=== PATIENT | female | born 1970 | race Two or more races ===

== ENCOUNTER 2017-09-11 10:27 | Inpatient (IN) | payer MEDICAID ==
[~2017-09-11] VITALS: Ht 175.3 cm; Wt 106.4 kg
[2017-09-11 11:46] LABS: Basophils # (auto) 0.1 uL; Basophils % (auto) 0.8 % (0.0-2.0); Eosinophils # (auto) 0.1 uL; Eosinophils % (auto) 1.7 % (0.0-7.0); Hematocrit 38.1 % (36.0-46.0); Hemoglobin 12.4 g/dL (12.2-16.2); Lymphocytes # (auto) 1.1 uL; Lymphocytes % (auto) 14.8 % (10.0-50.0); Mean Corpuscular Hgb Conc. 32.5 g/dL (32.0-36.0); Mean Corpuscular Volume 92.3 fL (80.0-100.0); Monocytes # (auto) 0.5 uL; Monocytes % (auto) 7.6 % (0.0-12.0); Neutrophils # (auto) 5.4 uL; Neutrophils % (auto) 75.1 % (37.0-80.0); Platelet Count (auto) 291 10^3/uL (140-450); Red Blood Cells 4.13 10^6/uL (4.0-5.20); Red Cell Distribution Width 14.3 % (11.8-14.3); White Blood Cell 7.2 10^3/uL (4.4-10.8)
[2017-09-11 11:49] LABS: Albumin 3.8 g/dL (3.4-5.0); BUN/Creatinine Ratio 13.9; Bilirubin, Total 0.2 mg/dL (0.2-1.0); Calcium 8.4 mg/dL (8.5-10.1); Potassium 3.9 mmol/L (3.5-5.1); Total Protein 7.5 g/dL (6.4-8.2)
[2017-09-11] MEDS ORDERED: SODIUM CHLORIDE 0.9% 1,000 ML IVB ONE (12:39)
[2017-09-11 14:00] LABS: Magnesium 2.5 mg/dL (1.6-2.6)
[2017-09-11 14:43] LABS: INR 0.95 (0.9-1.15); Partial Thromboplastin Time 21.7 sec (22.64-33.71); Prothrombin Time 10.4 sec (9.37-12.3)
[2017-09-11 15:49] LABS: Urine Bacteria MANY /hpf (None Seen); Urine Blood Negative /uL (Negative); Urine Mucus FEW (None Seen); Urine Specific Gravity 1.019 (1.001-1.035); Urine WBC 21 /hpf (0 - 5); Urine WBC Clumps PRESENT /hpf (None Seen)
[2017-09-11] MEDS ORDERED: LACTULOSE 20Gm/30ML SOLN PO PRN (17:15)
[2017-09-11] MEDS ORDERED: LORazepam 0.5 MG TAB PO PRN (17:15)
[2017-09-11] MEDS ORDERED: NITROGLYCERIN 0.4 MG SL TAB SL PRN (17:15)
[2017-09-11] MEDS ORDERED: DEXTROSE (50%) 50ML SYRG IV PRN (17:15)
[2017-09-11] MEDS ORDERED: PROMETHAZINE HCL 25 MG/ML 1ML IV PRN (17:15)
[2017-09-11] MEDS ORDERED: TEMAZEPAM 15 MG CAP PO PRN (17:15)
[2017-09-11] MEDS ORDERED: cefTRIAXone 1GM/10ml IVPUSH 10 ML IV ONE (17:15)
[2017-09-11] MEDS ORDERED: ACETAMINOPHEN 500 MG TAB PO PRN (17:15)
[2017-09-11] MEDS ORDERED: MORPHINE SULFATE 4 MG/ML SYR/VIAL IV PRN (17:15)
[2017-09-11] MEDS ORDERED: HYDROcodone-ACET 5/325MG TAB PO PRN (17:15)
[2017-09-11 17:40] LABS: Folate (Folic Acid) > 24.00 ng/mL (5.38-24)
[2017-09-11] MEDS: SODIUM CHLORIDE 0.9% 1,000 ML IV SCH ×2 (18:26→21:41)
[2017-09-11] MEDS: ACCU-CHEK COMFORT CURVE STRIP VI SCH (18:54)
[2017-09-11 18:56] LABS: Albumin 3.7 g/dL (3.4-5.0); BUN/Creatinine Ratio 16.4; Bilirubin, Total 0.3 mg/dL (0.2-1.0); Calcium 8.1 mg/dL (8.5-10.1); Potassium 3.9 mmol/L (3.5-5.1); Total Protein 7.4 g/dL (6.4-8.2)
[2017-09-11 19:00] LABS: Alcohol, Urine < 3.0 mg/dL (0-5); Amphetamine Screen, Urine NEGATIVE (NEGATIVE); Barbiturate Scree,Urine NEGATIVE (NEGATIVE); Benzodiazephine Screen, Urine POSITIVE (NEGATIVE); Cannabinoid Screen, Urine NEGATIVE (NEGATIVE); Cocaine Screen, Urine NEGATIVE (NEGATIVE); Opiate Scree,Urine NEGATIVE (NEGATIVE); Phencyclidine Screen, Urine NEGATIVE (NEGATIVE)
[2017-09-11] MEDS: MORPHINE SULFATE 4 MG/ML SYR/VIAL IV PRN (21:40)
[2017-09-11 23:00] VITALS: BP 144/73
[2017-09-12] MEDS: ACCU-CHEK COMFORT CURVE STRIP VI SCH ×3 (00:19→11:43)
[2017-09-12] MEDS ORDERED: TRAZ-181 PO (00:48)
[2017-09-12] MEDS ORDERED: ZOLP10TA PO (00:48)
[2017-09-12] MEDS ORDERED: ALPR1TAB2 PO (00:48)
[2017-09-12] MEDS ORDERED: SERT-135 PO ×2 (00:48→09:14)
[2017-09-12 01:19] VITALS: BP 144/73
[2017-09-12] MEDS: MORPHINE SULFATE 4 MG/ML SYR/VIAL IV PRN ×2 (03:35→08:24)
[2017-09-12 05:12] VITALS: BP 116/67
[2017-09-12 06:25] LABS: Albumin 3.6 g/dL (3.4-5.0); Calcium 8.7 mg/dL (8.5-10.1)
[2017-09-12 06:28] LABS: Bilirubin, Total 0.2 mg/dL (0.2-1.0)
[2017-09-12 09:00] VITALS: BP 143/81
[2017-09-12] MEDS ORDERED: cefTRIAXone 1GM/10ml IVPUSH 10 ML IV SCH (09:00)
[2017-09-12] MEDS ORDERED: ATOR20TA PO (09:14)
[2017-09-12] MEDS: SODIUM CHLORIDE 0.9% 1,000 ML IV SCH (09:25)
[2017-09-12] MEDS ORDERED: ENOXAPARIN SOD 40 MG/0.4 ML SYRINGE SC SCH (10:00)
[2017-09-12] MEDS ORDERED: ASPirin 81 mg TAB PO SCH (10:00)
[2017-09-12] MEDS ORDERED: PANTOPRAZOLE 40 MG TAB PO SCH (10:00)
[2017-09-12] MEDS ORDERED: SERTRALINE HCL 50 MG TAB PO SCH (11:00)
[2017-09-12] MEDS ORDERED: ALPRAZolam 0.5 MG TAB PO PRN (11:00)
[2017-09-12 13:00] VITALS: BP 140/87
[2017-09-12 17:00] VITALS: BP 114/48
[2017-09-12] MEDS ORDERED: AMOXICILLIN/CLAVUL 875 MG TAB PO SCH (22:00)
== END 2017-09-12 17:10 | disposition left against medical advice (07) | DRG 463 ==
LOC: EDBD 10:27 → EDUNIT# 10:27 → ER 10:27 → TELE 10:28 → TELE-WESTW 20:39
PROVIDERS: ADMIT Internal Medicine; ATTEND Internal Medicine
DX: N39.0 Urinary tract infection, site not specified (principal); N17.0 Acute kidney failure with tubular necrosis; I95.1 Orthostatic hypotension; E86.0 Dehydration; E66.3 Overweight; E78.5 Hyperlipidemia, unspecified; F32.9 Major depressive disorder, single episode, unspecified; G47.00 Insomnia, unspecified; G89.29 Other chronic pain; R29.6 Repeated falls; M54.9 Dorsalgia, unspecified; D32.0 Benign neoplasm of cerebral meninges; S09.8XXA Other specified injuries of head, initial encounter; K59.00 Constipation, unspecified; F41.9 Anxiety disorder, unspecified; W18.39XA Other fall on same level, initial encounter; R73.9 Hyperglycemia, unspecified; B95.2 Enterococcus as the cause of diseases classified elsewhere; Z53.21 Procedure and treatment not carried out due to patient leaving prior to being seen by health care provider; Z90.49 Acquired absence of other specified parts of digestive tract; Z82.49 Family history of ischemic heart disease and other diseases of the circulatory system; Z68.34 Body mass index [BMI] 34.0-34.9, adult; Y93.89 Activity, other specified; Y92.89 Other specified places as the place of occurrence of the external cause; Y99.8 Other external cause status
CPT/HCPCS: 36415; 70450; 70551; 71045; 76775; 80053; 80307; 81001; 82550; 82607; 82746; 82962; 83036; 83735; 84443; 84484; 85025; 85610; 85652; 85730; 87086; 87088; 87186; 93005; 93306; 93886; 94761; 96361; 96374

== ENCOUNTER 2017-10-15 12:08 | Emergency (ER) | payer MEDICAID ==
[~2017-10-15] VITALS: Ht 177.8 cm; Wt 104.3 kg
[~2017-10-15 12:08] MED LIST: ALPR1TAB2 PO; ATOR20TA PO; SERT-135 PO; TRAZ-181 PO; ZOLP10TA PO
[2017-10-15 14:53] LABS: Urine Bacteria NONE SEEN /hpf (None Seen); Urine Blood Negative /uL (Negative); Urine Specific Gravity 1.014 (1.001-1.035); Urine WBC 1 /hpf (0 - 5)
[2017-10-15 15:59] VITALS: BP 145/80
== END 2017-10-15 15:53 | disposition home or self-care (01) ==
LOC: EDBD 12:08 → ER 12:08
DX: R10.30 Lower abdominal pain, unspecified (principal); Z46.82 Encounter for fitting and adjustment of non-vascular catheter; Z90.49 Acquired absence of other specified parts of digestive tract
CPT/HCPCS: 51702; 81001

== ENCOUNTER 2020-10-21 13:10 | Inpatient (IN) | payer MEDICAID ==
[~2020-10-21] VITALS: Ht 172.7 cm; Wt 99.8 kg
[~2020-10-21 13:10] MED LIST changes: -SERT-135 PO; +SERT100T PO
[2020-10-21] MEDS ORDERED: SODIUM CHLORIDE 0.9% 1,000 ML IV ONE (13:30)
[2020-10-21 14:32] LABS: Basophils # (auto) 0 10 ^3/uL (0-0.2); Basophils % (auto) 0.7 % (0.0-2.0); Eosinophils # (auto) 0.2 10 ^3/uL (0-0.8); Eosinophils % (auto) 3.4 % (0.0-7.0); Hemoglobin 11.7 g/dL (12.2-16.2); Lymphocytes # (auto) 1.5 10 ^3/uL (0.4-5.4); Lymphocytes % (auto) 28.2 % (10.0-50.0); Mean Corpuscular Hemoglobin 30.4 pg (28.0-32.0); Mean Corpuscular Hgb Conc. 33.6 g/dL (32.0-36.0); Mean Corpuscular Volume 90.6 fL (80.0-100.0); Monocytes # (auto) 0.5 10 ^3/uL (0-1.3); Monocytes % (auto) 9.4 % (0.0-12.0); Neutrophils # (auto) 3.1 10 ^3/uL (1.6-8.6); Neutrophils % (auto) 58.3 % (37.0-80.0); Platelet Count (auto) 235 10^3/uL (140-450); Red Blood Cells 3.86 10^6/uL (4.0-5.20); Red Cell Distribution Width 14.4 % (11.8-14.3); White Blood Cell 5.3 10^3/uL (4.4-10.8)
[2020-10-21 14:37] LABS: Albumin 3.3 g/dL (3.4-5.0); Anion Gap 4 (5-15); Blood Urea Nitrogen 30 mg/dL (7-18); Calcium 7.9 mg/dL (8.5-10.1); Carbon Dioxide 24 mmol/L (21-32); Chloride 112 mmol/L (98-107); Glucose 95 mg/dL (74-106); Magnesium 2.6 mg/dL (1.6-2.6); Potassium 4.5 mmol/L (3.5-5.1); Sodium 140 mmol/L (136-145)
[2020-10-21 14:43] LABS: Alanine Aminotransferase 26 U/L (13-56); Alkaline Phosphatase 82 U/L (45-117); Aspartate Aminotransferase 11 U/L (15-37); BUN/Creatinine Ratio 16.3; Bilirubin, Total 0.3 mg/dL (0.2-1.0); GFR African American 37 mL/min; GFR Non-African American 31 mL/min; Total Protein 6.5 g/dL (6.4-8.2)
[2020-10-21] MEDS ORDERED: cefTRIAXone 1GM/50ML D5W 50 ML IV ONE (16:45)
[2020-10-21 17:27] LABS: Urine Bacteria NONE SEEN /hpf (None Seen); Urine Blood Negative /uL (Negative); Urine Hyaline Cast FEW /lpf (0 - 2); Urine Mucus FEW (None Seen); Urine Specific Gravity 1.007 (1.001-1.035); Urine WBC 3 /hpf (0 - 5)
[2020-10-21] MEDS ORDERED: ACETAMINOPHEN 650 mg PER 20.3 mL UD PO PRN (19:15)
[2020-10-21] MEDS: SODIUM CHLORIDE 0.9% 1,000 ML IV SCH (19:15)
[2020-10-21] MEDS ORDERED: ONDANSETRON HCL 4 MG/2 ML VIAL IV PRN (19:15)
[2020-10-21] MEDS ORDERED: LORazepam 2MG/ML-1ML VIAL IV PRN (21:30)
[2020-10-22] MEDS: SODIUM CHLORIDE 0.9% 1,000 ML IV SCH ×3 (02:00→16:42)
[2020-10-22 06:26] LABS: Basophils # (auto) 0 10 ^3/uL (0-0.2); Basophils % (auto) 0.7 % (0.0-2.0); Eosinophils # (auto) 0.3 10 ^3/uL (0-0.8); Eosinophils % (auto) 4.2 % (0.0-7.0); Hematocrit 36.9 % (36.0-46.0); Hemoglobin 12.3 g/dL (12.2-16.2); Lymphocytes # (auto) 1.9 10 ^3/uL (0.4-5.4); Lymphocytes % (auto) 31.7 % (10.0-50.0); Mean Corpuscular Hemoglobin 30.2 pg (28.0-32.0); Mean Corpuscular Hgb Conc. 33.4 g/dL (32.0-36.0); Mean Corpuscular Volume 90.3 fL (80.0-100.0); Monocytes # (auto) 0.5 10 ^3/uL (0-1.3); Monocytes % (auto) 7.9 % (0.0-12.0); Neutrophils # (auto) 3.3 10 ^3/uL (1.6-8.6); Neutrophils % (auto) 55.5 % (37.0-80.0); Nucleated Red Blood Cells % 0.2 %; Platelet Count (auto) 234 10^3/uL (140-450); Red Blood Cells 4.08 10^6/uL (4.0-5.20); Red Cell Distribution Width 14.2 % (11.8-14.3)
[2020-10-22 06:42] LABS: Albumin 3.3 g/dL (3.4-5.0); Calcium 7.9 mg/dL (8.5-10.1); Potassium 3.7 mmol/L (3.5-5.1)
[2020-10-22 06:45] LABS: BUN/Creatinine Ratio 19.8; Bilirubin, Total 0.3 mg/dL (0.2-1.0); Total Protein 6.9 g/dL (6.4-8.2)
[2020-10-22] MEDS ORDERED: traMADol HCL 50 MG TAB PO ONE (09:30)
[2020-10-22] MEDS ORDERED: levoFLOXacin 500MG 100 ML IV SCH (10:00)
[2020-10-22] MEDS ORDERED: PREG300C12 PO (10:16)
[2020-10-22] MEDS ORDERED: FENO145T27 PO (10:16)
[2020-10-22] MEDS ORDERED: PERCOT (10:17)
[2020-10-22] MEDS ORDERED: CYCL-611 PO (10:17)
[2020-10-22] MEDS ORDERED: FUR20T PO (10:17)
[2020-10-22 16:28] VITALS: BP 138/64
== END 2020-10-22 18:05 | disposition home health service (06) | DRG 207 ==
LOC: ER 13:10 → EDBD 13:10 → TELE 19:05
PROVIDERS: ADMIT Internal Medicine; ATTEND Internal Medicine
DX: I95.2 Hypotension due to drugs (principal); E11.22 Type 2 diabetes mellitus with diabetic chronic kidney disease; N17.9 Acute kidney failure, unspecified; I13.0 Hypertensive heart and chronic kidney disease with heart failure and stage 1 through stage 4 chronic kidney disease, or unspecified chronic kidney disease; I50.9 Heart failure, unspecified; E66.01 Morbid (severe) obesity due to excess calories; N18.30 Chronic kidney disease, stage 3 unspecified; R55 Syncope and collapse; E03.9 Hypothyroidism, unspecified; F41.9 Anxiety disorder, unspecified; Z20.822 Contact with and (suspected) exposure to COVID-19; E78.5 Hyperlipidemia, unspecified; F17.210 Nicotine dependence, cigarettes, uncomplicated; F32.9 Major depressive disorder, single episode, unspecified; Z68.33 Body mass index [BMI] 33.0-33.9, adult; Z90.49 Acquired absence of other specified parts of digestive tract; Z90.710 Acquired absence of both cervix and uterus; Z82.49 Family history of ischemic heart disease and other diseases of the circulatory system; T46.5X5A Adverse effect of other antihypertensive drugs, initial encounter; N28.1 Cyst of kidney, acquired
CPT/HCPCS: 36415; 70450; 70551; 71045; 74176; 80053; 81001; 83735; 84443; 84484; 85025; 87040; 87086; 87426; 96361; 96365; 99291; G0378; J0696; J1956

== ENCOUNTER 2021-02-28 00:59 | Emergency (ER) | payer MEDICAID ==
[~2021-02-28] VITALS: Ht 177.8 cm; Wt 81.6 kg
[~2021-02-28 00:59] MED LIST changes: +CYCL-611 PO; +FENO145T27 PO; +PERCOT; +PREG300C12 PO; -TRAZ-181 PO; -ZOLP10TA PO
[2021-02-28 02:23] LABS: Basophils # (auto) 0.1 10 ^3/uL (0-0.2); Basophils % (auto) 0.7 % (0.0-2.0); Eosinophils # (auto) 0.4 10 ^3/uL (0-0.8); Eosinophils % (auto) 4.8 % (0.0-7.0); Hematocrit 36.4 % (36.0-46.0); Hemoglobin 12.4 g/dL (12.2-16.2); Lymphocytes # (auto) 2.1 10 ^3/uL (0.4-5.4); Lymphocytes % (auto) 28.9 % (10.0-50.0); Mean Corpuscular Hemoglobin 30.5 pg (28.0-32.0); Mean Corpuscular Hgb Conc. 33.9 g/dL (32.0-36.0); Mean Corpuscular Volume 89.8 fL (80.0-100.0); Monocytes # (auto) 0.7 10 ^3/uL (0-1.3); Monocytes % (auto) 9.6 % (0.0-12.0); Neutrophils # (auto) 4.1 10 ^3/uL (1.6-8.6); Red Blood Cells 4.05 10^6/uL (4.0-5.20); White Blood Cell 7.3 10^3/uL (4.4-10.8)
[2021-02-28 02:41] LABS: Albumin 3.3 g/dL (3.4-5.0); Anion Gap 4 (5-15); Blood Urea Nitrogen 25 mg/dL (7-18); Calcium 8.4 mg/dL (8.5-10.1); Carbon Dioxide 27 mmol/L (21-32); Chloride 110 mmol/L (98-107); Glucose 144 mg/dL (74-106); Sodium 141 mmol/L (136-145)
[2021-02-28 02:43] LABS: Alanine Aminotransferase 32 U/L (13-56); Aspartate Aminotransferase 20 U/L (15-37); BUN/Creatinine Ratio 24.3; GFR African American 72 mL/min; GFR Non-African American 60 mL/min
[2021-02-28 02:47] LABS: Alkaline Phosphatase 122 U/L (45-117); Bilirubin, Total 0.2 mg/dL (0.2-1.0); Total Protein 7.4 g/dL (6.4-8.2)
[2021-02-28 04:11] LABS: Urine Bacteria NONE SEEN /hpf (None Seen); Urine Blood Negative /uL (Negative); Urine Specific Gravity 1.037 (1.001-1.035); Urine WBC 1 /hpf (0 - 5)
[2021-02-28] MEDS ORDERED: diazePAM 2 MG TAB PO ONE (04:45)
[2021-02-28] MEDS ORDERED: diazePAM 2 MG TAB ONE (05:11)
[2021-02-28] MEDS ORDERED: OXYCODONE W/ ACETAMINOPHEN 5/325MG TABLET PO STA (05:13)
[2021-02-28] MEDS ORDERED: diazePAM 2 MG TAB PO STA (05:13)
[2021-02-28 09:15] VITALS: BP 114/68
== END 2021-02-28 09:22 | disposition home or self-care (01) ==
LOC: ER 00:59 → EDBD 00:59 → ER 09:22
DX: R60.0 Localized edema (principal); E88.09 Other disorders of plasma-protein metabolism, not elsewhere classified; I11.0 Hypertensive heart disease with heart failure; I50.9 Heart failure, unspecified; F17.210 Nicotine dependence, cigarettes, uncomplicated; Z90.49 Acquired absence of other specified parts of digestive tract; Z90.710 Acquired absence of both cervix and uterus; Z79.899 Other long term (current) drug therapy; Z20.822 Contact with and (suspected) exposure to COVID-19
CPT/HCPCS: 36415; 71045; 74177; 80053; 81001; 83605; 83880; 84484; 85025; 85379; 87040; 87426; 93005

== ENCOUNTER 2021-12-29 21:16 | Emergency (ER) | payer MEDICAID ==
[~2021-12-29 21:16] MED LIST changes: +ASPI-318 PO; +ATOR20TA50 PO; +BENA5TAB9 PO; +FUR20T PO; +PRAZ2CAP2 PO; +SERT-160 PO; +TIOT1AER INH
[2021-12-29 22:37] VITALS: BP 150/84
== END 2021-12-30 23:45 | disposition left against medical advice (07) ==
LOC: ER 21:16 → EDBD 21:16 → ER 12-30 23:45
DX: M79.669 Pain in unspecified lower leg (principal); Z53.21 Procedure and treatment not carried out due to patient leaving prior to being seen by health care provider

== ENCOUNTER 2022-11-03 16:07 | Inpatient (IN) | payer MEDICAID ==
[~2022-11-03] VITALS: Ht 165.1 cm; Wt 135.0 kg
[2022-11-03 16:59] LABS: Basophils # (auto) 0.1 10 ^3/uL (0-0.2); Basophils % (auto) 0.7 % (0.0-2.0); Eosinophils # (auto) 0.3 10 ^3/uL (0-0.8); Eosinophils % (auto) 2.6 % (0.0-7.0); Hematocrit 35.4 % (36.0-46.0); Lymphocytes # (auto) 2.7 10 ^3/uL (0.4-5.4); Lymphocytes % (auto) 28.2 % (10.0-50.0); Mean Corpuscular Hemoglobin 30.5 pg (28.0-32.0); Mean Corpuscular Hgb Conc. 33.9 g/dL (32.0-36.0); Monocytes % (auto) 10.4 % (0.0-12.0); Neutrophils # (auto) 5.6 10 ^3/uL (1.6-8.6); Neutrophils % (auto) 58.1 % (37.0-80.0); Nucleated Red Blood Cells % 0.1 %; Red Blood Cells 3.93 10^6/uL (4.0-5.20); Red Cell Distribution Width 15.8 % (11.8-14.3); White Blood Cell 9.7 10^3/uL (4.4-10.8)
[2022-11-03] MEDS ORDERED: SODIUM CHLORIDE 0.9% 2,000 ML IV ONE (17:00)
[2022-11-03] MEDS ORDERED: NALOXONE HCL 1MG/ML 2ML SYRINGE IV ONE (17:00)
[2022-11-03] MEDS ORDERED: HYDROCORTISONE SOD SUCC 100 MG/2ML INJ VIAL IV ONE (17:00)
[2022-11-03] MEDS ORDERED: NOREPINEPHRINE 8 MG/250ML KIT 250 ML IV SCH ×2 (17:00)
[2022-11-03] MEDS ORDERED: NOREPINEPHRINE 8 MG/250ML KIT 250 ML IV ONE (17:03)
[2022-11-03 17:15] LABS: INR 1.03 (0.9-1.15); Partial Thromboplastin Time 26.5 sec (24.6-33.4)
[2022-11-03 17:16] LABS: Albumin 3.5 g/dL (3.4-5.0); Magnesium 2.6 mg/dL (1.6-2.6); Potassium 5.1 mmol/L (3.5-5.1)
[2022-11-03 17:21] LABS: BUN/Creatinine Ratio 12.9 (10.0-20.0); Bilirubin, Total 0.6 mg/dL (0.2-1.0); Total Protein 6.3 g/dL (6.4-8.2)
[2022-11-03] MEDS ORDERED: ALBUTEROL SULF 2.5 MG/0.5ML(0.5%) NEB SOLN NEB ONE (18:00)
[2022-11-03] MEDS ORDERED: IPRATROPIUM BROM 0.5 MG/2.5ML INH SOL NEB ONE (18:00)
[2022-11-03] MEDS ORDERED: KETAMINE 50mg/ML 10ml Vial (500mg/10ml) IV ONE ×3 (20:30→22:00)
[2022-11-03] MEDS ORDERED: DOCUSATE SOD 100 MG CAP PO PRN (23:15)
[2022-11-03] MEDS ORDERED: IBUPROFEN 600 MG TAB PO PRN (23:15)
[2022-11-03] MEDS ORDERED: ONDANSETRON HCL 4 MG/2 ML VIAL IV PRN (23:15)
[2022-11-03] MEDS ORDERED: NITROGLYCERIN 0.4 MG SL TAB SL PRN (23:45)
[2022-11-03] MEDS ORDERED: MORPHINE SULFATE INJ 2 MG/ml SYRG IV PRN (23:45)
[2022-11-04] VITALS (24 sets, daily range): BP systolic 73–141; BP diastolic 38–124
[2022-11-04 00:42] LABS: Urine Bacteria FEW /hpf (None Seen); Urine Blood Negative /uL (Negative); Urine Hyaline Cast FEW /lpf (0 - 2); Urine Specific Gravity 1.009 (1.001-1.035); Urine WBC <1 /hpf (0 - 5)
[2022-11-04 01:01] LABS: Alcohol, Urine < 3.0 mg/dL (0-10); Barbiturate Scree,Urine POSITIVE (NEGATIVE); Cannabinoid Screen, Urine NEGATIVE (NEGATIVE)
[2022-11-04 01:12] LABS: Amphetamine Screen, Urine NEGATIVE (NEGATIVE); Benzodiazephine Screen, Urine POSITIVE (NEGATIVE); Cocaine Screen, Urine NEGATIVE (NEGATIVE); Opiate Scree,Urine POSITIVE (NEGATIVE); Phencyclidine Screen, Urine NEGATIVE (NEGATIVE)
[2022-11-04] MEDS: SODIUM CHLOR 0.9% PF (SALINE LOCK) 10ML VIAL/SYR IV SCH ×2 (05:30→14:03)
[2022-11-04 06:22] LABS: Basophils # (auto) 0.1 10 ^3/uL (0-0.2); Basophils % (auto) 0.6 % (0.0-2.0); Eosinophils # (auto) 0.3 10 ^3/uL (0-0.8); Eosinophils % (auto) 2.3 % (0.0-7.0); Hematocrit 37.4 % (36.0-46.0); Hemoglobin 12.6 g/dL (12.2-16.2); Lymphocytes # (auto) 2.7 10 ^3/uL (0.4-5.4); Lymphocytes % (auto) 21.5 % (10.0-50.0); Mean Corpuscular Hemoglobin 30.7 pg (28.0-32.0); Mean Corpuscular Hgb Conc. 33.7 g/dL (32.0-36.0); Monocytes # (auto) 1.2 10 ^3/uL (0-1.3); Monocytes % (auto) 9.4 % (0.0-12.0); Neutrophils # (auto) 8.3 10 ^3/uL (1.6-8.6); Neutrophils % (auto) 66.2 % (37.0-80.0); Red Blood Cells 4.11 10^6/uL (4.0-5.20); Red Cell Distribution Width 15.4 % (11.8-14.3); White Blood Cell 12.6 10^3/uL (4.4-10.8)
[2022-11-04] MEDS: ALBUTEROL SULF 2.5 MG/0.5ML(0.5%) NEB SOLN NEB PRN ×3 (06:34→15:03)
[2022-11-04] MEDS: IPRATROPIUM BROM 0.5 MG/2.5ML INH SOL NEB PRN ×3 (06:34→15:03)
[2022-11-04 06:43] LABS: Potassium 4.6 mmol/L (3.5-5.1)
[2022-11-04 06:48] LABS: Albumin 3.5 g/dL (3.4-5.0); BUN/Creatinine Ratio 13.4 (10.0-20.0); Calcium 8.3 mg/dL (8.5-10.1)
[2022-11-04 06:54] LABS: Bilirubin, Total 0.5 mg/dL (0.2-1.0); Total Protein 7.5 g/dL (6.4-8.2)
[2022-11-04] MEDS ORDERED: FUROSEMIDE 20 MG/2 ML VIAL IV ONE (07:00)
[2022-11-04] MEDS ORDERED: FAMOTIDINE (10MG/ML) 2ML VL IV SCH (10:00)
[2022-11-04] MEDS ORDERED: ASPirin 81 mg TAB PO SCH (10:00)
[2022-11-04] MEDS ORDERED: SODIUM CHLORIDE 0.9% 1,000 ML IV SCH (15:15)
[2022-11-04] MEDS ORDERED: ATORVASTATIN 20 MG TAB PO SCH (22:00)
== END 2022-11-04 16:05 | disposition left against medical advice (07) | DRG 812 ==
LOC: EDBD 16:07 → ER 16:07 → TELE 23:33
PROVIDERS: ADMIT Nurse Practitioner Family; ATTEND Nurse Practitioner Family
PROC: 06HM33Z Insertion of Infusion Device into Right Femoral Vein, Percutaneous Approach (ICD-10-PCS; principal; 2022-11-03)
PROC: B54BZZA Ultrasonography of Right Lower Extremity Veins, Guidance (ICD-10-PCS; 2022-11-03)
DX: T42.4X1A Poisoning by benzodiazepines, accidental (unintentional), initial encounter (principal); N17.0 Acute kidney failure with tubular necrosis; G92.8 Other toxic encephalopathy; I95.89 Other hypotension; D63.8 Anemia in other chronic diseases classified elsewhere; E83.51 Hypocalcemia; D63.1 Anemia in chronic kidney disease; E87.1 Hypo-osmolality and hyponatremia; E86.0 Dehydration; E78.00 Pure hypercholesterolemia, unspecified; F17.210 Nicotine dependence, cigarettes, uncomplicated; I12.9 Hypertensive chronic kidney disease with stage 1 through stage 4 chronic kidney disease, or unspecified chronic kidney disease; N18.32 Chronic kidney disease, stage 3b; F32.A Depression, unspecified; H53.8 Other visual disturbances; T40.601A Poisoning by unspecified narcotics, accidental (unintentional), initial encounter; T42.3X1A Poisoning by barbiturates, accidental (unintentional), initial encounter; Z53.29 Procedure and treatment not carried out because of patient's decision for other reasons; Z90.710 Acquired absence of both cervix and uterus; Z82.49 Family history of ischemic heart disease and other diseases of the circulatory system; Z90.49 Acquired absence of other specified parts of digestive tract; Y92.89 Other specified places as the place of occurrence of the external cause
CPT/HCPCS: 36415; 36556; 70450; 71045; 71250; 72125; 74176; 80053; 80307; 81001; 82962; 83605; 83735; 83880; 84484; 85025; 85379; 85610; 85730; 87040; 93005; 94640; 96374; G0378; J3490

== ENCOUNTER 2023-01-18 19:19 | Inpatient (IN) | payer MEDICAID ==
[~2023-01-18] VITALS: Ht 170.2 cm; Wt 112.0 kg
[~2023-01-18 19:19] MED LIST changes: -ASPI-318 PO; +ASPI-764 PO
[2023-01-18 19:25] VITALS: PULSE 69; RESP 25; O2SAT 98
[2023-01-18 19:42] LABS: Base Excess -11.4 mmol/L (-2.0-2.0)
[2023-01-18] MEDS ORDERED: NALOXONE HCL 0.4 MG/ML VIAL IV ONE (19:45)
[2023-01-18] MEDS ORDERED: ONDANSETRON HCL 4 MG/2 ML VIAL IV ONE (19:45)
[2023-01-18] MEDS ORDERED: SODIUM CHLORIDE 0.9% 1,000 ML IV ONE (19:45)
[2023-01-18 20:14] LABS: Urine Bacteria FEW /hpf (None Seen); Urine Blood 2+ /uL (Negative); Urine Clarity HAZY (Clear); Urine Color Brown (Yellow); Urine Hyaline Cast MOD /lpf (0 - 2); Urine Mucus FEW (None Seen); Urine Protein, UAD 1+ (Negative); Urine Specific Gravity 1.018 (1.001-1.035); Urine WBC 12 /hpf (0 - 5)
[2023-01-18 20:17] LABS: Alcohol, Urine < 3.0 mg/dL (0-10); Amphetamine Screen, Urine NEGATIVE (NEGATIVE); Barbiturate Scree,Urine POSITIVE (NEGATIVE); Benzodiazephine Screen, Urine NEGATIVE (NEGATIVE); Cannabinoid Screen, Urine NEGATIVE (NEGATIVE); Cocaine Screen, Urine NEGATIVE (NEGATIVE)
[2023-01-18 20:25] LABS: Opiate Scree,Urine POSITIVE (NEGATIVE); Phencyclidine Screen, Urine NEGATIVE (NEGATIVE)
[2023-01-18 20:26] LABS: Basophils # (auto) 0 10 ^3/uL (0-0.2); Basophils % (auto) 0.2 % (0.0-2.0); Eosinophils # (auto) 0 10 ^3/uL (0-0.8); Eosinophils % (auto) 0.3 % (0.0-7.0); Hematocrit 35.4 % (36.0-46.0); Hemoglobin 11.1 g/dL (12.2-16.2); Lymphocytes # (auto) 0.7 10 ^3/uL (0.4-5.4); Lymphocytes % (auto) 7.6 % (10.0-50.0); Mean Corpuscular Hgb Conc. 31.5 g/dL (32.0-36.0); Mean Corpuscular Volume 85.8 fL (80.0-100.0); Monocytes # (auto) 0.6 10 ^3/uL (0-1.3); Neutrophils % (auto) 85.9 % (37.0-80.0); Nucleated Red Blood Cells % 0.5 %; Red Blood Cells 4.13 10^6/uL (4.0-5.20); Red Cell Distribution Width 18.3 % (11.8-14.3); White Blood Cell 9.4 10^3/uL (4.4-10.8)
[2023-01-18 20:48] LABS: Salicylate 5.4 mg/dL (2.8-20.0)
[2023-01-18 20:53] LABS: INR 1.97 (0.9-1.15); Partial Thromboplastin Time 30.1 SEC (24.5-34.5); Prothrombin Time 19.8 sec (9.3-11.8)
[2023-01-18 21:00] LABS: Acetaminophen < 2.0 ug/mL (10-30)
[2023-01-18 21:37] LABS: Albumin 3.5 g/dL (3.4-5.0); Anion Gap 21 (5-15); Blood Alcohol < 3.0 mg/dL (<10); Carbon Dioxide 16 mmol/L (21-32); Chloride 100 mmol/L (98-107); Glucose 120 mg/dL (74-106); Sodium 137 mmol/L (136-145)
[2023-01-18] MEDS ORDERED: NITROGLYCERIN 0.4 MG SL TAB SL ONE (21:45)
[2023-01-18] MEDS ORDERED: ASPirin-EC 81 mg tab PO ONE (21:45)
[2023-01-18] MEDS ORDERED: FUROSEMIDE 40 MG/4 ML VIAL IV ONE (21:45)
[2023-01-18 21:54] LABS: Alanine Aminotransferase 7123 U/L (13-56); Alkaline Phosphatase 275 U/L (45-117); Aspartate Aminotransferase 5180 U/L (15-37); BUN/Creatinine Ratio 14.3 (10.0-20.0); Bilirubin, Total 1.8 mg/dL (0.2-1.0); GFR African American 6 mL/min; GFR Non-African American 5 mL/min; Total Protein 7.8 g/dL (6.4-8.2)
[2023-01-18 22:07] LABS: Blood Urea Nitrogen 124 mg/dL (7-18); Calcium 5.4 mg/dL (8.5-10.1); Potassium 6.1 mmol/L (3.5-5.1)
[2023-01-18] MEDS ORDERED: ASPirin 300 MG RECTAL SUPP PR ONE (22:15)
[2023-01-18] MEDS ORDERED: ALBUTEROL SULF 2.5 MG/0.5ML(0.5%) NEB SOLN NEB ONE (22:30)
[2023-01-18] MEDS ORDERED: InsuLIN REG 1unit/0.01ml Soln (100units/ml) IV ONE (22:30)
[2023-01-18] MEDS ORDERED: SODIUM BICARBONATE 8.4% INJ 50ML SYRINGE IV ONE (22:30)
[2023-01-18] MEDS ORDERED: CALCIUM CHL 100MG/ML 1,000 MG in D5W 5% 100 ML IV ONE (22:30)
[2023-01-18] MEDS ORDERED: DEXTROSE (50%) 50ML SYRG IV ONE (22:30)
[2023-01-18] MEDS ORDERED: SODIUM ZIRCONIUM CYCL 10 GM PAK PO ONE (22:30)
[2023-01-18] MEDS ORDERED: PIPERACILLIN-TAZOB 3.375GM 100 ML IV ONE (22:30)
[2023-01-18] MEDS ORDERED: FUROSEMIDE 20 MG/2 ML VIAL IV ONE (22:30)
[2023-01-18] MEDS ORDERED: VANCOMYCIN PER PHARMACY 0 MG IV SCH (22:30)
[2023-01-18 22:32] LABS: Lactic Acid w/Reflex 2.1 mmol/L (0.4-2.0)
[2023-01-18] MEDS ORDERED: CALCIUM GLUC 1,000mg/50ml-NS 50 ML IV ONE ×2 (23:00)
[2023-01-18] MEDS ORDERED: VANCOMYCIN 1GM/250ML 250 ML IV ONE (23:00)
[2023-01-19] VITALS (76 sets, daily range): BP systolic 77–183; BP diastolic 37–68; PULSE 71–87; RESP 8–29; TEMP 93.9–100.8; O2SAT 91–100
[2023-01-19] MEDS ORDERED: ETOMIDATE (2MG/ML) 20ML VIAL IV ONE (02:15)
[2023-01-19] MEDS ORDERED: PROPOFOL 100 ML IV SCH (02:15)
[2023-01-19] MEDS ORDERED: ROCURONIUM 10MG/ML 10ML VIAL IV ONE (02:15)
[2023-01-19] MEDS ORDERED: MIDAZOLAM DRIP 50 mg/50mL 50 ML IV ONE (02:16)
[2023-01-19] MEDS: MIDAZOLAM DRIP 50 mg/50mL 50 ML IV SCH ×3 (02:24→17:22)
[2023-01-19] MEDS ORDERED: NITROGLYCERIN 0.4 MG SL TAB SL PRN (02:45)
[2023-01-19] MEDS ORDERED: MORPHINE SULFATE INJ 2 MG/ml SYRG IV PRN (02:45)
[2023-01-19] MEDS ORDERED: ONDANSETRON HCL 4 MG/2 ML VIAL IV PRN (02:45)
[2023-01-19] MEDS ORDERED: SODIUM BICARBONATE 8.4 % INJ 50ML VIAL IV ONE (04:30)
[2023-01-19 04:33] LABS: Base Excess -3.8 mmol/L (-2.0-2.0)
[2023-01-19] MEDS: NOREPINEPHRINE 8 MG/250ML KIT 250 ML IV SCH (05:27)
[2023-01-19] MEDS ORDERED: NOREPINEPHRINE 8 MG/250ML KIT 250 ML IV ONE (05:28)
[2023-01-19] MEDS ORDERED: metroNIDAZOLE 500MG/100ML 100 ML IV SCH (06:00)
[2023-01-19] MEDS ORDERED: LACTULOSE 10g/15ml SOLN 473ML PR SCH (06:00)
[2023-01-19] MEDS: SODIUM CHLOR 0.9% PF (SALINE LOCK) 10ML VIAL/SYR IV SCH ×3 (06:13→23:01)
[2023-01-19] MEDS ORDERED: LACTULOSE 20Gm/30ML SOLN NG ONE (06:45)
[2023-01-19] MEDS ORDERED: FUROSEMIDE 40 MG/4 ML VIAL IV SCH (10:00)
[2023-01-19] MEDS ORDERED: FAMOTIDINE (10MG/ML) 2ML VL IV SCH (10:00)
[2023-01-19] MEDS ORDERED: OPTISON 3ml Vial for INJ IV ONE (10:11)
[2023-01-19] MEDS: HEPARIN SODIUM (PORCINE) 5000 UNITS/ML 1ML VIAL SC SCH ×2 (11:06→23:11)
[2023-01-19] MEDS ORDERED: SODIUM CHLORIDE 0.9% 1,000 ML IV ONE (11:45)
[2023-01-19 12:29] LABS: Albumin 2.8 g/dL (3.4-5.0); Potassium 4.4 mmol/L (3.5-5.1)
[2023-01-19 12:31] LABS: Base Excess -7.5 mmol/L (-2.0-2.0)
[2023-01-19 12:45] LABS: Bilirubin, Total 1.5 mg/dL (0.2-1.0); Total Protein 6.4 g/dL (6.4-8.2)
[2023-01-19 12:49] LABS: Calcium 5.7 mg/dL (8.5-10.1)
[2023-01-19] MEDS: SODIUM BICARBONATE 50ML VIAL 50 ML in SOD CHL 0.45% 1,000 ML IV SCH ×3 (13:12→23:52)
[2023-01-19] MEDS ORDERED: CALCIUM GLUC 1,000mg/50ml-NS 50 ML IV ONE (13:15)
[2023-01-19] MEDS: CEFEPIME 1GM/ 50ML 50 ML IV SCH (13:30)
[2023-01-19] MEDS: LACTULOSE 20Gm/30ML SOLN PO SCH ×2 (13:34→23:10)
[2023-01-19 15:18] LABS: Albumin 2.7 g/dL (3.4-5.0); Potassium 3.8 mmol/L (3.5-5.1)
[2023-01-19 15:20] LABS: Total Protein 6.1 g/dL (6.4-8.2)
[2023-01-19] MEDS ORDERED: DEXTROSE (50%) 50ML SYRG IV PRN (15:45)
[2023-01-19] MEDS: fentaNYL Drip 2500mCg/250mlNS 250 ML IV SCH (15:56)
[2023-01-19 15:57] LABS: BUN/Creatinine Ratio 20.3 (10.0-20.0)
[2023-01-19 15:58] LABS: Bilirubin, Total 1.6 mg/dL (0.2-1.0)
[2023-01-19] MEDS: ACCU-CHEK COMFORT CURVE STRIP VI SCH ×2 (17:56→23:59)
[2023-01-19] MEDS: InsuLIN REG 1unit/0.01ml Soln (100units/ml) SC SCH ×2 (17:56→23:59)
[2023-01-19] MEDS: PROPOFOL 100 ML IV SCH ×2 (18:15→23:02)
[2023-01-20] VITALS (112 sets, daily range): BP systolic 63–184; BP diastolic 34–75; PULSE 52–146; RESP 18–24; TEMP 97.7–100.2; O2SAT 95–100
[2023-01-20] MEDS: MIDAZOLAM DRIP 50 mg/50mL 50 ML IV SCH ×4 (01:00→20:25)
[2023-01-20 03:55] LABS: Basophils # (auto) 0 10 ^3/uL (0-0.2); Basophils % (auto) 0.4 % (0.0-2.0); Eosinophils # (auto) 0.2 10 ^3/uL (0-0.8); Eosinophils % (auto) 3.5 % (0.0-7.0); Hematocrit 29.5 % (36.0-46.0); Hemoglobin 9.5 g/dL (12.2-16.2); Lymphocytes # (auto) 0.9 10 ^3/uL (0.4-5.4); Lymphocytes % (auto) 18.1 % (10.0-50.0); Mean Corpuscular Hemoglobin 27.1 pg (28.0-32.0); Mean Corpuscular Volume 84.6 fL (80.0-100.0); Monocytes # (auto) 0.4 10 ^3/uL (0-1.3); Monocytes % (auto) 8.3 % (0.0-12.0); Neutrophils # (auto) 3.6 10 ^3/uL (1.6-8.6); Neutrophils % (auto) 69.7 % (37.0-80.0); Nucleated Red Blood Cells % 0.3 %; Red Blood Cells 3.49 10^6/uL (4.0-5.20); Red Cell Distribution Width 18.2 % (11.8-14.3); White Blood Cell 5.2 10^3/uL (4.4-10.8)
[2023-01-20 03:58] LABS: Albumin 2.4 g/dL (3.4-5.0); Calcium 6.6 mg/dL (8.5-10.1); Potassium 3.8 mmol/L (3.5-5.1)
[2023-01-20 03:59] LABS: INR 1.63 (0.9-1.15); Partial Thromboplastin Time 29.1 SEC (24.5-34.5); Prothrombin Time 16.6 sec (9.3-11.8)
[2023-01-20 04:10] LABS: BUN/Creatinine Ratio 23.7 (10.0-20.0); Bilirubin, Total 1.4 mg/dL (0.2-1.0)
[2023-01-20] MEDS: NOREPINEPHRINE 8 MG/250ML KIT 250 ML IV SCH (05:45)
[2023-01-20] MEDS: ACCU-CHEK COMFORT CURVE STRIP VI SCH ×3 (05:58→18:00)
[2023-01-20] MEDS: InsuLIN REG 1unit/0.01ml Soln (100units/ml) SC SCH ×3 (05:58→18:00)
[2023-01-20] MEDS: SODIUM CHLOR 0.9% PF (SALINE LOCK) 10ML VIAL/SYR IV SCH ×3 (05:58→21:51)
[2023-01-20] MEDS: IPRATROPIUM BROM 0.5 MG/2.5ML INH SOL NEB SCH ×3 (07:45→18:00)
[2023-01-20] MEDS: ALBUTEROL SULF 2.5 MG/0.5ML(0.5%) NEB SOLN NEB SCH ×3 (07:45→18:00)
[2023-01-20] MEDS: DOXYCYCLINE 100MG/250ML 250 ML IV SCH ×2 (08:27→19:15)
[2023-01-20] MEDS: PROPOFOL 100 ML IV SCH ×2 (10:03→19:27)
[2023-01-20] MEDS: LACTULOSE 20Gm/30ML SOLN PO SCH ×2 (10:04→21:46)
[2023-01-20] MEDS: CEFEPIME 1GM/ 50ML 50 ML IV SCH (10:04)
[2023-01-20] MEDS: PANTOPRAZOLE 40 MG/10 ML VIAL INJ IV SCH (10:04)
[2023-01-20] MEDS: HEPARIN SODIUM (PORCINE) 5000 UNITS/ML 1ML VIAL SC SCH ×2 (10:06→21:47)
[2023-01-20] MEDS: SODIUM BICARBONATE 50ML VIAL 50 ML in SOD CHL 0.45% 1,000 ML IV SCH (10:20)
[2023-01-20 11:00] LABS: Base Excess -4.8 mmol/L (-2.0-2.0)
[2023-01-20] MEDS: ACETYLCYSTEINE 20%(200MG/ML) SOL 4ML NEB SCH ×2 (12:00→18:01)
[2023-01-20] MEDS ORDERED: AMIODARONE HCL (50 MG/ ML) 3 ML VIAL IV ONE (12:26)
[2023-01-20] MEDS ORDERED: AMIODARONE 450mg/250ml AE 250 ML IV ONE (12:27)
[2023-01-20] MEDS ORDERED: AMIODARONE BOLUS KIT 100 ML IV ONE (12:30)
[2023-01-20] MEDS ORDERED: AMIODARONE 450mg/250ml AE 250 ML IV SCH (12:45)
[2023-01-20] MEDS ORDERED: PHENYLEPHRINE IV 250 ML IV SCH (13:00)
[2023-01-20] MEDS ORDERED: PHENYLEPHRINE IV 250 ML IV ONE (13:02)
[2023-01-20] MEDS ORDERED: ADENOSINE 6 MG/2 ML INJ IV ONE (13:10)
[2023-01-20 13:12] LABS: BUN/Creatinine Ratio 28.3 (10.0-20.0); Magnesium 2.3 mg/dL (1.6-2.6); Potassium 3.5 mmol/L (3.5-5.1)
[2023-01-20] MEDS ORDERED: POTASSIUM CHL 20MEQ/100ML 100 ML IV ONE (14:15)
[2023-01-20] MEDS: fentaNYL Drip 2500mCg/250mlNS 250 ML IV SCH ×2 (14:15→23:13)
[2023-01-20] MEDS: BUMETANIDE INJECTION 12.5 MG in GIVE UN-DILUTED 0 ML IV SCH (17:02)
[2023-01-20] MEDS: PHENYLEPHRINE IV 250 ML IV SCH (18:15)
[2023-01-20] MEDS: AMIODARONE 450mg/250ml AE 250 ML IV SCH (18:31)
[2023-01-21] VITALS (105 sets, daily range): BP systolic 80–223; BP diastolic 32–95; PULSE 47–87; RESP 11–27; TEMP 97.3–100.4; O2SAT 92–100
[2023-01-21] MEDS: ACETYLCYSTEINE 20%(200MG/ML) SOL 4ML NEB SCH ×4 (00:02→18:03)
[2023-01-21] MEDS: IPRATROPIUM BROM 0.5 MG/2.5ML INH SOL NEB SCH ×4 (00:02→18:03)
[2023-01-21] MEDS: ALBUTEROL SULF 2.5 MG/0.5ML(0.5%) NEB SOLN NEB SCH ×4 (00:02→18:03)
[2023-01-21] MEDS: ACCU-CHEK COMFORT CURVE STRIP VI SCH ×4 (00:31→18:12)
[2023-01-21] MEDS: PROPOFOL 100 ML IV SCH ×3 (00:36→17:26)
[2023-01-21] MEDS ORDERED: DOPamine 1600MCG/ML D5W 250 ML IV SCH (02:15)
[2023-01-21] MEDS: PHENYLEPHRINE IV 250 ML IV SCH ×3 (02:35→19:15)
[2023-01-21 04:23] LABS: Basophils # (auto) 0 10 ^3/uL (0-0.2); Basophils % (auto) 0.6 % (0.0-2.0); Eosinophils # (auto) 0.6 10 ^3/uL (0-0.8); Eosinophils % (auto) 9.1 % (0.0-7.0); Hemoglobin 10.2 g/dL (12.2-16.2); Lymphocytes # (auto) 1.2 10 ^3/uL (0.4-5.4); Lymphocytes % (auto) 19.1 % (10.0-50.0); Mean Corpuscular Hemoglobin 27.7 pg (28.0-32.0); Mean Corpuscular Hgb Conc. 30.1 g/dL (32.0-36.0); Mean Corpuscular Volume 91.9 fL (80.0-100.0); Monocytes # (auto) 0.5 10 ^3/uL (0-1.3); Monocytes % (auto) 7.5 % (0.0-12.0); Neutrophils % (auto) 63.7 % (37.0-80.0); Nucleated Red Blood Cells % 0.4 %; Red Cell Distribution Width 19.2 % (11.8-14.3); White Blood Cell 6.3 10^3/uL (4.4-10.8)
[2023-01-21 04:29] LABS: Potassium 3.6 mmol/L (3.5-5.1)
[2023-01-21 04:41] LABS: Albumin 2.4 g/dL (3.4-5.0); BUN/Creatinine Ratio 33.3 (10.0-20.0); Bilirubin, Total 1.7 mg/dL (0.2-1.0); Calcium 7.9 mg/dL (8.5-10.1); Total Protein 6.2 g/dL (6.4-8.2)
[2023-01-21] MEDS: InsuLIN REG 1unit/0.01ml Soln (100units/ml) SC SCH ×4 (05:45→18:00)
[2023-01-21] MEDS: SODIUM CHLOR 0.9% PF (SALINE LOCK) 10ML VIAL/SYR IV SCH ×3 (05:45→22:18)
[2023-01-21] MEDS: MIDAZOLAM DRIP 50 mg/50mL 50 ML IV SCH (06:10)
[2023-01-21] MEDS: DOXYCYCLINE 100MG/250ML 250 ML IV SCH ×2 (08:01→19:30)
[2023-01-21] MEDS: AMIODARONE 450mg/250ml AE 250 ML IV SCH (08:03)
[2023-01-21] MEDS ORDERED: EPINEPHrine HCL 1 MG/1 ML AMP ONE (08:10)
[2023-01-21] MEDS ORDERED: LIDOCAINE 2%HCL (LOCAL ANESTH.) INJ 20ML MDV ONE (08:10)
[2023-01-21] MEDS ORDERED: GLYCOPYRROLATE 0.2 MG/ML 1ML VIAL ONE (08:10)
[2023-01-21] MEDS ORDERED: LIDOCAINE 2% JELLY 11ml (GLYDO) ONE (08:10)
[2023-01-21] MEDS ORDERED: fentaNYL CITRATE 100 MCG/2 ML VL ONE (08:11)
[2023-01-21] MEDS ORDERED: MIDAZOLAM HCL 2MG/2ML 2ml VIAL (1mg/ml) ONE (08:11)
[2023-01-21] MEDS: BUMETANIDE INJECTION 12.5 MG in GIVE UN-DILUTED 0 ML IV SCH (08:34)
[2023-01-21 09:19] LABS: Base Excess 1.2 mmol/L (-2.0-2.0)
[2023-01-21] MEDS ORDERED: Nepro With Carb Steady 1 Liter Bottle GT SCH (09:45)
[2023-01-21] MEDS: CEFEPIME 1GM/ 50ML 50 ML IV SCH (09:49)
[2023-01-21] MEDS: PANTOPRAZOLE 40 MG/10 ML VIAL INJ IV SCH (09:53)
[2023-01-21] MEDS: LACTULOSE 20Gm/30ML SOLN PO SCH ×2 (09:53→22:18)
[2023-01-21] MEDS: HEPARIN SODIUM (PORCINE) 5000 UNITS/ML 1ML VIAL SC SCH ×2 (09:54→22:18)
[2023-01-21] MEDS ORDERED: BUMETANIDE INJECTION 12.5 MG in GIVE UN-DILUTED 0 ML IV SCH (16:00)
[2023-01-21] MEDS ORDERED: ACETAMINOPHEN 650 mg PER 20.3 mL UD NG PRN (17:15)
[2023-01-22] VITALS (107 sets, daily range): BP systolic 71–150; BP diastolic 20–81; PULSE 69–92; RESP 9–28; TEMP 91.9–100.8; O2SAT 92–100
[2023-01-22] MEDS: ALBUTEROL SULF 2.5 MG/0.5ML(0.5%) NEB SOLN NEB SCH ×4 (00:18→18:44)
[2023-01-22] MEDS: IPRATROPIUM BROM 0.5 MG/2.5ML INH SOL NEB SCH ×4 (00:18→18:45)
[2023-01-22] MEDS: ACETYLCYSTEINE 20%(200MG/ML) SOL 4ML NEB SCH ×4 (00:20→18:44)
[2023-01-22] MEDS: PHENYLEPHRINE IV 250 ML IV SCH ×3 (03:25→17:22)
[2023-01-22 05:03] LABS: Basophils # (auto) 0 10 ^3/uL (0-0.2); Basophils % (auto) 0.5 % (0.0-2.0); Eosinophils # (auto) 0.2 10 ^3/uL (0-0.8); Eosinophils % (auto) 3.4 % (0.0-7.0); Hematocrit 33.4 % (36.0-46.0); Hemoglobin 10.8 g/dL (12.2-16.2); Lymphocytes # (auto) 0.9 10 ^3/uL (0.4-5.4); Lymphocytes % (auto) 14.7 % (10.0-50.0); Mean Corpuscular Hemoglobin 27.2 pg (28.0-32.0); Mean Corpuscular Hgb Conc. 32.4 g/dL (32.0-36.0); Monocytes # (auto) 0.5 10 ^3/uL (0-1.3); Monocytes % (auto) 8.1 % (0.0-12.0); Neutrophils # (auto) 4.7 10 ^3/uL (1.6-8.6); Neutrophils % (auto) 73.3 % (37.0-80.0); Nucleated Red Blood Cells % 0.1 %; Red Blood Cells 3.97 10^6/uL (4.0-5.20); White Blood Cell 6.4 10^3/uL (4.4-10.8)
[2023-01-22 05:15] LABS: INR 1.19 (0.9-1.15); Partial Thromboplastin Time 30.5 SEC (24.5-34.5); Prothrombin Time 12.4 sec (9.3-11.8)
[2023-01-22 05:22] LABS: Potassium 3.2 mmol/L (3.5-5.1)
[2023-01-22 05:29] LABS: Albumin 2.7 g/dL (3.4-5.0); BUN/Creatinine Ratio 47.1 (10.0-20.0); Bilirubin, Total 1.3 mg/dL (0.2-1.0); Calcium 8.6 mg/dL (8.5-10.1); Total Protein 7.1 g/dL (6.4-8.2)
[2023-01-22] MEDS: InsuLIN REG 1unit/0.01ml Soln (100units/ml) SC SCH ×4 (06:00→18:00)
[2023-01-22] MEDS: ACCU-CHEK COMFORT CURVE STRIP VI SCH ×4 (06:03→18:31)
[2023-01-22] MEDS: SODIUM CHLOR 0.9% PF (SALINE LOCK) 10ML VIAL/SYR IV SCH ×3 (06:03→21:42)
[2023-01-22 06:57] LABS: Base Excess 1.6 mmol/L (-2.0-2.0)
[2023-01-22] MEDS: DOXYCYCLINE 100MG/250ML 250 ML IV SCH ×2 (07:00→19:34)
[2023-01-22] MEDS: PROPOFOL 100 ML IV SCH ×3 (08:09→21:54)
[2023-01-22] MEDS ORDERED: SODIUM CHLORIDE 0.9% 1,000 ML IV ONE (09:30)
[2023-01-22] MEDS: POTASSIUM CHL 20MEQ/100ML 100 ML IV SCH ×4 (09:30→17:21)
[2023-01-22] MEDS ORDERED: SODIUM CHLORIDE 0.9% 750 ML IV ONE (09:30)
[2023-01-22] MEDS: CEFEPIME 1GM/ 50ML 50 ML IV SCH ×2 (09:51→21:42)
[2023-01-22] MEDS: LACTULOSE 20Gm/30ML SOLN PO SCH (09:51)
[2023-01-22] MEDS: HEPARIN SODIUM (PORCINE) 5000 UNITS/ML 1ML VIAL SC SCH ×2 (09:52→21:42)
[2023-01-22] MEDS: PANTOPRAZOLE 40 MG/10 ML VIAL INJ IV SCH (09:53)
[2023-01-22] MEDS: fentaNYL Drip 2500mCg/250mlNS 250 ML IV SCH (10:03)
[2023-01-22] MEDS ORDERED: Nepro With Carb Steady 1 Liter Bottle GT SCH (10:30)
[2023-01-22] MEDS: FREE WATER GT SCH ×2 (12:42→18:32)
[2023-01-22] MEDS: METOCLOPRAMIDE HCL 5MG/ml INJ 2ml VIAL IV SCH ×2 (13:58→21:41)
[2023-01-22 16:27] LABS: Base Excess 5.1 mmol/L (-2.0-2.0)
[2023-01-22] MEDS: LACTULOSE 20Gm/30ML SOLN GT SCH (21:41)
[2023-01-23] VITALS (96 sets, daily range): BP systolic 92–166; BP diastolic 33–139; PULSE 7–102; RESP 9–25; TEMP 98.1–100.6; O2SAT 91–100
[2023-01-23] MEDS: FREE WATER GT SCH ×3 (00:11→12:00)
[2023-01-23] MEDS: ACCU-CHEK COMFORT CURVE STRIP VI SCH ×3 (00:11→12:30)
[2023-01-23] MEDS: ACETYLCYSTEINE 20%(200MG/ML) SOL 4ML NEB SCH ×2 (00:13→06:32)
[2023-01-23] MEDS: ALBUTEROL SULF 2.5 MG/0.5ML(0.5%) NEB SOLN NEB SCH ×4 (00:13→18:47)
[2023-01-23] MEDS: IPRATROPIUM BROM 0.5 MG/2.5ML INH SOL NEB SCH ×4 (00:13→18:47)
[2023-01-23] MEDS: MIDAZOLAM DRIP 50 mg/50mL 50 ML IV SCH (02:15)
[2023-01-23 03:47] LABS: Basophils # (auto) 0 10 ^3/uL (0-0.2); Basophils % (auto) 0.6 % (0.0-2.0); Eosinophils # (auto) 0.4 10 ^3/uL (0-0.8); Hemoglobin 10.3 g/dL (12.2-16.2); Monocytes # (auto) 0.7 10 ^3/uL (0-1.3); Neutrophils # (auto) 3.5 10 ^3/uL (1.6-8.6); White Blood Cell 5.7 10^3/uL (4.4-10.8)
[2023-01-23 03:49] LABS: Eosinophils % (auto) 7.1 % (0.0-7.0); Hematocrit 32.5 % (36.0-46.0); Lymphocytes # (auto) 1.2 10 ^3/uL (0.4-5.4); Lymphocytes % (auto) 20.1 % (10.0-50.0); Mean Corpuscular Hemoglobin 26.8 pg (28.0-32.0); Mean Corpuscular Hgb Conc. 31.7 g/dL (32.0-36.0); Mean Corpuscular Volume 84.5 fL (80.0-100.0); Monocytes % (auto) 11.5 % (0.0-12.0); Neutrophils % (auto) 60.7 % (37.0-80.0); Red Blood Cells 3.84 10^6/uL (4.0-5.20)
[2023-01-23 04:03] LABS: Calcium 8.8 mg/dL (8.5-10.1); Potassium 3.5 mmol/L (3.5-5.1)
[2023-01-23] MEDS: PHENYLEPHRINE IV 250 ML IV SCH ×2 (04:35→12:31)
[2023-01-23] MEDS: METOCLOPRAMIDE HCL 5MG/ml INJ 2ml VIAL IV SCH ×2 (05:36→14:44)
[2023-01-23] MEDS: SODIUM CHLOR 0.9% PF (SALINE LOCK) 10ML VIAL/SYR IV SCH ×3 (05:36→21:48)
[2023-01-23] MEDS: InsuLIN REG 1unit/0.01ml Soln (100units/ml) SC SCH ×3 (05:37→12:00)
[2023-01-23] MEDS: DOXYCYCLINE 100MG/250ML 250 ML IV SCH ×2 (07:45→20:10)
[2023-01-23] MEDS: PANTOPRAZOLE 40 MG/10 ML VIAL INJ IV SCH (10:05)
[2023-01-23] MEDS: CEFEPIME 1GM/ 50ML 50 ML IV SCH (10:06)
[2023-01-23] MEDS: LACTULOSE 20Gm/30ML SOLN GT SCH (10:07)
[2023-01-23] MEDS: HEPARIN SODIUM (PORCINE) 5000 UNITS/ML 1ML VIAL SC SCH ×2 (10:07→21:49)
[2023-01-23 10:23] LABS: Base Excess 6.2 mmol/L (-2.0-2.0)
[2023-01-23] MEDS: fentaNYL Drip 2500mCg/250mlNS 250 ML IV SCH (14:15)
[2023-01-23] MEDS ORDERED: NIFEdipine ER 30 MG TAB PO ONE (15:30)
[2023-01-23] MEDS: hydrALAZINE HCL 20 MG/ML VL IV PRN (18:38)
[2023-01-24] VITALS (98 sets, daily range): BP systolic 123–166; BP diastolic 37–120; PULSE 72–85; RESP 9–26; TEMP 97.9–98.5; O2SAT 92–100
[2023-01-24] MEDS: ALBUTEROL SULF 2.5 MG/0.5ML(0.5%) NEB SOLN NEB SCH ×4 (00:27→18:12)
[2023-01-24] MEDS: IPRATROPIUM BROM 0.5 MG/2.5ML INH SOL NEB SCH ×4 (00:27→18:12)
[2023-01-24 03:50] LABS: Basophils # (auto) 0 10 ^3/uL (0-0.2); Eosinophils # (auto) 0.1 10 ^3/uL (0-0.8); Lymphocytes # (auto) 1.1 10 ^3/uL (0.4-5.4); Mean Corpuscular Volume 84.5 fL (80.0-100.0); Monocytes # (auto) 0.6 10 ^3/uL (0-1.3); Neutrophils # (auto) 3.5 10 ^3/uL (1.6-8.6); White Blood Cell 5.3 10^3/uL (4.4-10.8)
[2023-01-24 03:52] LABS: Basophils % (auto) 0.4 % (0.0-2.0); Eosinophils % (auto) 1.1 % (0.0-7.0); Hematocrit 31.6 % (36.0-46.0); Hemoglobin 9.9 g/dL (12.2-16.2); Lymphocytes % (auto) 21.3 % (10.0-50.0); Mean Corpuscular Hemoglobin 26.6 pg (28.0-32.0); Mean Corpuscular Hgb Conc. 31.5 g/dL (32.0-36.0); Monocytes % (auto) 10.9 % (0.0-12.0); Neutrophils % (auto) 66.3 % (37.0-80.0); Nucleated Red Blood Cells % 0.1 %; Red Blood Cells 3.74 10^6/uL (4.0-5.20); Red Cell Distribution Width 18.2 % (11.8-14.3)
[2023-01-24 04:07] LABS: BUN/Creatinine Ratio 62.8 (10.0-20.0); Calcium 8.8 mg/dL (8.5-10.1)
[2023-01-24] MEDS: SODIUM CHLOR 0.9% PF (SALINE LOCK) 10ML VIAL/SYR IV SCH ×3 (06:02→21:47)
[2023-01-24] MEDS: DOXYCYCLINE 100MG/250ML 250 ML IV SCH ×2 (07:50→20:19)
[2023-01-24] MEDS ORDERED: POTASSIUM CHL 20MEQ/100ML 100 ML IV ONE (08:15)
[2023-01-24] MEDS ORDERED: POTASSIUM EFFERVESENT TAB 25 MEQ PO ONE (08:15)
[2023-01-24] MEDS: PANTOPRAZOLE 40 MG/10 ML VIAL INJ IV SCH (09:26)
[2023-01-24] MEDS: HEPARIN SODIUM (PORCINE) 5000 UNITS/ML 1ML VIAL SC SCH ×2 (09:28→21:48)
[2023-01-24 09:36] LABS: Hepatitis A Total Antibody Positive (Negative)
[2023-01-24] MEDS ORDERED: NIFEdipine ER 30 MG TAB PO SCH ×2 (10:00)
[2023-01-24 11:28] LABS: Hepatitis B Surface Antibody Negative (Negative)
[2023-01-24 12:39] LABS: Hepatitis B Surface Antigen Negative (Negative)
[2023-01-24 12:40] LABS: Hepatitis A Ab IgM Negative; Hepatitis B Core Total AB Negative (Negative)
[2023-01-24 12:41] LABS: Hepatitis C Antibody Negative (Negative)
[2023-01-24 12:42] LABS: Hepatitis B Core IgM Negative
[2023-01-25] VITALS (17 sets, daily range): BP systolic 130–162; BP diastolic 67–73; PULSE 72–81; RESP 16–21; TEMP 97.9–98.6; O2SAT 93–99
[2023-01-25] MEDS: ALBUTEROL SULF 2.5 MG/0.5ML(0.5%) NEB SOLN NEB SCH ×4 (00:10→19:23)
[2023-01-25] MEDS: IPRATROPIUM BROM 0.5 MG/2.5ML INH SOL NEB SCH ×4 (00:10→19:23)
[2023-01-25 05:35] LABS: Albumin 2.8 g/dL (3.4-5.0); BUN/Creatinine Ratio 46.5 (10.0-20.0); Calcium 8.7 mg/dL (8.5-10.1); Magnesium 1.7 mg/dL (1.6-2.6); Potassium 3.4 mmol/L (3.5-5.1)
[2023-01-25 05:38] LABS: Bilirubin, Total 0.7 mg/dL (0.2-1.0)
[2023-01-25] MEDS: SODIUM CHLOR 0.9% PF (SALINE LOCK) 10ML VIAL/SYR IV SCH ×3 (06:00→21:54)
[2023-01-25] MEDS: hydrALAZINE HCL 20 MG/ML VL IV PRN (07:14)
[2023-01-25] MEDS: DOXYCYCLINE 100MG/250ML 250 ML IV SCH ×2 (07:14→20:12)
[2023-01-25] MEDS: PANTOPRAZOLE 40 MG/10 ML VIAL INJ IV SCH (10:23)
[2023-01-25] MEDS: NIFEdipine ER 30 MG TAB PO SCH (10:23)
[2023-01-25] MEDS: HEPARIN SODIUM (PORCINE) 5000 UNITS/ML 1ML VIAL SC SCH ×2 (10:29→21:59)
[2023-01-25] MEDS ORDERED: POTASSIUM CHL 20 Meq TABLET PO ONE (13:45)
[2023-01-25] MEDS: LABETALOL HCL 200 MG TAB PO SCH (21:56)
[2023-01-26] VITALS (15 sets, daily range): BP systolic 141–168; BP diastolic 61–74; PULSE 69–77; RESP 16–18; TEMP 97.4–98.3; O2SAT 94–99
[2023-01-26] MEDS: ALBUTEROL SULF 2.5 MG/0.5ML(0.5%) NEB SOLN NEB SCH ×4 (00:04→19:09)
[2023-01-26] MEDS: IPRATROPIUM BROM 0.5 MG/2.5ML INH SOL NEB SCH ×4 (00:04→19:09)
[2023-01-26] MEDS: ACETAMINOPHEN 325 MG TAB PO PRN (00:08)
[2023-01-26] MEDS: SODIUM CHLOR 0.9% PF (SALINE LOCK) 10ML VIAL/SYR IV SCH ×3 (05:44→22:03)
[2023-01-26 07:14] LABS: Calcium 8.7 mg/dL (8.5-10.1); Potassium 3.6 mmol/L (3.5-5.1)
[2023-01-26 07:17] LABS: BUN/Creatinine Ratio 33.8 (10.0-20.0)
[2023-01-26] MEDS: DOXYCYCLINE 100MG/250ML 250 ML IV SCH ×2 (08:35→19:40)
[2023-01-26] MEDS: NIFEdipine ER 30 MG TAB PO SCH (09:33)
[2023-01-26] MEDS: PANTOPRAZOLE 40 MG/10 ML VIAL INJ IV SCH (09:34)
[2023-01-26] MEDS: LABETALOL HCL 200 MG TAB PO SCH ×2 (09:34→22:04)
[2023-01-26] MEDS: HEPARIN SODIUM (PORCINE) 5000 UNITS/ML 1ML VIAL SC SCH ×2 (09:36→22:09)
[2023-01-27] VITALS (15 sets, daily range): BP systolic 125–152; BP diastolic 59–89; PULSE 71–86; RESP 16–20; TEMP 97.1–98.4; O2SAT 94–99
[2023-01-27] MEDS: ALBUTEROL SULF 2.5 MG/0.5ML(0.5%) NEB SOLN NEB SCH ×4 (00:06→23:03)
[2023-01-27] MEDS: IPRATROPIUM BROM 0.5 MG/2.5ML INH SOL NEB SCH ×4 (00:06→23:03)
[2023-01-27] MEDS: SODIUM CHLOR 0.9% PF (SALINE LOCK) 10ML VIAL/SYR IV SCH ×3 (05:15→21:42)
[2023-01-27 08:31] LABS: Potassium 3.9 mmol/L (3.5-5.1)
[2023-01-27 08:42] LABS: BUN/Creatinine Ratio 31.5 (10.0-20.0); Bilirubin, Total 0.7 mg/dL (0.2-1.0); Calcium 8.7 mg/dL (8.5-10.1); Total Protein 6.5 g/dL (6.4-8.2)
[2023-01-27] MEDS: DOXYCYCLINE 100MG/250ML 250 ML IV SCH ×2 (08:54→19:20)
[2023-01-27] MEDS: LABETALOL HCL 200 MG TAB PO SCH ×2 (09:47→21:42)
[2023-01-27] MEDS: PANTOPRAZOLE 40 MG/10 ML VIAL INJ IV SCH (09:47)
[2023-01-27] MEDS: NIFEdipine ER 30 MG TAB PO SCH (09:48)
[2023-01-27] MEDS: HEPARIN SODIUM (PORCINE) 5000 UNITS/ML 1ML VIAL SC SCH ×2 (09:49→21:44)
[2023-01-28] VITALS (16 sets, daily range): BP systolic 93–155; BP diastolic 46–64; PULSE 56–82; RESP 17–20; TEMP 97.6–98.2; O2SAT 93–99
[2023-01-28] MEDS: ALBUTEROL SULF 2.5 MG/0.5ML(0.5%) NEB SOLN NEB SCH ×4 (00:07→18:46)
[2023-01-28] MEDS: IPRATROPIUM BROM 0.5 MG/2.5ML INH SOL NEB SCH ×4 (00:07→18:46)
[2023-01-28] MEDS: ACETAMINOPHEN 325 MG TAB PO PRN (04:41)
[2023-01-28] MEDS: hydrALAZINE HCL 20 MG/ML VL IV PRN (04:42)
[2023-01-28] MEDS: SODIUM CHLOR 0.9% PF (SALINE LOCK) 10ML VIAL/SYR IV SCH ×3 (04:48→22:04)
[2023-01-28] MEDS: PANTOPRAZOLE 40 MG/10 ML VIAL INJ IV SCH (08:51)
[2023-01-28] MEDS: NIFEdipine ER 30 MG TAB PO SCH (08:52)
[2023-01-28] MEDS: LABETALOL HCL 200 MG TAB PO SCH ×2 (08:53→22:01)
[2023-01-28] MEDS: HEPARIN SODIUM (PORCINE) 5000 UNITS/ML 1ML VIAL SC SCH ×2 (09:05→22:04)
[2023-01-28] MEDS: DOXYCYCLINE 100MG/250ML 250 ML IV SCH ×2 (09:25→19:41)
[2023-01-29] VITALS (10 sets, daily range): BP systolic 117–163; BP diastolic 56–71; PULSE 64–79; RESP 16–20; TEMP 98–98.3; O2SAT 94–99
[2023-01-29] MEDS: ALBUTEROL SULF 2.5 MG/0.5ML(0.5%) NEB SOLN NEB SCH ×3 (00:11→12:50)
[2023-01-29] MEDS: IPRATROPIUM BROM 0.5 MG/2.5ML INH SOL NEB SCH ×3 (00:11→12:49)
[2023-01-29] MEDS: ACETAMINOPHEN 325 MG TAB PO PRN (03:48)
[2023-01-29] MEDS: SODIUM CHLOR 0.9% PF (SALINE LOCK) 10ML VIAL/SYR IV SCH ×2 (05:34→14:07)
[2023-01-29 06:55] LABS: Basophils # (auto) 0.1 10 ^3/uL (0-0.2); Eosinophils # (auto) 0.1 10 ^3/uL (0-0.8); Hemoglobin 10.6 g/dL (12.2-16.2); Lymphocytes # (auto) 1.5 10 ^3/uL (0.4-5.4); Monocytes # (auto) 0.6 10 ^3/uL (0-1.3); Neutrophils # (auto) 5.5 10 ^3/uL (1.6-8.6); Nucleated Red Blood Cells % 0.1 %
[2023-01-29 06:57] LABS: Basophils % (auto) 0.8 % (0.0-2.0); Eosinophils % (auto) 1.4 % (0.0-7.0); Hematocrit 33.2 % (36.0-46.0); Lymphocytes % (auto) 19.8 % (10.0-50.0); Mean Corpuscular Hemoglobin 26.5 pg (28.0-32.0); Mean Corpuscular Hgb Conc. 31.9 g/dL (32.0-36.0); Mean Corpuscular Volume 83.1 fL (80.0-100.0); Monocytes % (auto) 8.2 % (0.0-12.0); Neutrophils % (auto) 69.8 % (37.0-80.0); Red Cell Distribution Width 17.9 % (11.8-14.3); White Blood Cell 7.8 10^3/uL (4.4-10.8)
[2023-01-29 07:00] LABS: Potassium 3.4 mmol/L (3.5-5.1)
[2023-01-29 07:07] LABS: BUN/Creatinine Ratio 27.3 (10.0-20.0); Calcium 8.8 mg/dL (8.5-10.1)
[2023-01-29] MEDS: DOXYCYCLINE 100MG/250ML 250 ML IV SCH (07:31)
[2023-01-29] MEDS: NIFEdipine ER 30 MG TAB PO SCH (08:51)
[2023-01-29] MEDS: LABETALOL HCL 200 MG TAB PO SCH (08:52)
[2023-01-29] MEDS: PANTOPRAZOLE 40 MG/10 ML VIAL INJ IV SCH (08:52)
[2023-01-29] MEDS: HEPARIN SODIUM (PORCINE) 5000 UNITS/ML 1ML VIAL SC SCH (08:58)
[2023-01-29] MEDS ORDERED: POTASSIUM CHL 20 Meq TABLET PO ONE (09:15)
== END 2023-01-29 17:59 | DRG 720 ==
LOC: ER 19:19 → EDUNIT# 19:19 → EDBD 19:19 → TELE 01-19 03:07 → ICU WEST 01-19 07:22 → TELE-WESTW 01-24 23:49
PROVIDERS: ADMIT Internal Medicine; ATTEND Internal Medicine Geriatric Medicine
PROC: 5A1955Z Respiratory Ventilation, Greater than 96 Consecutive Hours (ICD-10-PCS; principal; 2023-01-19)
PROC: 0BH17EZ Insertion of Endotracheal Airway into Trachea, Via Natural or Artificial Opening (ICD-10-PCS; 2023-01-19)
PROC: 02H633Z Insertion of Infusion Device into Right Atrium, Percutaneous Approach (ICD-10-PCS; 2023-01-19)
PROC: 0B9D8ZZ Drainage of Right Middle Lung Lobe, Via Natural or Artificial Opening Endoscopic (ICD-10-PCS; 2023-01-21)
PROC: 0BC78ZZ Extirpation of Matter from Left Main Bronchus, Via Natural or Artificial Opening Endoscopic (ICD-10-PCS; 2023-01-21)
PROC: 0BC38ZZ Extirpation of Matter from Right Main Bronchus, Via Natural or Artificial Opening Endoscopic (ICD-10-PCS; 2023-01-21)
DX: A41.9 Sepsis, unspecified organism (principal); J96.01 Acute respiratory failure with hypoxia; K72.00 Acute and subacute hepatic failure without coma; N17.0 Acute kidney failure with tubular necrosis; J69.0 Pneumonitis due to inhalation of food and vomit; R65.21 Severe sepsis with septic shock; G92.8 Other toxic encephalopathy; J15.211 Pneumonia due to Methicillin susceptible Staphylococcus aureus; E87.20 Acidosis, unspecified; I13.2 Hypertensive heart and chronic kidney disease with heart failure and with stage 5 chronic kidney disease, or end stage renal disease; I50.9 Heart failure, unspecified; I21.A1 Myocardial infarction type 2; E66.01 Morbid (severe) obesity due to excess calories; E86.0 Dehydration; E86.1 Hypovolemia; M62.82 Rhabdomyolysis; N18.5 Chronic kidney disease, stage 5; E87.5 Hyperkalemia; G89.29 Other chronic pain; D64.9 Anemia, unspecified; I25.10 Atherosclerotic heart disease of native coronary artery without angina pectoris; E78.00 Pure hypercholesterolemia, unspecified; I48.20 Chronic atrial fibrillation, unspecified; Z99.11 Dependence on respirator [ventilator] status; Z90.710 Acquired absence of both cervix and uterus; Z88.5 Allergy status to narcotic agent; Z82.49 Family history of ischemic heart disease and other diseases of the circulatory system; Z90.49 Acquired absence of other specified parts of digestive tract; Z68.38 Body mass index [BMI] 38.0-38.9, adult
CPT/HCPCS: 31500; 36415; 36600; 70450; 71045; 80048; 80053; 80074; 80202; 80307; 80320; 80329; 81001; 82140; 82550; 82565; 82805; 82962; 83605; 83735; 83880; 84132; 84443; 84484; 85025; 85379; 85610; 85730; 86038; 86704; 86706; 86708; 86803; 87040; 87070; 87077; 87081; 87086; 87186; 87205; 87340; 93306; 93970; 94002; 94003; 94640; 94644; 96365; 96375; 97110; 97116; 97163; 97530; 99291; C9113; G0378; J0153; J0171; J1815; J2250; J2405; J2543; J2704; J3480; J3490; J7060; Q9956

== ENCOUNTER 2023-09-01 17:04 | Inpatient (IN) | payer MEDICAID ==
[~2023-09-01] VITALS: Ht 180.3 cm; Wt 110.0 kg
[2023-09-01 18:45] LABS: Basophils # (auto) 0 10 ^3/uL (0-0.2); Basophils % (auto) 0.4 % (0.0-2.0); Eosinophils # (auto) 0.2 10 ^3/uL (0-0.8); Eosinophils % (auto) 3.1 % (0.0-7.0); Hematocrit 40.8 % (36.0-46.0); Hemoglobin 12.8 g/dL (12.2-16.2); Lymphocytes # (auto) 1.8 10 ^3/uL (0.4-5.4); Lymphocytes % (auto) 24.5 % (10.0-50.0); Mean Corpuscular Hemoglobin 27.8 pg (28.0-32.0); Mean Corpuscular Hgb Conc. 31.4 g/dL (32.0-36.0); Mean Corpuscular Volume 88.7 fL (80.0-100.0); Monocytes # (auto) 0.8 10 ^3/uL (0-1.3); Monocytes % (auto) 10.7 % (0.0-12.0); Neutrophils # (auto) 4.4 10 ^3/uL (1.6-8.6); Neutrophils % (auto) 61.3 % (37.0-80.0); Red Cell Distribution Width 16.3 % (11.8-14.3); White Blood Cell 7.2 10^3/uL (4.4-10.8)
[2023-09-01 18:47] VITALS: PULSE 68; RESP 14; O2SAT 100
[2023-09-01 19:04] LABS: Alanine Aminotransferase 31 U/L (7-40); Albumin 4.4 g/dL (3.2-4.8); Alkaline Phosphatase 98 U/L (46-116); Anion Gap 5 (5-15); Aspartate Aminotransferase 44 U/L (13-40); BUN/Creatinine Ratio 18.5 (10.0-20.0); Bilirubin, Total 0.4 mg/dL (0.2-1.0); Blood Urea Nitrogen 15 mg/dL (9-23); Calcium 9.5 mg/dL (8.5-10.1); Carbon Dioxide 30 mmol/L (20-30); Chloride 110 mmol/L (98-107); Glucose 90 mg/dL (74-106); Potassium 3.6 mmol/L (3.5-5.1); Sodium 145 mmol/L (136-145); Total Protein 7.1 g/dL (5.7-8.2)
[2023-09-01 20:25] LABS: Urine Bacteria NONE SEEN /hpf (None Seen); Urine Blood Negative /uL (Negative); Urine Clarity Clear (Clear); Urine Color Yellow (Yellow); Urine Protein, UAD Negative (Negative); Urine Specific Gravity 1.023 (1.001-1.035); Urine Urobilinogen Normal (Negative); Urine WBC 1 /hpf (0 - 5); Urine pH 5.5 (5.0-8.0)
[2023-09-01 20:47] LABS: Amphetamine Screen, Urine Neg (NEGATIVE); Barbiturate Scree,Urine Pos (NEGATIVE); Benzodiazephine Screen, Urine Pos (NEGATIVE); Cannabinoid Screen, Urine Neg (NEGATIVE); Cocaine Screen, Urine Neg (NEGATIVE); Opiate Scree,Urine Neg (NEGATIVE); Phencyclidine Screen, Urine Neg (NEGATIVE)
[2023-09-01] MEDS ORDERED: hydrALAZINE HCL 20 MG/ML VL IV PRN (21:30)
[2023-09-01] MEDS ORDERED: DOCUSATE SOD 100 MG CAP PO PRN (21:30)
[2023-09-01] MEDS ORDERED: ACETAMINOPHEN 325 MG TAB PO PRN (21:30)
[2023-09-01] MEDS ORDERED: ONDANSETRON HCL 4 MG/2 ML VIAL IV PRN (21:30)
[2023-09-01] MEDS: SODIUM CHLOR 0.9% PF (SALINE LOCK) 10ML VIAL/SYR IV SCH (22:10)
[2023-09-01] MEDS: ATORVASTATIN 20 MG TAB PO SCH (22:13)
[2023-09-01] MEDS ORDERED: MORPHINE SULFATE INJ 2 MG/ml SYRG IV PRN (23:00)
[2023-09-01] MEDS ORDERED: NITROGLYCERIN 0.4 MG SL TAB SL PRN (23:00)
[2023-09-02] MEDS ORDERED: TEMAZEPAM 15 MG CAP PO ONE
[2023-09-02] MEDS: TEMAZEPAM 15 MG CAP PO PRN (00:55)
[2023-09-02 07:37] VITALS: RESP 16
[2023-09-02] MEDS: ASPirin 81 mg TAB PO SCH (09:23)
[2023-09-02] MEDS: FAMOTIDINE (10MG/ML) 2ML VL IV SCH (09:23)
[2023-09-02 14:19] LABS: Alanine Aminotransferase 26 U/L (7-40); Alkaline Phosphatase 85 U/L (46-116); Anion Gap 5 (5-15); Aspartate Aminotransferase 34 U/L (13-40); BUN/Creatinine Ratio 19.5 (10.0-20.0); Bilirubin, Total 0.6 mg/dL (0.2-1.0); Blood Urea Nitrogen 15 mg/dL (9-23); Calcium 9.6 mg/dL (8.5-10.1); Carbon Dioxide 30 mmol/L (20-30); Chloride 105 mmol/L (98-107); Glucose 128 mg/dL (74-106); Potassium 3.9 mmol/L (3.5-5.1); Sodium 140 mmol/L (136-145); Total Protein 6.4 g/dL (5.7-8.2)
[2023-09-02 16:34] VITALS: BP 171/62; PULSE 73; RESP 12; TEMP 98; O2SAT 97
[2023-09-02] MEDS ORDERED: PREG-109 PO (17:04)
[2023-09-02] MEDS ORDERED: OXYC325T14 PO (17:04)
[2023-09-02] MEDS ORDERED: ATO40T PO (17:04)
[2023-09-02] MEDS ORDERED: ZOLP10TA6 PO (17:09)
[2023-09-02] MEDS ORDERED: AMLO1TAB22 PO (17:09)
[2023-09-02] MEDS ORDERED: TRAZ-228 PO (17:09)
[2023-09-02] MEDS ORDERED: CHOL20007 PO (17:09)
[2023-09-02] MEDS ORDERED: LEVO50TA7 PO (17:09)
[2023-09-02] MEDS ORDERED: BACL10TA PO (17:09)
== END 2023-09-02 20:16 | disposition home or self-care (01) | DRG 812 ==
LOC: EDBD 17:04 → ER 17:04 → TELE 22:59
PROVIDERS: ADMIT Nurse Practitioner Family; ATTEND Nurse Practitioner Acute Care
DX: T42.4X1A Poisoning by benzodiazepines, accidental (unintentional), initial encounter (principal); G92.8 Other toxic encephalopathy; R62.7 Adult failure to thrive; I16.0 Hypertensive urgency; Z96.643 Presence of artificial hip joint, bilateral; R26.81 Unsteadiness on feet; G89.4 Chronic pain syndrome; F41.9 Anxiety disorder, unspecified; E66.9 Obesity, unspecified; F17.210 Nicotine dependence, cigarettes, uncomplicated; K76.9 Liver disease, unspecified; I12.9 Hypertensive chronic kidney disease with stage 1 through stage 4 chronic kidney disease, or unspecified chronic kidney disease; N18.31 Chronic kidney disease, stage 3a; R29.6 Repeated falls; Z90.710 Acquired absence of both cervix and uterus; Z88.5 Allergy status to narcotic agent; Z79.899 Other long term (current) drug therapy; Y92.89 Other specified places as the place of occurrence of the external cause; Z90.49 Acquired absence of other specified parts of digestive tract; Z68.33 Body mass index [BMI] 33.0-33.9, adult; E87.8 Other disorders of electrolyte and fluid balance, not elsewhere classified
CPT/HCPCS: 36415; 70450; 71045; 72125; 72170; 80053; 80307; 80320; 81001; 82140; 83605; 83880; 84484; 85025; 87040; G0378

== ENCOUNTER 2023-10-02 09:34 | Inpatient (IN) | payer MEDICAID ==
[2023-10-02] VITALS (10 sets, daily range): BP systolic 81–150; BP diastolic 32–64; PULSE 58–65; RESP 16–22; TEMP 96.5; O2SAT 93–100
[~2023-10-02] VITALS: Ht 167.6 cm; Wt 93.2 kg
[~2023-10-02 09:34] MED LIST changes: +AMLO1TAB22 PO; -ASPI-764 PO; +ATOR-507 PO; -ATOR20TA PO; -ATOR20TA50 PO; +BACL10TA PO; -BENA5TAB9 PO; +CHOL20007 PO; -CYCL-611 PO; -FUR20T PO; +LEVO50TA7 PO; +OXYC325T14 PO; -PERCOT; -PRAZ2CAP2 PO; -PREG300C12 PO; +PREG75CA90 PO; -SERT-160 PO; -TIOT1AER INH; +TRAZ-228 PO; +ZOLP10TA6 PO
[2023-10-02] MEDS: ETOMIDATE (2MG/ML) 20ML VIAL IV ONE ×2 (09:43→10:05)
[2023-10-02] MEDS: SUCCINYLCHOLINE CHLORIDE 20 MG/ML 10ML VIAL IV ONE ×2 (09:44→10:05)
[2023-10-02] MEDS: MIDAZOLAM DRIP 50 mg/50mL 50 ML IV SCH (10:15)
[2023-10-02] MEDS: SODIUM CHLORIDE 0.9% 500 ML IVB ONE (10:32)
[2023-10-02 10:40] LABS: Basophils # (auto) 0 10 ^3/uL (0-0.2); Basophils % (auto) 0.5 % (0.0-2.0); Eosinophils # (auto) 0.2 10 ^3/uL (0-0.8); Hematocrit 36.1 % (36.0-46.0); Hemoglobin 11.9 g/dL (12.2-16.2); Lymphocytes # (auto) 1.7 10 ^3/uL (0.4-5.4); Mean Corpuscular Hemoglobin 29.3 pg (28.0-32.0); Mean Corpuscular Hgb Conc. 32.9 g/dL (32.0-36.0); Mean Corpuscular Volume 89.1 fL (80.0-100.0); Monocytes # (auto) 0.7 10 ^3/uL (0-1.3); Monocytes % (auto) 9.8 % (0.0-12.0); Neutrophils # (auto) 4.5 10 ^3/uL (1.6-8.6); Neutrophils % (auto) 62.7 % (37.0-80.0); Red Blood Cells 4.05 10^6/uL (4.0-5.20); Red Cell Distribution Width 17.1 % (11.8-14.3); White Blood Cell 7.2 10^3/uL (4.4-10.8)
[2023-10-02 11:05] LABS: Alanine Aminotransferase 18 U/L (7-40); Albumin 4.1 g/dL (3.2-4.8); Alkaline Phosphatase 115 U/L (46-116); Anion Gap 4 (5-15); Aspartate Aminotransferase 16 U/L (13-40); BUN/Creatinine Ratio 16.1 (10.0-20.0); Blood Alcohol < 3.0 mg/dL (<10); Blood Urea Nitrogen 24 mg/dL (9-23); Calcium 9.1 mg/dL (8.5-10.1); Carbon Dioxide 28 mmol/L (20-30); Chloride 110 mmol/L (98-107); Glucose 98 mg/dL (74-106); INR 1.04 (0.9-1.15); Partial Thromboplastin Time 23.4 SEC (24.5-34.5); Potassium 5.3 mmol/L (3.5-5.1); Prothrombin Time 10.9 sec (9.3-11.8); Sodium 142 mmol/L (136-145)
[2023-10-02 11:06] LABS: Bilirubin, Total 0.3 mg/dL (0.2-1.0); Total Protein 6.7 g/dL (5.7-8.2)
[2023-10-02 11:07] LABS: Base Excess 0.4 mmol/L (-2.0-2.0)
[2023-10-02 11:12] LABS: Urine Bacteria None Seen /hpf (None Seen)
[2023-10-02 11:48] LABS: Amphetamine Screen, Urine Neg (NEGATIVE)
[2023-10-02 11:50] LABS: Barbiturate Scree,Urine Pos (NEGATIVE); Benzodiazephine Screen, Urine Pos (NEGATIVE); Cannabinoid Screen, Urine Neg (NEGATIVE); Cocaine Screen, Urine Neg (NEGATIVE); Opiate Scree,Urine Neg (NEGATIVE); Phencyclidine Screen, Urine Neg (NEGATIVE); Urine Blood Negative /uL (Negative); Urine Clarity Turbid (Clear); Urine Color Yellow (Yellow); Urine Hyaline Cast MOD /lpf (0 - 2); Urine Mucus FEW (None Seen); Urine Protein, UAD TRACE (Negative); Urine Urobilinogen Normal (Negative); Urine WBC 6 /hpf (0 - 5)
[2023-10-02 12:35] LABS: Magnesium 2.3 mg/dL (1.6-2.6)
[2023-10-02] MEDS ORDERED: ONDANSETRON HCL 4 MG/2 ML VIAL IV PRN (15:15)
[2023-10-02] MEDS: SODIUM CHLORIDE 0.9% 1,000 ML IV SCH (16:14)
[2023-10-02 17:08] LABS: Lactic Acid w/Reflex 2.2 mmol/L (0.4-2.0)
[2023-10-02] MEDS: fentaNYL Drip 2500mCg/250mlNS 250 ML IV SCH (18:02)
[2023-10-02] MEDS: fentaNYL Drip 2500mCg/250mlNS 250 ML IV ONE (18:02)
[2023-10-02] MEDS: LORazepam 2MG/ML-1ML VIAL IV ONE (20:16)
[2023-10-02] MEDS: SODIUM CHLORIDE 0.9% 500 ML IV ONE (21:39)
[2023-10-03] VITALS (14 sets, daily range): BP systolic 77–171; BP diastolic 33–71; PULSE 51–63; RESP 16–20; O2SAT 93–100
[2023-10-03] MEDS: ACETAMINOPHEN 650 mg PER 20.3 mL UD GT ONE (00:53)
[2023-10-03 04:44] LABS: Basophils # (auto) 0 10 ^3/uL (0-0.2); Basophils % (auto) 0.2 % (0.0-2.0); Eosinophils # (auto) 0.1 10 ^3/uL (0-0.8); Eosinophils % (auto) 1.1 % (0.0-7.0); Hematocrit 35.4 % (36.0-46.0); Hemoglobin 11.6 g/dL (12.2-16.2); Lymphocytes # (auto) 1.9 10 ^3/uL (0.4-5.4); Lymphocytes % (auto) 19.8 % (10.0-50.0); Mean Corpuscular Hgb Conc. 32.8 g/dL (32.0-36.0); Mean Corpuscular Volume 88.3 fL (80.0-100.0); Monocytes # (auto) 0.6 10 ^3/uL (0-1.3); Monocytes % (auto) 5.8 % (0.0-12.0); Neutrophils % (auto) 73.1 % (37.0-80.0); Red Blood Cells 4.02 10^6/uL (4.0-5.20); Red Cell Distribution Width 17.3 % (11.8-14.3); White Blood Cell 9.6 10^3/uL (4.4-10.8)
[2023-10-03] MEDS: PROPOFOL 100 ML IV SCH (04:51)
[2023-10-03 04:59] LABS: Alanine Aminotransferase 16 U/L (7-40); Albumin 3.3 g/dL (3.2-4.8); Alkaline Phosphatase 94 U/L (46-116); Anion Gap 5 (5-15); Aspartate Aminotransferase 15 U/L (13-40); BUN/Creatinine Ratio 18.4 (10.0-20.0); Blood Urea Nitrogen 18 mg/dL (9-23); Calcium 8.7 mg/dL (8.7-10.4); Carbon Dioxide 23 mmol/L (20-30); Chloride 113 mmol/L (98-107); Glucose 97 mg/dL (74-106); Potassium 3.8 mmol/L (3.5-5.1); Sodium 141 mmol/L (136-145)
[2023-10-03 05:00] LABS: Bilirubin, Total 0.7 mg/dL (0.2-1.0); Total Protein 5.7 g/dL (5.7-8.2)
[2023-10-03] MEDS: MIDAZOLAM DRIP 50 mg/50mL 50 ML IV ONE (07:30)
[2023-10-03 07:54] LABS: Base Excess -1.9 mmol/L (-2.0-2.0)
[2023-10-03] MEDS: levoFLOXacin 500MG 100 ML IV SCH (10:30)
[2023-10-03] MEDS: ENOXAPARIN SOD 40 MG/0.4 ML SYRINGE SC SCH (10:31)
[2023-10-03] MEDS: SODIUM CHLORIDE 0.9% 1,000 ML IV SCH (12:30)
[2023-10-03] MEDS: IPRATROPIUM BROM 0.5 MG/2.5ML INH SOL NEB SCH (15:22)
[2023-10-03] MEDS: ACETAMINOPHEN 650 mg PER 20.3 mL UD GT PRN (17:44)
[2023-10-03] MEDS: ACETYLCYSTEINE 10 %(100MG/ML) SOL 4ML NEB SCH (18:30)
[2023-10-03] MEDS: ALBUTEROL SULF 2.5 MG/0.5ML(0.5%) NEB SOLN NEB SCH (18:30)
[2023-10-03] MEDS: PHENYLEPHRINE IV 250 ML IV ONE (20:57)
[2023-10-03] MEDS: PHENYLEPHRINE IV 250 ML IV SCH (21:00)
[2023-10-04] VITALS (47 sets, daily range): BP systolic 82–166; BP diastolic 29–68; PULSE 57–67; RESP 14–16; TEMP 98.1–99.5; O2SAT 91–99
[2023-10-04 06:05] LABS: Basophils # (auto) 0 10 ^3/uL (0-0.2); Basophils % (auto) 0.2 % (0.0-2.0); Eosinophils # (auto) 0.1 10 ^3/uL (0-0.8); Eosinophils % (auto) 1.6 % (0.0-7.0); Hematocrit 35.8 % (36.0-46.0); Hemoglobin 11.8 g/dL (12.2-16.2); Lymphocytes # (auto) 1.1 10 ^3/uL (0.4-5.4); Lymphocytes % (auto) 13.3 % (10.0-50.0); Mean Corpuscular Hemoglobin 29.2 pg (28.0-32.0); Mean Corpuscular Hgb Conc. 32.9 g/dL (32.0-36.0); Mean Corpuscular Volume 88.6 fL (80.0-100.0); Monocytes # (auto) 0.7 10 ^3/uL (0-1.3); Monocytes % (auto) 8.6 % (0.0-12.0); Neutrophils # (auto) 6.4 10 ^3/uL (1.6-8.6); Neutrophils % (auto) 76.3 % (37.0-80.0); Red Blood Cells 4.04 10^6/uL (4.0-5.20); White Blood Cell 8.4 10^3/uL (4.4-10.8)
[2023-10-04 06:18] LABS: Anion Gap 11 (5-15); Carbon Dioxide 22 mmol/L (20-30); Chloride 107 mmol/L (98-107); Potassium 3.8 mmol/L (3.5-5.1); Sodium 140 mmol/L (136-145)
[2023-10-04 06:19] LABS: Calcium 8.3 mg/dL (8.5-10.1)
[2023-10-04 06:23] LABS: Glucose 94 mg/dL (74-106)
[2023-10-04 06:24] LABS: BUN/Creatinine Ratio 14.3 (10.0-20.0); Blood Urea Nitrogen 14 mg/dL (9-23)
[2023-10-04 06:35] LABS: Base Excess -3.2 mmol/L (-2.0-2.0)
[2023-10-04] MEDS: PANTOPRAZOLE 40 MG/10 ML VIAL INJ IV SCH (10:06)
[2023-10-04] MEDS: FUROSEMIDE 40 MG/4 ML VIAL IV SCH (10:19)
[2023-10-05] VITALS (109 sets, daily range): BP systolic 78–183; BP diastolic 26–78; PULSE 55–83; RESP 12–22; TEMP 94.6–100.4; O2SAT 88–98
[2023-10-05 04:11] LABS: Anion Gap 5 (5-15); Carbon Dioxide 26 mmol/L (20-30); Chloride 107 mmol/L (98-107); Potassium 3.7 mmol/L (3.5-5.1); Sodium 138 mmol/L (136-145)
[2023-10-05 04:17] LABS: BUN/Creatinine Ratio 9.5 (10.0-20.0); Blood Urea Nitrogen 9 mg/dL (9-23); Glucose 95 mg/dL (74-106)
[2023-10-05 08:21] LABS: Base Excess -1.2 mmol/L (-2.0-2.0)
[2023-10-05 11:46] LABS: Base Excess 0.8 mmol/L (-2.0-2.0)
[2023-10-05] MEDS: methylPREDNISolone SOD SUCC 40 MG/ML VL IV ONE (16:55)
[2023-10-05] MEDS: ACETYLCYSTEINE 10 %(100MG/ML) SOL 4ML NEB SCH (18:46)
[2023-10-06] VITALS (104 sets, daily range): BP systolic 101–160; BP diastolic 37–74; PULSE 56–75; RESP 13–20; TEMP 97.3–99; O2SAT 89–99
[2023-10-06 03:48] LABS: Chloride 104 mmol/L (98-107); Potassium 3.5 mmol/L (3.5-5.1); Sodium 138 mmol/L (136-145)
[2023-10-06 03:49] LABS: Anion Gap 8 (5-15); Carbon Dioxide 26 mmol/L (20-30)
[2023-10-06 03:50] LABS: Calcium 9.4 mg/dL (8.7-10.4)
[2023-10-06 03:54] LABS: BUN/Creatinine Ratio 14.6 (10.0-20.0); Blood Urea Nitrogen 13 mg/dL (9-23); Glucose 157 mg/dL (74-106)
[2023-10-06 07:24] LABS: Base Excess 2.1 mmol/L (-2.0-2.0)
[2023-10-06] MEDS: methylPREDNISolone SOD SUCC 40 MG/ML VL IV ONE (11:17)
[2023-10-06] MEDS: Vital High Protein 1liter Bottle GT SCH (14:10)
[2023-10-07] VITALS (86 sets, daily range): BP systolic 94–188; BP diastolic 32–80; PULSE 58–84; RESP 12–22; TEMP 98–99.3; O2SAT 90–100
[2023-10-07 04:04] LABS: Basophils # (auto) 0 10 ^3/uL (0-0.2); Basophils % (auto) 0.2 % (0.0-2.0); Eosinophils # (auto) 0 10 ^3/uL (0-0.8); Eosinophils % (auto) 0.1 % (0.0-7.0); Hematocrit 32.6 % (36.0-46.0); Lymphocytes # (auto) 1.3 10 ^3/uL (0.4-5.4); Mean Corpuscular Hemoglobin 28.8 pg (28.0-32.0); Mean Corpuscular Hgb Conc. 33.8 g/dL (32.0-36.0); Mean Corpuscular Volume 85.2 fL (80.0-100.0); Monocytes # (auto) 0.5 10 ^3/uL (0-1.3); Monocytes % (auto) 7.5 % (0.0-12.0); Neutrophils # (auto) 4.5 10 ^3/uL (1.6-8.6); Neutrophils % (auto) 72.2 % (37.0-80.0); Nucleated Red Blood Cells % 0.1 %; Red Blood Cells 3.82 10^6/uL (4.0-5.20); Red Cell Distribution Width 16.1 % (11.8-14.3); White Blood Cell 6.3 10^3/uL (4.4-10.8)
[2023-10-07] MEDS: hydrALAZINE HCL 20 MG/ML VL IV PRN (10:18)
[2023-10-08] VITALS (18 sets, daily range): BP systolic 130–166; BP diastolic 57–87; PULSE 41–86; RESP 16–20; TEMP 97.5–98.9; O2SAT 91–98
[2023-10-08] MEDS: ACETAMINOPHEN 325 MG TAB PO PRN (01:08)
[2023-10-08 06:01] LABS: Basophils # (auto) 0 10 ^3/uL (0-0.2); Basophils % (auto) 0.4 % (0.0-2.0); Eosinophils # (auto) 0.1 10 ^3/uL (0-0.8); Hematocrit 39.9 % (36.0-46.0); Hemoglobin 13.3 g/dL (12.2-16.2); Lymphocytes # (auto) 1.2 10 ^3/uL (0.4-5.4); Lymphocytes % (auto) 19.5 % (10.0-50.0); Mean Corpuscular Hemoglobin 28.4 pg (28.0-32.0); Mean Corpuscular Hgb Conc. 33.3 g/dL (32.0-36.0); Mean Corpuscular Volume 85.4 fL (80.0-100.0); Monocytes # (auto) 0.6 10 ^3/uL (0-1.3); Monocytes % (auto) 8.9 % (0.0-12.0); Neutrophils # (auto) 4.4 10 ^3/uL (1.6-8.6); Neutrophils % (auto) 70.2 % (37.0-80.0); Nucleated Red Blood Cells % 0.1 %; Red Blood Cells 4.67 10^6/uL (4.0-5.20); Red Cell Distribution Width 16.1 % (11.8-14.3); White Blood Cell 6.3 10^3/uL (4.4-10.8)
[2023-10-08 06:15] LABS: Anion Gap 11 (5-15); Carbon Dioxide 25 mmol/L (20-30); Chloride 104 mmol/L (98-107); Potassium 2.8 mmol/L (3.5-5.1); Sodium 140 mmol/L (136-145)
[2023-10-08 06:17] LABS: Calcium 9.9 mg/dL (8.7-10.4)
[2023-10-08 06:21] LABS: Blood Urea Nitrogen 21 mg/dL (9-23); Glucose 89 mg/dL (74-106)
[2023-10-08] MEDS ORDERED: PATIENTS OWN MEDICATION (Trazodone Hcl 1 TAB) PO SCH (10:00)
[2023-10-08] MEDS: FUROSEMIDE 20 MG TAB PO SCH (10:00)
[2023-10-08] MEDS: levoFLOXacin 500 MG TAB PO SCH (10:00)
[2023-10-08] MEDS: POTASSIUM EFFERVESENT TAB 25 MEQ PO ONE (13:01)
[2023-10-08] MEDS: PREGABALIN CAPSULE 75 MG CAP PO SCH (13:01)
[2023-10-08] MEDS: traZODone HCL 50 MG TAB PO SCH (20:23)
[2023-10-09] VITALS (15 sets, daily range): BP systolic 105–132; BP diastolic 48–61; PULSE 52–81; RESP 16–20; TEMP 97.9–98.5; O2SAT 89–99
[2023-10-09 09:49] LABS: Chloride 100 mmol/L (98-107); Potassium 3.3 mmol/L (3.5-5.1); Sodium 138 mmol/L (136-145)
[2023-10-09 09:50] LABS: Anion Gap 10 (5-15); Carbon Dioxide 28 mmol/L (20-30)
[2023-10-09 09:51] LABS: Calcium 9.4 mg/dL (8.5-10.1)
[2023-10-09 09:55] LABS: BUN/Creatinine Ratio 18.4 (10.0-20.0); Glucose 103 mg/dL (74-106)
[2023-10-09 10:09] LABS: Blood Urea Nitrogen 33 mg/dL (9-23)
[2023-10-09] MEDS: SODIUM CHLORIDE 0.9% 1,000 ML IV SCH (15:07)
[2023-10-09] MEDS: POTASSIUM EFFERVESENT TAB 25 MEQ PO ONE (15:07)
[2023-10-09] MEDS: AMITRIPTYLINE HCL 25 MG TAB PO SCH (20:39)
[2023-10-10] VITALS (10 sets, daily range): BP systolic 97–143; BP diastolic 52–85; PULSE 62–79; RESP 18–20; TEMP 36.6; O2SAT 93–99
[2023-10-10 09:16] LABS: Chloride 105 mmol/L (98-107); Potassium 3.3 mmol/L (3.5-5.1); Sodium 140 mmol/L (136-145)
[2023-10-10 09:17] LABS: Anion Gap 8 (5-15); Calcium 8.9 mg/dL (8.5-10.1); Carbon Dioxide 27 mmol/L (20-30)
[2023-10-10 09:22] LABS: BUN/Creatinine Ratio 29.8 (10.0-20.0); Blood Urea Nitrogen 37 mg/dL (9-23); Glucose 126 mg/dL (74-106)
[2023-10-10] MEDS: POTASSIUM EFFERVESENT TAB 25 MEQ PO ONE (18:18)
== END 2023-10-10 19:45 | disposition home health service (06) | DRG 130 ==
LOC: EDBD 09:34 → ER 09:34 → TELE 15:06 → ICU WEST 10-04 15:20 → TELE-CENTR 10-07 23:27
PROVIDERS: ADMIT Nurse Practitioner Family; ATTEND Nurse Practitioner Acute Care
PROC: 5A1955Z Respiratory Ventilation, Greater than 96 Consecutive Hours (ICD-10-PCS; principal; 2023-10-02)
PROC: 02HV33Z Insertion of Infusion Device into Superior Vena Cava, Percutaneous Approach (ICD-10-PCS; 2023-10-02)
PROC: 0BH17EZ Insertion of Endotracheal Airway into Trachea, Via Natural or Artificial Opening (ICD-10-PCS; 2023-10-02)
DX: J96.01 Acute respiratory failure with hypoxia (principal); N17.0 Acute kidney failure with tubular necrosis; G92.8 Other toxic encephalopathy; J15.211 Pneumonia due to Methicillin susceptible Staphylococcus aureus; E87.5 Hyperkalemia; E66.01 Morbid (severe) obesity due to excess calories; N39.0 Urinary tract infection, site not specified; I12.9 Hypertensive chronic kidney disease with stage 1 through stage 4 chronic kidney disease, or unspecified chronic kidney disease; F41.9 Anxiety disorder, unspecified; G89.4 Chronic pain syndrome; N18.2 Chronic kidney disease, stage 2 (mild); F17.210 Nicotine dependence, cigarettes, uncomplicated; G47.00 Insomnia, unspecified; M43.17 Spondylolisthesis, lumbosacral region; M51.26 Other intervertebral disc displacement, lumbar region; Z68.33 Body mass index [BMI] 33.0-33.9, adult; Z79.899 Other long term (current) drug therapy; Z90.710 Acquired absence of both cervix and uterus; Z90.49 Acquired absence of other specified parts of digestive tract; W18.39XA Other fall on same level, initial encounter; Y93.89 Activity, other specified; Y99.8 Other external cause status; Y92.008 Other place in unspecified non-institutional (private) residence as the place of occurrence of the external cause
CPT/HCPCS: 31500; 36415; 36600; 70450; 71045; 72125; 72131; 72148; 72192; 80048; 80053; 80307; 80320; 81001; 82805; 82962; 83605; 83735; 83880; 84132; 84484; 85025; 85610; 85730; 87040; 87070; 87077; 87081; 87186; 87205; 92610; 93005; 93306; 94002; 94003; 94640; 96360; 97110; 97116; 97163; 97530; 99291; C9113; G0378; J0330; J1956; J2250; J2704; J7060

== ENCOUNTER 2024-01-26 09:26 | Inpatient (IN) | payer MEDICAID ==
[~2024-01-26] VITALS: Ht 170.2 cm; Wt 110.7 kg
[2024-01-26 09:35] VITALS: PULSE 89; RESP 15; O2SAT 98
[2024-01-26 10:04] LABS: Base Excess -5.8 mmol/L (-2.0-2.0)
[2024-01-26 10:37] LABS: Basophils # (auto) 0 10 ^3/uL (0-0.2); Basophils % (auto) 0.2 % (0.0-2.0); Eosinophils # (auto) 0 10 ^3/uL (0-0.8); Hematocrit 48.1 % (36.0-46.0); Hemoglobin 16.1 g/dL (12.2-16.2); Lymphocytes # (auto) 1.2 10 ^3/uL (0.4-5.4); Lymphocytes % (auto) 9.1 % (10.0-50.0); Mean Corpuscular Hemoglobin 29.8 pg (28.0-32.0); Mean Corpuscular Hgb Conc. 33.4 g/dL (32.0-36.0); Mean Corpuscular Volume 89.1 fL (80.0-100.0); Monocytes # (auto) 1.9 10 ^3/uL (0-1.3); Monocytes % (auto) 14.5 % (0.0-12.0); Neutrophils % (auto) 76.2 % (37.0-80.0); Nucleated Red Blood Cells % 0.1 %; Platelet Count (auto) 342 10^3/uL (140-450); Red Cell Distribution Width 16.5 % (11.8-14.3); White Blood Cell 13.1 10^3/uL (4.4-10.8)
[2024-01-26] MEDS: SODIUM CHLORIDE 0.9% 1,000 ML IVB ONE (10:46)
[2024-01-26] MEDS: cefTRIAXone 1GM/50ML D5W 50 ML IV ONE (10:47)
[2024-01-26 10:54] LABS: Anion Gap 14 (5-15); Carbon Dioxide 23 mmol/L (20-30); Chloride 106 mmol/L (98-107); Lactic Acid w/Reflex 2.7 mmol/L (0.4-2.0); Potassium 4.5 mmol/L (3.5-5.1); Sodium 143 mmol/L (136-145)
[2024-01-26 10:55] LABS: Calcium 9.4 mg/dL (8.7-10.4)
[2024-01-26 11:00] LABS: Blood Alcohol < 3.0 mg/dL (<10); Glucose 133 mg/dL (74-106)
[2024-01-26 11:03] LABS: Blood Urea Nitrogen 91 mg/dL (9-23)
[2024-01-26] MEDS: AZITHROMYCIN 500MG/ 250ML 250 ML IV ONE (11:16)
[2024-01-26] MEDS: SODIUM CHLORIDE 0.9% 1,000 ML IV ONE ×5 (11:30→17:13)
[2024-01-26 13:57] LABS: Urine Bacteria FEW /hpf (None Seen); Urine Blood 3+ /uL (Negative); Urine Clarity Clear (Clear); Urine Color Yellow (Yellow); Urine Hyaline Cast FEW /lpf (0 - 2); Urine Protein, UAD 1+ (Negative); Urine Specific Gravity 1.018 (1.001-1.035); Urine Urobilinogen Normal (Negative); Urine WBC 6 /hpf (0 - 5)
[2024-01-26] MEDS ORDERED: ONDANSETRON HCL 4 MG/2 ML VIAL IV PRN (16:15)
[2024-01-26] MEDS ORDERED: HYDROcodone-ACET 5/325MG TAB PO PRN (16:15)
[2024-01-26] MEDS ORDERED: ACETAMINOPHEN 325 MG TAB PO PRN (16:15)
[2024-01-26] MEDS ORDERED: AMPICILLIN & SULBACTAM SODIUM 3 GM in SODIUM CHL 0.9% 100 ML IV SCH (16:15)
[2024-01-26 16:28] LABS: Amphetamine Screen, Urine Neg (NEGATIVE); Barbiturate Scree,Urine Neg (NEGATIVE); Benzodiazephine Screen, Urine Pos (NEGATIVE); Cannabinoid Screen, Urine Neg (NEGATIVE); Cocaine Screen, Urine Neg (NEGATIVE); Opiate Scree,Urine Neg (NEGATIVE); Phencyclidine Screen, Urine Neg (NEGATIVE)
[2024-01-26] MEDS: AMPICILLIN & SULBACTAM SODIUM 3 GM in SODIUM CHL 0.9% 100 ML IV SCH (17:25)
[2024-01-26] MEDS: HALOPERIDOL LACTATE 5 MG/ML INJ VIAL IM PRN (20:05)
[2024-01-26 20:25] VITALS: O2SAT 98
[2024-01-26] MEDS: SERTRALINE HCL 50 MG TAB PO SCH (21:57)
[2024-01-26] MEDS: ATORVASTATIN 20 MG TAB PO SCH (21:58)
[2024-01-26] MEDS: PREGABALIN CAPSULE 75 MG CAP PO SCH (22:00)
[2024-01-26] MEDS ORDERED: PATIENTS OWN MEDICATION (Sertraline Hcl (Zoloft) 1 TAB) PO SCH (22:00)
[2024-01-26 22:36] LABS: Creatinine, Urine 164.27 mg/dL (30.0-125.0)
[2024-01-26] MEDS: SODIUM CHLOR 0.9% PF (SALINE LOCK) 10ML VIAL/SYR IV SCH (22:36)
[2024-01-26 22:50] VITALS: BP 143/54; PULSE 90; RESP 17; TEMP 98.1; O2SAT 94
[2024-01-26 23:44] VITALS: RESP 20; O2SAT 94
[2024-01-26 23:50] VITALS: BP 143/54; PULSE 90; RESP 17; TEMP 98.1; O2SAT 94
[2024-01-27] VITALS (9 sets, daily range): BP systolic 132–174; BP diastolic 54–67; PULSE 71–90; RESP 17–20; TEMP 97.9–99.5; O2SAT 94–100
[2024-01-27] MEDS: LEVOTHYROXINE SODIUM 50 MCG TAB PO SCH (06:25)
[2024-01-27 06:39] LABS: Basophils # (auto) 0 10 ^3/uL (0-0.2); Basophils % (auto) 0.3 % (0.0-2.0); Eosinophils # (auto) 0 10 ^3/uL (0-0.8); Eosinophils % (auto) 0.1 % (0.0-7.0); Hematocrit 38.7 % (36.0-46.0); Hemoglobin 12.9 g/dL (12.2-16.2); Lymphocytes # (auto) 1.5 10 ^3/uL (0.4-5.4); Lymphocytes % (auto) 18.4 % (10.0-50.0); Mean Corpuscular Hemoglobin 29.6 pg (28.0-32.0); Mean Corpuscular Hgb Conc. 33.4 g/dL (32.0-36.0); Mean Corpuscular Volume 88.6 fL (80.0-100.0); Monocytes # (auto) 1.1 10 ^3/uL (0-1.3); Monocytes % (auto) 13.4 % (0.0-12.0); Neutrophils # (auto) 5.4 10 ^3/uL (1.6-8.6); Neutrophils % (auto) 67.8 % (37.0-80.0); Nucleated Red Blood Cells % 0.2 %; Platelet Count (auto) 237 10^3/uL (140-450); Red Blood Cells 4.37 10^6/uL (4.0-5.20)
[2024-01-27 06:40] LABS: Alanine Aminotransferase 52 U/L (7-40); Alkaline Phosphatase 112 U/L (46-116); BUN/Creatinine Ratio 38.1 (10.0-20.0); Chloride 115 mmol/L (98-107); Potassium 3.4 mmol/L (3.5-5.1); Sodium 146 mmol/L (136-145)
[2024-01-27 06:41] LABS: Albumin 3.3 g/dL (3.2-4.8); Aspartate Aminotransferase 252 U/L (13-40); Bilirubin, Total 0.6 mg/dL (0.2-1.0); Total Protein 5.9 g/dL (5.7-8.2)
[2024-01-27 06:43] LABS: Blood Urea Nitrogen 37 mg/dL (9-23)
[2024-01-27 06:59] LABS: Glucose 97 mg/dL (74-106)
[2024-01-27 07:35] LABS: Anion Gap 11 (5-15); Carbon Dioxide 20 mmol/L (20-30)
[2024-01-27] MEDS: PANTOPRAZOLE 40 MG/10 ML VIAL INJ IV SCH (09:09)
[2024-01-27] MEDS: CHOLECALCIFEROL (VITD3) 1,000UNIT=25mCg TAB PO SCH (09:13)
[2024-01-27] MEDS: amLODIPine BESYLATE 5 MG TAB PO SCH (09:14)
[2024-01-27] MEDS ORDERED: amLODIPine BESYLATE 5 MG TAB PO SCH (10:00)
[2024-01-27] MEDS ORDERED: PATIENTS OWN MEDICATION (Cholecalciferol (Vitamin D3) 1 TAB) PO SCH (10:00)
[2024-01-27] MEDS ORDERED: PANTOPRAZOLE 40 MG/10 ML VIAL INJ IV SCH (10:00)
[2024-01-27] MEDS ORDERED: PATIENTS OWN MEDICATION (Fenofibrate 1 TAB) PO SCH (10:00)
[2024-01-27] MEDS ORDERED: PATIENTS OWN MEDICATION (Atorvastatin Calcium (Lipitor) 1 TAB) PO SCH (10:00)
[2024-01-27] MEDS: Fenofibrate 145MG PO SCH (10:00)
[2024-01-27] MEDS ORDERED: LEVOTHYROXINE SODIUM 50 MCG TAB PO SCH (10:00)
[2024-01-27] MEDS: POTASSIUM EFFERVESENT TAB 25 MEQ PO ONE (12:23)
[2024-01-27 12:25] LABS: Magnesium 1.9 mg/dL (1.6-2.6)
[2024-01-27 12:26] LABS: Phosphorus 2.4 mg/dL (2.4-5.1)
[2024-01-27] MEDS: SOD CHL 0.45% 1,000 ML IV SCH (12:45)
[2024-01-27] MEDS ORDERED: SODIUM CHLORIDE 0.9% 1,000 ML IV SCH (13:00)
[2024-01-27 16:51] LABS: Folate (Folic Acid) 7.65 ng/mL (>5.38)
[2024-01-28 05:00] VITALS: BP 134/73; PULSE 83; RESP 17; TEMP 98.3; O2SAT 99
[2024-01-28 08:00] VITALS: PULSE 82; PULSE 83; RESP 18; O2SAT 94
[2024-01-28 09:00] VITALS: BP 172/56; PULSE 82; RESP 18; TEMP 97.9; O2SAT 94
[2024-01-28 13:00] VITALS: BP 161/67; PULSE 82; RESP 18; TEMP 98.7; O2SAT 96
[2024-01-28 13:10] LABS: Basophils # (auto) 0 10 ^3/uL (0-0.2); Basophils % (auto) 0.3 % (0.0-2.0); Eosinophils # (auto) 0 10 ^3/uL (0-0.8); Eosinophils % (auto) 0.1 % (0.0-7.0); Hematocrit 40.2 % (36.0-46.0); Hemoglobin 13.7 g/dL (12.2-16.2); Lymphocytes # (auto) 1.6 10 ^3/uL (0.4-5.4); Lymphocytes % (auto) 17.2 % (10.0-50.0); Mean Corpuscular Volume 88.2 fL (80.0-100.0); Monocytes % (auto) 10.6 % (0.0-12.0); Neutrophils # (auto) 6.8 10 ^3/uL (1.6-8.6); Neutrophils % (auto) 71.8 % (37.0-80.0); Nucleated Red Blood Cells % 0.1 %; Platelet Count (auto) 263 10^3/uL (140-450); Red Blood Cells 4.56 10^6/uL (4.0-5.20); Red Cell Distribution Width 16.2 % (11.8-14.3); White Blood Cell 9.5 10^3/uL (4.4-10.8)
[2024-01-28 13:32] LABS: Alanine Aminotransferase 52 U/L (7-40); Albumin 3.6 g/dL (3.2-4.8); Alkaline Phosphatase 128 U/L (46-116); Anion Gap 4 (5-15); Aspartate Aminotransferase 146 U/L (13-40); BUN/Creatinine Ratio 31.3 (10.0-20.0); Bilirubin, Total 0.4 mg/dL (0.2-1.0); Blood Urea Nitrogen 21 mg/dL (9-23); Calcium 8.7 mg/dL (8.7-10.4); Carbon Dioxide 26 mmol/L (20-30); Chloride 113 mmol/L (98-107); Glucose 104 mg/dL (74-106); Sodium 143 mmol/L (136-145); Total Protein 6.2 g/dL (5.7-8.2)
[2024-01-28 13:43] LABS: Creatine Kinase IFCC 4216 U/L (34-145)
[2024-01-28] MEDS: hydrALAZINE HCL 20 MG/ML VL IV ONE (17:12)
[2024-01-28] MEDS: MAGNESIUM SULFATE 1GM/100ML 100 ML IV ONE (17:12)
[2024-01-28] MEDS: ENOXAPARIN SOD 40 MG/0.4 ML SYRINGE SC ONE (17:12)
[2024-01-28 20:00] VITALS: PULSE 86; RESP 18
[2024-01-29] MEDS: amLODIPine BESYLATE 5 MG TAB PO SCH (06:30)
[2024-01-29 08:00] VITALS: PULSE 80; PULSE 81; RESP 18
[2024-01-29] MEDS: ENOXAPARIN SOD 40 MG/0.4 ML SYRINGE SC SCH (10:00)
[2024-01-29] MEDS ORDERED: LISINOPRIL 5 MG TAB PO SCH (10:00)
[2024-01-29 17:17] VITALS: BP 180/80; PULSE 83; RESP 16; TEMP 98.7; O2SAT 97
[2024-01-29] MEDS: LISINOPRIL 5 MG TAB PO ONE (17:30)
[2024-01-29 20:00] VITALS: PULSE 84; RESP 18
[2024-01-29 22:00] VITALS: BP 149/67; PULSE 80; RESP 16; TEMP 98.7; O2SAT 98
[2024-01-30] VITALS (7 sets, daily range): BP systolic 137–169; BP diastolic 60–74; PULSE 58–78; RESP 16–18; TEMP 98.3–98.7; O2SAT 95–97
[2024-01-30] MEDS: hydrALAZINE HCL 20 MG/ML VL IV PRN (02:22)
[2024-01-30 06:57] LABS: Alanine Aminotransferase 45 U/L (7-40); Albumin 3.5 g/dL (3.2-4.8); Alkaline Phosphatase 115 U/L (46-116); Anion Gap 6 (5-15); Aspartate Aminotransferase 81 U/L (13-40); Bilirubin, Total 0.4 mg/dL (0.2-1.0); Blood Urea Nitrogen 25 mg/dL (9-23); Calcium 8.7 mg/dL (8.7-10.4); Carbon Dioxide 25 mmol/L (20-30); Chloride 113 mmol/L (98-107); Glucose 103 mg/dL (74-106); Potassium 3.4 mmol/L (3.5-5.1); Sodium 144 mmol/L (136-145); Total Protein 5.9 g/dL (5.7-8.2)
[2024-01-30 07:02] LABS: Basophils # (auto) 0 10 ^3/uL (0-0.2); Basophils % (auto) 0.2 % (0.0-2.0); Eosinophils # (auto) 0 10 ^3/uL (0-0.8); Eosinophils % (auto) 0.3 % (0.0-7.0); Hematocrit 40.4 % (36.0-46.0); Hemoglobin 13.7 g/dL (12.2-16.2); Lymphocytes # (auto) 2.2 10 ^3/uL (0.4-5.4); Lymphocytes % (auto) 17.2 % (10.0-50.0); Mean Corpuscular Hemoglobin 29.6 pg (28.0-32.0); Mean Corpuscular Hgb Conc. 33.8 g/dL (32.0-36.0); Mean Corpuscular Volume 87.6 fL (80.0-100.0); Monocytes # (auto) 0.9 10 ^3/uL (0-1.3); Monocytes % (auto) 6.9 % (0.0-12.0); Neutrophils # (auto) 9.8 10 ^3/uL (1.6-8.6); Neutrophils % (auto) 75.4 % (37.0-80.0); Platelet Count (auto) 302 10^3/uL (140-450); Red Blood Cells 4.61 10^6/uL (4.0-5.20); Red Cell Distribution Width 16.3 % (11.8-14.3)
[2024-01-30 08:49] LABS: Hepatitis B Surface Antigen Negative (Negative)
[2024-01-30 09:10] LABS: Hepatitis A Ab IgM Negative
[2024-01-30 09:11] LABS: Hepatitis B Core IgM Negative; Hepatitis C Antibody Negative (Negative)
[2024-01-30] MEDS: LISINOPRIL 5 MG TAB PO SCH (10:17)
[2024-01-30] MEDS: POTASSIUM CHL 20MEQ/100ML 100 ML IV ONE (12:15)
[2024-01-30] MEDS: CYANOCOBALAMIN (B-12) 1000 MCG/1 ML VIAL IM ONE (12:15)
[2024-01-30] MEDS: MAGNESIUM SULFATE 1GM/100ML 100 ML IV SCH (19:00)
[2024-01-31] VITALS (8 sets, daily range): BP systolic 135–158; BP diastolic 62–72; PULSE 62–71; RESP 17–20; TEMP 98.2–98.9; O2SAT 96–100
[2024-01-31 07:13] LABS: Basophils # (auto) 0.1 10 ^3/uL (0-0.2); Basophils % (auto) 0.8 % (0.0-2.0); Eosinophils # (auto) 0.1 10 ^3/uL (0-0.8); Eosinophils % (auto) 0.4 % (0.0-7.0); Hematocrit 39.7 % (36.0-46.0); Lymphocytes # (auto) 2.5 10 ^3/uL (0.4-5.4); Lymphocytes % (auto) 18.1 % (10.0-50.0); Mean Corpuscular Hemoglobin 28.8 pg (28.0-32.0); Mean Corpuscular Hgb Conc. 32.8 g/dL (32.0-36.0); Mean Corpuscular Volume 87.8 fL (80.0-100.0); Monocytes # (auto) 0.8 10 ^3/uL (0-1.3); Monocytes % (auto) 5.9 % (0.0-12.0); Neutrophils # (auto) 10.1 10 ^3/uL (1.6-8.6); Neutrophils % (auto) 74.8 % (37.0-80.0); Platelet Count (auto) 245 10^3/uL (140-450); Red Blood Cells 4.52 10^6/uL (4.0-5.20); Red Cell Distribution Width 15.8 % (11.8-14.3); White Blood Cell 13.6 10^3/uL (4.4-10.8)
[2024-01-31 07:30] LABS: Alanine Aminotransferase 45 U/L (7-40); Albumin 3.4 g/dL (3.2-4.8); Alkaline Phosphatase 94 U/L (46-116); Anion Gap 9 (5-15); Aspartate Aminotransferase 81 U/L (13-40); BUN/Creatinine Ratio 34.4 (10.0-20.0); Blood Urea Nitrogen 21 mg/dL (9-23); Calcium 8.3 mg/dL (8.7-10.4); Carbon Dioxide 24 mmol/L (20-30); Chloride 111 mmol/L (98-107); Glucose 97 mg/dL (74-106); Magnesium 1.6 mg/dL (1.6-2.6); Potassium 3.4 mmol/L (3.5-5.1); Sodium 144 mmol/L (136-145)
[2024-01-31 07:31] LABS: Total Protein 5.6 g/dL (5.7-8.2)
[2024-01-31 07:55] LABS: Bilirubin, Total 0.4 mg/dL (0.2-1.0)
[2024-01-31] MEDS: CYANOCOBALAMIN 500 MCG TAB PO SCH (10:51)
[2024-01-31] MEDS: MAGNESIUM SULFATE 1GM/100ML 100 ML IV SCH (12:52)
[2024-01-31] MEDS: POTASSIUM CHL 20 Meq TABLET PO ONE (12:52)
[2024-02-01] VITALS (8 sets, daily range): BP systolic 123–152; BP diastolic 60–75; PULSE 62–79; RESP 16–20; TEMP 97.6–99.1; O2SAT 94–99
[2024-02-01 07:36] LABS: Basophils # (auto) 0.1 10 ^3/uL (0-0.2); Basophils % (auto) 0.8 % (0.0-2.0); Eosinophils # (auto) 0.1 10 ^3/uL (0-0.8); Hematocrit 37.6 % (36.0-46.0); Hemoglobin 12.3 g/dL (12.2-16.2); Lymphocytes # (auto) 1.9 10 ^3/uL (0.4-5.4); Mean Corpuscular Hemoglobin 29.3 pg (28.0-32.0); Mean Corpuscular Hgb Conc. 32.6 g/dL (32.0-36.0); Monocytes # (auto) 0.7 10 ^3/uL (0-1.3); Monocytes % (auto) 6.2 % (0.0-12.0); Neutrophils # (auto) 8.3 10 ^3/uL (1.6-8.6); Nucleated Red Blood Cells % 0.1 %; Platelet Count (auto) 243 10^3/uL (140-450); Red Blood Cells 4.18 10^6/uL (4.0-5.20); Red Cell Distribution Width 16.1 % (11.8-14.3); White Blood Cell 11.1 10^3/uL (4.4-10.8)
[2024-02-01] MEDS: LOPERAMIDE HCL 2 MG CAP/TAB PO ONE (07:59)
[2024-02-01] MEDS: MAGNESIUM SULFATE 1GM/100ML 100 ML IV ONE (08:00)
[2024-02-01 08:06] LABS: Alanine Aminotransferase 43 U/L (7-40); Albumin 3.2 g/dL (3.2-4.8); Alkaline Phosphatase 98 U/L (46-116); Anion Gap 4 (5-15); Aspartate Aminotransferase 75 U/L (13-40); BUN/Creatinine Ratio 23.7 (10.0-20.0); Blood Urea Nitrogen 14 mg/dL (9-23); Calcium 8.4 mg/dL (8.7-10.4); Carbon Dioxide 25 mmol/L (20-30); Chloride 113 mmol/L (98-107); Glucose 91 mg/dL (74-106); Potassium 3.6 mmol/L (3.5-5.1); Sodium 142 mmol/L (136-145)
[2024-02-01 08:07] LABS: Bilirubin, Total 0.5 mg/dL (0.2-1.0); Total Protein 5.6 g/dL (5.7-8.2)
[2024-02-01] MEDS: POTASSIUM CHLORIDE 20 MEQ, LIDOCAINE 1% (LOCAL ANESTH.) 2 ML in SODIUM CHL 0.9% 100 ML IV ONE (09:43)
[2024-02-02] VITALS (7 sets, daily range): BP systolic 112–149; BP diastolic 57–71; PULSE 60–71; RESP 16–20; TEMP 97.9–99.4; O2SAT 95–97
[2024-02-02 06:22] LABS: Basophils # (auto) 0 10 ^3/uL (0-0.2); Basophils % (auto) 0.1 % (0.0-2.0); Eosinophils # (auto) 0.2 10 ^3/uL (0-0.8); Eosinophils % (auto) 1.4 % (0.0-7.0); Hematocrit 36.9 % (36.0-46.0); Hemoglobin 12.3 g/dL (12.2-16.2); Lymphocytes # (auto) 1.7 10 ^3/uL (0.4-5.4); Lymphocytes % (auto) 14.1 % (10.0-50.0); Mean Corpuscular Hemoglobin 29.6 pg (28.0-32.0); Mean Corpuscular Hgb Conc. 33.4 g/dL (32.0-36.0); Mean Corpuscular Volume 88.8 fL (80.0-100.0); Monocytes # (auto) 0.7 10 ^3/uL (0-1.3); Neutrophils # (auto) 9.2 10 ^3/uL (1.6-8.6); Neutrophils % (auto) 78.4 % (37.0-80.0); Platelet Count (auto) 239 10^3/uL (140-450); Red Blood Cells 4.16 10^6/uL (4.0-5.20); Red Cell Distribution Width 15.9 % (11.8-14.3); White Blood Cell 11.7 10^3/uL (4.4-10.8)
[2024-02-02 06:24] LABS: Alanine Aminotransferase 40 U/L (7-40); Albumin 3.4 g/dL (3.2-4.8); Alkaline Phosphatase 95 U/L (46-116); Anion Gap 5 (5-15); Aspartate Aminotransferase 44 U/L (13-40); BUN/Creatinine Ratio 27.1 (10.0-20.0); Blood Urea Nitrogen 16 mg/dL (9-23); Calcium 8.2 mg/dL (8.7-10.4); Carbon Dioxide 27 mmol/L (20-30); Chloride 112 mmol/L (98-107); Glucose 97 mg/dL (74-106); Magnesium 1.8 mg/dL (1.6-2.6); Potassium 3.5 mmol/L (3.5-5.1); Sodium 144 mmol/L (136-145)
[2024-02-02 06:25] LABS: Bilirubin, Total 0.5 mg/dL (0.2-1.0); Total Protein 5.7 g/dL (5.7-8.2)
[2024-02-03] VITALS (8 sets, daily range): BP systolic 96–141; BP diastolic 44–90; PULSE 62–80; RESP 14–18; TEMP 97.8–98.7; O2SAT 93–98
[2024-02-03 06:00] LABS: Basophils # (auto) 0.1 10 ^3/uL (0-0.2); Basophils % (auto) 0.5 % (0.0-2.0); Eosinophils # (auto) 0 10 ^3/uL (0-0.8); Eosinophils % (auto) 0.3 % (0.0-7.0); Hemoglobin 12.4 g/dL (12.2-16.2); Lymphocytes # (auto) 1.4 10 ^3/uL (0.4-5.4); Lymphocytes % (auto) 11.1 % (10.0-50.0); Mean Corpuscular Hemoglobin 29.6 pg (28.0-32.0); Mean Corpuscular Hgb Conc. 33.5 g/dL (32.0-36.0); Mean Corpuscular Volume 88.5 fL (80.0-100.0); Monocytes # (auto) 0.7 10 ^3/uL (0-1.3); Monocytes % (auto) 5.5 % (0.0-12.0); Neutrophils # (auto) 10.2 10 ^3/uL (1.6-8.6); Neutrophils % (auto) 82.6 % (37.0-80.0); Platelet Count (auto) 241 10^3/uL (140-450); Red Blood Cells 4.18 10^6/uL (4.0-5.20); Red Cell Distribution Width 15.7 % (11.8-14.3); White Blood Cell 12.3 10^3/uL (4.4-10.8)
[2024-02-03 06:26] LABS: Alanine Aminotransferase 34 U/L (7-40); Albumin 3.4 g/dL (3.2-4.8); Alkaline Phosphatase 101 U/L (46-116); Anion Gap 3 (5-15); Aspartate Aminotransferase 33 U/L (13-40); Bilirubin, Total 0.6 mg/dL (0.2-1.0); Blood Urea Nitrogen 14 mg/dL (9-23); Calcium 8.6 mg/dL (8.7-10.4); Carbon Dioxide 29 mmol/L (20-30); Chloride 110 mmol/L (98-107); Glucose 105 mg/dL (74-106); Potassium 3.4 mmol/L (3.5-5.1); Sodium 142 mmol/L (136-145); Total Protein 5.6 g/dL (5.7-8.2)
[2024-02-03] MEDS ORDERED: LISI2.5T47 PO (10:30)
[2024-02-03] MEDS: HYDROcodone-ACET 5/325MG TAB PO PRN (15:53)
[2024-02-04] VITALS (7 sets, daily range): BP systolic 111–138; BP diastolic 42–56; PULSE 59–75; RESP 14–19; TEMP 97.3–99.2; O2SAT 93–96
[2024-02-04 06:44] LABS: Basophils # (auto) 0 10 ^3/uL (0-0.2); Basophils % (auto) 0.3 % (0.0-2.0); Eosinophils # (auto) 0 10 ^3/uL (0-0.8); Eosinophils % (auto) 0.2 % (0.0-7.0); Hematocrit 36.4 % (36.0-46.0); Hemoglobin 11.9 g/dL (12.2-16.2); Lymphocytes # (auto) 1.5 10 ^3/uL (0.4-5.4); Lymphocytes % (auto) 10.2 % (10.0-50.0); Mean Corpuscular Hemoglobin 29.2 pg (28.0-32.0); Mean Corpuscular Hgb Conc. 32.7 g/dL (32.0-36.0); Mean Corpuscular Volume 89.3 fL (80.0-100.0); Monocytes # (auto) 0.7 10 ^3/uL (0-1.3); Neutrophils # (auto) 12.5 10 ^3/uL (1.6-8.6); Neutrophils % (auto) 84.3 % (37.0-80.0); Platelet Count (auto) 251 10^3/uL (140-450); Red Blood Cells 4.08 10^6/uL (4.0-5.20); White Blood Cell 14.8 10^3/uL (4.4-10.8)
[2024-02-04 06:56] LABS: Alanine Aminotransferase 28 U/L (7-40); Albumin 3.4 g/dL (3.2-4.8); Alkaline Phosphatase 101 U/L (46-116); Anion Gap 6 (5-15); Aspartate Aminotransferase 24 U/L (13-40); BUN/Creatinine Ratio 20.7 (10.0-20.0); Blood Urea Nitrogen 12 mg/dL (9-23); Calcium 8.5 mg/dL (8.7-10.4); Carbon Dioxide 24 mmol/L (20-30); Chloride 109 mmol/L (98-107); Glucose 106 mg/dL (74-106); Potassium 3.3 mmol/L (3.5-5.1); Sodium 139 mmol/L (136-145)
[2024-02-04 06:57] LABS: Bilirubin, Total 0.6 mg/dL (0.2-1.0); Total Protein 5.9 g/dL (5.7-8.2)
[2024-02-04 15:25] LABS: Potassium 3.5 mmol/L (3.5-5.1)
[2024-02-04 15:32] LABS: Magnesium 1.7 mg/dL (1.6-2.6)
[2024-02-04] MEDS: MAGNESIUM SULFATE 1GM/100ML 100 ML IV ONE (19:57)
[2024-02-05] VITALS (7 sets, daily range): BP systolic 95–133; BP diastolic 39–68; PULSE 60–68; RESP 14–17; TEMP 97.8–99.2; O2SAT 95–98
[2024-02-05 08:05] LABS: Basophils # (auto) 0 10 ^3/uL (0-0.2); Basophils % (auto) 0.2 % (0.0-2.0); Eosinophils # (auto) 0 10 ^3/uL (0-0.8); Hematocrit 35.1 % (36.0-46.0); Hemoglobin 11.6 g/dL (12.2-16.2); Lymphocytes % (auto) 9.1 % (10.0-50.0); Mean Corpuscular Hemoglobin 29.3 pg (28.0-32.0); Mean Corpuscular Hgb Conc. 33.2 g/dL (32.0-36.0); Mean Corpuscular Volume 88.3 fL (80.0-100.0); Monocytes # (auto) 0.6 10 ^3/uL (0-1.3); Monocytes % (auto) 5.9 % (0.0-12.0); Neutrophils # (auto) 9.4 10 ^3/uL (1.6-8.6); Neutrophils % (auto) 84.8 % (37.0-80.0); Platelet Count (auto) 241 10^3/uL (140-450); Red Blood Cells 3.97 10^6/uL (4.0-5.20); Red Cell Distribution Width 15.6 % (11.8-14.3); White Blood Cell 11.1 10^3/uL (4.4-10.8)
[2024-02-05 08:25] LABS: Alanine Aminotransferase 35 U/L (7-40); Albumin 3.3 g/dL (3.2-4.8); Alkaline Phosphatase 152 U/L (46-116); Anion Gap 7 (5-15); Aspartate Aminotransferase 34 U/L (13-40); BUN/Creatinine Ratio 23.4 (10.0-20.0); Blood Urea Nitrogen 18 mg/dL (9-23); Calcium 8.3 mg/dL (8.7-10.4); Carbon Dioxide 24 mmol/L (20-30); Chloride 106 mmol/L (98-107); Glucose 113 mg/dL (74-106); Potassium 3.2 mmol/L (3.5-5.1); Sodium 137 mmol/L (136-145)
[2024-02-05 08:26] LABS: Bilirubin, Total 0.7 mg/dL (0.2-1.0)
[2024-02-05] MEDS: MAGNESIUM SULFATE 1GM/100ML 100 ML IV SCH (14:17)
[2024-02-05] MEDS: POTASSIUM CHLORIDE 40 MEQ, LIDOCAINE 1% (LOCAL ANESTH.) 4 ML in SODIUM CHL 0.9% 250 ML IV ONE (18:05)
[2024-02-06 01:00] VITALS: BP 107/74; PULSE 64; RESP 18; TEMP 98.5; O2SAT 95
[2024-02-06 05:00] VITALS: BP 109/40; PULSE 64; RESP 19; TEMP 98.6; O2SAT 95
[2024-02-06 09:01] VITALS: BP 114/54; PULSE 61; RESP 17; TEMP 98.2; O2SAT 94
[2024-02-06] MEDS: amLODIPine BESYLATE 5 MG TAB PO SCH (11:15)
[2024-02-06 13:00] VITALS: BP 115/54; PULSE 67; RESP 18; TEMP 98.3; O2SAT 94
[2024-02-06] MEDS: MORPHINE SULFATE INJ 2 MG/ml SYRG IM ONE (13:00)
[2024-02-06 15:20] LABS: Basophils # (auto) 0 10 ^3/uL (0-0.2); Basophils % (auto) 0.5 % (0.0-2.0); Eosinophils # (auto) 0 10 ^3/uL (0-0.8); Eosinophils % (auto) 0.4 % (0.0-7.0); Hematocrit 35.4 % (36.0-46.0); Hemoglobin 11.6 g/dL (12.2-16.2); Lymphocytes % (auto) 10.7 % (10.0-50.0); Mean Corpuscular Hgb Conc. 32.7 g/dL (32.0-36.0); Mean Corpuscular Volume 88.8 fL (80.0-100.0); Monocytes # (auto) 0.5 10 ^3/uL (0-1.3); Monocytes % (auto) 5.3 % (0.0-12.0); Neutrophils # (auto) 7.8 10 ^3/uL (1.6-8.6); Neutrophils % (auto) 83.1 % (37.0-80.0); Nucleated Red Blood Cells % 0.2 %; Platelet Count (auto) 245 10^3/uL (140-450); Red Blood Cells 3.98 10^6/uL (4.0-5.20); Red Cell Distribution Width 16.1 % (11.8-14.3); White Blood Cell 9.3 10^3/uL (4.4-10.8)
[2024-02-06 15:47] LABS: Alanine Aminotransferase 55 U/L (7-40); Alkaline Phosphatase 168 U/L (46-116); Calcium 8.7 mg/dL (8.7-10.4); Carbon Dioxide 27 mmol/L (20-30); Chloride 107 mmol/L (98-107)
[2024-02-06 15:48] LABS: Albumin 3.5 g/dL (3.2-4.8); Anion Gap 5 (5-15); Aspartate Aminotransferase 49 U/L (13-40); BUN/Creatinine Ratio 28.4 (10.0-20.0); Bilirubin, Total 0.4 mg/dL (0.2-1.0); Blood Urea Nitrogen 19 mg/dL (9-23); Glucose 124 mg/dL (74-106); Sodium 139 mmol/L (136-145); Total Protein 6.3 g/dL (5.7-8.2)
[2024-02-06 17:13] VITALS: BP 105/38; PULSE 67; RESP 17; TEMP 98.3; O2SAT 98
[2024-02-06 21:00] VITALS: BP 108/72; PULSE 69; RESP 19; TEMP 98.5; O2SAT 97
[2024-02-06] MEDS: CEPHALEXIN 250 MG CAP PO SCH (21:56)
[2024-02-06] MEDS: MORPHINE SULFATE INJ 2 MG/ml SYRG IV PRN (22:01)
[2024-02-07] VITALS (7 sets, daily range): BP systolic 101–129; BP diastolic 44–56; PULSE 58–68; RESP 16–22; TEMP 98–99.3; O2SAT 94–98
[2024-02-07 07:49] LABS: Basophils # (auto) 0 10 ^3/uL (0-0.2); Basophils % (auto) 0.3 % (0.0-2.0); Eosinophils # (auto) 0 10 ^3/uL (0-0.8); Eosinophils % (auto) 0.2 % (0.0-7.0); Hematocrit 33.8 % (36.0-46.0); Hemoglobin 11.5 g/dL (12.2-16.2); Lymphocytes # (auto) 1.1 10 ^3/uL (0.4-5.4); Lymphocytes % (auto) 11.2 % (10.0-50.0); Mean Corpuscular Hemoglobin 30.2 pg (28.0-32.0); Mean Corpuscular Hgb Conc. 34.1 g/dL (32.0-36.0); Mean Corpuscular Volume 88.7 fL (80.0-100.0); Monocytes # (auto) 0.7 10 ^3/uL (0-1.3); Monocytes % (auto) 6.8 % (0.0-12.0); Neutrophils # (auto) 8.3 10 ^3/uL (1.6-8.6); Neutrophils % (auto) 81.5 % (37.0-80.0); Nucleated Red Blood Cells % 0.1 %; Platelet Count (auto) 230 10^3/uL (140-450); Red Blood Cells 3.81 10^6/uL (4.0-5.20); Red Cell Distribution Width 15.5 % (11.8-14.3); White Blood Cell 10.1 10^3/uL (4.4-10.8)
[2024-02-07 08:05] LABS: Alanine Aminotransferase 59 U/L (7-40); Alkaline Phosphatase 175 U/L (46-116); Anion Gap 6 (5-15); Blood Urea Nitrogen 13 mg/dL (9-23); Calcium 8.7 mg/dL (8.7-10.4); Carbon Dioxide 25 mmol/L (20-30); Chloride 107 mmol/L (98-107); Glucose 100 mg/dL (74-106); Potassium 3.4 mmol/L (3.5-5.1); Sodium 138 mmol/L (136-145)
[2024-02-07 08:06] LABS: Magnesium 1.9 mg/dL (1.6-2.6)
[2024-02-07 08:07] LABS: Albumin 3.3 g/dL (3.2-4.8); Aspartate Aminotransferase 45 U/L (13-40); Bilirubin, Total 0.5 mg/dL (0.2-1.0); Total Protein 6.1 g/dL (5.7-8.2)
[2024-02-07] MEDS: POTASSIUM CHL 20 Meq TABLET PO ONE (10:33)
[2024-02-07] MEDS: MAGNESIUM SULFATE 1GM/100ML 100 ML IV ONE (10:34)
[2024-02-07 12:23] LABS: Potassium 3.7 mmol/L (3.5-5.1)
[2024-02-07 12:30] LABS: Magnesium 2.1 mg/dL (1.6-2.6)
[2024-02-07] MEDS: ERTAPENEM SOD INJ 1 GM in SODIUM CHL 0.9% 50 ML IV ONE (17:16)
[2024-02-08] VITALS (7 sets, daily range): BP systolic 109–129; BP diastolic 45–74; PULSE 61–74; RESP 18–21; TEMP 97.9–98.5; O2SAT 92–96
[2024-02-08] MEDS: AMPICILLIN INJ 1 GM in SODIUM CHL 0.9% 100 ML IV SCH (00:22)
[2024-02-08 06:21] LABS: Basophils # (auto) 0 10 ^3/uL (0-0.2); Basophils % (auto) 0.3 % (0.0-2.0); Eosinophils # (auto) 0 10 ^3/uL (0-0.8); Eosinophils % (auto) 0.2 % (0.0-7.0); Hematocrit 32.6 % (36.0-46.0); Lymphocytes # (auto) 1.2 10 ^3/uL (0.4-5.4); Lymphocytes % (auto) 11.3 % (10.0-50.0); Mean Corpuscular Hemoglobin 29.7 pg (28.0-32.0); Mean Corpuscular Hgb Conc. 33.6 g/dL (32.0-36.0); Mean Corpuscular Volume 88.3 fL (80.0-100.0); Monocytes # (auto) 0.8 10 ^3/uL (0-1.3); Monocytes % (auto) 7.4 % (0.0-12.0); Neutrophils # (auto) 8.3 10 ^3/uL (1.6-8.6); Neutrophils % (auto) 80.8 % (37.0-80.0); Platelet Count (auto) 240 10^3/uL (140-450); Red Blood Cells 3.69 10^6/uL (4.0-5.20); Red Cell Distribution Width 15.8 % (11.8-14.3); White Blood Cell 10.3 10^3/uL (4.4-10.8)
[2024-02-08 06:43] LABS: Alanine Aminotransferase 71 U/L (7-40); Albumin 3.3 g/dL (3.2-4.8); Alkaline Phosphatase 206 U/L (46-116); Anion Gap 5 (5-15); Aspartate Aminotransferase 52 U/L (13-40); BUN/Creatinine Ratio 27.8 (10.0-20.0); Blood Urea Nitrogen 15 mg/dL (9-23); Calcium 8.2 mg/dL (8.7-10.4); Carbon Dioxide 26 mmol/L (20-30); Chloride 107 mmol/L (98-107); Glucose 101 mg/dL (74-106); Potassium 3.9 mmol/L (3.5-5.1); Sodium 138 mmol/L (136-145)
[2024-02-08 06:44] LABS: Bilirubin, Total 0.6 mg/dL (0.2-1.0)
[2024-02-08] MEDS: ERTAPENEM SOD INJ 1 GM in SODIUM CHL 0.9% 50 ML IV SCH (12:20)
[2024-02-08] MEDS: MELATONIN 5 MG TAB PO SCH (21:30)
[2024-02-09] VITALS (7 sets, daily range): BP systolic 111–147; BP diastolic 47–62; PULSE 60–72; RESP 15–22; TEMP 97.8–98.8; O2SAT 92–97
[2024-02-09 07:50] LABS: Basophils # (auto) 0 10 ^3/uL (0-0.2); Basophils % (auto) 0.3 % (0.0-2.0); Eosinophils # (auto) 0 10 ^3/uL (0-0.8); Eosinophils % (auto) 0.4 % (0.0-7.0); Hematocrit 32.9 % (36.0-46.0); Hemoglobin 11.4 g/dL (12.2-16.2); Lymphocytes % (auto) 10.5 % (10.0-50.0); Mean Corpuscular Hemoglobin 30.7 pg (28.0-32.0); Mean Corpuscular Hgb Conc. 34.7 g/dL (32.0-36.0); Mean Corpuscular Volume 88.5 fL (80.0-100.0); Monocytes # (auto) 0.6 10 ^3/uL (0-1.3); Monocytes % (auto) 6.4 % (0.0-12.0); Neutrophils # (auto) 7.7 10 ^3/uL (1.6-8.6); Neutrophils % (auto) 82.4 % (37.0-80.0); Platelet Count (auto) 294 10^3/uL (140-450); Red Blood Cells 3.71 10^6/uL (4.0-5.20); Red Cell Distribution Width 15.4 % (11.8-14.3); White Blood Cell 9.4 10^3/uL (4.4-10.8)
[2024-02-09 08:01] LABS: Alanine Aminotransferase 86 U/L (7-40); Albumin 3.4 g/dL (3.2-4.8); Alkaline Phosphatase 308 U/L (46-116); Anion Gap 6 (5-15); Aspartate Aminotransferase 56 U/L (13-40); BUN/Creatinine Ratio 22.2 (10.0-20.0); Bilirubin, Total 0.6 mg/dL (0.2-1.0); Blood Urea Nitrogen 12 mg/dL (9-23); Calcium 8.8 mg/dL (8.7-10.4); Carbon Dioxide 26 mmol/L (20-30); Chloride 105 mmol/L (98-107); Glucose 98 mg/dL (74-106); Magnesium 1.9 mg/dL (1.6-2.6); Potassium 3.7 mmol/L (3.5-5.1); Sodium 137 mmol/L (136-145)
[2024-02-09 08:02] LABS: Total Protein 6.3 g/dL (5.7-8.2)
[2024-02-10 01:00] VITALS: BP 107/55; PULSE 71; RESP 20; TEMP 99.7; O2SAT 92
[2024-02-10 05:00] VITALS: BP 124/49; PULSE 68; RESP 20; TEMP 98; O2SAT 93
[2024-02-10 08:00] VITALS: PULSE 68; RESP 17
[2024-02-10 08:52] LABS: Hepatitis B Surface Antigen Negative (Negative)
[2024-02-10 09:00] VITALS: BP 122/53; PULSE 66; RESP 16; TEMP 97.8; O2SAT 93
[2024-02-10 09:12] LABS: Hepatitis A Ab IgM Negative
[2024-02-10 09:14] LABS: Hepatitis B Core IgM Negative; Hepatitis C Antibody Negative (Negative)
== END 2024-02-10 12:00 | DRG 133 ==
LOC: EDBD 09:26 → ER 09:26 → TELE 16:06 → TELE-CENTR 22:47 → CENTRAL 02-04 23:00
PROVIDERS: ADMIT Internal Medicine Pulmonary Disease; ATTEND Internal Medicine Pulmonary Disease
PROC: 05H933Z Insertion of Infusion Device into Right Brachial Vein, Percutaneous Approach (ICD-10-PCS; principal; 2024-02-09)
PROC: B54MZZA Ultrasonography of Right Upper Extremity Veins, Guidance (ICD-10-PCS; 2024-02-09)
DX: J96.01 Acute respiratory failure with hypoxia (principal); N17.0 Acute kidney failure with tubular necrosis; J69.0 Pneumonitis due to inhalation of food and vomit; G92.8 Other toxic encephalopathy; L89.152 Pressure ulcer of sacral region, stage 2; T42.4X1A Poisoning by benzodiazepines, accidental (unintentional), initial encounter; E87.0 Hyperosmolality and hypernatremia; M62.82 Rhabdomyolysis; E86.0 Dehydration; J44.0 Chronic obstructive pulmonary disease with (acute) lower respiratory infection; K76.0 Fatty (change of) liver, not elsewhere classified; N39.0 Urinary tract infection, site not specified; E87.6 Hypokalemia; E83.42 Hypomagnesemia; I12.9 Hypertensive chronic kidney disease with stage 1 through stage 4 chronic kidney disease, or unspecified chronic kidney disease; N18.9 Chronic kidney disease, unspecified; F17.210 Nicotine dependence, cigarettes, uncomplicated; F41.9 Anxiety disorder, unspecified; F32.9 Major depressive disorder, single episode, unspecified; E03.9 Hypothyroidism, unspecified; N28.1 Cyst of kidney, acquired; G89.29 Other chronic pain; Z88.5 Allergy status to narcotic agent; Z90.710 Acquired absence of both cervix and uterus; Z90.49 Acquired absence of other specified parts of digestive tract; Z82.49 Family history of ischemic heart disease and other diseases of the circulatory system; Z56.0 Unemployment, unspecified; Y92.003 Bedroom of unspecified non-institutional (private) residence as the place of occurrence of the external cause
CPT/HCPCS: 31720; 36415; 36600; 70450; 71045; 76705; 76775; 80048; 80053; 80074; 80307; 80320; 81001; 82550; 82570; 82607; 82746; 82805; 83605; 83735; 84100; 84132; 84295; 84300; 84443; 84484; 85025; 86703; 86803; 87040; 87077; 87086; 87186; 87205; 93005; 93306; 93886; 93970; 97110; 97116; 97163; 97530; 99291; G0378; J1335; J2001; J2470

== ENCOUNTER 2024-07-01 21:31 | Inpatient (IN) | payer MEDICAID ==
[~2024-07-01] VITALS: Ht 170.2 cm; Wt 97.5 kg
[~2024-07-01 21:31] MED LIST changes: +LISI2.5T47 PO
[2024-07-01 23:03] LABS: Alanine Aminotransferase 21 U/L (7-40); Albumin 4.4 g/dL (3.2-4.8); Anion Gap 11 (5-15); Aspartate Aminotransferase 19 U/L (13-40); BUN/Creatinine Ratio 17.9 (10.0-20.0); Bilirubin, Total 0.5 mg/dL (0.2-1.0); Blood Urea Nitrogen 17 mg/dL (9-23); Calcium 9.7 mg/dL (8.7-10.4); Carbon Dioxide 22 mmol/L (20-31); Glucose 101 mg/dL (74-106); Lipase 31 U/L (12-53); Potassium 4.2 mmol/L (3.5-5.1); Sodium 141 mmol/L (136-145); Total Protein 7.6 g/dL (5.7-8.2)
[2024-07-01 23:05] LABS: Alkaline Phosphatase 147 U/L (46-116); Chloride 108 mmol/L (98-107)
--- NOTE | 2024-07-01 23:14 | DVH ---
EXAM: CT HEAD WITHOUT CONTRAST INDICATION: aloc TECHNIQUE: CT of the head without intravenous contrast. Radiation Dose : 1. Head: CT Dose: CTDI volume is 66.19 mGy. Dose-length product is 1193.2 mGy*cm The dose indicators for CT are the volume Computed Tomography (CT) Dose Index (CTDIvol) and the Dose Length Product (DLP), and are measured in units of mGy and mGy-cm, respectively. These indicators are not patient dose, but values generated from the CT scanner acquisition factors. The report includes radiation exposure data for exposures received during this examination. COMPARISON: CT HEAD WITHOUT CONTRAST on DOS: 01/26/24, CT HEAD WITHOUT CONTRAST on DOS: 10/02/23, CT CE RVICAL WITHOUT CONTRAST on DOS: 10/02/23, CT CERVICAL WITHOUT CONTRAST on DOS: 09/01/23, CT HEAD WITHOU T CONTRAST on DOS: 09/01/23 FINDINGS: There is no evidence of acute intracranial hemorrhage, extra-axial collection, mass effect, midline s hift, herniation or hydrocephalus. The ventricles, sulci and cisterns are age appropriate. The babin-white differentiation is intact. Patchy periventricular and subcortical white matter hypoattenuation is nonspecific but may be related to small vessel ischemic disease. The visualized paranasal sinuses and mastoid air cells are clear. The surrounding soft tissues and osseous structures are unremarkable. IMPRESSION: 1. No acute intracranial abnormality. Radiation optimization: All CT scans at this facility use at least one of these dose optimization dandre hniques: automated exposure control mA and/or kV adjustment per patient size (includes targeted exam s where dose is matched to clinical indication) or iterative reconstruction.
--- NOTE | 2024-07-01 23:30 | DVH ---
CLINICAL HISTORY: abd pain TECHNIQUE: CT of the abdomen and pelvis was performed without intravenous contrast. This exam was per formed according to our departmental dose optimization program. Up-to-date CT equipment and radiation dose reduction techniques are utilized as appropriate. CTDI: [CTDIvol] DLP: 1235.11 WID: COMPARISON: None FINDINGS: Lower Thorax: Normal-sized heart. Linear bibasilar scarring or atelectasis at least mild coronary art grey calcifications partially imaged. Small hiatal hernia Liver and Biliary system: Mildly enlarged liver measuring 18 cm in length No discrete hepatic lesion. Dilated common bile duct measuring 2.2 cm. There is intrahepatic bile duct dilatation. Prior cholecy stectomy Spleen: Mild splenomegaly. Adrenal Glands and Kidneys: Normal adrenal glands. There are bilateral renal hypodensities which are not optimally evaluated without contrast though may reflect cysts. There is a small intermediate den sity which is exophytic off the anterior right lower pole on series 2, image 55 which is not optimall y evaluated without contrast. There is no hydronephrosis Pancreas and Retroperitoneum: Grossly normal pancreas. There is no retroperitoneal lymphadenopathy. Aorta and Major Vessels: Aortoiliac vessels are normal caliber containing [id number] calcified plaque. Bowel, Mesentery and Peritoneal space: Normal caliber small and large bowel. Mild colonic diverticul osis. Normal appendix. Mild wall thickening of segments of the large bowel. There is no free air or f luid collection. Pelvis: There is limited evaluation of the pelvis due to streak artifact from bilateral hip arthropla sty. No definite pelvic lymphadenopathy prior hysterectomy. Urinary bladder is mildly distended. Abdominal wall and Osseous Structures: Bilateral hip arthroplasties in place. Multilevel lower thorac ic and lumbar spondylosis. Grade 1 retrolisthesis at L5-S1 chondrocalcinosis of the pubic symphysis. Mild left convexity scoliosis of the lumbar spine. There appears to be a defect or possible ulcer in the posterior abdominal wall overlying the lower sacrum measuring 3.2 cm transverse on series 2, laureen ge 84 IMPRESSION: 1. Mild wall thickening of segments of the large bowel which could be due to infectious or inflammato ry colitis, incomplete distention, or scarring. 2. Dilated common bile duct and intrahepatic bile ducts which could be choledocho ectasia status post cholecystectomy however correlate with liver enzymes. If there is clinical concern for biliary obst ruction, MRCP could be pursued for further evaluation. 3. Possible defect or ulceration versus skin fold in the posterior abdominal wall overlying the lower sacrum measuring 3.2 cm transverse. Correlate with clinical exam. 4. Bilateral low-density renal lesions and right lower pole intermediate density lesion suboptimally evaluated without contrast though likely cysts. 5. Mild colonic diverticulosis. 6. Small hiatal hernia. 7. At least mild calcified coronary artery disease
[2024-07-02 01:27] LABS: Basophils # (auto) 0 10 ^3/uL (0-0.2); Basophils % (auto) 0.2 % (0.0-2.0); Eosinophils # (auto) 0.1 10 ^3/uL (0-0.8); Eosinophils % (auto) 1.3 % (0.0-7.0); Hematocrit 41.2 % (36.0-46.0); Lymphocytes # (auto) 1.4 10 ^3/uL (0.4-5.4); Lymphocytes % (auto) 12.9 % (10.0-50.0); Mean Corpuscular Hemoglobin 27.8 pg (28.0-32.0); Mean Corpuscular Hgb Conc. 31.6 g/dL (32.0-36.0); Mean Corpuscular Volume 87.9 fL (80.0-100.0); Monocytes # (auto) 0.7 10 ^3/uL (0-1.3); Monocytes % (auto) 6.5 % (0.0-12.0); Neutrophils # (auto) 8.3 10 ^3/uL (1.6-8.6); Neutrophils % (auto) 79.1 % (37.0-80.0); Nucleated Red Blood Cells % 0.1 %; Platelet Count (auto) 218 10^3/uL (140-450); Red Blood Cells 4.69 10^6/uL (4.0-5.20); Red Cell Distribution Width 17.1 % (11.8-14.3); White Blood Cell 10.5 10^3/uL (4.4-10.8)
--- NOTE | 2024-07-02 02:00 | ED.PDOC ---
History of Present Illness HPI Comments 54-YEAR-OLD FEMALE BROUGHT IN BY EMS. FAMILY HAD CONCERNED BECAUSE THEY HAD NOT HEARD FROM THE PATIENT IN THREE DAYS SO THEY CALLED [facility] DEPARTMENT TO DO A WELFARE CHECK. WHEN [facility] ARRIVED THEY FOUND A PERSON IN THE LIVING ROOM AND THE PATIENT ON THE FLOOR IN HER BEDROOM. PER EMS SHE WAS PICKED UP AT HER HOUSE AFTER SUSTAINING A FALL. PATIENT STATES SHE FELL OUT OF HER BED THREE DAYS AGO. SHE WAS IN THE BEEN ABLE TO GET TO HER BED. PATIENT STATES HE WAS WITH CHRONIC PAIN IN HIS LOWER EXTREMITIES AND BACK. TAKING PERCOCET DAILY. PATIENT COMPLAINING OF LOWER BACK PAIN AND LEG PAIN. Chief Complaint: Fall Injury Time Seen by MD: 21:48 Primary Care Provider: MARCELO Reviewed Notes: Nurses Notes Allergies: Coded Allergies: Acetaminophen (Verified Allergy, Severe, 02/04/24) Propoxyphene (Verified Allergy, Severe, 02/04/24) Codeine (Verified Allergy, Mild, ITCHING AND HIVES, 12/14/21) Home Meds Active Scripts Lisinopril (Lisinopril) 2.5 Mg Tab, 2 TAB PO DAILY, #180 TAB 3 Refills Prov:LUIS SAGASTUME MD 02/03/24 Reported Medications Cholecalciferol (VITAMIN D3) 2,000 Unit Tab, 1 TAB PO DAILY 09/02/23 Amlodipine Besylate (Amlodipine Besylate) 5 Mg Tab, 1 TAB PO DAILY 09/02/23 Baclofen (Baclofen) 10 Mg Tab, 20 MG PO TID 09/02/23 Levothyroxine Sodium (Levothyroxine Sodium) 50 Mcg Tab, 1 TAB PO DAILY 09/02/23 Zolpidem Tartrate (Zolpidem Tartrate) 10 Mg Tab, 1 TAB PO QPM 09/02/23 Trazodone Hcl (Trazodone Hcl) 100 Mg Tab, 1 TAB PO DAILY 09/02/23 Oxycodone W/ Acetaminophen (Apap/Oxycodone) 1 Tab Tab, 1 TAB PO TID Oxycodone/Acetaminophen 10/325 mg 09/02/23 Pregabalin (Pregabalin) 75 Mg Cap, 1 CAP PO BID 09/02/23 Atorvastatin Calcium (Lipitor) 40 Mg Tab, 1 TAB PO DAILY 09/02/23 Fenofibrate (FENOFIBRATE) 145 Mg Tab, 1 TAB PO DAILYPRN 4/17/21 Sertraline Hcl (Zoloft) 100 Mg Tab, 1 TAB PO BID, #30 TAB 5 Refills 09/12/17 Alprazolam (Xanax) 1 Mg Tab, 1 TAB PO BID for ANXIETY 09/12/17 Information Source: Patient Mode of Arrival: EMS Past Medical History PAST MEDICAL HISTORY: Anemia, CKF, HTN Surgical History: Cholecystectomy, Hysterectomy [employer] History: No Pertinent [employer] History Family History Family History: Reviewed,noncontributory to illness Social History Smoker: Cigarettes Alcohol: Denies ETOH Use Drugs: Denies Drug Use Lives In: Home Constitutional: denies: chills, diaphoresis, fatigue, fever, malaise, sweats, weakness, others EENTM: denies: blurred vision, double vision, ear bleeding, ear discharge, ear drainage, ear pain, ear ringing, eye pain, eye redness, hearing loss, mouth pain, mouth swelling, nasal discharge, nose bleeding, nose congestion, nose pain, photophobia, tearing, throat pain, throat swelling, voice changes, others Respiratory: denies: cough, hemoptysis, orthopnea, SOB at rest, shortness of breath, SOB with excertion, stridor, wheezing, others Cardiovascular: denies: chest pain, dizzy spells, diaphoresis, Dyspnea on exertion, edema, irregular heart beat, left arm pain, lightheadedness, palpitations, PND, syncope, others Gastrointestinal: denies: abdomen distended, abdominal pain, blood streaked bowels, constipated, diarrhea, dysphagia, difficulty swallowing, hematemesis, melena, nausea, poor appetite, poor fluid intake, rectal bleeding, rectal pain, vomiting, others Genitourinary: denies: abnormal vagina bleeding, burning, dyspareunia, dysuria, flank pain, frequency, hematuria, incontinence, pain, , vagina discharge, urgency, others Neurological: denies: dizziness, fainting, headache, left sided numbness, left sided weakness, numbness, paresthesia, pre-existing deficit, right sided numbnes s, right sided weakness, seizure, speech problems, tingling, tremors, weakness, others Musculoskeletal: reports: joint pain, joint swelling, muscle pain; denies: back pain, gout, muscle stiffness, neck pain, others Integumetry: denies: bruises, change in color, change in hair/nails, dryness, laceration, lesions, lumps, rash, wounds, others Allergic/Immunocompromised: denies: Difficulty Healing, Frequent Infections, Hives, Itching, others Hematologic/Lymphatic: denies: anemia, blood clots, easy bleeding, easy bruising, swollen glands, others Endocrine: denies: excessive hunger, excessive sweating, excessive thirst, excessive urination, flushing, intolerance to cold, intolerance to heat, unexplained weight gain, unexplained weight loss, others Psychiatric: denies: anxiety, bipolar disorder, depression, hopeless, panic d isorder, schizophrenia, sleepless, suicidal, others Physical Exam General Appearance: No Apparent Distress, Normal HEENT: Normal ENT Inspection, Pharynx Normal, TMs Normal Neck: Full Range of Motion, Non-Tender, Normal, Normal Inspection Respiratory: Chest Non-Tender, Lungs Clear, No Accessory Muscle Use, No Respiratory Distress, Normal Breath Sounds Cardiovascular: No Edema, No JVD, No Murmur, No Gallop, Normal Peripheral Pulses, Regular Rate/Rhythm Breast Exam: Deferred Gastrointestinal: No Organomegaly, Non Tender, No Pulsatile Mass, Normal Bowel Sounds, Soft Genitalia: Deferred Pelvic: Deferred Rectal: Deferred Extremities: No calf tenderness, Normal capillary refill, Normal inspection, Normal range of motion, Non-tender, No pedal edema Musculoskeletal : Location: Bilateral Extremity Location: Leg Apperance: Normal Neurologic: Alert, log cut off sawyer II-XII nml as Tested, No Motor Deficits, Normal Affect, Normal Mood, No Sensory Deficits Cerebellar Function: Normal Reflexes: Normal Skin: Dry, Normal Color, Warm Lymphatic: No Adenopathy Was a procedure done? Was a procedure done?: No Differential Dx Considerations may include: LOC, URINARY TRACT INFECTION, PELVIC FRACTURE, X-Ray, Labs, Meds, VS Vital Signs Date Time Temp Pulse Resp B/P (MAP) Pulse Ox O2 Delivery O2 Flow Rate FiO2 07/01/24 21:43 83 07/01/24 21:39 99.1 84 16 147/74 (98) 94 Lab Test 07/01/24 22:30 Range/Units White Blood Count 10.5 4.4-10.8 10^3/uL Red Blood Count 4.69 4.0-5.20 10^6/uL Hemoglobin 13.0 12.2-16.2 g/dL Hematocrit 41.2 36.0-46.0 % Mean Corpuscular Volume 87.9 80.0-100.0 fL Mean Corpuscular Hemoglobin 27.8 L 28.0-32.0 pg Mean Corpuscular Hemoglobin Concent 31.6 L 32.0-36.0 g/dL Red Cell Distribution Width 17.1 H 11.8-14.3 % Platelet Count 218 140-450 10^3/uL Mean Platelet Volume 8.2 6.9-10.8 fL Neutrophils (%) (Auto) 79.1 37.0-80.0 % Lymphocytes (%) (Auto) 12.9 10.0-50.0 % Monocytes (%) (Auto) 6.5 0.0-12.0 % Eosinophils (%) (Auto) 1.3 0.0-7.0 % Basophils (%) (Auto) 0.2 0.0-2.0 % Neutrophils # (Auto) 8.3 1.6-8.6 10 ^3/uL Lymphocytes # (Auto) 1.4 0.4-5.4 10 ^3/uL Monocytes # (Auto) 0.7 0-1.3 10 ^3/uL Eosinophils # (Auto) 0.1 0-0.8 10 ^3/uL Basophils # (Auto) 0 0-0.2 10 ^3/uL Nucleated Red Blood Cells 0.1 % Sodium Level 141 136-145 mmol/L Potassium Level 4.2 3.5-5.1 mmol/L Chloride Level 108 H 98-107 mmol/L Carbon Dioxide Level 22 20-31 mmol/L Anion Gap 11 5-15 Blood Urea Nitrogen 17 9-23 mg/dL Creatinine 0.95 0.550-1.02 mg/dL Glomerular Filtration Rate Calc 70 >90 mL/min BUN/Creatinine Ratio 17.9 10.0-20.0 Serum Glucose 101 74-106 mg/dL Calcium Level 9.7 8.7-10.4 mg/dL Total Bilirubin 0.5 0.2-1.0 mg/dL Aspartate Amino Transferase (AST) 19 13-40 U/L Alanine Aminotransferase (ALT) 21 7-40 U/L Alkaline Phosphatase 147 H 46-116 U/L Total Protein 7.6 5.7-8.2 g/dL Albumin 4.4 3.2-4.8 g/dL Lipase 31 12-53 U/L X-Ray, Labs, Meds, VS Comment IMAGING: X-RAYS AND CT SCANS WERE REVIEWED AND INTERPRETED BY THIS PROVIDER, IMAGING SHOWS NO FRACTURES AND NO PATHOLOGICAL DISEASE. PENDING RADIOLOGY REVIEW. LABORATORY: LABS REVIEWED AND INTERPRETED BY THIS PROVIDER. NO SIGNIFICANT ABNORMALITIES NOTED. PATIENT HAS PRIOR MEDICAL VISITS REVIEWED. MED RECONCILIATION PERFORMED VITAL SIGNS REVIEWED RECOMMEND SOCIAL SERVICE CONSULT IN THE MORNING Time of 1ST Reevaluation: 01:59 Reevaluation 1ST: Improved Patient Education/Counseling: Diagnosis, Treatment, Need For Follow Up Family Education/Counseling: Diagnosis Departure 1 Departure Time of Disposition: 01:57 Impression: Primary Impression: Lumbar stenosis with neurogenic claudication Additional Impression: Generalized weakness Disposition: 30 STILL A PATIENT Condition: Critical Discharged With: Self Critical Care Note Critical Care Time?: No Stability Stability form required: No Heart Score Heart Score: Heart Score Response (Comments) Value History N/A 0 EKG N/A 0 Age N/A 0 Risk Factors N/A 0 Troponin N/A 0 Total 0 WALLACE KANGP Jul 02, 2024 02:00
[2024-07-02 06:09] VITALS: RESP 18; O2SAT 96
--- NOTE | 2024-07-02 06:42 | ECG ---
[facility] Test Date: 2024-07-01 Test Time: 21:43:00 Pat Name: DEBBI MONZON Department: ER Room: 0233 Gender: F Check Cashier: ERIN : [id number] Requested By: WALLACE KANG Order Number: [id number] Reading MD: Wilbert Sapp Measurements Intervals Taylor Rate: 83 P: 0 IL: 50 QRS: 45 QRSD: 90 T: 223 QT: 448 QTc: 527 Interpretive Statements Sinus rhythm Short IL interval Repol abnrm suggests ischemia, anterolateral Prolonged QT interval Electronically Signed On 07-05-2024 15:46:02 PST by Wilbert Sapp Please click the below link to view image of tracing.
[2024-07-02 08:00] VITALS: PULSE 86; RESP 14; O2SAT 97
[2024-07-02 12:12] LABS: Urine Bacteria MANY /hpf (None Seen); Urine Blood Negative /uL (Negative); Urine Clarity Turbid (Clear); Urine Color Yellow (Yellow); Urine Mucus FEW (None Seen); Urine Protein, UAD 1+ (Negative); Urine Squamous Epithelial Cell FEW /hpf (<5); Urine Urobilinogen 4 mg/dL (Negative); Urine WBC 5 /hpf (0 - 5); Urine pH 5.5 (5.0-9.0)
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
[2024-07-02] MEDS ORDERED: NITROGLYCERIN 0.4 MG SL TAB SL PRN (13:00)
[2024-07-02] MEDS ORDERED: VANCOMYCIN PER PHARMACY 0 MG IV SCH (13:00)
[2024-07-02] MEDS: SODIUM CHLORIDE 0.9% 1,000 ML IV SCH (13:16)
[2024-07-02] MEDS: PIPERACILLIN-TAZOB 3.375GM 100 ML IV ONE (13:16)
--- NOTE | 2024-07-02 13:46 | DVH ---
INDICATION: eval for cbd duct dilation TECHNIQUE: Multiple real-time sonographic images were obtained of the right upper quadrant and left kidney. COMPARISON: US ABDOMEN LIMITED on DOS: 01/27/24 FINDINGS: The liver demonstrates increased echotexture without focal mass lesions. The liver measures 19 cm. There is no intrahepatic or extrahepatic ductal dilatation. The common duct measures 19 mm . Gallbladder is surgically absent. The right kidney measures 10 cm. The right kidney is normal in contour, size, and shape. The echog enicity is normal. There is no hydronephrosis. 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 The left kidney measures 13 cm. There are multiple bilateral renal cysts with the largest measuring 3.5 cm in the right kidney and 5.1 cm in the left ki dney. The pancreas is not well visualized due to overlying bowel gas. IMPRESSION: Extrahepatic biliary ductal dilatation measuring 19 mm which may be related to post reservoir effect given post cholecystectomy state. Correlate with bilirubin. Hepatic steatosis and hepatomegaly.
[2024-07-02] MEDS: PREGABALIN CAPSULE 75 MG CAP PO ONE (13:54)
[2024-07-02] MEDS: SERTRALINE HCL 50 MG TAB PO ONE (13:54)
[2024-07-02] MEDS ORDERED: PIPERACILLIN-TAZOB 3.375GM 100 ML IV SCH (14:00)
[2024-07-02] MEDS: VANCOMYCIN 1GM/250ML KIT 250 ML IV SCH (14:11)
[2024-07-02 15:02] LABS: Barbiturate Scree,Urine Neg (NEGATIVE); Benzodiazephine Screen, Urine Neg (NEGATIVE); Opiate Scree,Urine Neg (NEGATIVE)
[2024-07-02 15:14] LABS: Amphetamine Screen, Urine Neg (NEGATIVE); Cannabinoid Screen, Urine Neg (NEGATIVE); Cocaine Screen, Urine Neg (NEGATIVE); Phencyclidine Screen, Urine Neg (NEGATIVE)
[2024-07-02 19:30] VITALS: O2SAT 98
[2024-07-02] MEDS: IBUPROFEN 600 MG TAB PO ONE (20:15)
[2024-07-02] MEDS: PIPERACILLIN-TAZOB 3.375GM 100 ML IV SCH (21:00)
[2024-07-02 21:32] LABS: INR 1.07 (0.9-1.15); Partial Thromboplastin Time 30.6 SEC (24.5-34.5); Prothrombin Time 11.3 sec (9.3-11.8)
[2024-07-02] MEDS: ATORVASTATIN 20 MG TAB PO SCH (22:00)
[2024-07-02] MEDS ORDERED: PATIENTS OWN MEDICATION (Sertraline Hcl (Zoloft) 1 TAB) PO SCH (22:00)
[2024-07-02] MEDS: PREGABALIN CAPSULE 75 MG CAP PO SCH (22:00)
[2024-07-02] MEDS: SERTRALINE HCL 50 MG TAB PO SCH (22:00)
[2024-07-03] MEDS: VANCOMYCIN 750MG KIT 100 ML IV SCH (03:00)
[2024-07-03] MEDS: LEVOTHYROXINE SODIUM 50 MCG TAB PO SCH (07:00)
[2024-07-03 07:45] VITALS: PULSE 58; RESP 15; O2SAT 96
[2024-07-03 08:04] LABS: Basophils # (auto) 0 10 ^3/uL (0-0.2); Basophils % (auto) 0.4 % (0.0-2.0); Eosinophils # (auto) 0.2 10 ^3/uL (0-0.8); Eosinophils % (auto) 3.9 % (0.0-7.0); Hematocrit 33.6 % (36.0-46.0); Hemoglobin 11.2 g/dL (12.2-16.2); Lymphocytes % (auto) 19.1 % (10.0-50.0); Mean Corpuscular Hemoglobin 27.8 pg (28.0-32.0); Mean Corpuscular Hgb Conc. 33.4 g/dL (32.0-36.0); Mean Corpuscular Volume 83.5 fL (80.0-100.0); Monocytes # (auto) 0.5 10 ^3/uL (0-1.3); Monocytes % (auto) 8.6 % (0.0-12.0); Neutrophils # (auto) 3.7 10 ^3/uL (1.6-8.6); Platelet Count (auto) 178 10^3/uL (140-450); Red Blood Cells 4.03 10^6/uL (4.0-5.20); Red Cell Distribution Width 16.5 % (11.8-14.3); White Blood Cell 5.5 10^3/uL (4.4-10.8)
[2024-07-03 08:21] LABS: Alanine Aminotransferase 13 U/L (7-40); Albumin 3.9 g/dL (3.2-4.8); Anion Gap 7 (5-15); BUN/Creatinine Ratio 17.2 (10.0-20.0); Bilirubin, Total 0.5 mg/dL (0.2-1.0); Blood Urea Nitrogen 15 mg/dL (9-23); Calcium 9.1 mg/dL (8.7-10.4); Carbon Dioxide 26 mmol/L (20-31); Chloride 106 mmol/L (98-107); Glucose 100 mg/dL (74-106); Sodium 139 mmol/L (136-145); Total Protein 6.5 g/dL (5.7-8.2)
[2024-07-03 08:28] LABS: Alkaline Phosphatase 124 U/L (46-116); Aspartate Aminotransferase 10 U/L (13-40); Potassium 3.2 mmol/L (3.5-5.1)
[2024-07-03] MEDS: traZODone HCL 50 MG TAB PO SCH ×2 (09:07→22:00)
[2024-07-03] MEDS ORDERED: PATIENTS OWN MEDICATION (Trazodone Hcl 1 TAB) PO SCH (10:00)
[2024-07-03] MEDS ORDERED: PATIENTS OWN MEDICATION (Cholecalciferol (Vitamin D3) 1 TAB) PO SCH (10:00)
[2024-07-03] MEDS ORDERED: LISINOPRIL PO SCH (10:00)
[2024-07-03] MEDS ORDERED: PATIENTS OWN MEDICATION (Atorvastatin Calcium (Lipitor) 1 TAB) PO SCH (10:00)
[2024-07-03] MEDS ORDERED: Fenofibrate 145 MG PO PRN (10:00)
[2024-07-03] MEDS: CHOLECALCIFEROL (VITD3) 1,000UNIT=25mCg TAB PO SCH (10:16)
[2024-07-03] MEDS: amLODIPine BESYLATE 5 MG TAB PO SCH (10:16)
[2024-07-03] MEDS: ENOXAPARIN SOD 40 MG/0.4 ML SYRINGE SC SCH (10:17)
[2024-07-03] MEDS: LISINOPRIL 5 MG TAB PO SCH (10:21)
[2024-07-03] MEDS: ONDANSETRON HCL 4 MG/2 ML VIAL IV PRN (13:28)
[2024-07-03] MEDS: MORPHINE SULFATE INJ 2 MG/ml SYRG IV PRN (13:29)
--- NOTE | 2024-07-03 16:46 | DVHPN2 ---
Reviewed: Care Plan, H&P, Labs, Medications, Previous Orders Changes from previous H/P or p: No Changes General: Per HPI Objective Vitals Vital Signs Date Time Temp Pulse Resp B/P (MAP) Pulse Ox O2 Delivery O2 Flow Rate FiO2 07/03/24 13:29 62 16 107/55 07/03/24 11:45 99 07/03/24 07:45 97.4 97.4 07/03/24 07:45 Nasal Cannula* 3 32 Intake/Output Intake and Output 07/03/24 07:00 Intake Total 1725 ml Balance 1725 ml Intake IV Total 1725 ml General Appearance: Alert, Oriented X3, Cooperative Cardiovascular: Regular rate, Normal S1, Normal S2 Abdomen: Normal bowel sounds, Soft Medications Current Medications Medications Dose Ordered Sig/Mindy Route Start Time Stop Time Status Last Admin Dose Admin Amlodipine Besylate 5 mg DAILY PO 07/03/24 10:00 07/03/24 10:16 5 MG Levothyroxine Sodium 50 mcg QAM PO 07/03/24 07:00 07/03/24 07:00 50 MCG Pregabalin 75 mg BID PO 07/02/24 22:00 07/03/24 10:17 75 MG Patient Own Medication 1 tab DAILY PO 07/03/24 10:00 Cancel Patient Own Medication 1 tab DAILY PO 07/03/24 10:00 UNV Patient Own Medication 1 tab DAILYPRN PRN PO 07/03/24 10:00 Patient Own Medication 2 tab DAILY PO 07/03/24 10:00 UNV Patient Own Medication 1 tab BID PO 07/02/24 22:00 UNV Patient Own Medication 1 tab DAILY PO 07/03/24 10:00 UNV Vancomycin HCl 0 ml @ 0 mls/hr UD IV 07/02/24 13:00 Sodium Chloride 1,000 ml @ 100 mls/hr Q10H IV 07/02/24 13:00 07/03/24 09:08 100 MLS/HR Ondansetron HCl 4 mg Q4HP PRN IV 07/02/24 13:00 07/03/24 13:28 4 MG Docusate Sodium 100 mg BIDPRN PRN PO 07/02/24 13:00 Enoxaparin Sodium 40 mg DAILY SC 07/03/24 10:00 07/03/24 10:17 40 MG Nitroglycerin 0.4 mg Q5MINP PRN SL 07/02/24 13:00 Atorvastatin Calcium 40 mg HS PO 07/02/24 22:00 Piperacillin Sod/ Tazobactam Sod 100 ml @ 25 mls/hr Q8H IV 07/02/24 21:00 07/03/24 13:09 25 MLS/HR Cholecalciferol 2,000 unit DAILY PO 07/03/24 10:00 07/03/24 10:16 2,000 UNIT Lisinopril 5 mg DAILY PO 07/03/24 10:00 07/03/24 10:21 5 MG Sertraline HCl 100 mg BID PO 07/02/24 22:00 07/03/24 10:17 100 MG Vancomycin HCl 100 ml @ 100 mls/hr Q12H IV 07/03/24 03:00 07/03/24 03:00 100 MLS/HR Morphine Sulfate 1 mg Q2HP PRN IV 07/03/24 12:45 07/03/24 13:29 1 MG Trazodone HCl 100 mg HS PO 07/03/24 22:00 Laboratory Results Laboratory Tests 07/03/24 07:30 Chemistry Test 07/03/24 07:30 Albumin 3.9 g/dL (3.2-4.8) Calcium Level 9.1 mg/dL (8.7-10.4) Total Protein 6.5 g/dL (5.7-8.2) Coagulation Test 07/02/24 20:48 Prothrombin Time 11.3 sec (9.3-11.8) Prothrombin Time INR 1.07 (0.9-1.15) Activated Partial Thromboplast Time 30.6 SEC (24.5-34.5) LFT Test 07/03/24 07:30 Alanine Aminotransferase (ALT) 13 U/L (7-40) Alkaline Phosphatase 124 U/L (46-116) H Aspartate Amino Transferase (AST) 10 U/L (13-40) L Total Bilirubin 0.5 mg/dL (0.2-1.0) Urinalysis Test 07/02/24 11:10 Urine Color Yellow (Yellow) Urine Clarity Turbid (Clear) H Urine pH 5.5 (5.0-9.0) Urine Specific [place] 1.030 (1.001-1.035) Urine Protein 1+ (Negative) H Urine Ketones 2+ (Negative) H Urine Blood Negative /uL (Negative) Urine Nitrite Negative (Negative) Urine Bilirubin 1+ (Negative) H Urine Urobilinogen 4 mg/dL (Negative) H Urine Leukocyte Esterase Negative /uL (Negative) Urine RBC 2 /hpf (0 - 4) Urine WBC 5 /hpf (0 - 5) Urine Squamous Epithelial Cells Few /hpf (<5) Urine Bacteria Many /hpf (None Seen) H Urine Mucus Few (None Seen) Urine Glucose Normal mg/dL (Normal) Microbiology Microbiology Date/Time Source Procedure Growth Status 07/02/24 14:25 Buttock Gram Stain - Final Resulted 07/02/24 14:25 Buttock Wound Culture - Preliminary Resulted 07/02/24 11:10 Urine - [place] Urine Culture - Preliminary Resulted Labs and/or images reviewed: Labs reviewed by me, Image(s) reviewed by me Assessment/Plan Assessment/Plan 54-year-old female past medical history anemia CK F hypertension gallbladder surgery hysterectomy depression hyperlipidemia hypothyroidism chief complaint had to really ED records this speak with the nurse but they stated that she was found down on the ground. Patient lives with a sister and family lost contact with them so since they were not able to get a contact with the sister they had sent the police department for a welfare check. According to the approximate timing patient was likely laying on the floor for three days and not able to get up. Patient was found in her bedroom but her sister was in liver him on the floor when officers arrived Patient also was found to have a stage III pressure ulcer. There was no drainage from the wound but there is some erythema. When evaluating patient's labs and imaging CBC was unremarkable CMP appears unremarkable CT scan of the brain unremarkable CT scan abdomen pelvis shows colitis diverticulosis dilated common bile duct might be related to her gallbladder surgery she also has a old scarring to her buttocks wound according to the CT scan no abscess noted. Small hiatal hernia. Patient appears not safe for discharge to go home. Patient currently delirious and not able to care for herself. We will likely need placement in his sister who is her caregiver had . acute metabolic encephalopathy (last time was from benzo toxicity) can be from sepsis from buttocks wound acute colitis acute elevated in cbd can be from gallstone removal acute stage 3 ulcer with erythema and drainage ct scan no nec fascitis or gas gangrene acute functional quadriplegia chronic problems 07/03/2024: continue with current care, pt complains of back pain and request specially Percocet 10mg, stating that she takes it 5 times a day at home and requested for Ambien 10mg (specific dose) for sleeping request PT/OT to evaluate pt started on diet and able to tolerate well. Plan discussed with: Patient My Orders Orders - MARQUISE SOTOMAYOR DO Procedure Category Date Status Time Morphine Sulfate PHA 07/03/24 In Process Injection 12:45 Date of Service: Jul 03, 2024 Billing Provider: MARQUISE SOTOMAYOR DO Common Visit Codes: [id number] INP/OBS CARE(HIGH) MARQUISE SOTOMAYOR DO Jul 03, 2024 16:46
[2024-07-03 19:30] VITALS: PULSE 62; RESP 15; O2SAT 97
[2024-07-03] MEDS ORDERED: KETOROLAC TROMETH 30 MG/ML 1ML VIAL IV ONE (23:45)
[2024-07-03] MEDS: MELATONIN 5 MG TAB PO ONE (23:54)
[2024-07-04] VITALS (9 sets, daily range): BP systolic 95–124; BP diastolic 37–58; PULSE 61–75; RESP 16–18; TEMP 97.4–99.6; O2SAT 91–97
[2024-07-04] MEDS: POTASSIUM CHL 20 Meq TABLET PO ONE (01:27)
--- NOTE | 2024-07-04 20:55 | DVHPN2 ---
Reviewed: Care Plan, H&P, Labs, Medications, Previous Orders Changes from previous H/P or p: No Changes General: Per HPI Objective Vitals Vital Signs Date Time Temp Pulse Resp B/P (MAP) Pulse Ox O2 Delivery O2 Flow Rate FiO2 07/04/24 20:16 86 18 124/68 07/04/24 16:26 98.2 91 98.2 07/04/24 08:00 Room Air* 0 21 Intake/Output Intake and Output 07/04/24 07:00 Intake Total 2200 ml Balance 2200 ml Intake Oral 200 ml IV Total 2000 ml # Voids 1 Medications Current Medications Medications Dose Ordered Sig/Mindy Route Start Time Stop Time Status Last Admin Dose Admin Amlodipine Besylate 5 mg DAILY PO 07/03/24 10:00 07/03/24 10:16 5 MG Levothyroxine Sodium 50 mcg QAM PO 07/03/24 07:00 07/04/24 06:45 50 MCG Pregabalin 75 mg BID PO 07/02/24 22:00 07/04/24 20:12 75 MG Patient Own Medication 1 tab DAILY PO 07/03/24 10:00 Cancel Patient Own Medication 1 tab DAILY PO 07/03/24 10:00 UNV Patient Own Medication 1 tab DAILYPRN PRN PO 07/03/24 10:00 Patient Own Medication 2 tab DAILY PO 07/03/24 10:00 UNV Patient Own Medication 1 tab BID PO 07/02/24 22:00 UNV Patient Own Medication 1 tab DAILY PO 07/03/24 10:00 UNV Vancomycin HCl 0 ml @ 0 mls/hr UD IV 07/02/24 13:00 Sodium Chloride 1,000 ml @ 100 mls/hr Q10H IV 07/02/24 13:00 07/04/24 15:00 100 MLS/HR Ondansetron HCl 4 mg Q4HP PRN IV 07/02/24 13:00 07/03/24 13:28 4 MG Docusate Sodium 100 mg BIDPRN PRN PO 07/02/24 13:00 Enoxaparin Sodium 40 mg DAILY SC 07/03/24 10:00 07/04/24 10:05 40 MG Nitroglycerin 0.4 mg Q5MINP PRN SL 07/02/24 13:00 Atorvastatin Calcium 40 mg HS PO 07/02/24 22:00 07/04/24 20:11 40 MG Piperacillin Sod/ Tazobactam Sod 100 ml @ 25 mls/hr Q8H IV 07/02/24 21:00 07/04/24 20:10 25 MLS/HR Cholecalciferol 2,000 unit DAILY PO 07/03/24 10:00 07/04/24 10:05 2,000 UNIT Lisinopril 5 mg DAILY PO 07/03/24 10:00 07/03/24 10:21 5 MG Sertraline HCl 100 mg BID PO 07/02/24 22:00 07/04/24 20:12 100 MG Vancomycin HCl 100 ml @ 100 mls/hr Q12H IV 07/03/24 03:00 07/04/24 15:56 100 MLS/HR Morphine Sulfate 1 mg Q2HP PRN IV 07/03/24 12:45 07/04/24 20:16 1 MG Trazodone HCl 100 mg HS PO 07/03/24 22:00 07/04/24 20:11 100 MG Laboratory Results Laboratory Tests 07/03/24 07:30 07/03/24 23:51 07/04/24 02:00 Urinalysis Test 07/02/24 11:10 Urine Color Yellow (Yellow) Urine Clarity Turbid (Clear) H Urine pH 5.5 (5.0-9.0) Urine Specific [place] 1.030 (1.001-1.035) Urine Protein 1+ (Negative) H Urine Ketones 2+ (Negative) H Urine Blood Negative /uL (Negative) Urine Nitrite Negative (Negative) Urine Bilirubin 1+ (Negative) H Urine Urobilinogen 4 mg/dL (Negative) H Urine Leukocyte Esterase Negative /uL (Negative) Urine RBC 2 /hpf (0 - 4) Urine WBC 5 /hpf (0 - 5) Urine Squamous Epithelial Cells Few /hpf (<5) Urine Bacteria Many /hpf (None Seen) H Urine Mucus Few (None Seen) Urine Glucose Normal mg/dL (Normal) Microbiology Microbiology Date/Time Source Procedure Growth Status 07/02/24 14:25 Buttock Gram Stain - Final Resulted 07/02/24 14:25 Buttock Wound Culture - Preliminary Resulted 07/02/24 11:10 Urine - [place] Urine Culture - Preliminary Resulted Assessment/Plan Assessment/Plan 54-year-old female past medical history anemia CK F hypertension gallbladder surgery hysterectomy depression hyperlipidemia hypothyroidism chief complaint had to really ED records this speak with the nurse but they stated that she was found down on the ground. Patient lives with a sister and family lost contact with them so since they were not able to get a contact with the sister they had sent the police department for a welfare check. According to the approximate timing patient was likely laying on the floor for three days and not able to get up. Patient was found in her bedroom but her sister was in liver him on the floor when officers arrived Patient also was found to have a stage III pressure ulcer. There was no drainage from the wound but there is some erythema. When evaluating patient's labs and imaging CBC was unremarkable CMP appears unremarkable CT scan of the brain unremarkable CT scan abdomen pelvis shows colitis diverticulosis dilated common bile duct might be related to her gallbladder surgery she also has a old scarring to her buttocks wound according to the CT scan no abscess noted. Small hiatal hernia. Patient appears not safe for discharge to go home. Patient currently delirious and not able to care for herself. We will likely need placement in his sister who is her caregiver had . acute metabolic encephalopathy (last time was from benzo toxicity) can be from sepsis from buttocks wound acute colitis acute elevated in cbd can be from gallstone removal acute stage 3 ulcer with erythema and drainage ct scan no nec fascitis or gas gangrene acute functional quadriplegia chronic problems 07/03/2024: continue with current care, pt complains of back pain and request specially Percocet 10mg, stating that she takes it 5 times a day at home and requested for Ambien 10mg (specific dose) for sleeping request PT/OT to evaluate pt started on diet and able to tolerate well. Plan discussed with: Patient My Orders Orders - MARQUISE SOTOMAYOR DO Procedure Category Date Status Time Soft Diet DIET 07/04/24 Transmitted Lunch Oxycodone W/ Acet PHA 07/04/24 Verified 5/325mg Tab (Percocet 21:00 Zolpidem Tartrate PHA 07/04/24 Verified (Ambien) 21:00 Pt Request For Service PT 07/04/24 Verified 20:53 Date of Service: Jul 04, 2024 Billing Provider: MARQUISE SOTOMAYOR DO Common Visit Codes: [id number] INP/OBS CARE(HIGH) MARQUISE SOTOMAYOR DO Jul 04, 2024 20:54
[2024-07-05] VITALS (7 sets, daily range): BP systolic 106–132; BP diastolic 43–55; PULSE 56–67; RESP 16–18; TEMP 97.8–99.3; O2SAT 92–99
[2024-07-05 05:53] LABS: Basophils # (auto) 0.1 10 ^3/uL (0-0.2); Eosinophils # (auto) 0.2 10 ^3/uL (0-0.8); Eosinophils % (auto) 3.8 % (0.0-7.0); Hematocrit 34.9 % (36.0-46.0); Hemoglobin 11.5 g/dL (12.2-16.2); Lymphocytes # (auto) 1.5 10 ^3/uL (0.4-5.4); Lymphocytes % (auto) 28.3 % (10.0-50.0); Mean Corpuscular Hemoglobin 28.3 pg (28.0-32.0); Mean Corpuscular Volume 85.7 fL (80.0-100.0); Monocytes # (auto) 0.4 10 ^3/uL (0-1.3); Monocytes % (auto) 7.8 % (0.0-12.0); Neutrophils # (auto) 3.2 10 ^3/uL (1.6-8.6); Neutrophils % (auto) 59.1 % (37.0-80.0); Nucleated Red Blood Cells % 1.3 %; Platelet Count (auto) 146 10^3/uL (140-450); Red Blood Cells 4.08 10^6/uL (4.0-5.20); Red Cell Distribution Width 16.5 % (11.8-14.3); White Blood Cell 5.4 10^3/uL (4.4-10.8)
[2024-07-05] MEDS: DOCUSATE SOD 100 MG CAP PO PRN (10:16)
--- NOTE | 2024-07-05 17:16 | DVHPN2 ---
Reviewed: Care Plan, H&P, Labs, Medications, Previous Orders Changes from previous H/P or p: No Changes General: Per HPI Objective Vitals Vital Signs Date Time Temp Pulse Resp B/P (MAP) Pulse Ox O2 Delivery O2 Flow Rate FiO2 07/05/24 13:12 67 16 114/52 07/05/24 13:00 97.9 93 97.9 07/05/24 08:00 Room Air* 0 21 Intake/Output Intake and Output 07/05/24 07:00 Intake Total 2300 ml Output Total 2100 ml Balance 200 ml Intake Oral 1100 ml IV Total 1200 ml Output Urine Total 2100 ml General Appearance: Alert, Oriented X3, Cooperative HEENT: Atraumatic Cardiovascular: Regular rate, Normal S1, Normal S2 Abdomen: Normal bowel sounds, Soft Medications Current Medications Medications Dose Ordered Sig/Mindy Route Start Time Stop Time Status Last Admin Dose Admin Amlodipine Besylate 5 mg DAILY PO 07/03/24 10:00 07/03/24 10:16 5 MG Levothyroxine Sodium 50 mcg QAM PO 07/03/24 07:00 07/05/24 06:21 50 MCG Pregabalin 75 mg BID PO 07/02/24 22:00 07/05/24 10:08 75 MG Patient Own Medication 1 tab DAILY PO 07/03/24 10:00 Cancel Patient Own Medication 1 tab DAILY PO 07/03/24 10:00 UNV Patient Own Medication 1 tab DAILYPRN PRN PO 07/03/24 10:00 Patient Own Medication 2 tab DAILY PO 07/03/24 10:00 UNV Patient Own Medication 1 tab BID PO 07/02/24 22:00 UNV Patient Own Medication 1 tab DAILY PO 07/03/24 10:00 UNV Vancomycin HCl 0 ml @ 0 mls/hr UD IV 07/02/24 13:00 Sodium Chloride 1,000 ml @ 100 mls/hr Q10H IV 07/02/24 13:00 07/05/24 11:00 100 MLS/HR Ondansetron HCl 4 mg Q4HP PRN IV 07/02/24 13:00 07/03/24 13:28 4 MG Docusate Sodium 100 mg BIDPRN PRN PO 07/02/24 13:00 07/05/24 10:16 100 MG Enoxaparin Sodium 40 mg DAILY SC 07/03/24 10:00 07/05/24 10:07 40 MG Nitroglycerin 0.4 mg Q5MINP PRN SL 07/02/24 13:00 Atorvastatin Calcium 40 mg HS PO 07/02/24 22:00 07/04/24 20:11 40 MG Piperacillin Sod/ Tazobactam Sod 100 ml @ 25 mls/hr Q8H IV 07/02/24 21:00 07/05/24 13:05 25 MLS/HR Cholecalciferol 2,000 unit DAILY PO 07/03/24 10:00 07/05/24 10:08 2,000 UNIT Lisinopril 5 mg DAILY PO 07/03/24 10:00 07/03/24 10:21 5 MG Sertraline HCl 100 mg BID PO 07/02/24 22:00 07/05/24 10:08 100 MG Vancomycin HCl 100 ml @ 100 mls/hr Q12H IV 07/03/24 03:00 07/05/24 15:53 100 MLS/HR Morphine Sulfate 1 mg Q2HP PRN IV 07/03/24 12:45 07/05/24 13:12 1 MG Trazodone HCl 100 mg HS PO 07/03/24 22:00 07/04/24 20:11 100 MG Oxycodone/ Acetaminophen 2 tab Q6HP PRN PO 07/04/24 21:00 Zolpidem Tartrate 5 mg HSPRN PRN PO 07/04/24 21:00 Laboratory Results Laboratory Tests 07/03/24 07:30 07/03/24 23:51 07/05/24 05:23 Urinalysis Test 07/02/24 11:10 Urine Color Yellow (Yellow) Urine Clarity Turbid (Clear) H Urine pH 5.5 (5.0-9.0) Urine Specific [place] 1.030 (1.001-1.035) Urine Protein 1+ (Negative) H Urine Ketones 2+ (Negative) H Urine Blood Negative /uL (Negative) Urine Nitrite Negative (Negative) Urine Bilirubin 1+ (Negative) H Urine Urobilinogen 4 mg/dL (Negative) H Urine Leukocyte Esterase Negative /uL (Negative) Urine RBC 2 /hpf (0 - 4) Urine WBC 5 /hpf (0 - 5) Urine Squamous Epithelial Cells Few /hpf (<5) Urine Bacteria Many /hpf (None Seen) H Urine Mucus Few (None Seen) Urine Glucose Normal mg/dL (Normal) Microbiology Microbiology Date/Time Source Procedure Growth Status 07/02/24 14:25 Buttock Gram Stain - Final Complete 07/02/24 14:25 Wound Culture - Final Proteus mirabilis Methicillin Resistant S.aureus Complete 07/02/24 11:10 Urine - [place] Urine Culture - Final Enterococcus faecium VRE Complete Labs and/or images reviewed: Labs reviewed by me, Image(s) reviewed by me Assessment/Plan Assessment/Plan 54-year-old female past medical history anemia CK F hypertension gallbladder surgery hysterectomy depression hyperlipidemia hypothyroidism chief complaint had to really ED records this speak with the nurse but they stated that she was found down on the ground. Patient lives with a sister and family lost contact with them so since they were not able to get a contact with the sister they had sent the police department for a welfare check. According to the approximate timing patient was likely laying on the floor for three days and not able to get up. Patient was found in her bedroom but her sister was in liver him on the floor when officers arrived Patient also was found to have a stage III pressure ulcer. There was no drainage from the wound but there is some erythema. When evaluating patient's labs and imaging CBC was unremarkable CMP appears unremarkable CT scan of the brain unremarkable CT scan abdomen pelvis shows colitis diverticulosis dilated common bile duct might be related to her gallbladder surgery she also has a old scarring to her buttocks wound according to the CT scan no abscess noted. Small hiatal hernia. Patient appears not safe for discharge to go home. Patient currently delirious and not able to care for herself. We will likely need placement in his sister who is her caregiver had . acute metabolic encephalopathy (last time was from benzo toxicity) can be from sepsis from buttocks wound acute colitis acute elevated in cbd can be from gallstone removal acute stage 3 ulcer with erythema and drainage ct scan no nec fascitis or gas gangrene acute functional quadriplegia chronic problems 07/03/2024: continue with current care, pt complains of back pain and request specially Percocet 10mg, stating that she takes it 5 times a day at home and requested for Ambien 10mg (specific dose) for sleeping request PT/OT to evaluate pt started on diet and able to tolerate well. 07/04/2024: continue with current care. PT/OT to evaluate pt 07/05/2024: request case management to place pt at a SNF Plan discussed with: Patient My Orders Orders - MARQUISE SOTOMAYOR DO Procedure Category Date Status Time Oxycodone W/ Acet PHA 07/04/24 In Process 5/325mg Tab (Percocet 21:00 Zolpidem Tartrate PHA 07/04/24 In Process (Ambien) 21:00 Pt Request For Service PT 07/04/24 Logged 20:53 * Forensic Medical Examiner CONS 07/05/24 Transmitted Consult Refer To Snf TAINA 07/05/24 In Process 16:59 * Forensic Medical Examiner CONS 07/05/24 Transmitted Consult Snf Transfer DISCHARGE 07/05/24 Transmitted 16:59 Date of Service: Jul 05, 2024 Billing Provider: MARQUISE SOTOMAYOR DO Common Visit Codes: [id number] INP/OBS CARE(HIGH) MARQUISE SOTOMAYOR DO Jul 05, 2024 17:16
--- NOTE | 2024-07-05 18:24 | MEDREC ---
[facility] Intervention Section I [facility] Intervention: Review courses of therapy (PLEASE CONSIDER AN ID CONSULT TO REVIEW THE COURSE OF THERAPY ACCORDING TO THE CULTURE RESULTS ([facility] ORGANISMS) ) SACHA PACE PHARMACIST Jul 05, 2024 18:24
[2024-07-05] MEDS: ZOLPIDEM TARTRATE 5 MG TAB PO PRN (20:47)
[2024-07-05] MEDS: OXYCODONE W/ ACETAMINOPHEN 5/325MG TABLET PO PRN (20:47)
[2024-07-06] VITALS (7 sets, daily range): BP systolic 122–136; BP diastolic 56–64; PULSE 58–72; RESP 16–18; TEMP 97.6–98.7; O2SAT 95–97
[2024-07-06 05:44] LABS: Basophils # (auto) 0 10 ^3/uL (0-0.2); Basophils % (auto) 0.7 % (0.0-2.0); Eosinophils # (auto) 0.3 10 ^3/uL (0-0.8); Eosinophils % (auto) 4.2 % (0.0-7.0); Hematocrit 33.3 % (36.0-46.0); Hemoglobin 10.9 g/dL (12.2-16.2); Lymphocytes # (auto) 2.2 10 ^3/uL (0.4-5.4); Lymphocytes % (auto) 34.6 % (10.0-50.0); Mean Corpuscular Hemoglobin 27.6 pg (28.0-32.0); Mean Corpuscular Hgb Conc. 32.6 g/dL (32.0-36.0); Mean Corpuscular Volume 84.8 fL (80.0-100.0); Monocytes # (auto) 0.5 10 ^3/uL (0-1.3); Monocytes % (auto) 8.7 % (0.0-12.0); Neutrophils # (auto) 3.3 10 ^3/uL (1.6-8.6); Neutrophils % (auto) 51.8 % (37.0-80.0); Nucleated Red Blood Cells % 0.1 %; Platelet Count (auto) 191 10^3/uL (140-450); Red Blood Cells 3.93 10^6/uL (4.0-5.20); Red Cell Distribution Width 16.4 % (11.8-14.3); White Blood Cell 6.3 10^3/uL (4.4-10.8)
--- NOTE | 2024-07-06 10:38 | DVHPN2 ---
Reviewed: Care Plan, H&P, Labs, Medications, Previous Orders Changes from previous H/P or p: No Changes General: Per HPI Objective Vitals Vital Signs Date Time Temp Pulse Resp B/P (MAP) Pulse Ox O2 Delivery O2 Flow Rate FiO2 07/06/24 09:20 62 16 134/59 07/06/24 09:00 97.6 97 97.6 07/06/24 08:00 Room Air* 0 21 Intake/Output Intake and Output 07/06/24 07:00 Intake Total 2300 ml Output Total 2250 ml Balance 50 ml Intake Oral 1100 ml IV Total 1200 ml Output Urine Total 2250 ml General Appearance: Alert, Oriented X3, Cooperative HEENT: Atraumatic Cardiovascular: Regular rate, Normal S1, Normal S2 Abdomen: Normal bowel sounds, Soft Medications Current Medications Medications Dose Ordered Sig/Mindy Route Start Time Stop Time Status Last Admin Dose Admin Amlodipine Besylate 5 mg DAILY PO 07/03/24 10:00 07/03/24 10:16 5 MG Levothyroxine Sodium 50 mcg QAM PO 07/03/24 07:00 07/06/24 05:56 50 MCG Pregabalin 75 mg BID PO 07/02/24 22:00 07/06/24 09:18 75 MG Patient Own Medication 1 tab DAILY PO 07/03/24 10:00 Cancel Patient Own Medication 1 tab DAILY PO 07/03/24 10:00 UNV Patient Own Medication 1 tab DAILYPRN PRN PO 07/03/24 10:00 Patient Own Medication 2 tab DAILY PO 07/03/24 10:00 UNV Patient Own Medication 1 tab BID PO 07/02/24 22:00 UNV Patient Own Medication 1 tab DAILY PO 07/03/24 10:00 UNV Vancomycin HCl 0 ml @ 0 mls/hr UD IV 07/02/24 13:00 Sodium Chloride 1,000 ml @ 100 mls/hr Q10H IV 07/02/24 13:00 07/06/24 05:56 100 MLS/HR Ondansetron HCl 4 mg Q4HP PRN IV 07/02/24 13:00 07/03/24 13:28 4 MG Docusate Sodium 100 mg BIDPRN PRN PO 07/02/24 13:00 07/05/24 10:16 100 MG Enoxaparin Sodium 40 mg DAILY SC 07/03/24 10:00 07/06/24 09:20 40 MG Nitroglycerin 0.4 mg Q5MINP PRN SL 07/02/24 13:00 Atorvastatin Calcium 40 mg HS PO 07/02/24 22:00 07/05/24 20:48 40 MG Piperacillin Sod/ Tazobactam Sod 100 ml @ 25 mls/hr Q8H IV 07/02/24 21:00 07/06/24 05:00 25 MLS/HR Cholecalciferol 2,000 unit DAILY PO 07/03/24 10:00 07/06/24 09:19 2,000 UNIT Lisinopril 5 mg DAILY PO 07/03/24 10:00 07/03/24 10:21 5 MG Sertraline HCl 100 mg BID PO 07/02/24 22:00 07/06/24 09:19 100 MG Morphine Sulfate 1 mg Q2HP PRN IV 07/03/24 12:45 07/06/24 09:20 1 MG Trazodone HCl 100 mg HS PO 07/03/24 22:00 07/05/24 20:47 100 MG Oxycodone/ Acetaminophen 2 tab Q6HP PRN PO 07/04/24 21:00 07/05/24 20:47 2 TAB Zolpidem Tartrate 5 mg HSPRN PRN PO 07/04/24 21:00 07/05/24 20:47 5 MG Laboratory Results Laboratory Tests 07/03/24 07:30 07/03/24 23:51 07/06/24 05:12 Urinalysis Test 07/02/24 11:10 Urine Color Yellow (Yellow) Urine Clarity Turbid (Clear) H Urine pH 5.5 (5.0-9.0) Urine Specific [place] 1.030 (1.001-1.035) Urine Protein 1+ (Negative) H Urine Ketones 2+ (Negative) H Urine Blood Negative /uL (Negative) Urine Nitrite Negative (Negative) Urine Bilirubin 1+ (Negative) H Urine Urobilinogen 4 mg/dL (Negative) H Urine Leukocyte Esterase Negative /uL (Negative) Urine RBC 2 /hpf (0 - 4) Urine WBC 5 /hpf (0 - 5) Urine Squamous Epithelial Cells Few /hpf (<5) Urine Bacteria Many /hpf (None Seen) H Urine Mucus Few (None Seen) Urine Glucose Normal mg/dL (Normal) Microbiology Microbiology Date/Time Source Procedure Growth Status 07/02/24 14:25 Buttock Gram Stain - Final Complete 07/02/24 14:25 Wound Culture - Final Proteus mirabilis Methicillin Resistant S.aureus Complete 07/02/24 11:10 Urine - [place] Urine Culture - Final Enterococcus faecium VRE Complete Assessment/Plan Assessment/Plan 54-year-old female past medical history anemia CK F hypertension gallbladder surgery hysterectomy depression hyperlipidemia hypothyroidism chief complaint had to really ED records this speak with the nurse but they stated that she was found down on the ground. Patient lives with a sister and family lost contact with them so since they were not able to get a contact with the sister they had sent the police department for a welfare check. According to the approximate timing patient was likely laying on the floor for three days and not able to get up. Patient was found in her bedroom but her sister was in liver him on the floor when officers arrived Patient also was found to have a stage III pressure ulcer. There was no drainage from the wound but there is some erythema. When evaluating patient's labs and imaging CBC was unremarkable CMP appears unremarkable CT scan of the brain unremarkable CT scan abdomen pelvis shows colitis diverticulosis dilated common bile duct might be related to her gallbladder surgery she also has a old scarring to her buttocks wound according to the CT scan no abscess noted. Small hiatal hernia. Patient appears not safe for discharge to go home. Patient currently delirious and not able to care for herself. We will likely need placement in his sister who is her caregiver had . acute metabolic encephalopathy (last time was from benzo toxicity) can be from sepsis from buttocks wound acute colitis acute elevated in cbd can be from gallstone removal acute stage 3 ulcer with erythema and drainage ct scan no nec fascitis or gas gangrene acute functional quadriplegia chronic problems 07/03/2024: continue with current care, pt complains of back pain and request specially Percocet 10mg, stating that she takes it 5 times a day at home and requested for Ambien 10mg (specific dose) for sleeping request PT/OT to evaluate pt started on diet and able to tolerate well. 07/04/2024: continue with current care. PT/OT to evaluate pt 07/05/2024: request case management to place pt at a SNF 07/06/2024: pending placement Plan discussed with: Patient My Orders Orders - MARQUISE SOTOMAYOR DO Procedure Category Date Status Time * Measurement Coordinator CONS 07/05/24 Transmitted Consult Refer To Snf TAINA 07/05/24 In Process 16:59 * Measurement Coordinator CONS 07/05/24 Transmitted Consult Snf Transfer DISCHARGE 07/05/24 Transmitted 16:59 Date of Service: Jul 06, 2024 Billing Provider: MARQUISE SOTOMAYOR DO Common Visit Codes: [id number] INP/OBS CARE(HIGH) MARQUISE SOTOMAYOR DO Jul 06, 2024 10:38
[2024-07-06 14:06] LABS: Vitamin D 25-Hydroxy 26 ng/mL (.); Vitamin D-2 25-Hydroxy <1.0 ng/mL (.); Vitamin D-3 25-Hydroxy 26 ng/mL (.)
[2024-07-07] VITALS (8 sets, daily range): BP systolic 117–148; BP diastolic 49–78; PULSE 57–65; RESP 16–18; TEMP 97.6–99.5; O2SAT 93–98
[2024-07-07 05:06] LABS: Vitamin B1, Whole Blood 145.3 nmol/L (66.5-200.0)
[2024-07-07 05:56] LABS: Basophils # (auto) 0 10 ^3/uL (0-0.2); Basophils % (auto) 0.5 % (0.0-2.0); Eosinophils # (auto) 0.2 10 ^3/uL (0-0.8); Eosinophils % (auto) 4.6 % (0.0-7.0); Hematocrit 35.4 % (36.0-46.0); Hemoglobin 11.7 g/dL (12.2-16.2); Lymphocytes # (auto) 1.4 10 ^3/uL (0.4-5.4); Lymphocytes % (auto) 27.3 % (10.0-50.0); Mean Corpuscular Hemoglobin 28.3 pg (28.0-32.0); Mean Corpuscular Hgb Conc. 32.9 g/dL (32.0-36.0); Monocytes # (auto) 0.4 10 ^3/uL (0-1.3); Neutrophils # (auto) 3.1 10 ^3/uL (1.6-8.6); Neutrophils % (auto) 59.6 % (37.0-80.0); Platelet Count (auto) 211 10^3/uL (140-450); Red Blood Cells 4.12 10^6/uL (4.0-5.20); Red Cell Distribution Width 16.4 % (11.8-14.3); White Blood Cell 5.3 10^3/uL (4.4-10.8)
--- NOTE | 2024-07-07 13:40 | DVHPN2 ---
Reviewed: Care Plan, H&P, Labs, Medications, Previous Orders Changes from previous H/P or p: No Changes General: Per HPI Objective Vitals Vital Signs Date Time Temp Pulse Resp B/P (MAP) Pulse Ox O2 Delivery O2 Flow Rate FiO2 07/07/24 10:17 67 16 132/72 07/07/24 09:00 97.7 98 97.7 07/07/24 07:48 Room Air* 0 21 Intake/Output Intake and Output 07/07/24 07:00 Intake Total 3814 ml Output Total 3250 ml Balance 564 ml Intake Oral 2414 ml IV Total 1400 ml Output Urine Total 3250 ml General Appearance: Alert, Oriented X3, Cooperative HEENT: Atraumatic Cardiovascular: Regular rate, Normal S1, Normal S2 Abdomen: Normal bowel sounds, Soft Medications Current Medications Medications Dose Ordered Sig/Mindy Route Start Time Stop Time Status Last Admin Dose Admin Amlodipine Besylate 5 mg DAILY PO 07/03/24 10:00 07/07/24 09:48 5 MG Levothyroxine Sodium 50 mcg QAM PO 07/03/24 07:00 07/07/24 06:28 50 MCG Pregabalin 75 mg BID PO 07/02/24 22:00 07/07/24 09:48 75 MG Patient Own Medication 1 tab DAILY PO 07/03/24 10:00 Cancel Patient Own Medication 1 tab DAILY PO 07/03/24 10:00 UNV Patient Own Medication 1 tab DAILYPRN PRN PO 07/03/24 10:00 Patient Own Medication 2 tab DAILY PO 07/03/24 10:00 UNV Patient Own Medication 1 tab BID PO 07/02/24 22:00 UNV Patient Own Medication 1 tab DAILY PO 07/03/24 10:00 UNV Vancomycin HCl 0 ml @ 0 mls/hr UD IV 07/02/24 13:00 Sodium Chloride 1,000 ml @ 100 mls/hr Q10H IV 07/02/24 13:00 07/07/24 13:07 100 MLS/HR Ondansetron HCl 4 mg Q4HP PRN IV 07/02/24 13:00 07/03/24 13:28 4 MG Docusate Sodium 100 mg BIDPRN PRN PO 07/02/24 13:00 07/05/24 10:16 100 MG Enoxaparin Sodium 40 mg DAILY SC 07/03/24 10:00 07/07/24 09:47 40 MG Nitroglycerin 0.4 mg Q5MINP PRN SL 07/02/24 13:00 Atorvastatin Calcium 40 mg HS PO 07/02/24 22:00 07/06/24 22:44 40 MG Piperacillin Sod/ Tazobactam Sod 100 ml @ 25 mls/hr Q8H IV 07/02/24 21:00 07/07/24 13:06 25 MLS/HR Cholecalciferol 2,000 unit DAILY PO 07/03/24 10:00 07/07/24 09:47 2,000 UNIT Lisinopril 5 mg DAILY PO 07/03/24 10:00 07/07/24 09:48 5 MG Sertraline HCl 100 mg BID PO 07/02/24 22:00 07/07/24 09:48 100 MG Morphine Sulfate 1 mg Q2HP PRN IV 07/03/24 12:45 07/07/24 09:47 1 MG Trazodone HCl 100 mg HS PO 07/03/24 22:00 07/06/24 22:44 100 MG Oxycodone/ Acetaminophen 2 tab Q6HP PRN PO 07/04/24 21:00 07/06/24 12:55 2 TAB Zolpidem Tartrate 5 mg HSPRN PRN PO 07/04/24 21:00 07/05/24 20:47 5 MG Laboratory Results Laboratory Tests 07/03/24 07:30 07/03/24 23:51 07/07/24 05:07 Urinalysis Test 07/02/24 11:10 Urine Color Yellow (Yellow) Urine Clarity Turbid (Clear) H Urine pH 5.5 (5.0-9.0) Urine Specific [place] 1.030 (1.001-1.035) Urine Protein 1+ (Negative) H Urine Ketones 2+ (Negative) H Urine Blood Negative /uL (Negative) Urine Nitrite Negative (Negative) Urine Bilirubin 1+ (Negative) H Urine Urobilinogen 4 mg/dL (Negative) H Urine Leukocyte Esterase Negative /uL (Negative) Urine RBC 2 /hpf (0 - 4) Urine WBC 5 /hpf (0 - 5) Urine Squamous Epithelial Cells Few /hpf (<5) Urine Bacteria Many /hpf (None Seen) H Urine Mucus Few (None Seen) Urine Glucose Normal mg/dL (Normal) Microbiology Microbiology Date/Time Source Procedure Growth Status 07/02/24 14:25 Buttock Gram Stain - Final Complete 07/02/24 14:25 Wound Culture - Final Proteus mirabilis Methicillin Resistant S.aureus Complete 07/02/24 11:10 Urine - [place] Urine Culture - Final Enterococcus faecium VRE Complete Assessment/Plan Assessment/Plan 54-year-old female past medical history anemia CK F hypertension gallbladder surgery hysterectomy depression hyperlipidemia hypothyroidism chief complaint had to really ED records this speak with the nurse but they stated that she was found down on the ground. Patient lives with a sister and family lost contact with them so since they were not able to get a contact with the sister they had sent the police department for a welfare check. According to the approximate timing patient was likely laying on the floor for three days and not able to get up. Patient was found in her bedroom but her sister was in liver him on the floor when officers arrived Patient also was found to have a stage III pressure ulcer. There was no drainage from the wound but there is some erythema. When evaluating patient's labs and imaging CBC was unremarkable CMP appears unremarkable CT scan of the brain unremarkable CT scan abdomen pelvis shows colitis diverticulosis dilated common bile duct might be related to her gallbladder surgery she also has a old scarring to her buttocks wound according to the CT scan no abscess noted. Small hiatal hernia. Patient appears not safe for discharge to go home. Patient currently delirious and not able to care for herself. We will likely need placement in his sister who is her caregiver had . acute metabolic encephalopathy (last time was from benzo toxicity) can be from sepsis from buttocks wound acute colitis acute elevated in cbd can be from gallstone removal acute stage 3 ulcer with erythema and drainage ct scan no nec fascitis or gas gangrene acute functional quadriplegia chronic problems 07/03/2024: continue with current care, pt complains of back pain and request specially Percocet 10mg, stating that she takes it 5 times a day at home and requested for Ambien 10mg (specific dose) for sleeping request PT/OT to evaluate pt started on diet and able to tolerate well. 07/04/2024: continue with current care. PT/OT to evaluate pt 07/05/2024: request case management to place pt at a SNF 07/06/2024: pending placement 07/07/2024: pending placement to SNF Plan discussed with: Patient Date of Service: Jul 07, 2024 Billing Provider: MARQUISE SOTOMAYOR DO Common Visit Codes: [id number] INP/OBS CARE(HIGH) MARQUISE SOTOMAYOR DO Jul 07, 2024 13:40
[2024-07-07] MEDS: VANCOMYCIN 750MG KIT 100 ML IV ONE (20:40)
[2024-07-08] VITALS (9 sets, daily range): BP systolic 114–154; BP diastolic 54–69; PULSE 53–64; RESP 14–18; TEMP 97.3–98.3; O2SAT 93–98
[2024-07-08] MEDS ORDERED: SERT50TA PO (14:12)
[2024-07-08] MEDS ORDERED: TRAZ-227 PO (14:12)
--- NOTE | 2024-07-08 15:15 | DVHPN2 ---
Reviewed: Care Plan, H&P, Labs, Medications, Previous Orders Changes from previous H/P or p: No Changes General: Per HPI Objective Vitals Vital Signs Date Time Temp Pulse Resp B/P (MAP) Pulse Ox O2 Delivery O2 Flow Rate FiO2 07/08/24 12:26 98.0 59 15 127/58 (81) 95 98.0 07/08/24 08:00 Room Air* 0 21 Intake/Output Intake and Output 07/08/24 07:00 Intake Total 3900 ml Output Total 2500 ml Balance 1400 ml Intake Oral 1400 ml IV Total 2500 ml Output Urine Total 2500 ml General Appearance: Alert, Oriented X3, Cooperative HEENT: Atraumatic Cardiovascular: Regular rate, Normal S1, Normal S2 Abdomen: Normal bowel sounds, Soft Medications Current Medications Medications Dose Ordered Sig/Mindy Route Start Time Stop Time Status Last Admin Dose Admin Amlodipine Besylate 5 mg DAILY PO 07/03/24 10:00 07/08/24 09:43 5 MG Levothyroxine Sodium 50 mcg QAM PO 07/03/24 07:00 07/08/24 06:02 50 MCG Pregabalin 75 mg BID PO 07/02/24 22:00 07/08/24 09:43 75 MG Patient Own Medication 1 tab DAILY PO 07/03/24 10:00 Cancel Patient Own Medication 1 tab DAILY PO 07/03/24 10:00 UNV Patient Own Medication 1 tab DAILYPRN PRN PO 07/03/24 10:00 Patient Own Medication 2 tab DAILY PO 07/03/24 10:00 UNV Patient Own Medication 1 tab BID PO 07/02/24 22:00 UNV Patient Own Medication 1 tab DAILY PO 07/03/24 10:00 UNV Vancomycin HCl 0 ml @ 0 mls/hr UD IV 07/02/24 13:00 Sodium Chloride 1,000 ml @ 100 mls/hr Q10H IV 07/02/24 13:00 07/07/24 20:45 100 MLS/HR Ondansetron HCl 4 mg Q4HP PRN IV 07/02/24 13:00 07/03/24 13:28 4 MG Docusate Sodium 100 mg BIDPRN PRN PO 07/02/24 13:00 07/05/24 10:16 100 MG Enoxaparin Sodium 40 mg DAILY SC 07/03/24 10:00 07/08/24 09:42 40 MG Nitroglycerin 0.4 mg Q5MINP PRN SL 07/02/24 13:00 Atorvastatin Calcium 40 mg HS PO 07/02/24 22:00 07/07/24 22:28 40 MG Piperacillin Sod/ Tazobactam Sod 100 ml @ 25 mls/hr Q8H IV 07/02/24 21:00 07/08/24 13:18 25 MLS/HR Cholecalciferol 2,000 unit DAILY PO 07/03/24 10:00 07/08/24 09:43 2,000 UNIT Lisinopril 5 mg DAILY PO 07/03/24 10:00 07/08/24 09:44 5 MG Sertraline HCl 100 mg BID PO 07/02/24 22:00 07/08/24 09:43 100 MG Morphine Sulfate 1 mg Q2HP PRN IV 07/03/24 12:45 07/08/24 09:55 1 MG Trazodone HCl 100 mg HS PO 07/03/24 22:00 07/07/24 22:29 100 MG Oxycodone/ Acetaminophen 2 tab Q6HP PRN PO 07/04/24 21:00 07/06/24 12:55 2 TAB Zolpidem Tartrate 5 mg HSPRN PRN PO 07/04/24 21:00 07/05/24 20:47 5 MG Laboratory Results Laboratory Tests 07/03/24 07:30 07/03/24 23:51 07/07/24 05:07 07/08/24 05:13 Urinalysis Test 07/02/24 11:10 Urine Color Yellow (Yellow) Urine Clarity Turbid (Clear) H Urine pH 5.5 (5.0-9.0) Urine Specific [place] 1.030 (1.001-1.035) Urine Protein 1+ (Negative) H Urine Ketones 2+ (Negative) H Urine Blood Negative /uL (Negative) Urine Nitrite Negative (Negative) Urine Bilirubin 1+ (Negative) H Urine Urobilinogen 4 mg/dL (Negative) H Urine Leukocyte Esterase Negative /uL (Negative) Urine RBC 2 /hpf (0 - 4) Urine WBC 5 /hpf (0 - 5) Urine Squamous Epithelial Cells Few /hpf (<5) Urine Bacteria Many /hpf (None Seen) H Urine Mucus Few (None Seen) Urine Glucose Normal mg/dL (Normal) Microbiology Microbiology Date/Time Source Procedure Growth Status 07/02/24 14:25 Buttock Gram Stain - Final Complete 07/02/24 14:25 Wound Culture - Final Proteus mirabilis Methicillin Resistant S.aureus Complete 07/02/24 11:10 Urine - [place] Urine Culture - Final Enterococcus faecium VRE Complete Assessment/Plan Assessment/Plan 54-year-old female past medical history anemia CK F hypertension gallbladder surgery hysterectomy depression hyperlipidemia hypothyroidism chief complaint had to really ED records this speak with the nurse but they stated that she was found down on the ground. Patient lives with a sister and family lost contact with them so since they were not able to get a contact with the sister they had sent the police department for a welfare check. According to the approximate timing patient was likely laying on the floor for three days and not able to get up. Patient was found in her bedroom but her sister was in liver him on the floor when officers arrived Patient also was found to have a stage III pressure ulcer. There was no drainage from the wound but there is some erythema. When evaluating patient's labs and imaging CBC was unremarkable CMP appears unremarkable CT scan of the brain unremarkable CT scan abdomen pelvis shows colitis diverticulosis dilated common bile duct might be related to her gallbladder surgery she also has a old scarring to her buttocks wound according to the CT scan no abscess noted. Small hiatal hernia. Patient appears not safe for discharge to go home. Patient currently delirious and not able to care for herself. We will likely need placement in his sister who is her caregiver had . acute metabolic encephalopathy (last time was from benzo toxicity) can be from sepsis from buttocks wound acute colitis acute elevated in cbd can be from gallstone removal acute stage 3 ulcer with erythema and drainage ct scan no nec fascitis or gas gangrene acute functional quadriplegia chronic problems 07/03/2024: continue with current care, pt complains of back pain and request specially Percocet 10mg, stating that she takes it 5 times a day at home and requested for Ambien 10mg (specific dose) for sleeping request PT/OT to evaluate pt started on diet and able to tolerate well. 07/04/2024: continue with current care. PT/OT to evaluate pt 07/05/2024: request case management to place pt at a SNF 07/06/2024: pending placement 07/07/2024: pending placement to SNF 07/08/2024: pending SNF Plan discussed with: Patient My Orders Orders - MARQUISE SOTOMAYOR DO Procedure Category Date Status Time Snf Transfer DISCHARGE 07/08/24 Transmitted 15:01 * Infectious Marvin- Dr. AMAYA 07/08/24 Verified [place] 15:14 Date of Service: Jul 08, 2024 Billing Provider: MARQUISE SOTOMAYOR DO Common Visit Codes: [id number] INP/OBS CARE(HIGH) MARQUISE SOTOMAYOR DO Jul 08, 2024 15:15
--- NOTE | 2024-07-08 16:43 | DVHINCON2 ---
Date of service: Jul 08, [address] Sotomayor Reason for Consultation Stage 3 decub wounds History of Present Illness Patient is a 54-year-old female presented to the hospital for evaluation. Patient was found down on the ground. Patient lives with a sister and family, lost contact with them so since they were not able to get a contact with the sister they had sent the police department for a welfare check. According to the approximate timing patient was likely laying on the floor for three days and not able to get up. When officers arrived Patient also was found to have a stage III pressure ulcer. There was no drainage from the wound but there is some erythema. Patient's CBC was unremarkable, CMP appears unremarkable, CT scan of the brain unremarkable, CT scan abdomen pelvis shows colitis diverticulosis dilated common bile duct might be related to her gallbladder surgery she also has a old scarring to her buttocks wound according to the CT scan no abscess noted. Small hiatal hernia. Past Medical History Patient's past medical history is significant for anemia, CK F, hypertension, gallbladder surgery, hysterectomy, depression, hyperlipidemia and hypothyroidism. Family History: Hypertension G8 MOTHER, Onset:Unknown G8 FATHER, Onset:Unknown Allergies: Coded Allergies: Propoxyphene (Verified Allergy, Severe, 02/04/24) Codeine (Verified Allergy, Mild, ITCHING AND HIVES, 12/14/21) Home Meds Active Scripts Sertraline Hcl (Zoloft) 50 Mg Tab, 100 MG PO BID for 30 Days, #120 TAB 3 Refills Prov:MARQUISE SOTOMAYOR DO 07/08/24 Trazodone Hcl (Trazodone Hcl) 50 Mg Tab, 100 MG PO HS for 30 Days, #60 TAB 3 Refills Prov:MARQUISE SOTOMAYOR DO 07/08/24 Lisinopril (Lisinopril) 2.5 Mg Tab, 2 TAB PO DAILY, #180 TAB 3 Refills Prov:LUIS SAGASTUME MD 02/03/24 Reported Medications Cholecalciferol (VITAMIN D3) 2,000 Unit Tab, 1 TAB PO DAILY 09/02/23 Amlodipine Besylate (Amlodipine Besylate) 5 Mg Tab, 1 TAB PO DAILY 09/02/23 Baclofen (Baclofen) 10 Mg Tab, 20 MG PO TID 09/02/23 Levothyroxine Sodium (Levothyroxine Sodium) 50 Mcg Tab, 1 TAB PO DAILY 09/02/23 Zolpidem Tartrate (Zolpidem Tartrate) 10 Mg Tab, 1 TAB PO QPM 09/02/23 Trazodone Hcl (Trazodone Hcl) 100 Mg Tab, 1 TAB PO DAILY 09/02/23 Oxycodone W/ Acetaminophen (Apap/Oxycodone) 1 Tab Tab, 1 TAB PO TID Oxycodone/Acetaminophen 10/325 mg 09/02/23 Pregabalin (Pregabalin) 75 Mg Cap, 1 CAP PO BID 09/02/23 Atorvastatin Calcium (Lipitor) 40 Mg Tab, 1 TAB PO DAILY 09/02/23 Fenofibrate (FENOFIBRATE) 145 Mg Tab, 1 TAB PO DAILYPRN 10/01/20 Sertraline Hcl (Zoloft) 100 Mg Tab, 1 TAB PO BID, #30 TAB 5 Refills 09/12/17 Alprazolam (Xanax) 1 Mg Tab, 1 TAB PO BID for ANXIETY 09/12/17 Current Medications Current Medications Medications (Trade) Dose Ordered Sig/Mindy Route PRN Reason Start Time Stop Time Status Last Admin Linezolid 300 ml @ 150 mls/hr Q12HR IV 07/08/24 22:00 Review of Systems Unable to assess ROS due to patient currently delirious Vital Signs Vital Signs Date Time Temp Pulse Resp B/P (MAP) Pulse Ox O2 Delivery O2 Flow Rate FiO2 07/08/24 16:31 97.9 58 15 154/69 (97) 95 97.9 07/08/24 08:00 Room Air* 0 21 Physical Exam General Appearance: Alert, Other (Delirious) HEENT: Atraumatic, PERRLA, EOMI, Mucous membr. moist/pink Respiratory: Clear to auscultation, Normal air movement Cardiovascular: Regular rate, Normal S1, Normal S2 Abdominal: Normal bowel sounds, Soft, No tenderness, No hepatospenomegaly, Other (Buttocks stage III ulcer with erythema no drainage noted) Extremities: Other (Mild swelling to the bilateral lower extremity) Skin: No rashes, No breakdown, No significant lesion Neuro: Other (Unable to assess neuro status since patient is not cooperative) Labs/Diagnostic Data Labs Test 07/08/24 05:13 07/07/24 05:07 07/03/24 23:51 1/17/25 07:30 Range/Units Creatinine 1.14 H 0.550-1.02 mg/dL Glomerular Filtration Rate Calc 57 >90 mL/min Vancomycin Level Trough 13.7 H 5-10 ug/mL White Blood Count 5.3 4.4-10.8 10^3/uL Red Blood Count 4.12 4.0-5.20 10^6/uL Hemoglobin 11.7 L 12.2-16.2 g/dL Hematocrit 35.4 L 36.0-46.0 % Mean Corpuscular Volume 86.0 80.0-100.0 fL Mean Corpuscular Hemoglobin 28.3 28.0-32.0 pg Mean Corpuscular Hemoglobin Concent 32.9 32.0-36.0 g/dL Red Cell Distribution Width 16.4 H 11.8-14.3 % Platelet Count 211 140-450 10^3/uL Mean Platelet Volume 7.5 6.9-10.8 fL Neutrophils (%) (Auto) 59.6 37.0-80.0 % Lymphocytes (%) (Auto) 27.3 10.0-50.0 % Monocytes (%) (Auto) 8.0 0.0-12.0 % Eosinophils (%) (Auto) 4.6 0.0-7.0 % Basophils (%) (Auto) 0.5 0.0-2.0 % Neutrophils # (Auto) 3.1 1.6-8.6 10 ^3/uL Lymphocytes # (Auto) 1.4 0.4-5.4 10 ^3/uL Monocytes # (Auto) 0.4 0-1.3 10 ^3/uL Eosinophils # (Auto) 0.2 0-0.8 10 ^3/uL Basophils # (Auto) 0 0-0.2 10 ^3/uL Nucleated Red Blood Cells 0.0 % Random Vancomycin Level 12.7 H 5-10 ug/mL Potassium Level 3.4 L 3.5-5.1 mmol/L Sodium Level 139 136-145 mmol/L Chloride Level 106 98-107 mmol/L Carbon Dioxide Level 26 20-31 mmol/L Anion Gap 7 5-15 Blood Urea Nitrogen 15 9-23 mg/dL BUN/Creatinine Ratio 17.2 10.0-20.0 Serum Glucose 100 74-106 mg/dL Calcium Level 9.1 8.7-10.4 mg/dL Total Bilirubin 0.5 0.2-1.0 mg/dL Aspartate Amino Transferase (AST) 10 L 13-40 U/L Alanine Aminotransferase (ALT) 13 7-40 U/L Alkaline Phosphatase 124 H 46-116 U/L Total Protein 6.5 5.7-8.2 g/dL Albumin 3.9 3.2-4.8 g/dL Test 07/02/24 20:48 07/02/24 14:54 07/02/24 13:30 07/02/24 11:30 Range/Units Prothrombin Time 11.3 9.3-11.8 sec Prothrombin Time INR 1.07 0.9-1.15 Activated Partial Thromboplast Time 30.6 24.5-34.5 SEC Vitamin B1 Level 145.3 66.5-200.0 nmol/L Vitamin D 25-Hydroxy 26 L . ng/mL 25-Hydroxy Vitamin D2 <1.0 . ng/mL 25-Hydroxy Vitamin D3 26 . ng/mL Creatine Kinase 233 H 34-145 U/L Vitamin B12 Level 985 H 211-911 pg/mL Thyroid Stimulating Hormone (TSH) 1.15 0.55-4.78 uIU/mL Plasma/Serum Blood Alcohol < 3.0 <10 mg/dL Urine Opiates Screen Neg NEGATIVE Urine Fentanyl Screen Neg NEGATIVE Urine Barbiturates Screen Neg NEGATIVE Urine Phencyclidine Screen Neg NEGATIVE Urine Amphetamines Screen Neg NEGATIVE Urine Benzodiazepines Screen Neg NEGATIVE Urine Cocaine Screen Neg NEGATIVE Urine Cannabinoids Screen Neg NEGATIVE Test 07/02/24 11:10 07/01/24 22:30 Range/Units Urine Color Yellow Yellow Urine Clarity Turbid H Clear Urine pH 5.5 5.0-9.0 Urine Specific [place] 1.030 1.001-1.035 Urine Protein 1+ H Negative Urine Ketones 2+ H Negative Urine Blood Negative Negative /uL Urine Nitrite Negative Negative Urine Bilirubin 1+ H Negative Urine Urobilinogen 4 H Negative mg/dL Urine Leukocyte Esterase Negative Negative /uL Urine RBC 2 0 - 4 /hpf Urine WBC 5 0 - 5 /hpf Urine Squamous Epithelial Cells Few <5 /hpf Urine Bacteria Many H None Seen /hpf Urine Mucus Few None Seen Urine Glucose Normal Normal mg/dL Lipase 31 12-53 U/L Microbiology Date/Time Source Procedure Growth Status 07/02/24 14:25 Buttock Gram Stain - Final Complete 07/02/24 14:25 Wound Culture - Final Proteus mirabilis Methicillin Resistant S.aureus Complete 07/02/24 11:10 Urine - [place] Urine Culture - Final Enterococcus faecium VRE Complete Assessment Patient is a 54-year-old female presented to the hospital with: Acute metabolic encephalopathy Stage 3 decubitus ulcer Acute functional quadriplegia Recommendations: He has chronic decub wound continue wound care on broad spectrum antibiotics for now, cont the wound cultures are superficial turn frequently Antibiotic status: Vancomycin IV [Started on 07/02] Zosyn IV [Started on 07/02] Cefepime IV [Started on 07/08] Vancomycin Trough on 07/08 is 13.7 07/02, Urine culture showed Enterococcus faecium VRE 07/02, Wound culture showed Proteus mirabilis and Methicillin Resistant S.aureus prognosis gaurded Thank you for consult. Plan discussed with: ZOIE Sierra MD Jul 08, 2024 16:43
[2024-07-08] MEDS ORDERED: VANCOMYCIN 750MG KIT 100 ML IV ONE (19:00)
[2024-07-08] MEDS: LINEZOLID 600MG/300ML 300 ML IV SCH (22:39)
[2024-07-08] MEDS: CEFEPIME 1GM/ 50ML 50 ML IV SCH (22:47)
[2024-07-09] VITALS (8 sets, daily range): BP systolic 120–155; BP diastolic 47–74; PULSE 57–73; RESP 17–18; TEMP 97.4–98.5; O2SAT 93–96
[2024-07-09 06:43] LABS: Basophils # (auto) 0 10 ^3/uL (0-0.2); Basophils % (auto) 0.4 % (0.0-2.0); Eosinophils # (auto) 0.2 10 ^3/uL (0-0.8); Eosinophils % (auto) 3.9 % (0.0-7.0); Hematocrit 32.1 % (36.0-46.0); Hemoglobin 10.9 g/dL (12.2-16.2); Lymphocytes # (auto) 1.7 10 ^3/uL (0.4-5.4); Lymphocytes % (auto) 29.4 % (10.0-50.0); Mean Corpuscular Hemoglobin 28.3 pg (28.0-32.0); Mean Corpuscular Hgb Conc. 34.1 g/dL (32.0-36.0); Mean Corpuscular Volume 83.2 fL (80.0-100.0); Monocytes # (auto) 0.4 10 ^3/uL (0-1.3); Monocytes % (auto) 7.6 % (0.0-12.0); Neutrophils # (auto) 3.4 10 ^3/uL (1.6-8.6); Neutrophils % (auto) 58.7 % (37.0-80.0); Platelet Count (auto) 256 10^3/uL (140-450); Red Blood Cells 3.86 10^6/uL (4.0-5.20); Red Cell Distribution Width 15.9 % (11.8-14.3); White Blood Cell 5.7 10^3/uL (4.4-10.8)
--- NOTE | 2024-07-09 20:48 | DVHPN2 ---
Progress Note - Dictate Date Seen: Jul 09, 2024 Medical Necessity Reason Pt with a Central, PICC or Fol: No Subjective Patient is unable to ambulate. vital signs Vital Sign Date Time Temp Pulse Resp B/P (MAP) Pulse Ox O2 Delivery O2 Flow Rate FiO2 07/09/24 20:00 96 Room Air* 0 21 07/09/24 16:58 73 17 139/65 07/09/24 16:54 97.6 97.6 Total Intake and Output 07/08/24 07/08/24 07/09/24 15:00 23:00 07:00 Intake Total 100 ml 800 ml 850 ml Output Total 1000 ml 1350 ml Balance 100 ml -200 ml -500 ml medications Current Medications Medications Dose Ordered Sig/Mindy Route Start Time Stop Time Status Last Admin Dose Admin Amlodipine Besylate 5 mg DAILY PO 07/03/24 10:00 07/09/24 09:17 5 MG Levothyroxine Sodium 50 mcg QAM PO 07/03/24 07:00 07/09/24 06:14 50 MCG Pregabalin 75 mg BID PO 07/02/24 22:00 07/09/24 09:17 75 MG Patient Own Medication 1 tab DAILY PO 07/03/24 10:00 Cancel Patient Own Medication 1 tab DAILY PO 07/03/24 10:00 UNV Patient Own Medication 1 tab DAILYPRN PRN PO 07/03/24 10:00 Patient Own Medication 2 tab DAILY PO 07/03/24 10:00 UNV Patient Own Medication 1 tab BID PO 07/02/24 22:00 UNV Patient Own Medication 1 tab DAILY PO 07/03/24 10:00 UNV Sodium Chloride 1,000 ml @ 100 mls/hr Q10H IV 07/02/24 13:00 07/07/24 20:45 100 MLS/HR Ondansetron HCl 4 mg Q4HP PRN IV 07/02/24 13:00 07/03/24 13:28 4 MG Docusate Sodium 100 mg BIDPRN PRN PO 07/02/24 13:00 07/09/24 10:50 100 MG Enoxaparin Sodium 40 mg DAILY SC 07/03/24 10:00 07/09/24 09:16 40 MG Nitroglycerin 0.4 mg Q5MINP PRN SL 07/02/24 13:00 Atorvastatin Calcium 40 mg HS PO 07/02/24 22:00 07/08/24 21:54 40 MG Cholecalciferol 2,000 unit DAILY PO 07/03/24 10:00 07/09/24 09:17 2,000 UNIT Lisinopril 5 mg DAILY PO 07/03/24 10:00 07/09/24 09:18 5 MG Sertraline HCl 100 mg BID PO 07/02/24 22:00 07/09/24 09:17 100 MG Morphine Sulfate 1 mg Q2HP PRN IV 07/03/24 12:45 07/09/24 14:27 1 MG Trazodone HCl 100 mg HS PO 07/03/24 22:00 07/08/24 21:55 100 MG Oxycodone/ Acetaminophen 2 tab Q6HP PRN PO 07/04/24 21:00 07/09/24 19:33 2 TAB Zolpidem Tartrate 5 mg HSPRN PRN PO 07/04/24 21:00 07/08/24 23:43 5 MG Linezolid 300 ml @ 150 mls/hr Q12HR IV 07/08/24 22:00 07/09/24 09:16 150 MLS/HR Cefepime HCl 50 ml @ 12.5 mls/hr Q8HR IV 07/08/24 22:00 07/09/24 14:26 12.5 MLS/HR objective General Appearance: Alert, Other (Delirious) HEENT: Atraumatic, PERRLA, EOMI, Mucous membr. moist/pink Respiratory: Clear to auscultation, Normal air movement Cardiovascular: Regular rate, Normal S1, Normal S2 Abdominal: Normal bowel sounds, Soft, No tenderness, No hepatospenomegaly, Other Extremities: Other (Mild swelling to the bilateral lower extremity) Skin: (Buttocks stage III ulcer with erythema no drainage noted) Neuro: Other (Unable to assess neuro status since patient is not cooperative) laboratory and microbiology Laboratory Tests 07/09/24 05:31 07/03/24 23:51 07/03/24 07:30 Test 07/03/24 07:30 Range/Units Serum Glucose 100 74-106 mg/dL Assessment/Plan Patient is a 54-year-old female presented to the hospital with: Acute metabolic encephalopathy Acute colitis Stage 3 decubitus ulcer Acute functional quadriplegia Recommendations: He has chronic decub wound continue wound care on broad spectrum antibiotics for now, cont the wound cultures are superficial turn frequently Antibiotic status: Vancomycin IV [Started on 07/02] Zosyn IV [Started on 07/02] Cefepime IV [Started on 07/08] Vancomycin Trough on 07/08 is 13.7 07/02, Urine culture showed Enterococcus faecium VRE 07/02, Wound culture showed Proteus mirabilis and Methicillin Resistant S.aureus prognosis gaurded Thank you for consult. Dietary Evaluation Review Comments: 1. consider Wiliam BID for wound healing at GFR 78 when pt is off NPO and able to take PO liquids. 2. Consider clinimix as her protein supplement for enchancing wound healing 3. Consider TPN per pharmacy if NPO > 7 days and GI is not accessible. 4. Consider TF Jevity 40ml/hr providing 53g pro and 1152 kcal in 24 hr if run FS. Expected Outcomes/Goals: 1) healed wounds and advance to diet as tolerated if kidney function improves. or 2) Renal Specific diet with 60g protein restriction if GFR further declines.. Plan discussed with: Other ZOIE MARTÍNEZ MD Jul 09, 2024 20:48
[2024-07-10] VITALS (8 sets, daily range): BP systolic 111–151; BP diastolic 48–63; PULSE 56–69; RESP 16–20; TEMP 97.4–98.3; O2SAT 90–96
--- NOTE | 2024-07-10 10:12 | DVHPN2 ---
Progress Note - Dictate Date Seen: Jul 10, 2024 Subjective Patient is unable to ambulate. SNF pending. vital signs Vital Sign Date Time Temp Pulse Resp B/P (MAP) Pulse Ox O2 Delivery O2 Flow Rate FiO2 07/10/24 05:00 98.0 57 18 116/51 (72) 91 98.0 07/09/24 20:00 Room Air* 0 21 Total Intake and Output 07/09/24 07/09/24 07/10/24 15:00 23:00 07:00 Intake Total 350 ml 350 ml 850 ml Output Total 500 ml 1050 ml Balance 350 ml -150 ml -200 ml medications Current Medications Medications Dose Ordered Sig/Mindy Route Start Time Stop Time Status Last Admin Dose Admin Amlodipine Besylate 5 mg DAILY PO 07/03/24 10:00 07/09/24 09:17 5 MG Levothyroxine Sodium 50 mcg QAM PO 07/03/24 07:00 07/10/24 05:31 50 MCG Pregabalin 75 mg BID PO 07/02/24 22:00 07/09/24 21:47 75 MG Patient Own Medication 1 tab DAILY PO 07/03/24 10:00 Cancel Patient Own Medication 1 tab DAILY PO 07/03/24 10:00 UNV Patient Own Medication 1 tab DAILYPRN PRN PO 07/03/24 10:00 Patient Own Medication 2 tab DAILY PO 07/03/24 10:00 UNV Patient Own Medication 1 tab BID PO 07/02/24 22:00 UNV Patient Own Medication 1 tab DAILY PO 07/03/24 10:00 UNV Sodium Chloride 1,000 ml @ 100 mls/hr Q10H IV 07/02/24 13:00 07/07/24 20:45 100 MLS/HR Ondansetron HCl 4 mg Q4HP PRN IV 07/02/24 13:00 07/03/24 13:28 4 MG Docusate Sodium 100 mg BIDPRN PRN PO 07/02/24 13:00 07/09/24 10:50 100 MG Enoxaparin Sodium 40 mg DAILY SC 07/03/24 10:00 07/09/24 09:16 40 MG Nitroglycerin 0.4 mg Q5MINP PRN SL 07/02/24 13:00 Atorvastatin Calcium 40 mg HS PO 07/02/24 22:00 07/09/24 21:47 40 MG Cholecalciferol 2,000 unit DAILY PO 07/03/24 10:00 07/09/24 09:17 2,000 UNIT Lisinopril 5 mg DAILY PO 07/03/24 10:00 07/09/24 09:18 5 MG Sertraline HCl 100 mg BID PO 07/02/24 22:00 07/09/24 21:47 100 MG Morphine Sulfate 1 mg Q2HP PRN IV 07/03/24 12:45 07/09/24 23:29 1 MG Trazodone HCl 100 mg HS PO 07/03/24 22:00 07/09/24 21:47 100 MG Oxycodone/ Acetaminophen 2 tab Q6HP PRN PO 07/04/24 21:00 07/09/24 19:33 2 TAB Zolpidem Tartrate 5 mg HSPRN PRN PO 07/04/24 21:00 07/10/24 03:52 5 MG Linezolid 300 ml @ 150 mls/hr Q12HR IV 07/08/24 22:00 07/09/24 23:20 150 MLS/HR Cefepime HCl 50 ml @ 12.5 mls/hr Q8HR IV 07/08/24 22:00 07/10/24 05:31 12.5 MLS/HR objective General Appearance: Alert, Other (Delirious) HEENT: Atraumatic, PERRLA, EOMI, Mucous membr. moist/pink Respiratory: Clear to auscultation, Normal air movement Cardiovascular: Regular rate, Normal S1, Normal S2 Abdominal: Normal bowel sounds, Soft, No tenderness, No hepatospenomegaly, Other (Buttocks stage III ulcer with erythema no drainage noted) Extremities: Other (Mild swelling to the bilateral lower extremity) Skin: No rashes, No breakdown, No significant lesion Neuro: Other (Unable to assess neuro status since patient is not cooperative) laboratory and microbiology Laboratory Tests 07/09/24 05:31 07/03/24 23:51 07/03/24 07:30 Test 07/03/24 07:30 Range/Units Serum Glucose 100 74-106 mg/dL Assessment/Plan Patient is a 54-year-old female presented to the hospital with: Acute metabolic encephalopathy (last time was from benzo toxicity) can be from sepsis from buttocks wound Acute colitis Acute elevated in cbd can be from gallstone removal Acute stage 3 ulcer with erythema and drainage Acute functional quadriplegia Recommendations: Antibiotic status: Cefepime IV [Started on 07/08 - Ongoing] Vancomycin IV [Started on 07/02 - 07/08] Zosyn IV [Started on 07/02 - 07/08] Vancomycin Trough on 07/08 is 13.7 07/02, Urine culture showed Enterococcus faecium VRE 07/02, Wound culture showed Proteus mirabilis and Methicillin Resistant S.aureus Thank you for consult. Dietary Evaluation Review Comments: 1. consider Wiliam BID for wound healing at GFR 78 when pt is off NPO and able to take PO liquids. 2. Consider clinimix as her protein supplement for enchancing wound healing 3. Consider TPN per pharmacy if NPO > 7 days and GI is not accessible. 4. Consider TF Jevity 40ml/hr providing 53g pro and 1152 kcal in 24 hr if run FS. Expected Outcomes/Goals: 1) healed wounds and advance to diet as tolerated if kidney function improves. or 2) Renal Specific diet with 60g protein restriction if GFR further declines.. ZOIE MARTÍNEZ MD Jul 10, 2024 10:12
--- NOTE | 2024-07-10 12:35 | DVHPN2 ---
Reviewed: Care Plan, H&P, Labs, Medications, Previous Orders Changes from previous H/P or p: No Changes General: Per HPI Objective Vitals Vital Signs Date Time Temp Pulse Resp B/P (MAP) Pulse Ox O2 Delivery O2 Flow Rate FiO2 07/10/24 10:20 59 18 151/63 07/10/24 09:00 97.4 94 97.4 07/10/24 08:00 Room Air* 0 21 Intake/Output Intake and Output 07/10/24 07:00 Intake Total 1550 ml Output Total 1550 ml Balance 0 ml Intake Oral 800 ml IV Total 750 ml Output Urine Total 1550 ml General Appearance: Alert, Oriented X3, Cooperative HEENT: Atraumatic Cardiovascular: Regular rate, Normal S1, Normal S2 Abdomen: Normal bowel sounds, Soft Medications Current Medications Medications Dose Ordered Sig/Mindy Route Start Time Stop Time Status Last Admin Dose Admin Amlodipine Besylate 5 mg DAILY PO 07/03/24 10:00 07/10/24 10:19 5 MG Levothyroxine Sodium 50 mcg QAM PO 07/03/24 07:00 07/10/24 05:31 50 MCG Pregabalin 75 mg BID PO 07/02/24 22:00 07/10/24 10:18 75 MG Patient Own Medication 1 tab DAILY PO 07/03/24 10:00 Cancel Patient Own Medication 1 tab DAILY PO 07/03/24 10:00 UNV Patient Own Medication 1 tab DAILYPRN PRN PO 07/03/24 10:00 Patient Own Medication 2 tab DAILY PO 07/03/24 10:00 UNV Patient Own Medication 1 tab BID PO 07/02/24 22:00 UNV Patient Own Medication 1 tab DAILY PO 07/03/24 10:00 UNV Sodium Chloride 1,000 ml @ 100 mls/hr Q10H IV 07/02/24 13:00 07/07/24 20:45 100 MLS/HR Ondansetron HCl 4 mg Q4HP PRN IV 07/02/24 13:00 07/03/24 13:28 4 MG Docusate Sodium 100 mg BIDPRN PRN PO 07/02/24 13:00 07/09/24 10:50 100 MG Enoxaparin Sodium 40 mg DAILY SC 07/03/24 10:00 07/10/24 10:19 40 MG Nitroglycerin 0.4 mg Q5MINP PRN SL 07/02/24 13:00 Atorvastatin Calcium 40 mg HS PO 07/02/24 22:00 07/09/24 21:47 40 MG Cholecalciferol 2,000 unit DAILY PO 07/03/24 10:00 07/10/24 10:18 2,000 UNIT Lisinopril 5 mg DAILY PO 07/03/24 10:00 07/10/24 10:18 5 MG Sertraline HCl 100 mg BID PO 07/02/24 22:00 07/10/24 10:18 100 MG Morphine Sulfate 1 mg Q2HP PRN IV 07/03/24 12:45 07/10/24 10:20 1 MG Trazodone HCl 100 mg HS PO 07/03/24 22:00 07/09/24 21:47 100 MG Oxycodone/ Acetaminophen 2 tab Q6HP PRN PO 07/04/24 21:00 07/09/24 19:33 2 TAB Zolpidem Tartrate 5 mg HSPRN PRN PO 07/04/24 21:00 07/10/24 03:52 5 MG Linezolid 300 ml @ 150 mls/hr Q12HR IV 07/08/24 22:00 07/10/24 10:19 150 MLS/HR Cefepime HCl 50 ml @ 12.5 mls/hr Q8HR IV 07/08/24 22:00 07/10/24 05:31 12.5 MLS/HR Laboratory Results Laboratory Tests 07/03/24 07:30 07/03/24 23:51 07/09/24 05:31 Urinalysis Test 07/02/24 11:10 Urine Color Yellow (Yellow) Urine Clarity Turbid (Clear) H Urine pH 5.5 (5.0-9.0) Urine Specific [place] 1.030 (1.001-1.035) Urine Protein 1+ (Negative) H Urine Ketones 2+ (Negative) H Urine Blood Negative /uL (Negative) Urine Nitrite Negative (Negative) Urine Bilirubin 1+ (Negative) H Urine Urobilinogen 4 mg/dL (Negative) H Urine Leukocyte Esterase Negative /uL (Negative) Urine RBC 2 /hpf (0 - 4) Urine WBC 5 /hpf (0 - 5) Urine Squamous Epithelial Cells Few /hpf (<5) Urine Bacteria Many /hpf (None Seen) H Urine Mucus Few (None Seen) Urine Glucose Normal mg/dL (Normal) Microbiology Microbiology Date/Time Source Procedure Growth Status 07/02/24 14:25 Buttock Gram Stain - Final Complete 07/02/24 14:25 Wound Culture - Final Proteus mirabilis Methicillin Resistant S.aureus Complete 07/02/24 11:10 Urine - [place] Urine Culture - Final Enterococcus faecium VRE Complete Assessment/Plan Assessment/Plan 54-year-old female past medical history anemia CK F hypertension gallbladder surgery hysterectomy depression hyperlipidemia hypothyroidism chief complaint had to really ED records this speak with the nurse but they stated that she was found down on the ground. Patient lives with a sister and family lost contact with them so since they were not able to get a contact with the sister they had sent the police department for a welfare check. According to the approximate timing patient was likely laying on the floor for three days and not able to get up. Patient was found in her bedroom but her sister was in liver him on the floor when officers arrived Patient also was found to have a stage III pressure ulcer. There was no drainage from the wound but there is some erythema. When evaluating patient's labs and imaging CBC was unremarkable CMP appears unremarkable CT scan of the brain unremarkable CT scan abdomen pelvis shows colitis diverticulosis dilated common bile duct might be related to her gallbladder surgery she also has a old scarring to her buttocks wound according to the CT scan no abscess noted. Small hiatal hernia. Patient appears not safe for discharge to go home. Patient currently delirious and not able to care for herself. We will likely need placement in his sister who is her caregiver had . acute metabolic encephalopathy (last time was from benzo toxicity) can be from sepsis from buttocks wound acute colitis acute elevated in cbd can be from gallstone removal acute stage 3 ulcer with erythema and drainage ct scan no nec fascitis or gas gangrene acute functional quadriplegia chronic problems 07/03/2024: continue with current care, pt complains of back pain and request specially Percocet 10mg, stating that she takes it 5 times a day at home and requested for Ambien 10mg (specific dose) for sleeping request PT/OT to evaluate pt started on diet and able to tolerate well. 07/04/2024: continue with current care. PT/OT to evaluate pt 07/05/2024: request case management to place pt at a SNF 07/06/2024: pending placement 07/07/2024: pending placement to SNF 07/08/2024: pending SNF 07/09/2024: pending SNF Plan discussed with: Patient My Orders Orders - MARQUISE SOTOMAYOR DO Procedure Category Date Status Time * Customer Engagement Manager CONS 07/09/24 Transmitted Consult 13:10 Communication Order ORDERS 07/09/24 Transmitted 11:30 Date of Service: Jul 09, 2024 Billing Provider: MARQUISE SOTOMAYOR DO Common Visit Codes: [id number] INP/OBS CARE(HIGH) MARQUISE SOTOMAYOR DO Jul 10, 2024 12:35
[2024-07-11] VITALS (10 sets, daily range): BP systolic 111–146; BP diastolic 46–63; PULSE 58–95; RESP 17–93; TEMP 97.4–98.7; O2SAT 92–97
[2024-07-12] VITALS (7 sets, daily range): BP systolic 118–156; BP diastolic 38–67; PULSE 57–69; RESP 16–19; TEMP 97.6–98.4; O2SAT 94–97
--- NOTE | 2024-07-12 19:38 | DVHPN2 ---
Progress Note - Dictate Date Seen: Jul 12, 2024 Medical Necessity Reason Pt with a Central, PICC or Fol: No Subjective No new acute complaint noted at this time. Patient is unable to ambulate. vital signs Vital Sign Date Time Temp Pulse Resp B/P (MAP) Pulse Ox O2 Delivery O2 Flow Rate FiO2 07/12/24 17:00 98.3 59 17 133/58 (83) 94 98.3 07/12/24 08:15 Room Air* 0 21 Total Intake and Output 07/11/24 07/11/24 07/12/24 15:00 23:00 07:00 Intake Total 350 ml 1050 ml 540 ml Output Total 1700 ml 1100 ml Balance 350 ml -650 ml -560 ml medications Current Medications Medications Dose Ordered Sig/Mindy Route Start Time Stop Time Status Last Admin Dose Admin Amlodipine Besylate 5 mg DAILY PO 07/03/24 10:00 07/12/24 09:23 5 MG Levothyroxine Sodium 50 mcg QAM PO 07/03/24 07:00 07/12/24 06:19 50 MCG Pregabalin 75 mg BID PO 07/02/24 22:00 07/12/24 09:22 75 MG Patient Own Medication 1 tab DAILY PO 07/03/24 10:00 Cancel Patient Own Medication 1 tab DAILY PO 07/03/24 10:00 UNV Patient Own Medication 1 tab DAILYPRN PRN PO 07/03/24 10:00 Patient Own Medication 2 tab DAILY PO 07/03/24 10:00 UNV Patient Own Medication 1 tab BID PO 07/02/24 22:00 UNV Patient Own Medication 1 tab DAILY PO 07/03/24 10:00 UNV Sodium Chloride 1,000 ml @ 100 mls/hr Q10H IV 07/02/24 13:00 07/12/24 14:34 100 MLS/HR Ondansetron HCl 4 mg Q4HP PRN IV 07/02/24 13:00 07/03/24 13:28 4 MG Docusate Sodium 100 mg BIDPRN PRN PO 07/02/24 13:00 07/09/24 10:50 100 MG Enoxaparin Sodium 40 mg DAILY SC 07/03/24 10:00 07/12/24 09:22 40 MG Nitroglycerin 0.4 mg Q5MINP PRN SL 07/02/24 13:00 Atorvastatin Calcium 40 mg HS PO 07/02/24 22:00 07/11/24 22:16 40 MG Cholecalciferol 2,000 unit DAILY PO 07/03/24 10:00 07/12/24 09:22 2,000 UNIT Lisinopril 5 mg DAILY PO 07/03/24 10:00 07/12/24 09:23 5 MG Sertraline HCl 100 mg BID PO 07/02/24 22:00 07/12/24 09:22 100 MG Trazodone HCl 100 mg HS PO 07/03/24 22:00 07/11/24 22:17 100 MG Oxycodone/ Acetaminophen 2 tab Q6HP PRN PO 07/04/24 21:00 07/09/24 19:33 2 TAB Zolpidem Tartrate 5 mg HSPRN PRN PO 07/04/24 21:00 07/12/24 00:15 5 MG Linezolid 300 ml @ 150 mls/hr Q12HR IV 07/08/24 22:00 07/12/24 10:09 150 MLS/HR Cefepime HCl 50 ml @ 12.5 mls/hr Q8HR IV 07/08/24 22:00 07/12/24 14:34 12.5 MLS/HR objective General Appearance: Alert, Other (Delirious) HEENT: Atraumatic, PERRLA, EOMI, Mucous membr. moist/pink Respiratory: Clear to auscultation, Normal air movement Cardiovascular: Regular rate, Normal S1, Normal S2 Abdominal: Normal bowel sounds, Soft, No tenderness, No hepatospenomegaly, Other ( Extremities: Other (Mild swelling to the bilateral lower extremity) Skin: Buttocks stage III ulcer with erythema no drainage noted) Neuro: Other (Unable to assess neuro status since patient is not cooperative) laboratory and microbiology Laboratory Tests 07/09/24 05:31 07/03/24 23:51 07/03/24 07:30 Test 07/03/24 07:30 Range/Units Serum Glucose 100 74-106 mg/dL Assessment/Plan Patient is a 54-year-old female presented to the hospital with: Acute metabolic encephalopathy Stage 3 decubitus ulcer Acute functional quadriplegia Recommendations: He has chronic decub wound continue wound care on broad spectrum antibiotics for now, cont the wound cultures are superficial turn frequently Antibiotic status: Vancomycin IV [Started on 07/02] Zosyn IV [Started on 07/02] Cefepime IV [Started on 07/08] Vancomycin Trough on 07/08 is 13.7 07/02, Urine culture showed Enterococcus faecium VRE 07/02, Wound culture showed Proteus mirabilis and Methicillin Resistant S.aureus prognosis gaurded Thank you for consult. Dietary Evaluation Review Comments: 1. consider Wiliam BID for wound healing at GFR 78 when pt is off NPO and able to take PO liquids. 2. Consider clinimix as her protein supplement for enchancing wound healing 3. Consider TPN per pharmacy if NPO > 7 days and GI is not accessible. 4. Consider TF Jevity 40ml/hr providing 53g pro and 1152 kcal in 24 hr if run FS. Expected Outcomes/Goals: 1) healed wounds and advance to diet as tolerated if kidney function improves. or 2) Renal Specific diet with 60g protein restriction if GFR further declines.. Plan discussed with: Other ZOIE MARTÍNEZ MD Jul 12, 2024 19:38
[2024-07-13] VITALS (7 sets, daily range): BP systolic 115–131; BP diastolic 52–62; PULSE 52–61; RESP 16–18; TEMP 97.8–98.7; O2SAT 92–96
--- NOTE | 2024-07-13 14:18 | DVHPN2 ---
Subjective Patient continues to report having bilateral leg pain. Reviewed: Care Plan, H&P, Labs, Medications, Previous Orders Changes from previous H/P or p: No Changes General: Per HPI Objective Vitals Vital Signs Date Time Temp Pulse Resp B/P (MAP) Pulse Ox O2 Delivery O2 Flow Rate FiO2 07/13/24 13:18 98.4 61 18 131/62 (85) 95 98.4 07/13/24 08:00 Room Air* 0 21 Intake/Output Intake and Output 07/13/24 07:00 Intake Total 1700 ml Output Total 2150 ml Balance -450 ml Intake Oral 700 ml IV Total 1000 ml Output Urine Total 2150 ml # Bowel Movements 1 General Appearance: Alert, Oriented X3, Cooperative HEENT: Atraumatic Cardiovascular: Regular rate, Normal S1, Normal S2 Abdomen: Normal bowel sounds, Soft Skin: Dry, Intact, Wounds (See nurse notes and pictures) Medications Current Medications Medications Dose Ordered Sig/Mindy Route Start Time Stop Time Status Last Admin Dose Admin Amlodipine Besylate 5 mg DAILY PO 07/03/24 10:00 07/13/24 09:51 5 MG Levothyroxine Sodium 50 mcg QAM PO 07/03/24 07:00 07/13/24 05:38 50 MCG Pregabalin 75 mg BID PO 07/02/24 22:00 07/13/24 09:52 75 MG Patient Own Medication 1 tab DAILY PO 07/03/24 10:00 Cancel Patient Own Medication 1 tab DAILY PO 07/03/24 10:00 UNV Patient Own Medication 1 tab DAILYPRN PRN PO 07/03/24 10:00 Patient Own Medication 2 tab DAILY PO 07/03/24 10:00 UNV Patient Own Medication 1 tab BID PO 07/02/24 22:00 UNV Patient Own Medication 1 tab DAILY PO 07/03/24 10:00 UNV Sodium Chloride 1,000 ml @ 100 mls/hr Q10H IV 07/02/24 13:00 07/13/24 08:49 100 MLS/HR Ondansetron HCl 4 mg Q4HP PRN IV 07/02/24 13:00 07/03/24 13:28 4 MG Docusate Sodium 100 mg BIDPRN PRN PO 07/02/24 13:00 07/09/24 10:50 100 MG Enoxaparin Sodium 40 mg DAILY SC 07/03/24 10:00 07/13/24 09:51 40 MG Nitroglycerin 0.4 mg Q5MINP PRN SL 07/02/24 13:00 Atorvastatin Calcium 40 mg HS PO 07/02/24 22:00 07/12/24 22:15 40 MG Cholecalciferol 2,000 unit DAILY PO 07/03/24 10:00 07/13/24 09:52 2,000 UNIT Lisinopril 5 mg DAILY PO 07/03/24 10:00 07/13/24 09:51 5 MG Sertraline HCl 100 mg BID PO 07/02/24 22:00 07/13/24 09:52 100 MG Trazodone HCl 100 mg HS PO 07/03/24 22:00 07/12/24 22:16 100 MG Oxycodone/ Acetaminophen 2 tab Q6HP PRN PO 07/04/24 21:00 07/13/24 10:00 2 TAB Zolpidem Tartrate 5 mg HSPRN PRN PO 07/04/24 21:00 07/13/24 00:28 5 MG Linezolid 300 ml @ 150 mls/hr Q12HR IV 07/08/24 22:00 07/13/24 09:50 150 MLS/HR Cefepime HCl 50 ml @ 12.5 mls/hr Q8HR IV 07/08/24 22:00 07/13/24 05:38 12.5 MLS/HR Laboratory Results Laboratory Tests 07/03/24 07:30 07/03/24 23:51 07/09/24 05:31 Urinalysis Test 07/02/24 11:10 Urine Color Yellow (Yellow) Urine Clarity Turbid (Clear) H Urine pH 5.5 (5.0-9.0) Urine Specific [place] 1.030 (1.001-1.035) Urine Protein 1+ (Negative) H Urine Ketones 2+ (Negative) H Urine Blood Negative /uL (Negative) Urine Nitrite Negative (Negative) Urine Bilirubin 1+ (Negative) H Urine Urobilinogen 4 mg/dL (Negative) H Urine Leukocyte Esterase Negative /uL (Negative) Urine RBC 2 /hpf (0 - 4) Urine WBC 5 /hpf (0 - 5) Urine Squamous Epithelial Cells Few /hpf (<5) Urine Bacteria Many /hpf (None Seen) H Urine Mucus Few (None Seen) Urine Glucose Normal mg/dL (Normal) Microbiology Microbiology Date/Time Source Procedure Growth Status 07/02/24 14:25 Buttock Gram Stain - Final Complete 07/02/24 14:25 Wound Culture - Final Proteus mirabilis Methicillin Resistant S.aureus Complete 07/02/24 11:10 Urine - [place] Urine Culture - Final Enterococcus faecium VRE Complete Labs and/or images reviewed: Labs reviewed by me, Image(s) reviewed by me Assessment/Plan Assessment/Plan Impression: -sepsis, rule out -metabolic encephalopathy -stage III pressure alter with MDRO -bilateral lower extremity paresthesia -history of substance abuse -obesity -acute kidney injury Plan: -infectious disease consultation has been placed. Continue current antibiotics - Given the patient's functional incapacitation, social service consultation for DC planning to sniff with IV antibiotic therapy -electrolyte replacement -pain management -PT consultation -repeat labs Total time spent with patient discussing and formulating plan of care: 35 minutes. This medical document was created using an electronic medical record system with [employer] dictation system. Although this document has been carefully reviewed, there may still be some phonetic and typographical errors. These areas are purely typographical due to imperfections of the software programs, and do not reflect any compromise in the patient's medical care. Plan discussed with: Patient, Other (RN) Date of Service: Jul 13, 2024 Billing Provider: ENA LAMAS NP Common Visit Codes: [id number] INP/OBS CARE(HIGH) ENA LAMAS NP Jul 13, 2024 14:18
[2024-07-13 15:51] LABS: Chloride 105 mmol/L (98-107); Potassium 4.3 mmol/L (3.5-5.1); Sodium 140 mmol/L (136-145)
[2024-07-13 15:52] LABS: Anion Gap 7 (5-15); Calcium 9.6 mg/dL (8.7-10.4); Carbon Dioxide 28 mmol/L (20-31)
[2024-07-13 15:57] LABS: BUN/Creatinine Ratio 17.1 (10.0-20.0); Blood Urea Nitrogen 22 mg/dL (9-23)
[2024-07-13 15:58] LABS: Glucose 116 mg/dL (74-106)
--- NOTE | 2024-07-13 18:17 | DVHPN2 ---
Progress Note - Dictate Date Seen: Jul 13, 2024 Has the PT tested + for MRSA If YES, has PT been informed?: No Medical Necessity Reason Pt with a Central, PICC or Fol: No Subjective Patient continues to report having bilateral leg pain. vital signs Vital Sign Date Time Temp Pulse Resp B/P (MAP) Pulse Ox O2 Delivery O2 Flow Rate FiO2 07/13/24 13:18 98.4 61 18 131/62 (85) 95 98.4 07/13/24 08:00 Room Air* 0 21 Total Intake and Output 07/12/24 07/12/24 07/13/24 15:00 23:00 07:00 Intake Total 350 ml 350 ml 1000 ml Output Total 1200 ml 950 ml Balance 350 ml -850 ml 50 ml medications Current Medications Medications Dose Ordered Sig/Mindy Route Start Time Stop Time Status Last Admin Dose Admin Amlodipine Besylate 5 mg DAILY PO 07/03/24 10:00 07/13/24 09:51 5 MG Levothyroxine Sodium 50 mcg QAM PO 07/03/24 07:00 07/13/24 05:38 50 MCG Pregabalin 75 mg BID PO 07/02/24 22:00 07/13/24 09:52 75 MG Patient Own Medication 1 tab DAILY PO 07/03/24 10:00 Cancel Patient Own Medication 1 tab DAILY PO 07/03/24 10:00 UNV Patient Own Medication 1 tab DAILYPRN PRN PO 07/03/24 10:00 Patient Own Medication 2 tab DAILY PO 07/03/24 10:00 UNV Patient Own Medication 1 tab BID PO 07/02/24 22:00 UNV Patient Own Medication 1 tab DAILY PO 07/03/24 10:00 UNV Sodium Chloride 1,000 ml @ 100 mls/hr Q10H IV 07/02/24 13:00 07/13/24 08:49 100 MLS/HR Ondansetron HCl 4 mg Q4HP PRN IV 07/02/24 13:00 07/03/24 13:28 4 MG Docusate Sodium 100 mg BIDPRN PRN PO 07/02/24 13:00 07/09/24 10:50 100 MG Enoxaparin Sodium 40 mg DAILY SC 07/03/24 10:00 07/13/24 09:51 40 MG Nitroglycerin 0.4 mg Q5MINP PRN SL 07/02/24 13:00 Atorvastatin Calcium 40 mg HS PO 07/02/24 22:00 07/12/24 22:15 40 MG Cholecalciferol 2,000 unit DAILY PO 07/03/24 10:00 07/13/24 09:52 2,000 UNIT Lisinopril 5 mg DAILY PO 07/03/24 10:00 07/13/24 09:51 5 MG Sertraline HCl 100 mg BID PO 07/02/24 22:00 07/13/24 09:52 100 MG Trazodone HCl 100 mg HS PO 07/03/24 22:00 07/12/24 22:16 100 MG Oxycodone/ Acetaminophen 2 tab Q6HP PRN PO 07/04/24 21:00 07/13/24 16:20 2 TAB Zolpidem Tartrate 5 mg HSPRN PRN PO 07/04/24 21:00 07/13/24 00:28 5 MG Linezolid 300 ml @ 150 mls/hr Q12HR IV 07/08/24 22:00 07/13/24 09:50 150 MLS/HR Cefepime HCl 50 ml @ 12.5 mls/hr Q8HR IV 07/08/24 22:00 07/13/24 14:21 12.5 MLS/HR objective General Appearance: Alert, HEENT: Atraumatic, PERRLA, EOMI, Mucous membr. moist/pink Respiratory: Clear to auscultation, Normal air movement Cardiovascular: Regular rate, Normal S1, Normal S2 Abdominal: Normal bowel sounds, Soft, No tenderness, No hepatospenomegaly, Other ( Extremities: Other (Mild swelling to the bilateral lower extremity) Skin: Buttocks stage III ulcer with erythema no drainage noted) bed bound laboratory and microbiology Laboratory Tests 07/13/24 15:20 07/09/24 05:31 Test 07/13/24 15:20 Range/Units Serum Glucose 116 H 74-106 mg/dL Assessment/Plan Patient is a 54-year-old female presented to the hospital with: Acute metabolic encephalopathy improved Acute colitis stage 3 ulcer pressure ulcer Acute functional quadriplegia Recommendations: Continue wound care frequent turns patient has been receiving broad spectrum since hospitalization' currently on linezolid and cefepime . overall got rx for soft tissue. recommend stop at the time of discharge and cont wound care prognosis is poor [facility]' outpatient referral to wound care center for terminal clerk management 07/02, Urine culture showed Enterococcus faecium VRE 07/02, Wound culture showed Proteus mirabilis and Methicillin Resistant S.aureus Prognosis overall guarded Thank you for consult. Dietary Evaluation Review Comments: 1. consider Wiliam BID for wound healing at GFR 78 when pt is off NPO and able to take PO liquids. 2. Consider clinimix as her protein supplement for enchancing wound healing 3. Consider TPN per pharmacy if NPO > 7 days and GI is not accessible. 4. Consider TF Jevity 40ml/hr providing 53g pro and 1152 kcal in 24 hr if run FS. Expected Outcomes/Goals: 1) healed wounds and advance to diet as tolerated if kidney function improves. or 2) Renal Specific diet with 60g protein restriction if GFR further declines.. Plan discussed with: Patient ZOIE MARTÍNEZ MD Jul 13, 2024 18:17
[2024-07-14] VITALS (7 sets, daily range): BP systolic 100–135; BP diastolic 41–63; PULSE 48–81; RESP 16–18; TEMP 97.3–98.4; O2SAT 93–96
--- NOTE | 2024-07-14 13:40 | DVHPN2 ---
Subjective Patient continues to report having bilateral leg pain. Reviewed: Care Plan, H&P, Labs, Medications, Previous Orders Changes from previous H/P or p: No Changes General: Per HPI Objective Vitals Vital Signs Date Time Temp Pulse Resp B/P (MAP) Pulse Ox O2 Delivery O2 Flow Rate FiO2 07/14/24 09:36 127/52 07/14/24 09:00 97.3 51 17 95 97.3 07/13/24 20:00 Room Air* 0 21 Intake/Output Intake and Output 07/14/24 07:00 Intake Total 3000 ml Output Total 3600 ml Balance -600 ml Intake Oral 1600 ml IV Total 1400 ml Output Urine Total 3600 ml # Bowel Movements 1 General Appearance: Alert, Oriented X3, Cooperative HEENT: Atraumatic, PERRLA Cardiovascular: Regular rate, Normal S1, Normal S2 Abdomen: Normal bowel sounds, Soft Musculoskeletal: Normal sensory function, Normal motor function Neuro: Normal gait, Normal speech, Cranial nerves 3-12 NL Skin: Dry, Intact, Wounds (See nurse notes and pictures) Psych/Mental Status: Mental status NL, Mood NL Medications Current Medications Medications Dose Ordered Sig/Mindy Route Start Time Stop Time Status Last Admin Dose Admin Amlodipine Besylate 5 mg DAILY PO 07/03/24 10:00 07/14/24 09:36 5 MG Levothyroxine Sodium 50 mcg QAM PO 07/03/24 07:00 07/13/24 05:38 50 MCG Pregabalin 75 mg BID PO 07/02/24 22:00 07/14/24 09:35 75 MG Patient Own Medication 1 tab DAILY PO 07/03/24 10:00 Cancel Patient Own Medication 1 tab DAILY PO 07/03/24 10:00 UNV Patient Own Medication 1 tab DAILYPRN PRN PO 07/03/24 10:00 Patient Own Medication 2 tab DAILY PO 07/03/24 10:00 UNV Patient Own Medication 1 tab BID PO 07/02/24 22:00 UNV Patient Own Medication 1 tab DAILY PO 07/03/24 10:00 UNV Sodium Chloride 1,000 ml @ 100 mls/hr Q10H IV 07/02/24 13:00 07/13/24 08:49 100 MLS/HR Ondansetron HCl 4 mg Q4HP PRN IV 07/02/24 13:00 07/03/24 13:28 4 MG Docusate Sodium 100 mg BIDPRN PRN PO 07/02/24 13:00 07/09/24 10:50 100 MG Nitroglycerin 0.4 mg Q5MINP PRN SL 07/02/24 13:00 Atorvastatin Calcium 40 mg HS PO 07/02/24 22:00 07/13/24 21:08 40 MG Cholecalciferol 2,000 unit DAILY PO 07/03/24 10:00 07/14/24 09:35 2,000 UNIT Lisinopril 5 mg DAILY PO 07/03/24 10:00 07/14/24 09:36 5 MG Sertraline HCl 100 mg BID PO 07/02/24 22:00 07/14/24 09:35 100 MG Trazodone HCl 100 mg HS PO 07/03/24 22:00 07/13/24 21:08 100 MG Zolpidem Tartrate 5 mg HSPRN PRN PO 07/04/24 21:00 07/14/24 02:14 5 MG Linezolid 300 ml @ 150 mls/hr Q12HR IV 07/08/24 22:00 07/14/24 09:36 150 MLS/HR Cefepime HCl 50 ml @ 12.5 mls/hr Q8HR IV 07/08/24 22:00 07/14/24 06:12 12.5 MLS/HR Oxycodone/ Acetaminophen 1 tab Q4HP PRN PO 07/14/24 13:00 Carisoprodol 350 mg Q8HPRN PRN PO 07/14/24 13:00 Laboratory Results Laboratory Tests 07/09/24 05:31 07/13/24 15:20 Chemistry Test 07/13/24 15:20 Calcium Level 9.6 mg/dL (8.7-10.4) Urinalysis Test 07/02/24 11:10 Urine Color Yellow (Yellow) Urine Clarity Turbid (Clear) H Urine pH 5.5 (5.0-9.0) Urine Specific [place] 1.030 (1.001-1.035) Urine Protein 1+ (Negative) H Urine Ketones 2+ (Negative) H Urine Blood Negative /uL (Negative) Urine Nitrite Negative (Negative) Urine Bilirubin 1+ (Negative) H Urine Urobilinogen 4 mg/dL (Negative) H Urine Leukocyte Esterase Negative /uL (Negative) Urine RBC 2 /hpf (0 - 4) Urine WBC 5 /hpf (0 - 5) Urine Squamous Epithelial Cells Few /hpf (<5) Urine Bacteria Many /hpf (None Seen) H Urine Mucus Few (None Seen) Urine Glucose Normal mg/dL (Normal) Microbiology Microbiology Date/Time Source Procedure Growth Status 07/02/24 14:25 Buttock Gram Stain - Final Complete 07/02/24 14:25 Wound Culture - Final Proteus mirabilis Methicillin Resistant S.aureus Complete 07/02/24 11:10 Urine - [place] Urine Culture - Final Enterococcus faecium VRE Complete Labs and/or images reviewed: Labs reviewed by me, Image(s) reviewed by me Assessment/Plan Assessment/Plan Impression: -sepsis, rule out -metabolic encephalopathy -stage III pressure alter with MDRO -bilateral lower extremity paresthesia -history of substance abuse -obesity -acute kidney injury Plan: Events: We will reassess wound, if patient continues to have eschar, we will consider possible surgical consultation for debridement -infectious disease consultation has been placed. Continue current antibiotics -Given the patient's functional incapacitation, social service consultation for DC planning to SNF with IV antibiotic therapy -electrolyte replacement -pain management -PT consultation Total time spent with patient discussing and formulating plan of care: 35 minutes. This medical document was created using an electronic medical record system with [employer] dictation system. Although this document has been carefully reviewed, there may still be some phonetic and typographical errors. These areas are purely typographical due to imperfections of the software programs, and do not reflect any compromise in the patient's medical care. Plan discussed with: Patient, Other (RN) My Orders Orders - ENA LAMAS NP Procedure Category Date Status Time Oxycodone W/ Acet PHA 07/14/24 In Process 5/325mg Tab (Percocet 13:00 Carisoprodol Tablet PHA 07/14/24 In Process (Soma Tablet) 13:00 Date of Service: Jul 14, 2024 Billing Provider: ENA LAMAS NP Common Visit Codes: [id number] INP/OBS CARE(HIGH) ENA LAMAS NP Jul 14, 2024 13:39
[2024-07-14] MEDS: OXYCODONE W/ ACETAMINOPHEN 5/325MG TABLET PO PRN (13:42)
--- NOTE | 2024-07-14 18:45 | DVHPN2 ---
Progress Note - Dictate Date Seen: Jul 14, 2024 Medical Necessity Reason Pt with a Central, PICC or Fol: No Subjective Patient continues to report having bilateral leg pain. vital signs Vital Sign Date Time Temp Pulse Resp B/P (MAP) Pulse Ox O2 Delivery O2 Flow Rate FiO2 07/14/24 16:58 98.4 62 17 135/60 (85) 93 98.4 07/14/24 08:00 Room Air* 0 21 Total Intake and Output 07/13/24 07/13/24 07/14/24 15:00 23:00 07:00 Intake Total 1350 ml 1170 ml 480 ml Output Total 1800 ml 1800 ml Balance 1350 ml -630 ml -1320 ml medications Current Medications Medications Dose Ordered Sig/Mindy Route Start Time Stop Time Status Last Admin Dose Admin Amlodipine Besylate 5 mg DAILY PO 07/03/24 10:00 07/14/24 09:36 5 MG Levothyroxine Sodium 50 mcg QAM PO 07/03/24 07:00 07/13/24 05:38 50 MCG Pregabalin 75 mg BID PO 07/02/24 22:00 07/14/24 09:35 75 MG Patient Own Medication 1 tab DAILY PO 07/03/24 10:00 Cancel Patient Own Medication 1 tab DAILY PO 07/03/24 10:00 UNV Patient Own Medication 1 tab DAILYPRN PRN PO 07/03/24 10:00 Patient Own Medication 2 tab DAILY PO 07/03/24 10:00 UNV Patient Own Medication 1 tab BID PO 07/02/24 22:00 UNV Patient Own Medication 1 tab DAILY PO 07/03/24 10:00 UNV Sodium Chloride 1,000 ml @ 100 mls/hr Q10H IV 07/02/24 13:00 07/14/24 18:43 100 MLS/HR Ondansetron HCl 4 mg Q4HP PRN IV 07/02/24 13:00 07/03/24 13:28 4 MG Docusate Sodium 100 mg BIDPRN PRN PO 07/02/24 13:00 07/09/24 10:50 100 MG Nitroglycerin 0.4 mg Q5MINP PRN SL 07/02/24 13:00 Atorvastatin Calcium 40 mg HS PO 07/02/24 22:00 07/13/24 21:08 40 MG Cholecalciferol 2,000 unit DAILY PO 07/03/24 10:00 07/14/24 09:35 2,000 UNIT Lisinopril 5 mg DAILY PO 07/03/24 10:00 07/14/24 09:36 5 MG Sertraline HCl 100 mg BID PO 07/02/24 22:00 07/14/24 09:35 100 MG Trazodone HCl 100 mg HS PO 07/03/24 22:00 07/13/24 21:08 100 MG Zolpidem Tartrate 5 mg HSPRN PRN PO 07/04/24 21:00 07/14/24 02:14 5 MG Linezolid 300 ml @ 150 mls/hr Q12HR IV 07/08/24 22:00 07/14/24 09:36 150 MLS/HR Cefepime HCl 50 ml @ 12.5 mls/hr Q8HR IV 07/08/24 22:00 07/14/24 13:42 12.5 MLS/HR Oxycodone/ Acetaminophen 1 tab Q4HP PRN PO 07/14/24 13:00 07/14/24 13:42 1 TAB Carisoprodol 350 mg Q8HPRN PRN PO 07/14/24 13:00 objective General Appearance: Alert, Other (Delirious) HEENT: Atraumatic, PERRLA, EOMI, Mucous membr. moist/pink Respiratory: Clear to auscultation, Normal air movement Cardiovascular: Regular rate, Normal S1, Normal S2 Abdominal: Normal bowel sounds, Soft, No tenderness, No hepatospenomegaly, Other (Buttocks stage III ulcer with erythema no drainage noted) Extremities: Other (Mild swelling to the bilateral lower extremity) Skin: No rashes, No breakdown, No significant lesion Neuro: Other (Unable to assess neuro status since patient is not cooperative) laboratory and microbiology Laboratory Tests 07/13/24 15:20 07/09/24 05:31 Test 07/13/24 15:20 Range/Units Serum Glucose 116 H 74-106 mg/dL Assessment/Plan Patient is a 54-year-old female presented to the hospital with: Acute metabolic encephalopathy improved Acute colitis stage 3 ulcer pressure ulcer Acute functional quadriplegia Recommendations: Continue wound care frequent turns patient has been receiving broad spectrum since hospitalization' currently on linezolid and cefepime . overall got rx for soft tissue. 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 Dietary Evaluation Review Comments: 1. consider Wiliam BID for wound healing at GFR 78 when pt is off NPO and able to take PO liquids. 2. Consider clinimix as her protein supplement for enchancing wound healing 3. Consider TPN per pharmacy if NPO > 7 days and GI is not accessible. 4. Consider TF Jevity 40ml/hr providing 53g pro and 1152 kcal in 24 hr if run FS. Expected Outcomes/Goals: 1) healed wounds and advance to diet as tolerated if kidney function improves. or 2) Renal Specific diet with 60g protein restriction if GFR further declines.. Plan discussed with: Patient, Other ZOIE MARTÍNEZ MD Jul 14, 2024 18:45
[2024-07-14] MEDS: CARISOPRODOL 350 MG TAB PO PRN (21:51)
[2024-07-15] VITALS (8 sets, daily range): BP systolic 98–136; BP diastolic 44–85; PULSE 56–63; RESP 12–18; TEMP 97.7–98.1; O2SAT 93–100
[2024-07-15] MEDS: CEFEPIME 1GM/ 50ML 50 ML IV SCH (08:03)
--- NOTE | 2024-07-15 08:22 | DVHPN2 ---
Progress Note - Dictate Date Seen: Jul 15, 2024 Medical Necessity Reason Pt with a Central, PICC or Fol: No Subjective Patient continues to report having bilateral leg pain. vital signs Vital Sign Date Time Temp Pulse Resp B/P (MAP) Pulse Ox O2 Delivery O2 Flow Rate FiO2 07/15/24 05:00 97.9 56 18 98/44 (62) 100 97.9 07/14/24 20:00 Room Air* 0 21 Total Intake and Output 07/14/24 07/14/24 07/15/24 15:00 23:00 07:00 Intake Total 1120 ml 550 ml Output Total 750 ml 1100 ml Balance 370 ml -550 ml medications Current Medications Medications Dose Ordered Sig/Mindy Route Start Time Stop Time Status Last Admin Dose Admin Amlodipine Besylate 5 mg DAILY PO 07/03/24 10:00 07/14/24 09:36 5 MG Levothyroxine Sodium 50 mcg QAM PO 07/03/24 07:00 07/15/24 06:06 50 MCG Pregabalin 75 mg BID PO 07/02/24 22:00 07/14/24 21:41 75 MG Patient Own Medication 1 tab DAILY PO 07/03/24 10:00 Cancel Patient Own Medication 1 tab DAILY PO 07/03/24 10:00 UNV Patient Own Medication 1 tab DAILYPRN PRN PO 07/03/24 10:00 Patient Own Medication 2 tab DAILY PO 07/03/24 10:00 UNV Patient Own Medication 1 tab BID PO 07/02/24 22:00 UNV Patient Own Medication 1 tab DAILY PO 07/03/24 10:00 UNV Sodium Chloride 1,000 ml @ 100 mls/hr Q10H IV 07/02/24 13:00 07/14/24 18:43 100 MLS/HR Ondansetron HCl 4 mg Q4HP PRN IV 07/02/24 13:00 07/03/24 13:28 4 MG Docusate Sodium 100 mg BIDPRN PRN PO 07/02/24 13:00 07/09/24 10:50 100 MG Nitroglycerin 0.4 mg Q5MINP PRN SL 07/02/24 13:00 Atorvastatin Calcium 40 mg HS PO 07/02/24 22:00 07/14/24 21:41 40 MG Cholecalciferol 2,000 unit DAILY PO 07/03/24 10:00 07/14/24 09:35 2,000 UNIT Lisinopril 5 mg DAILY PO 07/03/24 10:00 07/14/24 09:36 5 MG Sertraline HCl 100 mg BID PO 07/02/24 22:00 07/14/24 21:42 100 MG Trazodone HCl 100 mg HS PO 07/03/24 22:00 07/14/24 21:41 100 MG Zolpidem Tartrate 5 mg HSPRN PRN PO 07/04/24 21:00 07/15/24 00:43 5 MG Linezolid 300 ml @ 150 mls/hr Q12HR IV 07/08/24 22:00 07/14/24 22:52 150 MLS/HR Oxycodone/ Acetaminophen 1 tab Q4HP PRN PO 07/14/24 13:00 07/14/24 21:52 1 TAB Carisoprodol 350 mg Q8HPRN PRN PO 07/14/24 13:00 07/14/24 21:51 350 MG Cefepime HCl 50 ml @ 12.5 mls/hr Q8H IV 07/15/24 09:00 07/15/24 08:03 12.5 MLS/HR objective General Appearance: Alert, Other (Delirious) HEENT: Atraumatic, PERRLA, EOMI, Mucous membr. moist/pink Respiratory: Clear to auscultation, Normal air movement Cardiovascular: Regular rate, Normal S1, Normal S2 Abdominal: Normal bowel sounds, Soft, No tenderness, No hepatospenomegaly, Other (Buttocks stage III ulcer with erythema no drainage noted) Extremities: Other (Mild swelling to the bilateral lower extremity) Skin: No rashes, No breakdown, No significant lesion Neuro: Other (Unable to assess neuro status since patient is not cooperative) laboratory and microbiology Laboratory Tests 07/13/24 15:20 07/09/24 05:31 Test 07/13/24 15:20 Range/Units Serum Glucose 116 H 74-106 mg/dL Assessment/Plan Patient is a 54-year-old female presented to the hospital with: Acute metabolic encephalopathy improved Acute colitis stage 3 ulcer pressure ulcer Acute functional quadriplegia Recommendations: continue wound care frequent turns patient has been reciving broad spectrum since hospitalization' currently on linezolid and cefepime . overall got rx for soft tissue. 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 please call if any ID concerns Thank you for consult. Dietary Evaluation Review Comments: 1. consider Wiliam BID for wound healing at GFR 78 when pt is off NPO and able to take PO liquids. 2. Consider clinimix as her protein supplement for enchancing wound healing 3. Consider TPN per pharmacy if NPO > 7 days and GI is not accessible. 4. Consider TF Jevity 40ml/hr providing 53g pro and 1152 kcal in 24 hr if run FS. Expected Outcomes/Goals: 1) healed wounds and advance to diet as tolerated if kidney function improves. or 2) Renal Specific diet with 60g protein restriction if GFR further declines.. Plan discussed with: Other ZOIE MARTÍNEZ MD Jul 15, 2024 08:22
--- NOTE | 2024-07-15 12:51 | DVHPN2 ---
Subjective Patient continues to report having bilateral leg pain. Reviewed: Care Plan, H&P, Labs, Medications, Previous Orders Changes from previous H/P or p: No Changes General: Per HPI Objective Vitals Vital Signs Date Time Temp Pulse Resp B/P (MAP) Pulse Ox O2 Delivery O2 Flow Rate FiO2 07/15/24 09:26 132/58 07/15/24 09:01 97.8 57 12 96 97.8 07/15/24 08:00 Room Air* 0 21 Intake/Output Intake and Output 07/15/24 07:00 Intake Total 1670 ml Output Total 1850 ml Balance -180 ml Intake Oral 1320 ml IV Total 350 ml Output Urine Total 1850 ml # Bowel Movements 1 General Appearance: Alert, Oriented X3, Cooperative HEENT: Atraumatic, PERRLA Cardiovascular: Regular rate, Normal S1, Normal S2 Abdomen: Normal bowel sounds, Soft Musculoskeletal: Normal sensory function, Normal motor function Neuro: Normal gait, Normal speech, Cranial nerves 3-12 NL Skin: Dry, Intact, Wounds (See nurse notes and pictures) Psych/Mental Status: Mental status NL, Mood NL Medications Current Medications Medications Dose Ordered Sig/Mindy Route Start Time Stop Time Status Last Admin Dose Admin Amlodipine Besylate 5 mg DAILY PO 07/03/24 10:00 07/15/24 09:26 5 MG Levothyroxine Sodium 50 mcg QAM PO 07/03/24 07:00 07/15/24 06:06 50 MCG Pregabalin 75 mg BID PO 07/02/24 22:00 07/15/24 09:25 75 MG Patient Own Medication 1 tab DAILY PO 07/03/24 10:00 Cancel Patient Own Medication 1 tab DAILY PO 07/03/24 10:00 UNV Patient Own Medication 1 tab DAILYPRN PRN PO 07/03/24 10:00 Patient Own Medication 2 tab DAILY PO 07/03/24 10:00 UNV Patient Own Medication 1 tab BID PO 07/02/24 22:00 UNV Patient Own Medication 1 tab DAILY PO 07/03/24 10:00 UNV Sodium Chloride 1,000 ml @ 100 mls/hr Q10H IV 07/02/24 13:00 07/14/24 18:43 100 MLS/HR Ondansetron HCl 4 mg Q4HP PRN IV 07/02/24 13:00 07/03/24 13:28 4 MG Docusate Sodium 100 mg BIDPRN PRN PO 07/02/24 13:00 07/09/24 10:50 100 MG Nitroglycerin 0.4 mg Q5MINP PRN SL 07/02/24 13:00 Atorvastatin Calcium 40 mg HS PO 07/02/24 22:00 07/14/24 21:41 40 MG Cholecalciferol 2,000 unit DAILY PO 07/03/24 10:00 07/15/24 09:25 2,000 UNIT Lisinopril 5 mg DAILY PO 07/03/24 10:00 07/15/24 09:25 5 MG Sertraline HCl 100 mg BID PO 07/02/24 22:00 07/15/24 09:25 100 MG Trazodone HCl 100 mg HS PO 07/03/24 22:00 07/14/24 21:41 100 MG Zolpidem Tartrate 5 mg HSPRN PRN PO 07/04/24 21:00 07/15/24 00:43 5 MG Linezolid 300 ml @ 150 mls/hr Q12HR IV 07/08/24 22:00 07/15/24 09:26 150 MLS/HR Oxycodone/ Acetaminophen 1 tab Q4HP PRN PO 07/14/24 13:00 07/15/24 09:37 1 TAB Carisoprodol 350 mg Q8HPRN PRN PO 07/14/24 13:00 07/15/24 09:37 350 MG Cefepime HCl 50 ml @ 12.5 mls/hr Q8H IV 07/15/24 09:00 07/15/24 08:03 12.5 MLS/HR Laboratory Results Laboratory Tests 07/09/24 05:31 07/13/24 15:20 Urinalysis Test 07/02/24 11:10 Urine Color Yellow (Yellow) Urine Clarity Turbid (Clear) H Urine pH 5.5 (5.0-9.0) Urine Specific [place] 1.030 (1.001-1.035) Urine Protein 1+ (Negative) H Urine Ketones 2+ (Negative) H Urine Blood Negative /uL (Negative) Urine Nitrite Negative (Negative) Urine Bilirubin 1+ (Negative) H Urine Urobilinogen 4 mg/dL (Negative) H Urine Leukocyte Esterase Negative /uL (Negative) Urine RBC 2 /hpf (0 - 4) Urine WBC 5 /hpf (0 - 5) Urine Squamous Epithelial Cells Few /hpf (<5) Urine Bacteria Many /hpf (None Seen) H Urine Mucus Few (None Seen) Urine Glucose Normal mg/dL (Normal) Microbiology Microbiology Date/Time Source Procedure Growth Status 07/02/24 14:25 Buttock Gram Stain - Final Complete 07/02/24 14:25 Wound Culture - Final Proteus mirabilis Methicillin Resistant S.aureus Complete 07/02/24 11:10 Urine - [place] Urine Culture - Final Enterococcus faecium VRE Complete Labs and/or images reviewed: Labs reviewed by me, Image(s) reviewed by me Assessment/Plan Assessment/Plan Impression: -sepsis, rule out -metabolic encephalopathy -stage III pressure alter with MDRO -bilateral lower extremity paresthesia -history of substance abuse -obesity -acute kidney injury Plan: Events: Wound healing. Awaiting SNF -infectious disease consultation has been placed. Continue current antibiotics -Given the patient's functional incapacitation, social service consultation for DC planning to SNF with IV antibiotic therapy -electrolyte replacement -pain management -PT consultation -Repeat labs in am. Total time spent with patient discussing and formulating plan of care: 35 minutes. This medical document was created using an electronic medical record system with [employer] dictation system. Although this document has been carefully reviewed, there may still be some phonetic and typographical errors. These areas are purely typographical due to imperfections of the software programs, and do not reflect any compromise in the patient's medical care. Plan discussed with: Patient, Other (RN) My Orders Orders - ENA LAMAS NP Procedure Category Date Status Time Oxycodone W/ Acet PHA 07/14/24 In Process 5/325mg Tab (Percocet 13:00 Carisoprodol Tablet PHA 07/14/24 In Process (Soma Tablet) 13:00 Basic Metabolic Panel LAB 07/16/24 Verified 04:00 Complete Blood Count LAB 07/16/24 Verified 04:00 Date of Service: Jul 15, 2024 Billing Provider: ENA LAMAS NP Common Visit Codes: [id number] INP/OBS CARE(HIGH) ENA LAMAS NP Jul 15, 2024 12:51
[2024-07-16] VITALS (7 sets, daily range): BP systolic 102–121; BP diastolic 49–60; PULSE 51–59; RESP 15–18; TEMP 97.6–98.7; O2SAT 93–98
[2024-07-16 10:19] LABS: Basophils # (auto) 0.1 10 ^3/uL (0-0.2); Basophils % (auto) 0.7 % (0.0-2.0); Eosinophils # (auto) 0.3 10 ^3/uL (0-0.8); Eosinophils % (auto) 3.3 % (0.0-7.0); Hematocrit 32.6 % (36.0-46.0); Hemoglobin 10.9 g/dL (12.2-16.2); Lymphocytes # (auto) 1.9 10 ^3/uL (0.4-5.4); Mean Corpuscular Hemoglobin 27.9 pg (28.0-32.0); Mean Corpuscular Hgb Conc. 33.3 g/dL (32.0-36.0); Mean Corpuscular Volume 83.7 fL (80.0-100.0); Monocytes # (auto) 0.3 10 ^3/uL (0-1.3); Monocytes % (auto) 4.4 % (0.0-12.0); Neutrophils # (auto) 5.2 10 ^3/uL (1.6-8.6); Neutrophils % (auto) 67.6 % (37.0-80.0); Platelet Count (auto) 260 10^3/uL (140-450); Red Blood Cells 3.89 10^6/uL (4.0-5.20); Red Cell Distribution Width 15.9 % (11.8-14.3); White Blood Cell 7.7 10^3/uL (4.4-10.8)
[2024-07-16 10:23] LABS: Chloride 104 mmol/L (98-107); Potassium 4.3 mmol/L (3.5-5.1); Sodium 139 mmol/L (136-145)
[2024-07-16 10:24] LABS: Anion Gap 6 (5-15); Carbon Dioxide 29 mmol/L (20-31)
[2024-07-16 10:25] LABS: Calcium 9.7 mg/dL (8.7-10.4)
[2024-07-16 10:29] LABS: BUN/Creatinine Ratio 26.4 (10.0-20.0); Glucose 104 mg/dL (74-106)
[2024-07-16 10:48] LABS: Blood Urea Nitrogen 28 mg/dL (9-23)
--- NOTE | 2024-07-16 13:33 | DVHPN2 ---
Subjective Patient continues to report having bilateral leg pain. Reviewed: Care Plan, H&P, Labs, Medications, Previous Orders Changes from previous H/P or p: No Changes General: Per HPI Objective Vitals Vital Signs Date Time Temp Pulse Resp B/P (MAP) Pulse Ox O2 Delivery O2 Flow Rate FiO2 07/16/24 13:00 98.5 58 15 113/57 (75) 96 98.5 07/16/24 08:00 Room Air* 0 21 Intake/Output Intake and Output 07/16/24 07:00 Intake Total 800 ml Output Total 1575 ml Balance -775 ml Intake Oral 400 ml IV Total 400 ml Output Urine Total 1575 ml # Bowel Movements 1 General Appearance: Alert, Oriented X3, Cooperative HEENT: Atraumatic, PERRLA Cardiovascular: Regular rate, Normal S1, Normal S2 Abdomen: Normal bowel sounds, Soft Musculoskeletal: Normal sensory function, Normal motor function Neuro: Normal gait, Normal speech, Cranial nerves 3-12 NL Skin: Dry, Intact, Wounds (See nurse notes and pictures) Psych/Mental Status: Mental status NL, Mood NL Medications Current Medications Medications Dose Ordered Sig/Mindy Route Start Time Stop Time Status Last Admin Dose Admin Amlodipine Besylate 5 mg DAILY PO 07/03/24 10:00 07/16/24 10:37 5 MG Levothyroxine Sodium 50 mcg QAM PO 07/03/24 07:00 07/16/24 06:18 50 MCG Pregabalin 75 mg BID PO 07/02/24 22:00 07/16/24 10:38 75 MG Patient Own Medication 1 tab DAILY PO 07/03/24 10:00 Cancel Patient Own Medication 1 tab DAILY PO 07/03/24 10:00 UNV Patient Own Medication 1 tab DAILYPRN PRN PO 07/03/24 10:00 Patient Own Medication 2 tab DAILY PO 07/03/24 10:00 UNV Patient Own Medication 1 tab BID PO 07/02/24 22:00 UNV Patient Own Medication 1 tab DAILY PO 07/03/24 10:00 UNV Sodium Chloride 1,000 ml @ 100 mls/hr Q10H IV 07/02/24 13:00 07/14/24 18:43 100 MLS/HR Ondansetron HCl 4 mg Q4HP PRN IV 07/02/24 13:00 07/03/24 13:28 4 MG Docusate Sodium 100 mg BIDPRN PRN PO 07/02/24 13:00 07/09/24 10:50 100 MG Nitroglycerin 0.4 mg Q5MINP PRN SL 07/02/24 13:00 Atorvastatin Calcium 40 mg HS PO 07/02/24 22:00 07/15/24 21:30 40 MG Cholecalciferol 2,000 unit DAILY PO 07/03/24 10:00 07/16/24 10:37 2,000 UNIT Lisinopril 5 mg DAILY PO 07/03/24 10:00 07/16/24 10:37 5 MG Sertraline HCl 100 mg BID PO 07/02/24 22:00 07/16/24 10:36 100 MG Trazodone HCl 100 mg HS PO 07/03/24 22:00 07/15/24 21:30 100 MG Zolpidem Tartrate 5 mg HSPRN PRN PO 07/04/24 21:00 07/16/24 00:01 5 MG Linezolid 300 ml @ 150 mls/hr Q12HR IV 07/08/24 22:00 07/16/24 10:38 150 MLS/HR Carisoprodol 350 mg Q8HPRN PRN PO 07/14/24 13:00 07/16/24 06:37 350 MG Cefepime HCl 50 ml @ 12.5 mls/hr Q8H IV 07/15/24 09:00 07/16/24 10:38 12.5 MLS/HR Oxycodone/ Acetaminophen 2 tab Q6HP PRN PO 07/16/24 12:30 Laboratory Results Laboratory Tests 07/16/24 09:42 Chemistry Test 07/16/24 09:42 Calcium Level 9.7 mg/dL (8.7-10.4) Urinalysis Test 07/02/24 11:10 Urine Color Yellow (Yellow) Urine Clarity Turbid (Clear) H Urine pH 5.5 (5.0-9.0) Urine Specific [place] 1.030 (1.001-1.035) Urine Protein 1+ (Negative) H Urine Ketones 2+ (Negative) H Urine Blood Negative /uL (Negative) Urine Nitrite Negative (Negative) Urine Bilirubin 1+ (Negative) H Urine Urobilinogen 4 mg/dL (Negative) H Urine Leukocyte Esterase Negative /uL (Negative) Urine RBC 2 /hpf (0 - 4) Urine WBC 5 /hpf (0 - 5) Urine Squamous Epithelial Cells Few /hpf (<5) Urine Bacteria Many /hpf (None Seen) H Urine Mucus Few (None Seen) Urine Glucose Normal mg/dL (Normal) Microbiology Microbiology Date/Time Source Procedure Growth Status 07/02/24 14:25 Buttock Gram Stain - Final Complete 07/02/24 14:25 Wound Culture - Final Proteus mirabilis Methicillin Resistant S.aureus Complete 07/02/24 11:10 Urine - [place] Urine Culture - Final Enterococcus faecium VRE Complete Labs and/or images reviewed: Labs reviewed by me, Image(s) reviewed by me Assessment/Plan Assessment/Plan Impression: -sepsis, rule out -metabolic encephalopathy -stage III pressure alter with MDRO -bilateral lower extremity paresthesia -history of substance abuse -obesity -acute kidney injury Plan: Events: Wound healing. Awaiting SNF -infectious disease consultation has been placed. Continue current antibiotics -Given the patient's functional incapacitation, social service consultation for DC planning to SNF with IV antibiotic therapy -electrolyte replacement -pain management: increase percocet -PT consultation -Repeat labs in am. Total time spent with patient discussing and formulating plan of care: 35 minutes. This medical document was created using an electronic medical record system with [employer] dictation system. Although this document has been carefully reviewed, there may still be some phonetic and typographical errors. These areas are purely typographical due to imperfections of the software programs, and do not reflect any compromise in the patient's medical care. Plan discussed with: Patient, Other (RN) My Orders Orders - ENA LAMAS NP Procedure Category Date Status Time Oxycodone W/ Acet PHA 07/16/24 In Process 5/325mg Tab (Percocet 12:30 * [employer] CONS 07/16/24 Transmitted Consult Date of Service: Jul 16, 2024 Billing Provider: ENA LAAMS NP Common Visit Codes: [id number] INP/OBS CARE(HIGH) ENA LAMAS NP Jul 16, 2024 13:32
[2024-07-16] MEDS: OXYCODONE W/ ACETAMINOPHEN 5/325MG TABLET PO PRN (15:18)
[2024-07-17] VITALS (8 sets, daily range): BP systolic 100–133; BP diastolic 46–63; PULSE 52–60; RESP 18–20; TEMP 97.4–98.7; O2SAT 92–96
--- NOTE | 2024-07-17 16:58 | DVHPN2 ---
Subjective Patient continues to report having bilateral leg pain. Reviewed: Care Plan, H&P, Labs, Medications, Previous Orders Changes from previous H/P or p: No Changes General: Per HPI Objective Vitals Vital Signs Date Time Temp Pulse Resp B/P (MAP) Pulse Ox O2 Delivery O2 Flow Rate FiO2 07/17/24 09:40 129/60 07/17/24 09:00 97.4 55 18 95 97.4 07/17/24 08:00 Room Air* 0 21 Intake/Output Intake and Output 07/17/24 07:00 Intake Total 1400 ml Output Total 1900 ml Balance -500 ml Intake Oral 1000 ml IV Total 400 ml Output Urine Total 1900 ml General Appearance: Alert, Oriented X3, Cooperative HEENT: Atraumatic, PERRLA Cardiovascular: Regular rate, Normal S1, Normal S2 Abdomen: Normal bowel sounds, Soft Musculoskeletal: Normal sensory function, Normal motor function Neuro: Normal gait, Normal speech, Cranial nerves 3-12 NL Skin: Dry, Intact, Wounds (See nurse notes and pictures) Psych/Mental Status: Mental status NL, Mood NL Medications Current Medications Medications Dose Ordered Sig/Mindy Route Start Time Stop Time Status Last Admin Dose Admin Amlodipine Besylate 5 mg DAILY PO 07/03/24 10:00 07/17/24 09:40 5 MG Levothyroxine Sodium 50 mcg QAM PO 07/03/24 07:00 07/17/24 06:13 50 MCG Pregabalin 75 mg BID PO 07/02/24 22:00 07/17/24 09:39 75 MG Patient Own Medication 1 tab DAILY PO 07/03/24 10:00 Cancel Patient Own Medication 1 tab DAILY PO 07/03/24 10:00 UNV Patient Own Medication 1 tab DAILYPRN PRN PO 07/03/24 10:00 Patient Own Medication 2 tab DAILY PO 07/03/24 10:00 UNV Patient Own Medication 1 tab BID PO 07/02/24 22:00 UNV Patient Own Medication 1 tab DAILY PO 07/03/24 10:00 UNV Sodium Chloride 1,000 ml @ 100 mls/hr Q10H IV 07/02/24 13:00 07/17/24 15:06 100 MLS/HR Ondansetron HCl 4 mg Q4HP PRN IV 07/02/24 13:00 07/03/24 13:28 4 MG Docusate Sodium 100 mg BIDPRN PRN PO 07/02/24 13:00 07/09/24 10:50 100 MG Nitroglycerin 0.4 mg Q5MINP PRN SL 07/02/24 13:00 Atorvastatin Calcium 40 mg HS PO 07/02/24 22:00 07/16/24 21:17 40 MG Cholecalciferol 2,000 unit DAILY PO 07/03/24 10:00 07/17/24 09:40 2,000 UNIT Lisinopril 5 mg DAILY PO 07/03/24 10:00 07/17/24 09:40 5 MG Sertraline HCl 100 mg BID PO 07/02/24 22:00 07/17/24 09:39 100 MG Trazodone HCl 100 mg HS PO 07/03/24 22:00 07/16/24 21:18 100 MG Zolpidem Tartrate 5 mg HSPRN PRN PO 07/04/24 21:00 07/17/24 01:05 5 MG Linezolid 300 ml @ 150 mls/hr Q12HR IV 07/08/24 22:00 07/17/24 09:38 150 MLS/HR Carisoprodol 350 mg Q8HPRN PRN PO 07/14/24 13:00 07/17/24 09:39 350 MG Cefepime HCl 50 ml @ 12.5 mls/hr Q8H IV 07/15/24 09:00 07/17/24 08:50 12.5 MLS/HR Oxycodone/ Acetaminophen 2 tab Q6HP PRN PO 07/16/24 12:30 07/17/24 15:05 2 TAB Laboratory Results Laboratory Tests 07/16/24 09:42 Urinalysis Test 07/02/24 11:10 Urine Color Yellow (Yellow) Urine Clarity Turbid (Clear) H Urine pH 5.5 (5.0-9.0) Urine Specific [place] 1.030 (1.001-1.035) Urine Protein 1+ (Negative) H Urine Ketones 2+ (Negative) H Urine Blood Negative /uL (Negative) Urine Nitrite Negative (Negative) Urine Bilirubin 1+ (Negative) H Urine Urobilinogen 4 mg/dL (Negative) H Urine Leukocyte Esterase Negative /uL (Negative) Urine RBC 2 /hpf (0 - 4) Urine WBC 5 /hpf (0 - 5) Urine Squamous Epithelial Cells Few /hpf (<5) Urine Bacteria Many /hpf (None Seen) H Urine Mucus Few (None Seen) Urine Glucose Normal mg/dL (Normal) Microbiology Microbiology Date/Time Source Procedure Growth Status 07/02/24 14:25 Buttock Gram Stain - Final Complete 07/02/24 14:25 Wound Culture - Final Proteus mirabilis Methicillin Resistant S.aureus Complete 07/02/24 11:10 Urine - [place] Urine Culture - Final Enterococcus faecium VRE Complete Labs and/or images reviewed: Labs reviewed by me, Image(s) reviewed by me Assessment/Plan Assessment/Plan Impression: -sepsis, rule out -metabolic encephalopathy -stage III pressure alter with MDRO -bilateral lower extremity paresthesia -history of substance abuse -obesity -acute kidney injury Plan: Events: Wound healing. Awaiting placement -infectious disease consultation has been placed. Continue current antibiotics -Given the patient's functional incapacitation, social service consultation for DC planning to SNF with IV antibiotic therapy -pain management: increase percocet -PT consultation Total time spent with patient discussing and formulating plan of care: 35 minutes. This medical document was created using an electronic medical record system with [employer] dictation system. Although this document has been carefully reviewed, there may still be some phonetic and typographical errors. These areas are purely typographical due to imperfections of the software programs, and do not reflect any compromise in the patient's medical care. Plan discussed with: Patient, Other (RN) Date of Service: Jul 17, 2024 Billing Provider: ENA LAMAS NP Common Visit Codes: [id number] INP/OBS CARE(HIGH) ENA LAMAS NP Jul 17, 2024 16:58
[2024-07-18] VITALS (7 sets, daily range): BP systolic 100–139; BP diastolic 45–87; PULSE 55–61; RESP 17–20; TEMP 97.6–98.7; O2SAT 94–100
[2024-07-18 15:31] LABS: Urine Bacteria None Seen /hpf (None Seen)
[2024-07-18 15:40] LABS: Urine Blood Negative /uL (Negative); Urine Clarity Clear (Clear); Urine Color Light-Yellow (Yellow); Urine Mucus FEW (None Seen); Urine Protein, UAD TRACE (Negative); Urine Specific Gravity 1.015 (1.001-1.035); Urine Squamous Epithelial Cell FEW /hpf (<5); Urine Urobilinogen Normal (Negative); Urine WBC 1 /HPF (0-5)
--- NOTE | 2024-07-18 15:51 | DVHPN2 ---
Subjective Patient continues to report having bilateral leg pain. Reviewed: Care Plan, H&P, Labs, Medications, Previous Orders Changes from previous H/P or p: No Changes General: Per HPI Objective Vitals Vital Signs Date Time Temp Pulse Resp B/P (MAP) Pulse Ox O2 Delivery O2 Flow Rate FiO2 07/18/24 12:10 97.6 57 18 100/54 (69) 96 97.6 07/18/24 08:00 Room Air* 0 21 Intake/Output Intake and Output 07/18/24 07:00 Intake Total 1210 ml Output Total 1600 ml Balance -390 ml Intake Oral 460 ml IV Total 750 ml Output Urine Total 1600 ml # Bowel Movements 1 General Appearance: Alert, Oriented X3, Cooperative HEENT: Atraumatic, PERRLA Cardiovascular: Regular rate, Normal S1, Normal S2 Abdomen: Normal bowel sounds, Soft Musculoskeletal: Normal sensory function, Normal motor function Neuro: Normal gait, Normal speech, Cranial nerves 3-12 NL Skin: Dry, Intact, Wounds (See nurse notes and pictures) Psych/Mental Status: Mental status NL, Mood NL Medications Current Medications Medications Dose Ordered Sig/Mindy Route Start Time Stop Time Status Last Admin Dose Admin Amlodipine Besylate 5 mg DAILY PO 07/03/24 10:00 07/18/24 08:30 5 MG Levothyroxine Sodium 50 mcg QAM PO 07/03/24 07:00 07/18/24 06:15 50 MCG Patient Own Medication 1 tab DAILY PO 07/03/24 10:00 Cancel Patient Own Medication 1 tab DAILY PO 07/03/24 10:00 UNV Patient Own Medication 1 tab DAILYPRN PRN PO 07/03/24 10:00 Patient Own Medication 2 tab DAILY PO 07/03/24 10:00 UNV Patient Own Medication 1 tab BID PO 07/02/24 22:00 UNV Patient Own Medication 1 tab DAILY PO 07/03/24 10:00 UNV Sodium Chloride 1,000 ml @ 100 mls/hr Q10H IV 07/02/24 13:00 07/17/24 22:18 100 MLS/HR Ondansetron HCl 4 mg Q4HP PRN IV 07/02/24 13:00 07/03/24 13:28 4 MG Docusate Sodium 100 mg BIDPRN PRN PO 07/02/24 13:00 07/09/24 10:50 100 MG Nitroglycerin 0.4 mg Q5MINP PRN SL 07/02/24 13:00 Atorvastatin Calcium 40 mg HS PO 07/02/24 22:00 07/17/24 22:18 40 MG Cholecalciferol 2,000 unit DAILY PO 07/03/24 10:00 07/18/24 08:30 2,000 UNIT Lisinopril 5 mg DAILY PO 07/03/24 10:00 07/18/24 08:29 5 MG Sertraline HCl 100 mg BID PO 07/02/24 22:00 07/18/24 08:30 100 MG Trazodone HCl 100 mg HS PO 07/03/24 22:00 07/17/24 22:17 100 MG Zolpidem Tartrate 5 mg HSPRN PRN PO 07/04/24 21:00 07/18/24 00:57 5 MG Linezolid 300 ml @ 150 mls/hr Q12HR IV 07/08/24 22:00 07/18/24 08:30 150 MLS/HR Carisoprodol 350 mg Q8HPRN PRN PO 07/14/24 13:00 07/18/24 12:50 350 MG Cefepime HCl 50 ml @ 12.5 mls/hr Q8H IV 07/15/24 09:00 07/18/24 10:36 12.5 MLS/HR Oxycodone/ Acetaminophen 2 tab Q6HP PRN PO 07/16/24 12:30 07/18/24 12:51 2 TAB Pregabalin 100 mg BID PO 07/18/24 22:00 UNV Laboratory Results Laboratory Tests 07/16/24 09:42 Urinalysis Test 07/02/24 11:10 07/18/24 15:20 Urine WBC 5 /hpf (0 - 5) Urine Color Light-yellow (Yellow) Urine Clarity Clear (Clear) Urine pH 6.0 (5.0-9.0) Urine Specific [place] 1.015 (1.001-1.035) Urine Protein Trace (Negative) H Urine Ketones Negative (Negative) Urine Blood Negative /uL (Negative) Urine Nitrite Negative (Negative) Urine Bilirubin Negative (Negative) Urine Urobilinogen Normal mg/dL (Negative) Urine Leukocyte Esterase Negative /uL (Negative) Urine RBC 3 /hpf (0 - 4) Urine Microscopic WBC 1 /HPF (0-5) Urine Squamous Epithelial Cells Few /hpf (<5) Urine Bacteria None seen /hpf (None Seen) Urine Mucus Few (None Seen) Urine Glucose Normal mg/dL (Normal) Microbiology Microbiology Date/Time Source Procedure Growth Status 07/02/24 14:25 Buttock Gram Stain - Final Complete 07/02/24 14:25 Wound Culture - Final Proteus mirabilis Methicillin Resistant S.aureus Complete 07/02/24 11:10 Urine - [place] Urine Culture - Final Enterococcus faecium VRE Complete Labs and/or images reviewed: Labs reviewed by me, Image(s) reviewed by me Assessment/Plan Assessment/Plan Impression: -sepsis, rule out -metabolic encephalopathy -stage III pressure alter with MDRO -bilateral lower extremity paresthesia -history of substance abuse -obesity -acute kidney injury Plan: Events: No new events. Re-evaluate urinalysis/urine culture possible discontinuing of antibiotic therapy -infectious disease consultation has been placed. Continue current antibiotics -Given the patient's functional incapacitation, social service consultation for DC planning to SNF with IV antibiotic therapy -continue current pain management -PT consultation Total time spent with patient discussing and formulating plan of care: 35 minutes. This medical document was created using an electronic medical record system with [employer] computerized dictation system. Although this document has been carefully reviewed, there may still be some phonetic and typographical errors. These areas are purely typographical due to imperfections of the software programs, and do not reflect any compromise in the patient's medical care. Plan discussed with: Patient, Other (RN) My Orders Orders - ENA LAMAS NP Procedure Category Date Status Time Pregabalin Capsule PHA 07/18/24 Logged (Lyrica Capsule) 22:00 Date of Service: Jul 18, 2024 Billing Provider: ENA LAMAS NP Common Visit Codes: [id number] INP/OBS CARE(HIGH) ENA LAMAS NP Jul 18, 2024 15:51
[2024-07-18] MEDS: PREGABALIN 25 MG CAP PO SCH (20:42)
[2024-07-19 01:00] VITALS: BP 100/47; PULSE 52; RESP 18; TEMP 98; O2SAT 92
[2024-07-19 05:00] VITALS: BP 107/50; PULSE 54; RESP 18; TEMP 98.1; O2SAT 94
[2024-07-19 08:21] VITALS: BP 96/51; PULSE 51; RESP 18; TEMP 97.8; O2SAT 92
[2024-07-19 13:23] VITALS: BP 115/53; PULSE 54; RESP 20; TEMP 98; O2SAT 96
[2024-07-19 16:07] VITALS: BP 123/53; PULSE 56; RESP 18; TEMP 98.1; O2SAT 96
--- NOTE | 2024-07-19 16:14 | DVHPN2 ---
Subjective Patient continues to report having bilateral leg pain. Reviewed: Care Plan, H&P, Labs, Medications, Previous Orders Changes from previous H/P or p: No Changes General: Per HPI Objective Vitals Vital Signs Date Time Temp Pulse Resp B/P (MAP) Pulse Ox O2 Delivery O2 Flow Rate FiO2 07/19/24 16:07 98.1 56 18 123/53 (76) 96 98.1 07/19/24 08:00 Room Air* 0 21 Intake/Output Intake and Output 07/19/24 07:00 Intake Total 1616 ml Output Total 2610 ml Balance -994 ml Intake Oral 1266 ml IV Total 350 ml Output Urine Total 2610 ml # Bowel Movements 1 General Appearance: Alert, Oriented X3, Cooperative HEENT: Atraumatic, PERRLA Cardiovascular: Regular rate, Normal S1, Normal S2 Abdomen: Normal bowel sounds, Soft Musculoskeletal: Normal sensory function, Normal motor function Neuro: Normal gait, Normal speech, Cranial nerves 3-12 NL Skin: Dry, Intact, Wounds (See nurse notes and pictures) Psych/Mental Status: Mental status NL, Mood NL Medications Current Medications Medications Dose Ordered Sig/Mindy Route Start Time Stop Time Status Last Admin Dose Admin Amlodipine Besylate 5 mg DAILY PO 07/03/24 10:00 07/18/24 08:30 5 MG Levothyroxine Sodium 50 mcg QAM PO 07/03/24 07:00 07/19/24 05:44 50 MCG Patient Own Medication 1 tab DAILY PO 07/03/24 10:00 Cancel Patient Own Medication 1 tab DAILY PO 07/03/24 10:00 UNV Patient Own Medication 1 tab DAILYPRN PRN PO 07/03/24 10:00 Patient Own Medication 2 tab DAILY PO 07/03/24 10:00 UNV Patient Own Medication 1 tab BID PO 07/02/24 22:00 UNV Patient Own Medication 1 tab DAILY PO 07/03/24 10:00 UNV Ondansetron HCl 4 mg Q4HP PRN IV 07/02/24 13:00 07/03/24 13:28 4 MG Docusate Sodium 100 mg BIDPRN PRN PO 07/02/24 13:00 07/09/24 10:50 100 MG Nitroglycerin 0.4 mg Q5MINP PRN SL 07/02/24 13:00 Atorvastatin Calcium 40 mg HS PO 07/02/24 22:00 07/18/24 20:41 40 MG Cholecalciferol 2,000 unit DAILY PO 07/03/24 10:00 07/19/24 09:23 2,000 UNIT Lisinopril 5 mg DAILY PO 07/03/24 10:00 07/18/24 20:39 5 MG Sertraline HCl 100 mg BID PO 07/02/24 22:00 07/19/24 09:23 100 MG Trazodone HCl 100 mg HS PO 07/03/24 22:00 07/18/24 20:39 100 MG Zolpidem Tartrate 5 mg HSPRN PRN PO 07/04/24 21:00 07/19/24 00:46 5 MG Linezolid 300 ml @ 150 mls/hr Q12HR IV 07/08/24 22:00 07/19/24 09:22 150 MLS/HR Carisoprodol 350 mg Q8HPRN PRN PO 07/14/24 13:00 07/19/24 14:22 350 MG Cefepime HCl 50 ml @ 12.5 mls/hr Q8H IV 07/15/24 09:00 07/19/24 11:36 12.5 MLS/HR Oxycodone/ Acetaminophen 2 tab Q6HP PRN PO 07/16/24 12:30 07/19/24 13:06 2 TAB Pregabalin 100 mg BID PO 07/18/24 22:00 07/19/24 09:23 100 MG Enteral Nutritional Formula 27.5 gm BID PO 07/19/24 22:00 Laboratory Results Laboratory Tests 07/16/24 09:42 Urinalysis Test 07/02/24 11:10 07/18/24 15:20 Urine WBC 5 /hpf (0 - 5) Urine Color Light-yellow (Yellow) Urine Clarity Clear (Clear) Urine pH 6.0 (5.0-9.0) Urine Specific [place] 1.015 (1.001-1.035) Urine Protein Trace (Negative) H Urine Ketones Negative (Negative) Urine Blood Negative /uL (Negative) Urine Nitrite Negative (Negative) Urine Bilirubin Negative (Negative) Urine Urobilinogen Normal mg/dL (Negative) Urine Leukocyte Esterase Negative /uL (Negative) Urine RBC 3 /hpf (0 - 4) Urine Microscopic WBC 1 /HPF (0-5) Urine Squamous Epithelial Cells Few /hpf (<5) Urine Bacteria None seen /hpf (None Seen) Urine Mucus Few (None Seen) Urine Glucose Normal mg/dL (Normal) Microbiology Microbiology Date/Time Source Procedure Growth Status 07/02/24 14:25 Buttock Gram Stain - Final Complete 07/02/24 14:25 Wound Culture - Final Proteus mirabilis Methicillin Resistant S.aureus Complete 07/02/24 11:10 Urine - [place] Urine Culture - Final Enterococcus faecium VRE Complete Labs and/or images reviewed: Labs reviewed by me, Image(s) reviewed by me Assessment/Plan Assessment/Plan Impression: -sepsis, rule out -metabolic encephalopathy -stage III pressure alter with MDRO -bilateral lower extremity paresthesia -history of substance abuse -obesity -acute kidney injury Plan: Events: No new events. Patient continues to request more pain medication. Repeat urinalysis negative for UTI. We will reassess wound to sacrum and possibly discontinue antibiotic therapy. -infectious disease consultation has been placed. Continue current antibiotics -social service consultation for discharge planning -continue current pain management -PT consultation Total time spent with patient discussing and formulating plan of care: 35 minutes. This medical document was created using an electronic medical record system with [employer] dictation system. Although this document has been carefully reviewed, there may still be some phonetic and typographical errors. These areas are purely typographical due to imperfections of the software programs, and do not reflect any compromise in the patient's medical care. Plan discussed with: Patient, Other (RN) My Orders Orders - ENA LAMAS NP Procedure Category Date Status Time Nutritional PHA 07/19/24 In Process Supplements ([place] 22:00 Date of Service: Jul 19, 2024 Billing Provider: ENA LAMAS NP Common Visit Codes: [id number] INP/OBS CARE(HIGH) ENA LAMAS NP Jul 19, 2024 16:14
[2024-07-19 21:00] VITALS: BP 132/59; PULSE 61; RESP 18; TEMP 98.8; O2SAT 92
[2024-07-19] MEDS: Juven Orange Powder PACKET 27.5gm PO SCH (22:00)
[2024-07-20] VITALS (7 sets, daily range): BP systolic 99–123; BP diastolic 44–61; PULSE 52–59; RESP 16–18; TEMP 97.8–98.7; O2SAT 91–100
--- NOTE | 2024-07-20 11:52 | DVHPN2 ---
Subjective Patient continues to report having bilateral leg pain. Reviewed: Care Plan, H&P, Labs, Medications, Previous Orders Changes from previous H/P or p: No Changes General: Per HPI Objective Vitals Vital Signs Date Time Temp Pulse Resp B/P (MAP) Pulse Ox O2 Delivery O2 Flow Rate FiO2 07/20/24 09:49 105/50 07/20/24 09:00 97.8 52 17 94 97.8 07/20/24 08:10 Room Air* 0 21 Intake/Output Intake and Output 07/20/24 07:00 Intake Total 2375 ml Output Total 2200 ml Balance 175 ml Intake Oral 1625 ml IV Total 750 ml Output Urine Total 2200 ml General Appearance: Alert, Oriented X3, Cooperative HEENT: Atraumatic, PERRLA Cardiovascular: Regular rate, Normal S1, Normal S2 Abdomen: Normal bowel sounds, Soft Musculoskeletal: Normal sensory function, Normal motor function Neuro: Normal gait, Normal speech, Cranial nerves 3-12 NL Skin: Dry, Intact, Wounds (See nurse notes and pictures) Psych/Mental Status: Mental status NL, Mood NL Medications Current Medications Medications Dose Ordered Sig/Mindy Route Start Time Stop Time Status Last Admin Dose Admin Amlodipine Besylate 5 mg DAILY PO 07/03/24 10:00 07/20/24 09:47 5 MG Levothyroxine Sodium 50 mcg QAM PO 07/03/24 07:00 07/20/24 06:22 50 MCG Patient Own Medication 1 tab DAILY PO 07/03/24 10:00 Cancel Patient Own Medication 1 tab DAILY PO 07/03/24 10:00 UNV Patient Own Medication 1 tab DAILYPRN PRN PO 07/03/24 10:00 Patient Own Medication 2 tab DAILY PO 07/03/24 10:00 UNV Patient Own Medication 1 tab BID PO 07/02/24 22:00 UNV Patient Own Medication 1 tab DAILY PO 07/03/24 10:00 UNV Ondansetron HCl 4 mg Q4HP PRN IV 07/02/24 13:00 07/03/24 13:28 4 MG Docusate Sodium 100 mg BIDPRN PRN PO 07/02/24 13:00 07/09/24 10:50 100 MG Nitroglycerin 0.4 mg Q5MINP PRN SL 07/02/24 13:00 Atorvastatin Calcium 40 mg HS PO 07/02/24 22:00 2/2/25 22:13 40 MG Cholecalciferol 2,000 unit DAILY PO 07/03/24 10:00 07/20/24 09:46 2,000 UNIT Lisinopril 5 mg DAILY PO 07/03/24 10:00 07/18/24 20:39 5 MG Sertraline HCl 100 mg BID PO 07/02/24 22:00 07/20/24 09:46 100 MG Trazodone HCl 100 mg HS PO 07/03/24 22:00 07/19/24 22:13 100 MG Zolpidem Tartrate 5 mg HSPRN PRN PO 07/04/24 21:00 07/20/24 00:00 5 MG Linezolid 300 ml @ 150 mls/hr Q12HR IV 07/08/24 22:00 07/19/24 22:14 150 MLS/HR Carisoprodol 350 mg Q8HPRN PRN PO 07/14/24 13:00 07/19/24 21:24 350 MG Cefepime HCl 50 ml @ 12.5 mls/hr Q8H IV 07/15/24 09:00 07/20/24 09:41 12.5 MLS/HR Oxycodone/ Acetaminophen 2 tab Q6HP PRN PO 07/16/24 12:30 07/20/24 09:45 2 TAB Pregabalin 100 mg BID PO 07/18/24 22:00 07/20/24 09:45 100 MG Enteral Nutritional Formula 27.5 gm BID PO 07/19/24 22:00 07/20/24 09:53 27.5 GM Laboratory Results Laboratory Tests 07/16/24 09:42 Urinalysis Test 07/02/24 11:10 07/18/24 15:20 Urine WBC 5 /hpf (0 - 5) Urine Color Light-yellow (Yellow) Urine Clarity Clear (Clear) Urine pH 6.0 (5.0-9.0) Urine Specific [place] 1.015 (1.001-1.035) Urine Protein Trace (Negative) H Urine Ketones Negative (Negative) Urine Blood Negative /uL (Negative) Urine Nitrite Negative (Negative) Urine Bilirubin Negative (Negative) Urine Urobilinogen Normal mg/dL (Negative) Urine Leukocyte Esterase Negative /uL (Negative) Urine RBC 3 /hpf (0 - 4) Urine Microscopic WBC 1 /HPF (0-5) Urine Squamous Epithelial Cells Few /hpf (<5) Urine Bacteria None seen /hpf (None Seen) Urine Mucus Few (None Seen) Urine Glucose Normal mg/dL (Normal) Microbiology Microbiology Date/Time Source Procedure Growth Status 07/02/24 14:25 Buttock Gram Stain - Final Complete 07/02/24 14:25 Wound Culture - Final Proteus mirabilis Methicillin Resistant S.aureus Complete 07/02/24 11:10 Urine - [place] Urine Culture - Final Enterococcus faecium VRE Complete Labs and/or images reviewed: Labs reviewed by me, Image(s) reviewed by me Assessment/Plan Assessment/Plan Impression: -sepsis, rule out -metabolic encephalopathy -stage III pressure alter with MDRO -bilateral lower extremity paresthesia -history of substance abuse -obesity -acute kidney injury Plan: Events: Repeat urinalysis without any signs of infection. Reassess sacral wound, with failure of enzymatic debridement to sacral area. Surgical consultation will be placed. -infectious disease consultation has been placed. Continue current antibiotics -social service consultation for discharge planning -continue current pain management -PT consultation Total time spent with patient discussing and formulating plan of care: 35 minutes. This medical document was created using an electronic medical record system with [employer] dictation system. Although this document has been carefully reviewed, there may still be some phonetic and typographical errors. These areas are purely typographical due to imperfections of the software programs, and do not reflect any compromise in the patient's medical care. Plan discussed with: Patient, Other (RN) My Orders Orders - ENA LAMAS NP Procedure Category Date Status Time * Surgical Consult CONS 07/20/24 Transmitted Date of Service: Jul 20, 2024 Billing Provider: ENA LAMAS NP Common Visit Codes: [id number] INP/OBS CARE(HIGH) ENA LAMAS NP Jul 20, 2024 11:52
[2024-07-20 12:40] LABS: Basophils # (auto) 0 10 ^3/uL (0-0.2); Basophils % (auto) 0.7 % (0.0-2.0); Eosinophils # (auto) 0.2 10 ^3/uL (0-0.8); Eosinophils % (auto) 3.9 % (0.0-7.0); Hematocrit 32.1 % (36.0-46.0); Hemoglobin 10.7 g/dL (12.2-16.2); Lymphocytes # (auto) 1.5 10 ^3/uL (0.4-5.4); Lymphocytes % (auto) 26.3 % (10.0-50.0); Mean Corpuscular Hemoglobin 27.8 pg (28.0-32.0); Mean Corpuscular Hgb Conc. 33.4 g/dL (32.0-36.0); Mean Corpuscular Volume 83.4 fL (80.0-100.0); Monocytes # (auto) 0.3 10 ^3/uL (0-1.3); Monocytes % (auto) 5.1 % (0.0-12.0); Neutrophils # (auto) 3.8 10 ^3/uL (1.6-8.6); Platelet Count (auto) 191 10^3/uL (140-450); Red Blood Cells 3.85 10^6/uL (4.0-5.20); Red Cell Distribution Width 15.4 % (11.8-14.3); White Blood Cell 5.9 10^3/uL (4.4-10.8)
[2024-07-20 12:57] LABS: Anion Gap 6 (5-15); Carbon Dioxide 29 mmol/L (20-31); Chloride 102 mmol/L (98-107); Sodium 137 mmol/L (136-145)
[2024-07-20 12:58] LABS: Calcium 9.5 mg/dL (8.7-10.4); INR 1.01 (0.9-1.15); Partial Thromboplastin Time 27.6 SEC (24.5-34.5); Prothrombin Time 10.7 sec (9.3-11.8)
[2024-07-20 13:02] LABS: Glucose 100 mg/dL (74-106)
[2024-07-20 13:03] LABS: BUN/Creatinine Ratio 29.9 (10.0-20.0)
[2024-07-20 13:04] LABS: Blood Urea Nitrogen 41 mg/dL (9-23)
--- NOTE | 2024-07-20 18:29 | DVHINCON2 ---
COLLETTE SHARPE RESIDENT 07/20/241828: Date Seen: Jul 20, [address] Sotomayor Reason for Consultation Infected stage III sacral wound History of Present Illness Patient is 54-year-old female with past medical history of hypertension, CKD, hyperlipidemia, hypothyroidism, anemia who brought to the hospital after patient found to be on floor and altered. With further evaluation patient found to in fected sacral ulcer, initially treated with Zosyn vancomycin, based on urine culture and wound culture, antibiotic transitioned to cefepime and linezolid. Patient continued to receive wound care during hospitalization. At the time of evaluation patient was alert oriented to time place and person, as per patient she was not able to move around and walk for last three months, she fell down from the bed and she was not able to move around that was the reason she ended up getting sacral ulcer. Patient denying any other complaints at this point including fever, chills, chest pain, shortness of breath, any other symptoms at this point. Past Medical History Hypertension, CKD, hyperlipidemia, hypothyroidism, anemia Past Surgical History None Family History: Hypertension G8 MOTHER, Onset:Unknown G8 FATHER, Onset:Unknown Family History None Social History As per HPI Allergies: Coded Allergies: Propoxyphene (Verified Allergy, Severe, 02/04/24) Codeine (Verified Allergy, Mild, ITCHING AND HIVES, 12/14/21) Home Meds Active Scripts Sertraline Hcl (Zoloft) 50 Mg Tab, 100 MG PO BID for 30 Days, #120 TAB 3 Refills Prov:SOTOMAYORMARQUISE Gallegos Bossman DO 07/08/24 Trazodone Hcl (Trazodone Hcl) 50 Mg Tab, 100 MG PO HS for 30 Days, #60 TAB 3 Refills Prov:JAZMINE SOTOMAYORMY Bossman DO 07/08/24 Lisinopril (Lisinopril) 2.5 Mg Tab, 2 TAB PO DAILY, #180 TAB 3 Refills Prov:LUIS SAGASTUME MD 02/03/24 Reported Medications Cholecalciferol (VITAMIN D3) 2,000 Unit Tab, 1 TAB PO DAILY 09/02/23 Amlodipine Besylate (Amlodipine Besylate) 5 Mg Tab, 1 TAB PO DAILY 09/02/23 Baclofen (Baclofen) 10 Mg Tab, 20 MG PO TID 09/02/23 Levothyroxine Sodium (Levothyroxine Sodium) 50 Mcg Tab, 1 TAB PO DAILY 09/02/23 Zolpidem Tartrate (Zolpidem Tartrate) 10 Mg Tab, 1 TAB PO QPM 09/02/23 Trazodone Hcl (Trazodone Hcl) 100 Mg Tab, 1 TAB PO DAILY 09/02/23 Oxycodone W/ Acetaminophen (Apap/Oxycodone) 1 Tab Tab, 1 TAB PO TID Oxycodone/Acetaminophen 10/325 mg 09/02/23 Pregabalin (Pregabalin) 75 Mg Cap, 1 CAP PO BID 09/02/23 Atorvastatin Calcium (Lipitor) 40 Mg Tab, 1 TAB PO DAILY 09/02/23 Fenofibrate (FENOFIBRATE) 145 Mg Tab, 1 TAB PO DAILYPRN 10/01/20 Sertraline Hcl (Zoloft) 100 Mg Tab, 1 TAB PO BID, #30 TAB 5 Refills 09/12/17 Alprazolam (Xanax) 1 Mg Tab, 1 TAB PO BID for ANXIETY 09/12/17 Current Medications Current Medications Medications (Trade) Dose Ordered Sig/Mindy Route PRN Reason Start Time Stop Time Status Last Admin Enteral Nutritional Formula ([place] Powder PACKET) 27.5 gm BID PO 07/19/24 22:00 07/20/24 09:53 Review of Systems Patient is bed-bound, patient complaining of back pain, denying any other complaints at this point Eyes: No Pain, No Vision change, No Conjunctivae inflammation, No Eyelid inflammation, No Other, No Redness ENT: No Ear pain, No Ear discharge, No Nose pain, No Nose discharge, No Nose congestion, No Mouth pain, No Mouth swelling, No Throat pain, No Throat swelling, No Other Cardiovascular: No Chest Pain, No Palpitations, No Orthopnea, No Paroxysmal Noc. Dyspnea, No Edema, No Lt Headedness, No Other Respiratory: No Cough, No Dry, No Shortness of breath, No SOB with excertion, No Wheezing, No Hemoptysis, No Pleuritic Pain, No Sputum, No Other Gastrointestinal: No Nausea, No Vomiting, No Abdominal Pain, No Diarrhea, No Constipation, No Melena, No Hematochezia, No Other Genitourinary: No Dysuria, No Frequency, No Incontinence, No Hematuria, No Retention, No Other Musculoskeletal: No other, No neck pain, No shoulder pain, No arm pain, No back pain, No hand pain, No leg pain, No foot pain Skin: No Rash, No Lesions, No Jaundice, No Bruising, No Other Vital Signs Vital Signs Date Time Temp Pulse Resp B/P (MAP) Pulse Ox O2 Delivery O2 Flow Rate FiO2 07/20/24 16:41 98.0 56 18 103/44 (63) 100 98.0 07/20/24 08:10 Room Air* 0 21 Physical Exam General Appearance: Cooperative. Well developed. Well nourished. NAD Head Exam: Normal inspection Neck Exam: Normal inspection. Non-tender. Normal alignment Pulmonary/Respiratory: Chest non-tender. Clear bilateral breath sounds Cardiovascular/Chest: Regular rate and rhythm. No murmurs. No JVD. Peripheral Pulses: 2+ Radial (R). 2+ Radial (L). 2+ Pedal (R). 2+ Pedal (L) Abdominal Exam: Normal bowel sounds. Soft. Nontender. No hepatospenomegaly. No masses Ankle Exam: Negative ankle edema Lower extremities: Negative lower extremity edema Neuro/Mental Status: A&O x4. Coherent Thoughts/Psych: Normal thought pattern. Appropriate mood and affect. Good judgement and insight Appearance: In no acute distress Skin Exam: Healing stage III sacral ulcer, presence of granulation tissue, clear margin, presence of nonviable tissue. Labs/Diagnostic Data Labs Test 07/20/24 12:15 07/18/24 15:20 07/08/24 05:13 07/07/24 05:07 Range/Units White Blood Count 5.9 4.4-10.8 10^3/uL Red Blood Count 3.85 L 4.0-5.20 10^6/uL Hemoglobin 10.7 L 12.2-16.2 g/dL Hematocrit 32.1 L 36.0-46.0 % Mean Corpuscular Volume 83.4 80.0-100.0 fL Mean Corpuscular Hemoglobin 27.8 L 28.0-32.0 pg Mean Corpuscular Hemoglobin Concent 33.4 32.0-36.0 g/dL Red Cell Distribution Width 15.4 H 11.8-14.3 % Platelet Count 191 140-450 10^3/uL Mean Platelet Volume 6.9 6.9-10.8 fL Neutrophils (%) (Auto) 64.0 37.0-80.0 % Lymphocytes (%) (Auto) 26.3 10.0-50.0 % Monocytes (%) (Auto) 5.1 0.0-12.0 % Eosinophils (%) (Auto) 3.9 0.0-7.0 % Basophils (%) (Auto) 0.7 0.0-2.0 % Neutrophils # (Auto) 3.8 1.6-8.6 10 ^3/uL Lymphocytes # (Auto) 1.5 0.4-5.4 10 ^3/uL Monocytes # (Auto) 0.3 0-1.3 10 ^3/uL Eosinophils # (Auto) 0.2 0-0.8 10 ^3/uL Basophils # (Auto) 0 0-0.2 10 ^3/uL Nucleated Red Blood Cells 0.0 % Prothrombin Time 10.7 9.3-11.8 sec Prothrombin Time INR 1.01 0.9-1.15 Activated Partial Thromboplast Time 27.6 24.5-34.5 SEC Sodium Level 137 136-145 mmol/L Potassium Level 5.0 3.5-5.1 mmol/L Chloride Level 102 98-107 mmol/L Carbon Dioxide Level 29 20-31 mmol/L Anion Gap 6 5-15 Blood Urea Nitrogen 41 H 9-23 mg/dL Creatinine 1.37 H 0.550-1.02 mg/dL Glomerular Filtration Rate Calc 45 >90 mL/min BUN/Creatinine Ratio 29.9 H 10.0-20.0 Serum Glucose 100 74-106 mg/dL Calcium Level 9.5 8.7-10.4 mg/dL Urine Color Light-yellow Yellow Urine Clarity Clear Clear Urine pH 6.0 5.0-9.0 Urine Specific [place] 1.015 1.001-1.035 Urine Protein Trace H Negative Urine Ketones Negative Negative Urine Blood Negative Negative /uL Urine Nitrite Negative Negative Urine Bilirubin Negative Negative Urine Urobilinogen Normal Negative mg/dL Urine Leukocyte Esterase Negative Negative /uL Urine RBC 3 0 - 4 /hpf Urine Microscopic WBC 1 0-5 /HPF Urine Squamous Epithelial Cells Few <5 /hpf Urine Bacteria None seen None Seen /hpf Urine Mucus Few None Seen Urine Glucose Normal Normal mg/dL Vancomycin Level Trough 13.7 H 5-10 ug/mL Random Vancomycin Level 12.7 H 5-10 ug/mL Test 1/17/25 07:30 07/02/24 14:54 07/02/24 13:30 07/02/24 11:30 Range/Units Total Bilirubin 0.5 0.2-1.0 mg/dL Aspartate Amino Transferase (AST) 10 L 13-40 U/L Alanine Aminotransferase (ALT) 13 7-40 U/L Alkaline Phosphatase 124 H 46-116 U/L Total Protein 6.5 5.7-8.2 g/dL Albumin 3.9 3.2-4.8 g/dL Vitamin B1 Level 145.3 66.5-200.0 nmol/L Vitamin D 25-Hydroxy 26 L . ng/mL 25-Hydroxy Vitamin D2 <1.0 . ng/mL 25-Hydroxy Vitamin D3 26 . ng/mL Creatine Kinase 233 H 34-145 U/L Vitamin B12 Level 985 H 211-911 pg/mL Thyroid Stimulating Hormone (TSH) 1.15 0.55-4.78 uIU/mL Plasma/Serum Blood Alcohol < 3.0 <10 mg/dL Urine Opiates Screen Neg NEGATIVE Urine Fentanyl Screen Neg NEGATIVE Urine Barbiturates Screen Neg NEGATIVE Urine Phencyclidine Screen Neg NEGATIVE Urine Amphetamines Screen Neg NEGATIVE Urine Benzodiazepines Screen Neg NEGATIVE Urine Cocaine Screen Neg NEGATIVE Urine Cannabinoids Screen Neg NEGATIVE Test 07/02/24 11:10 07/01/24 22:30 Range/Units Urine WBC 5 0 - 5 /hpf Lipase 31 12-53 U/L Microbiology Date/Time Source Procedure Growth Status 07/02/24 14:25 Buttock Gram Stain - Final Complete 07/02/24 14:25 Wound Culture - Final Proteus mirabilis Methicillin Resistant S.aureus Complete 07/02/24 11:10 Urine - [place] Urine Culture - Final Enterococcus faecium VRE Complete Assessment Healing stage III pressure ulcer Metabolic encephalopathy: Improved Obesity BMI 30.8 Chronic back pain due to Advanced lumbar multilevel degenerative changes of the spine and multilevel canal and foraminal stenosis Bilateral lower extremity paresthesia ? Neuropathy Plan/recommendation Dr. Herring -finish total two weeks of antibiotic, end date 07/22/2024. recommend proper pelvic hygiene given higher chance of reinfection of sacral wound -patient will be benefitted from surgical recommendation for debridement of sacral wound -physical therapy -recommend re-evaluation of chronic back pain due to advanced lumbar degenerative disease possible requiring MRI of lumbar spine inpatient/outpatient, possible reason for nonambulatory/bedridden status for past three months. -continue appropriate wound care, based on disposition, arranged wound care after discharge Plan discussed with: Patient, Other (RN) Date of Service: Jul 20, 2024 Billing Provider: ARIAS HERRING MD Common Visit Codes: [id number] INP/OBS CARE (HIGH) ARIAS HERRING MD 07/20/24 7309: Family History: Hypertension G8 MOTHER, Onset:Unknown G8 FATHER, Onset:Unknown Allergies: Coded Allergies: Propoxyphene (Verified Allergy, Severe, 02/04/24) Codeine (Verified Allergy, Mild, ITCHING AND HIVES, 12/14/21) Home Meds Active Scripts Sertraline Hcl (Zoloft) 50 Mg Tab, 100 MG PO BID for 30 Days, #120 TAB 3 Refills Prov:SOTOMAYORMARQUISE Gallegos T DO 07/08/24 Trazodone Hcl (Trazodone Hcl) 50 Mg Tab, 100 MG PO HS for 30 Days, #60 TAB 3 Refills Prov:JAZMINE SOTOMAYORMY Bossman DO 07/08/24 Lisinopril (Lisinopril) 2.5 Mg Tab, 2 TAB PO DAILY, #180 TAB 3 Refills Prov:LUIS SAGASTUME MD 02/03/24 Reported Medications Cholecalciferol (VITAMIN D3) 2,000 Unit Tab, 1 TAB PO DAILY 09/02/23 Amlodipine Besylate (Amlodipine Besylate) 5 Mg Tab, 1 TAB PO DAILY 09/02/23 Baclofen (Baclofen) 10 Mg Tab, 20 MG PO TID 09/02/23 Levothyroxine Sodium (Levothyroxine Sodium) 50 Mcg Tab, 1 TAB PO DAILY 09/02/23 Zolpidem Tartrate (Zolpidem Tartrate) 10 Mg Tab, 1 TAB PO QPM 09/02/23 Trazodone Hcl (Trazodone Hcl) 100 Mg Tab, 1 TAB PO DAILY 09/02/23 Oxycodone W/ Acetaminophen (Apap/Oxycodone) 1 Tab Tab, 1 TAB PO TID Oxycodone/Acetaminophen 10/325 mg 09/02/23 Pregabalin (Pregabalin) 75 Mg Cap, 1 CAP PO BID 09/02/23 Atorvastatin Calcium (Lipitor) 40 Mg Tab, 1 TAB PO DAILY 09/02/23 Fenofibrate (FENOFIBRATE) 145 Mg Tab, 1 TAB PO DAILYPRN 10/01/20 Sertraline Hcl (Zoloft) 100 Mg Tab, 1 TAB PO BID, #30 TAB 5 Refills 09/12/17 Alprazolam (Xanax) 1 Mg Tab, 1 TAB PO BID for ANXIETY 09/12/17 Assessment Attending Addendum: Case discussed with Dr. Sharpe. at the time of visit. Seen by Dr Sharpe and reviewed assesment and plan . Patient is a female with a past medical history of hypertension, CDK , hyperlipidema, hyperthyroidism. found on the floor and altered when she was admitted on 06/27/24 and has found sacral ulcer with deep tissue stage 4 , fibrinous exidate . 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 initially on vancomycin and zosyn but switched to cefapine and linazolid and has been on that for 12 days . has not been able to walk for 3 months and is largely bedbound due to leg numbness and related to spinal stenosis which patient has not followed up with neurosurgery to gain possible functional improving surgery. 12 point reviewed system were reviewed , vital signs were reviewed . Temperature 98, BP 103/44 . stage 4 sacral ulcer over the sacrum with no tunneling and large area of ulceration with fibrinous exidate and a yellow tissue and a small area of necrosis, wound measures at 11 x 9 cm . Reviewed relevant imaging , including abdominal pelvis Ct which shows soft tissue inflammation and no signs of tunneling or deeper infection. problem list : stage 4 sacral ulcer , chronic back pain , bilateral lower extremity neuropathys, morbid obesity , functioning paraplegia plan would be to continue linazolid and cefapine for 2 more days , need close monitoring of hygiene of sacral area, chronic wound care at custodial facility , repeat MRI , follow up with neurosurgery as outpatient to see changes of eligibility of spinal surgery that could improve functional mobility and relieve pressure form sacrum . continue working with physical therapy . remaining plan per Dr Sharpe in agreement with assessment and plan per above Otherwise reviewed and agree with Dr Sharpe's findings, A/P as written in note. PE: General Appearance: Cooperative. Well developed. Well nourished. NAD. Morbidly Obese Head Exam: Normal inspection Neck Exam: Normal inspection. Non-tender. Normal alignment Pulmonary/Respiratory: Chest non-tender. Clear bilateral breath sounds. crackles in lungs Cardiovascular/Chest: tacycardic No murmurs. No JVD. Abdominal Exam: Normal bowel sounds. Soft. Nontender. No hepatosplenomegaly. No masses Ankle Exam: Lower extremities: COLLETTE Saleh MD RESIDENT Jul 20, 2024 18:29 ARIAS HERRING MD Jul 20, 2024 23:39
[2024-07-20] MEDS: LINEZOLID 600MG/300ML 300 ML IV SCH (20:31)
[2024-07-20] MEDS ORDERED: CEFEPIME 1GM/ 50ML 50 ML IV SCH (22:00)
[2024-07-20] MEDS: CEFEPIME 1GM/ 50ML 50 ML IV SCH (23:31)
[2024-07-21] VITALS (8 sets, daily range): BP systolic 94–145; BP diastolic 44–55; PULSE 50–60; RESP 16–19; TEMP 97.9–98.6; O2SAT 90–95
--- NOTE | 2024-07-21 12:41 | DVHPN2 ---
Subjective Patient continues to report having bilateral leg pain. Reviewed: Care Plan, H&P, Labs, Medications, Previous Orders Changes from previous H/P or p: No Changes General: Per HPI Objective Vitals Vital Signs Date Time Temp Pulse Resp B/P (MAP) Pulse Ox O2 Delivery O2 Flow Rate FiO2 07/21/24 10:02 128/49 07/21/24 09:00 98.4 57 16 95 98.4 07/21/24 08:00 Room Air* 0 21 Intake/Output Intake and Output 07/21/24 07:00 Intake Total 1700 ml Output Total 1750 ml Balance -50 ml Intake Oral 1000 ml IV Total 700 ml Output Urine Total 1750 ml General Appearance: Alert, Oriented X3, Cooperative HEENT: Atraumatic, PERRLA Cardiovascular: Regular rate, Normal S1, Normal S2 Abdomen: Normal bowel sounds, Soft Musculoskeletal: Normal sensory function, Normal motor function Neuro: Normal gait, Normal speech, Cranial nerves 3-12 NL Skin: Dry, Intact, Wounds (See nurse notes and pictures) Psych/Mental Status: Mental status NL, Mood NL Medications Current Medications Medications Dose Ordered Sig/Mindy Route Start Time Stop Time Status Last Admin Dose Admin Amlodipine Besylate 5 mg DAILY PO 07/03/24 10:00 07/21/24 10:02 5 MG Levothyroxine Sodium 50 mcg QAM PO 07/03/24 07:00 07/21/24 05:57 50 MCG Patient Own Medication 1 tab DAILY PO 07/03/24 10:00 Cancel Patient Own Medication 1 tab DAILY PO 07/03/24 10:00 UNV Patient Own Medication 1 tab DAILYPRN PRN PO 07/03/24 10:00 Patient Own Medication 2 tab DAILY PO 07/03/24 10:00 UNV Patient Own Medication 1 tab BID PO 07/02/24 22:00 UNV Patient Own Medication 1 tab DAILY PO 07/03/24 10:00 UNV Ondansetron HCl 4 mg Q4HP PRN IV 07/02/24 13:00 07/03/24 13:28 4 MG Docusate Sodium 100 mg BIDPRN PRN PO 07/02/24 13:00 07/09/24 10:50 100 MG Nitroglycerin 0.4 mg Q5MINP PRN SL 07/02/24 13:00 Atorvastatin Calcium 40 mg HS PO 07/02/24 22:00 2/3/25 23:31 40 MG Cholecalciferol 2,000 unit DAILY PO 07/03/24 10:00 07/21/24 10:01 2,000 UNIT Lisinopril 5 mg DAILY PO 07/03/24 10:00 07/21/24 10:01 5 MG Sertraline HCl 100 mg BID PO 07/02/24 22:00 07/21/24 10:01 100 MG Trazodone HCl 100 mg HS PO 07/03/24 22:00 07/20/24 23:33 100 MG Zolpidem Tartrate 5 mg HSPRN PRN PO 07/04/24 21:00 07/21/24 00:10 5 MG Carisoprodol 350 mg Q8HPRN PRN PO 07/14/24 13:00 07/21/24 10:03 350 MG Oxycodone/ Acetaminophen 2 tab Q6HP PRN PO 07/16/24 12:30 07/21/24 10:05 2 TAB Pregabalin 100 mg BID PO 07/18/24 22:00 07/21/24 10:01 100 MG Enteral Nutritional Formula 27.5 gm BID PO 07/19/24 22:00 07/21/24 10:03 27.5 GM Linezolid 300 ml @ 150 mls/hr Q12H IV 07/20/24 20:00 07/21/24 08:08 150 MLS/HR Cefepime HCl 50 ml @ 12.5 mls/hr Q12HR IV 07/20/24 22:00 07/21/24 10:11 12.5 MLS/HR Laboratory Results Laboratory Tests 07/20/24 12:15 Urinalysis Test 07/02/24 11:10 07/18/24 15:20 Urine WBC 5 /hpf (0 - 5) Urine Color Light-yellow (Yellow) Urine Clarity Clear (Clear) Urine pH 6.0 (5.0-9.0) Urine Specific [place] 1.015 (1.001-1.035) Urine Protein Trace (Negative) H Urine Ketones Negative (Negative) Urine Blood Negative /uL (Negative) Urine Nitrite Negative (Negative) Urine Bilirubin Negative (Negative) Urine Urobilinogen Normal mg/dL (Negative) Urine Leukocyte Esterase Negative /uL (Negative) Urine RBC 3 /hpf (0 - 4) Urine Microscopic WBC 1 /HPF (0-5) Urine Squamous Epithelial Cells Few /hpf (<5) Urine Bacteria None seen /hpf (None Seen) Urine Mucus Few (None Seen) Urine Glucose Normal mg/dL (Normal) Microbiology Microbiology Date/Time Source Procedure Growth Status 07/02/24 14:25 Buttock Gram Stain - Final Complete 07/02/24 14:25 Wound Culture - Final Proteus mirabilis Methicillin Resistant S.aureus Complete 07/02/24 11:10 Urine - [place] Urine Culture - Final Enterococcus faecium VRE Complete Labs and/or images reviewed: Labs reviewed by me, Image(s) reviewed by me Assessment/Plan Assessment/Plan Impression: -sepsis, rule out -metabolic encephalopathy -stage III pressure alter with MDRO -bilateral lower extremity paresthesia -history of substance abuse -obesity -acute kidney injury Plan: Events: Repeat urinalysis without any signs of infection. Reassess sacral wound, with failure of enzymatic debridement to sacral area. We will consult still pending. Infectious Disease recommendations reviewed. While MRI is pending, likelihood of patient having continued lumbar spinal stenosis to be found as was found on previous MRI. Given patient's discharge planning and currently not having any went to assist at home, doubt spinal surgery would be a good idea at this time. -infectious disease consultation has been placed. Continue current antibiotics -social service consultation for discharge planning -continue current pain management -PT consultation -gentle IV hydration Total time spent with patient discussing and formulating plan of care: 35 minutes. This medical document was created using an electronic medical record system with [employer] dictation system. Although this document has been carefully reviewed, there may still be some phonetic and typographical errors. These areas are purely typographical due to imperfections of the software programs, and do not reflect any compromise in the patient's medical care. Plan discussed with: Patient, Other (RN) My Orders Orders - ENA LAMAS NP Procedure Category Date Status Time Sodium Chloride 0.9% PHA 07/21/24 In Process 11:30 * Digital Technician CONS 07/21/24 Transmitted Consult Date of Service: Jul 21, 2024 Billing Provider: ENA LMAAS NP Common Visit Codes: [id number] INP/OBS CARE(HIGH) ENA LAMAS NP Jul 21, 2024 12:40
[2024-07-21] MEDS: SODIUM CHLORIDE 0.9% 1,000 ML IV ONE (14:36)
--- NOTE | 2024-07-21 18:25 | DVHPN2 ---
COLLETTE SHARPE RESIDENT 07/21/241824: Consult Progress Note Date Seen: Jul 21, 2024 Subjective Patient reports: No new complaints Other Systems: No new complaints. Pending surgical consultation for debridement. Eyes: No Pain, No Vision change, No Conjunctivae inflammation, No Eyelid inflammation, No Other, No Redness ENT: No Ear pain, No Ear discharge, No Nose pain, No Nose discharge, No Nose congestion, No Mouth pain, No Mouth swelling, No Throat pain, No Throat swelling, No Other Cardiovascular: No Chest Pain, No Palpitations, No Orthopnea, No Paroxysmal Noc. Dyspnea, No Edema, No Lt Headedness, No Other Respiratory: No Cough, No Dry, No Shortness of breath, No SOB with excertion, No Wheezing, No Hemoptysis, No Pleuritic Pain, No Sputum, No Other Gastrointestinal: No Nausea, No Vomiting, No Abdominal Pain, No Diarrhea, No Constipation, No Melena, No Hematochezia, No Other Genitourinary: No Dysuria, No Frequency, No Incontinence, No Hematuria, No Retention, No Other Musculoskeletal: No other, No neck pain, No shoulder pain, No arm pain, back pain, No hand pain, No leg pain, No foot pain, back pain Skin: No Rash, No Lesions, No Jaundice, No Bruising, No Other Physical examination General Appearance: Cooperative. Well developed. Well nourished. NAD Head Exam: Normal inspection Neck Exam: Normal inspection. Non-tender. Normal alignment Pulmonary/Respiratory: Chest non-tender. Clear bilateral breath sounds Cardiovascular/Chest: Regular rate and rhythm. No murmurs. No JVD. Peripheral Pulses: 2+ Radial (R). 2+ Radial (L). 2+ Pedal (R). 2+ Pedal (L) Abdominal Exam: Normal bowel sounds. Soft. Nontender. No hepatospenomegaly. No masses Ankle Exam: Negative ankle edema Lower extremities: Negative lower extremity edema Neuro/Mental Status: A&O x4. Coherent Thoughts/Psych: Normal thought pattern. Appropriate mood and affect. Good judgement and insight Appearance: In no acute distress Skin Exam: Healing stage III sacral ulcer, presence of granulation tissue, clear margin, presence of nonviable tissue. Objective vital signs Vital Sign Date Time Temp Pulse Resp B/P (MAP) Pulse Ox O2 Delivery O2 Flow Rate FiO2 07/21/24 17:00 98.4 57 16 145/55 (85) 94 98.4 07/21/24 08:00 Room Air* 0 21 Total Intake and Output 07/20/24 07/20/24 07/21/24 14:59 22:59 06:59 Intake Total 50 ml 1400 ml 250 ml Output Total 700 ml 1050 ml Balance 50 ml 700 ml -800 ml medications Current Medications Medications Dose Ordered Sig/Mindy Route Start Time Stop Time Status Last Admin Dose Admin Amlodipine Besylate 5 mg DAILY PO 07/03/24 10:00 07/21/24 10:02 5 MG Levothyroxine Sodium 50 mcg QAM PO 07/03/24 07:00 07/21/24 05:57 50 MCG Patient Own Medication 1 tab DAILY PO 07/03/24 10:00 Cancel Patient Own Medication 1 tab DAILY PO 07/03/24 10:00 UNV Patient Own Medication 1 tab DAILYPRN PRN PO 07/03/24 10:00 Patient Own Medication 2 tab DAILY PO 07/03/24 10:00 UNV Patient Own Medication 1 tab BID PO 07/02/24 22:00 UNV Patient Own Medication 1 tab DAILY PO 07/03/24 10:00 UNV Ondansetron HCl 4 mg Q4HP PRN IV 07/02/24 13:00 07/03/24 13:28 4 MG Docusate Sodium 100 mg BIDPRN PRN PO 07/02/24 13:00 07/09/24 10:50 100 MG Nitroglycerin 0.4 mg Q5MINP PRN SL 07/02/24 13:00 Atorvastatin Calcium 40 mg HS PO 07/02/24 22:00 07/20/24 23:31 40 MG Cholecalciferol 2,000 unit DAILY PO 07/03/24 10:00 07/21/24 10:01 2,000 UNIT Lisinopril 5 mg DAILY PO 07/03/24 10:00 07/21/24 10:01 5 MG Sertraline HCl 100 mg BID PO 07/02/24 22:00 07/21/24 10:01 100 MG Trazodone HCl 100 mg HS PO 07/03/24 22:00 07/20/24 23:33 100 MG Zolpidem Tartrate 5 mg HSPRN PRN PO 07/04/24 21:00 07/21/24 00:10 5 MG Carisoprodol 350 mg Q8HPRN PRN PO 07/14/24 13:00 07/21/24 10:03 350 MG Oxycodone/ Acetaminophen 2 tab Q6HP PRN PO 07/16/24 12:30 07/21/24 16:08 2 TAB Pregabalin 100 mg BID PO 07/18/24 22:00 07/21/24 10:01 100 MG Enteral Nutritional Formula 27.5 gm BID PO 07/19/24 22:00 07/21/24 10:03 27.5 GM Linezolid 300 ml @ 150 mls/hr Q12H IV 07/20/24 20:00 07/21/24 08:08 150 MLS/HR Cefepime HCl 50 ml @ 12.5 mls/hr Q12HR IV 07/20/24 22:00 07/21/24 10:11 12.5 MLS/HR laboratory and microbiology Laboratory Tests 07/20/24 12:15 Test 07/20/24 12:15 Range/Units Serum Glucose 100 74-106 mg/dL Problem List/Assessment/Plan Problem List/Assessment/Plan Healing stage IV pressure ulcer Metabolic encephalopathy: Improved Obesity BMI 30.8 Chronic back pain due to Advanced lumbar multilevel degenerative changes of the spine and multilevel canal and foraminal stenosis Bilateral lower extremity paresthesia ? Neuropathy Plan/recommendation Dr. Herring -finish total two weeks of antibiotic, end date 07/22/2024. Continue cefepime and vancomycin. recommend proper pelvic hygiene given higher chance of reinfection of sacral wound -patient will be benefitted from surgical recommendation for debridement of sacral wound -highly recommend for follow up with neurosurgery as outpatient to see changes of eligibility of spinal surgery that could improve functional mobility and relieve pressure form sacrum . continue working with physical therapy -continue physical therapy -continue appropriate wound care, based on disposition, arranged wound care after discharge -as per primary care plan for [facility]. Plan discussed with: Patient, Other (RN) Dietary Evaluation Review Comments: 1. consider Wiliam BID for wound healing at GFR 78 when pt is off NPO and able to take PO liquids. 2. Consider clinimix as her protein supplement for enchancing wound healing 3. Consider TPN per pharmacy if NPO > 7 days and GI is not accessible. 4. Consider TF Jevity 40ml/hr providing 53g pro and 1152 kcal in 24 hr if run FS. Expected Outcomes/Goals: 1) healed wounds and advance to diet as tolerated if kidney function improves. or 2) Renal Specific diet with 60g protein restriction if GFR further declines.. ARIAS HERRING MD 07/25/24 3815: Consult Progress Note Problem List/Assessment/Plan Problem List/Assessment/Plan _ Attending Addendum: Case discussed with Dr. Sharpe. at the time of visit. Seen by Dr Sharpe and reviewed assesment and plan . Patient is a female with a past medical history of hypertension, CDK , hyperlipidema, hyperthyroidism. found on the floor and altered when she was admitted on 06/27/24 and has found sacral ulcer with deep tissue stage 4 , fibrinous exidate . 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 initially on vancomycin and zosyn but switched to cefapine and linazolid and has been on that for 12 days . has not been able to walk for 3 months and is largely bedbound due to leg numbness and related to spinal stenosis which patient has not followed up with neurosurgery to gain possible functional improving surgery. 12 point reviewed system were reviewed , vital signs were reviewed . Temperature 98, BP 103/44 . stage 4 sacral ulcer over the sacrum with no tunneling and large area of ulceration with fibrinous exidate and a yellow tissue and a small area of necrosis, wound measures at 11 x 9 cm . Reviewed relevant imaging , including abdominal pelvis Ct which shows soft tissue inflammation and no signs of tunneling or deeper infection. problem list : stage 4 sacral ulcer , chronic back pain , bilateral lower extremity neuropathys, morbid obesity , functioning paraplegia plan would be to continue linazolid and cefapine for 2 more days , need close monitoring of hygiene of sacral area, chronic wound care at prison facility , repeat MRI , follow up with neurosurgery as outpatient to see changes of eligibility of spinal surgery that could improve functional mobility and relieve pressure form sacrum . continue working with physical therapy . Update 07/21: Patient is feeling better and getting wound care , wound appears clean and no tunneling , plan would be to continue linazolid and cefepine for 2 more days , neuro and general surgery do not want to do a debridement or any additional surgery on patients spine , patient can follow up with Dr Donnelly as outpatient remaining plan per Dr Sharpe in agreement with assessment and plan per above Otherwise reviewed and agree with Dr Sharpe's findings, A/P as written in note. PE: General Appearance: Cooperative. Well developed. Well nourished. NAD. Morbidly Obese Head Exam: Normal inspection Neck Exam: Normal inspection. Non-tender. Normal alignment Pulmonary/Respiratory: Chest non-tender. Clear bilateral breath sounds. crackles in lungs Cardiovascular/Chest: tacycardic No murmurs. No JVD. Abdominal Exam: Normal bowel sounds. Soft. Nontender. No hepatosplenomegaly. No masses Ankle Exam: Lower extremities: COLLETTE SHARPE RESIDENT Jul 21, 2024 18:25 ARIAS HERRING MD Jul 25, 2024 17:04
[2024-07-22 01:00] VITALS: BP 95/43; PULSE 58; RESP 20; TEMP 97.9; O2SAT 90
[2024-07-22 05:00] VITALS: BP 90/40; PULSE 53; RESP 18; TEMP 98.6; O2SAT 93
[2024-07-22 09:00] VITALS: BP 101/42; PULSE 53; RESP 16; TEMP 97.8; O2SAT 92
--- NOTE | 2024-07-22 12:11 | DVHPN2 ---
Subjective Patient continues to report having bilateral leg pain. Reviewed: Care Plan, H&P, Labs, Medications, Previous Orders Changes from previous H/P or p: No Changes General: Per HPI Objective Vitals Vital Signs Date Time Temp Pulse Resp B/P (MAP) Pulse Ox O2 Delivery O2 Flow Rate FiO2 07/22/24 10:00 101/42 07/22/24 09:00 97.8 53 16 92 97.8 07/21/24 20:00 Room Air* 0 21 Intake/Output Intake and Output 07/22/24 07:00 Intake Total 1575 ml Output Total 1675 ml Balance -100 ml Intake Oral 625 ml IV Total 950 ml Output Urine Total 1675 ml # Bowel Movements 1 General Appearance: Alert, Oriented X3, Cooperative HEENT: Atraumatic, PERRLA Cardiovascular: Regular rate, Normal S1, Normal S2 Abdomen: Normal bowel sounds, Soft Musculoskeletal: Normal sensory function, Normal motor function Neuro: Normal gait, Normal speech, Cranial nerves 3-12 NL Skin: Dry, Intact, Wounds (See nurse notes and pictures) Psych/Mental Status: Mental status NL, Mood NL Medications Current Medications Medications Dose Ordered Sig/Mindy Route Start Time Stop Time Status Last Admin Dose Admin Amlodipine Besylate 5 mg DAILY PO 07/03/24 10:00 07/21/24 10:02 5 MG Levothyroxine Sodium 50 mcg QAM PO 07/03/24 07:00 07/22/24 06:56 50 MCG Patient Own Medication 1 tab DAILY PO 07/03/24 10:00 Cancel Patient Own Medication 1 tab DAILY PO 07/03/24 10:00 UNV Patient Own Medication 1 tab DAILYPRN PRN PO 07/03/24 10:00 Patient Own Medication 2 tab DAILY PO 07/03/24 10:00 UNV Patient Own Medication 1 tab BID PO 07/02/24 22:00 UNV Patient Own Medication 1 tab DAILY PO 07/03/24 10:00 UNV Ondansetron HCl 4 mg Q4HP PRN IV 07/02/24 13:00 07/03/24 13:28 4 MG Docusate Sodium 100 mg BIDPRN PRN PO 07/02/24 13:00 07/09/24 10:50 100 MG Nitroglycerin 0.4 mg Q5MINP PRN SL 07/02/24 13:00 Atorvastatin Calcium 40 mg HS PO 07/02/24 22:00 07/21/24 22:41 40 MG Cholecalciferol 2,000 unit DAILY PO 07/03/24 10:00 07/22/24 08:27 2,000 UNIT Lisinopril 5 mg DAILY PO 07/03/24 10:00 07/21/24 10:01 5 MG Sertraline HCl 100 mg BID PO 07/02/24 22:00 07/22/24 08:27 100 MG Trazodone HCl 100 mg HS PO 07/03/24 22:00 07/21/24 22:24 100 MG Zolpidem Tartrate 5 mg HSPRN PRN PO 07/04/24 21:00 07/21/24 23:32 5 MG Carisoprodol 350 mg Q8HPRN PRN PO 07/14/24 13:00 07/22/24 11:53 350 MG Oxycodone/ Acetaminophen 2 tab Q6HP PRN PO 07/16/24 12:30 07/22/24 07:02 2 TAB Pregabalin 100 mg BID PO 07/18/24 22:00 07/22/24 08:27 100 MG Enteral Nutritional Formula 27.5 gm BID PO 07/19/24 22:00 07/22/24 08:39 27.5 GM Linezolid 300 ml @ 150 mls/hr Q12H IV 07/20/24 20:00 07/22/24 08:25 150 MLS/HR Cefepime HCl 50 ml @ 12.5 mls/hr Q12HR IV 07/20/24 22:00 07/21/24 22:25 12.5 MLS/HR Laboratory Results Laboratory Tests 07/20/24 12:15 Urinalysis Test 07/02/24 11:10 07/18/24 15:20 Urine WBC 5 /hpf (0 - 5) Urine Color Light-yellow (Yellow) Urine Clarity Clear (Clear) Urine pH 6.0 (5.0-9.0) Urine Specific [place] 1.015 (1.001-1.035) Urine Protein Trace (Negative) H Urine Ketones Negative (Negative) Urine Blood Negative /uL (Negative) Urine Nitrite Negative (Negative) Urine Bilirubin Negative (Negative) Urine Urobilinogen Normal mg/dL (Negative) Urine Leukocyte Esterase Negative /uL (Negative) Urine RBC 3 /hpf (0 - 4) Urine Microscopic WBC 1 /HPF (0-5) Urine Squamous Epithelial Cells Few /hpf (<5) Urine Bacteria None seen /hpf (None Seen) Urine Mucus Few (None Seen) Urine Glucose Normal mg/dL (Normal) Microbiology Microbiology Date/Time Source Procedure Growth Status 07/02/24 14:25 Buttock Gram Stain - Final Complete 07/02/24 14:25 Wound Culture - Final Proteus mirabilis Methicillin Resistant S.aureus Complete 07/02/24 11:10 Urine - [place] Urine Culture - Final Enterococcus faecium VRE Complete Labs and/or images reviewed: Labs reviewed by me, Image(s) reviewed by me Assessment/Plan Assessment/Plan Impression: -sepsis, rule out -metabolic encephalopathy -stage III pressure alter with MDRO -bilateral lower extremity paresthesia -history of substance abuse -obesity -acute kidney injury Plan: Events: S.urgical consult pending. No change in A/P for 07/22/24 -infectious disease consultation has been placed. Continue current antibiotics -social service consultation for discharge planning -continue current pain management -PT consultation -Social consult for Shelter care Total time spent with patient discussing and formulating plan of care: 35 minutes. This medical document was created using an electronic medical record system with [employer] computerized dictation system. Although this document has been carefully reviewed, there may still be some phonetic and typographical errors. These areas are purely typographical due to imperfections of the software programs, and do not reflect any compromise in the patient's medical care. Plan discussed with: Patient, Other (RN) My Orders Orders - ENA LAMAS NP Procedure Category Date Status Time * Curriculum Designer CONS 07/22/24 Verified Consult Date of Service: Jul 22, 2024 Billing Provider: ENA LAMAS NP Common Visit Codes: [id number] INP/OBS CARE(MOD) ENA LAMAS NP Jul 22, 2024 12:11
[2024-07-22 13:00] VITALS: BP 110/75; PULSE 103; PULSE 56; RESP 18; TEMP 97.7; O2SAT 92
--- NOTE | 2024-07-22 14:36 | DVHCONRES ---
Date Seen: Jul 22, 2024 Resident Creating Document: ANA FERGUSON Jr., MD Referring Physician Idalia Reason for Consultation sacral decubitus History of Present Illness Patient is 54-year-old female with past medical history of hypertension, CKD, hyperlipidemia, hypothyroidism, anemia who brought to the hospital after patient found to be on floor and altered. With further evaluation patient found to infected sacral ulcer, initially treated with Zosyn vancomycin, based on urine culture and wound culture, antibiotic transitioned to cefepime and linezolid. Patient continued to receive wound care during hospitalization. At the time of evaluation patient was alert oriented to time place and person, as per patient she was not able to move around and walk for last three months, she fell down from the bed and she was not able to move around that was the reason she ended up getting sacral ulcer. Patient denying any other complaints at this point including fever, chills, chest pain, shortness of breath, any other symptoms at this point. Past Medical History hypertension, CKD, hyperlipidemia, hypothyroidism, anemia Family History: Hypertension G8 MOTHER, Onset:Unknown G8 FATHER, Onset:Unknown Social History non smoker and drinker Allergies: Coded Allergies: Propoxyphene (Verified Allergy, Severe, 02/04/24) Codeine (Verified Allergy, Mild, ITCHING AND HIVES, 12/14/21) Home Meds Active Scripts Sertraline Hcl (Zoloft) 50 Mg Tab, 100 MG PO BID for 30 Days, #120 TAB 3 Refills Prov:SOTOMAYORMARQUISE Gallegos Bossman DO 07/08/24 Trazodone Hcl (Trazodone Hcl) 50 Mg Tab, 100 MG PO HS for 30 Days, #60 TAB 3 Refills Prov:BRANMARQUISE Bossman DO 07/08/24 Lisinopril (Lisinopril) 2.5 Mg Tab, 2 TAB PO DAILY, #180 TAB 3 Refills Prov:LUIS SAGASTUME MD 02/03/24 Reported Medications Cholecalciferol (VITAMIN D3) 2,000 Unit Tab, 1 TAB PO DAILY 09/02/23 Amlodipine Besylate (Amlodipine Besylate) 5 Mg Tab, 1 TAB PO DAILY 09/02/23 Baclofen (Baclofen) 10 Mg Tab, 20 MG PO TID 09/02/23 Levothyroxine Sodium (Levothyroxine Sodium) 50 Mcg Tab, 1 TAB PO DAILY 09/02/23 Zolpidem Tartrate (Zolpidem Tartrate) 10 Mg Tab, 1 TAB PO QPM 09/02/23 Trazodone Hcl (Trazodone Hcl) 100 Mg Tab, 1 TAB PO DAILY 09/02/23 Oxycodone W/ Acetaminophen (Apap/Oxycodone) 1 Tab Tab, 1 TAB PO TID Oxycodone/Acetaminophen 10/325 mg 09/02/23 Pregabalin (Pregabalin) 75 Mg Cap, 1 CAP PO BID 09/02/23 Atorvastatin Calcium (Lipitor) 40 Mg Tab, 1 TAB PO DAILY 09/02/23 Fenofibrate (FENOFIBRATE) 145 Mg Tab, 1 TAB PO DAILYPRN 10/01/20 Sertraline Hcl (Zoloft) 100 Mg Tab, 1 TAB PO BID, #30 TAB 5 Refills 09/12/17 Alprazolam (Xanax) 1 Mg Tab, 1 TAB PO BID for ANXIETY 09/12/17 Vital Signs Vital Signs Date Time Temp Pulse Resp B/P (MAP) Pulse Ox O2 Delivery O2 Flow Rate FiO2 07/22/24 13:00 97.7 56 18 110/75 (87) 92 97.7 07/22/24 08:00 Room Air* 0 21 Physical Exam sacrum. wound 90% healthy granulating tissues no draianage Labs/Diagnostic Data Labs Test 07/20/24 12:15 07/18/24 15:20 07/08/24 05:13 07/07/24 05:07 Range/Units White Blood Count 5.9 4.4-10.8 10^3/uL Red Blood Count 3.85 L 4.0-5.20 10^6/uL Hemoglobin 10.7 L 12.2-16.2 g/dL Hematocrit 32.1 L 36.0-46.0 % Mean Corpuscular Volume 83.4 80.0-100.0 fL Mean Corpuscular Hemoglobin 27.8 L 28.0-32.0 pg Mean Corpuscular Hemoglobin Concent 33.4 32.0-36.0 g/dL Red Cell Distribution Width 15.4 H 11.8-14.3 % Platelet Count 191 140-450 10^3/uL Mean Platelet Volume 6.9 6.9-10.8 fL Neutrophils (%) (Auto) 64.0 37.0-80.0 % Lymphocytes (%) (Auto) 26.3 10.0-50.0 % Monocytes (%) (Auto) 5.1 0.0-12.0 % Eosinophils (%) (Auto) 3.9 0.0-7.0 % Basophils (%) (Auto) 0.7 0.0-2.0 % Neutrophils # (Auto) 3.8 1.6-8.6 10 ^3/uL Lymphocytes # (Auto) 1.5 0.4-5.4 10 ^3/uL Monocytes # (Auto) 0.3 0-1.3 10 ^3/uL Eosinophils # (Auto) 0.2 0-0.8 10 ^3/uL Basophils # (Auto) 0 0-0.2 10 ^3/uL Nucleated Red Blood Cells 0.0 % Prothrombin Time 10.7 9.3-11.8 sec Prothrombin Time INR 1.01 0.9-1.15 Activated Partial Thromboplast Time 27.6 24.5-34.5 SEC Sodium Level 137 136-145 mmol/L Potassium Level 5.0 3.5-5.1 mmol/L Chloride Level 102 98-107 mmol/L Carbon Dioxide Level 29 20-31 mmol/L Anion Gap 6 5-15 Blood Urea Nitrogen 41 H 9-23 mg/dL Creatinine 1.37 H 0.550-1.02 mg/dL Glomerular Filtration Rate Calc 45 >90 mL/min BUN/Creatinine Ratio 29.9 H 10.0-20.0 Serum Glucose 100 74-106 mg/dL Calcium Level 9.5 8.7-10.4 mg/dL Urine Color Light-yellow Yellow Urine Clarity Clear Clear Urine pH 6.0 5.0-9.0 Urine Specific [place] 1.015 1.001-1.035 Urine Protein Trace H Negative Urine Ketones Negative Negative Urine Blood Negative Negative /uL Urine Nitrite Negative Negative Urine Bilirubin Negative Negative Urine Urobilinogen Normal Negative mg/dL Urine Leukocyte Esterase Negative Negative /uL Urine RBC 3 0 - 4 /hpf Urine Microscopic WBC 1 0-5 /HPF Urine Squamous Epithelial Cells Few <5 /hpf Urine Bacteria None seen None Seen /hpf Urine Mucus Few None Seen Urine Glucose Normal Normal mg/dL Vancomycin Level Trough 13.7 H 5-10 ug/mL Random Vancomycin Level 12.7 H 5-10 ug/mL Test 07/03/24 07:30 07/02/24 14:54 07/02/24 13:30 07/02/24 11:30 Range/Units Total Bilirubin 0.5 0.2-1.0 mg/dL Aspartate Amino Transferase (AST) 10 L 13-40 U/L Alanine Aminotransferase (ALT) 13 7-40 U/L Alkaline Phosphatase 124 H 46-116 U/L Total Protein 6.5 5.7-8.2 g/dL Albumin 3.9 3.2-4.8 g/dL Vitamin B1 Level 145.3 66.5-200.0 nmol/L Vitamin D 25-Hydroxy 26 L . ng/mL 25-Hydroxy Vitamin D2 <1.0 . ng/mL 25-Hydroxy Vitamin D3 26 . ng/mL Creatine Kinase 233 H 34-145 U/L Vitamin B12 Level 985 H 211-911 pg/mL Thyroid Stimulating Hormone (TSH) 1.15 0.55-4.78 uIU/mL Plasma/Serum Blood Alcohol < 3.0 <10 mg/dL Urine Opiates Screen Neg NEGATIVE Urine Fentanyl Screen Neg NEGATIVE Urine Barbiturates Screen Neg NEGATIVE Urine Phencyclidine Screen Neg NEGATIVE Urine Amphetamines Screen Neg NEGATIVE Urine Benzodiazepines Screen Neg NEGATIVE Urine Cocaine Screen Neg NEGATIVE Urine Cannabinoids Screen Neg NEGATIVE Test 07/02/24 11:10 07/01/24 22:30 Range/Units Urine WBC 5 0 - 5 /hpf Lipase 31 12-53 U/L Microbiology Date/Time Source Procedure Growth Status 07/02/24 14:25 Buttock Gram Stain - Final Complete 07/02/24 14:25 Wound Culture - Final Proteus mirabilis Methicillin Resistant S.aureus Complete 07/02/24 11:10 Urine - [place] Urine Culture - Final Enterococcus faecium VRE Complete Assessment Sacral decubitus Responding to current medical and wound care therapy. Cont. antibiotics and local wound care Plan/Recommendation Sacral decubitus Responding to current medical and wound care therapy. Cont. antibiotics and local wound care Plan discussed with: Patient ANA FERGUSON Jr., MD Jul 22, 2024 14:36
[2024-07-22 16:56] VITALS: BP 111/55; PULSE 55; RESP 16; TEMP 98.1; O2SAT 96
--- NOTE | 2024-07-22 19:04 | DVHPN2 ---
COLLETTE JIMENEZ RESIDENT 07/22/244: Consult Progress Note Date Seen: Jul 22, 2024 Subjective Patient reports: No new complaints Other Systems: No new complaints. Eyes: No Pain, No Vision change, No Conjunctivae inflammation, No Eyelid inflammation, No Other, No Redness ENT: No Ear pain, No Ear discharge, No Nose pain, No Nose discharge, No Nose congestion, No Mouth pain, No Mouth swelling, No Throat pain, No Throat swelling, No Other Cardiovascular: No Chest Pain, No Palpitations, No Orthopnea, No Paroxysmal Noc. Dyspnea, No Edema, No Lt Headedness, No Other Respiratory: No Cough, No Dry, No Shortness of breath, No SOB with excertion, No Wheezing, No Hemoptysis, No Pleuritic Pain, No Sputum, No Other Gastrointestinal: No Nausea, No Vomiting, No Abdominal Pain, No Diarrhea, No Constipation, No Melena, No Hematochezia, No Other Genitourinary: No Dysuria, No Frequency, No Incontinence, No Hematuria, No Retention, No Other Musculoskeletal: No other, No neck pain, No shoulder pain, No arm pain, back pain, No hand pain, No leg pain, No foot pain, back pain Skin: No Rash, No Lesions, No Jaundice, No Bruising, No Other Physical examination General Appearance: Cooperative. Well developed. Well nourished. NAD Head Exam: Normal inspection Neck Exam: Normal inspection. Non-tender. Normal alignment Pulmonary/Respiratory: Chest non-tender. Clear bilateral breath sounds Cardiovascular/Chest: Regular rate and rhythm. No murmurs. No JVD. Peripheral Pulses: 2+ Radial (R). 2+ Radial (L). 2+ Pedal (R). 2+ Pedal (L) Abdominal Exam: Normal bowel sounds. Soft. Nontender. No hepatospenomegaly. No masses Ankle Exam: Negative ankle edema Lower extremities: Negative lower extremity edema Neuro/Mental Status: A&O x4. Coherent Thoughts/Psych: Normal thought pattern. Appropriate mood and affect. Good judgement and insight Appearance: In no acute distress Skin Exam: Healing stage III sacral ulcer, presence of granulation tissue, clear margin, presence of nonviable tissue. Objective vital signs Vital Sign Date Time Temp Pulse Resp B/P (MAP) Pulse Ox O2 Delivery O2 Flow Rate FiO2 07/22/24 16:56 98.1 55 16 111/55 (37) 96 98.1 07/22/24 08:00 Room Air* 0 21 Total Intake and Output 07/21/24 07/21/24 07/22/24 15:00 23:00 07:00 Intake Total 350 ml 1025 ml 200 ml Output Total 800 ml 875 ml Balance 350 ml 225 ml -675 ml medications Current Medications Medications Dose Ordered Sig/Mnidy Route Start Time Stop Time Status Last Admin Dose Admin Amlodipine Besylate 5 mg DAILY PO 07/03/24 10:00 07/21/24 10:02 5 MG Levothyroxine Sodium 50 mcg QAM PO 07/03/24 07:00 07/22/24 06:56 50 MCG Patient Own Medication 1 tab DAILY PO 07/03/24 10:00 Cancel Patient Own Medication 1 tab DAILY PO 07/03/24 10:00 UNV Patient Own Medication 1 tab DAILYPRN PRN PO 07/03/24 10:00 Patient Own Medication 2 tab DAILY PO 07/03/24 10:00 UNV Patient Own Medication 1 tab BID PO 07/02/24 22:00 UNV Patient Own Medication 1 tab DAILY PO 07/03/24 10:00 UNV Ondansetron HCl 4 mg Q4HP PRN IV 07/02/24 13:00 07/03/24 13:28 4 MG Docusate Sodium 100 mg BIDPRN PRN PO 07/02/24 13:00 07/09/24 10:50 100 MG Nitroglycerin 0.4 mg Q5MINP PRN SL 07/02/24 13:00 Atorvastatin Calcium 40 mg HS PO 07/02/24 22:00 07/21/24 22:41 40 MG Cholecalciferol 2,000 unit DAILY PO 07/03/24 10:00 07/22/24 08:27 2,000 UNIT Lisinopril 5 mg DAILY PO 07/03/24 10:00 07/21/24 10:01 5 MG Sertraline HCl 100 mg BID PO 07/02/24 22:00 07/22/24 08:27 100 MG Trazodone HCl 100 mg HS PO 07/03/24 22:00 07/21/24 22:24 100 MG Zolpidem Tartrate 5 mg HSPRN PRN PO 07/04/24 21:00 07/21/24 23:32 5 MG Carisoprodol 350 mg Q8HPRN PRN PO 07/14/24 13:00 07/22/24 11:53 350 MG Oxycodone/ Acetaminophen 2 tab Q6HP PRN PO 07/16/24 12:30 07/22/24 14:55 2 TAB Pregabalin 100 mg BID PO 07/18/24 22:00 07/22/24 08:27 100 MG Enteral Nutritional Formula 27.5 gm BID PO 07/19/24 22:00 07/22/24 08:39 27.5 GM Linezolid 300 ml @ 150 mls/hr Q12H IV 07/20/24 20:00 07/22/24 08:25 150 MLS/HR Cefepime HCl 50 ml @ 12.5 mls/hr Q12HR IV 07/20/24 22:00 07/22/24 12:36 12.5 MLS/HR laboratory and microbiology Laboratory Tests 07/20/24 12:15 Test 07/20/24 12:15 Range/Units Serum Glucose 100 74-106 mg/dL Problem List/Assessment/Plan Problem List/Assessment/Plan Healing stage IV pressure ulcer Metabolic encephalopathy: Improved Obesity BMI 30.8 Chronic back pain due to Advanced lumbar multilevel degenerative changes of the spine and multilevel canal and foraminal stenosis Bilateral lower extremity paresthesia ? Neuropathy Plan/recommendation Dr. Herring -finish total two weeks of antibiotic, end date 07/22/2024. recommend proper pelvic hygiene given higher chance of reinfection of sacral wound -patient will be benefitted from surgical recommendation for debridement of sacral wound : A -highly recommend for follow up with neurosurgery as outpatient to see changes of eligibility of spinal surgery that could improve functional mobility and relieve pressure form sacrum . continue working with physical therapy -continue physical therapy -continue appropriate wound care, based on disposition, arranged wound care after discharge -as per primary care plan for discharge to longterm facility. Plan discussed with: Patient, Other (RN) Dietary Evaluation Review Comments: 1. consider Wiliam BID for wound healing at GFR 78 when pt is off NPO and able to take PO liquids. 2. Consider clinimix as her protein supplement for enchancing wound healing 3. Consider TPN per pharmacy if NPO > 7 days and GI is not accessible. 4. Consider TF Jevity 40ml/hr providing 53g pro and 1152 kcal in 24 hr if run FS. Expected Outcomes/Goals: 1) healed wounds and advance to diet as tolerated if kidney function improves. or 2) Renal Specific diet with 60g protein restriction if GFR further declines.. ARIAS HERRING MD 07/27/245: COLLETTE JIMENEZ RESIDENT Jul 22, 2024 19:04 ARIAS HERRING MD Jul 27, 2024 22:35
[2024-07-22 21:03] VITALS: BP 96/48; PULSE 55; RESP 18; TEMP 98.3; O2SAT 92
[2024-07-23 00:38] VITALS: BP 99/50; PULSE 58; RESP 18; TEMP 98.1; O2SAT 94
[2024-07-23 05:05] VITALS: BP 92/51
[2024-07-23 08:00] VITALS: BP 96/49; PULSE 60; RESP 19; TEMP 98.2; O2SAT 97
[2024-07-23 12:10] VITALS: BP 112/53; PULSE 59; RESP 17; TEMP 98.2; O2SAT 94
--- NOTE | 2024-07-23 12:30 | DVHPN2 ---
Subjective Patient continues to report having bilateral leg pain. Reviewed: Care Plan, H&P, Labs, Medications, Previous Orders Changes from previous H/P or p: No Changes General: Per HPI Objective Vitals Vital Signs Date Time Temp Pulse Resp B/P (MAP) Pulse Ox O2 Delivery O2 Flow Rate FiO2 07/23/24 08:38 96/49 07/23/24 08:00 98.2 60 19 97 98.2 07/23/24 08:00 Room Air* 0 21 Intake/Output Intake and Output 07/23/24 07:00 Intake Total 1600 ml Output Total 1950 ml Balance -350 ml Intake Oral 1300 ml IV Total 300 ml Output Urine Total 1950 ml General Appearance: Alert, Oriented X3, Cooperative HEENT: Atraumatic, PERRLA Cardiovascular: Regular rate, Normal S1, Normal S2 Abdomen: Normal bowel sounds, Soft Musculoskeletal: Normal sensory function, Normal motor function Neuro: Normal gait, Normal speech, Cranial nerves 3-12 NL Skin: Dry, Intact, Wounds (See nurse notes and pictures) Psych/Mental Status: Mental status NL, Mood NL Medications Current Medications Medications Dose Ordered Sig/Mindy Route Start Time Stop Time Status Last Admin Dose Admin Amlodipine Besylate 5 mg DAILY PO 07/03/24 10:00 07/21/24 10:02 5 MG Levothyroxine Sodium 50 mcg QAM PO 07/03/24 07:00 07/23/24 06:31 50 MCG Patient Own Medication 1 tab DAILY PO 07/03/24 10:00 Cancel Patient Own Medication 1 tab DAILY PO 07/03/24 10:00 UNV Patient Own Medication 1 tab DAILYPRN PRN PO 07/03/24 10:00 Patient Own Medication 2 tab DAILY PO 07/03/24 10:00 UNV Patient Own Medication 1 tab BID PO 07/02/24 22:00 UNV Patient Own Medication 1 tab DAILY PO 07/03/24 10:00 UNV Ondansetron HCl 4 mg Q4HP PRN IV 07/02/24 13:00 07/03/24 13:28 4 MG Docusate Sodium 100 mg BIDPRN PRN PO 07/02/24 13:00 07/09/24 10:50 100 MG Nitroglycerin 0.4 mg Q5MINP PRN SL 07/02/24 13:00 Atorvastatin Calcium 40 mg HS PO 07/02/24 22:00 07/22/24 23:03 40 MG Cholecalciferol 2,000 unit DAILY PO 07/03/24 10:00 07/23/24 08:36 2,000 UNIT Lisinopril 5 mg DAILY PO 07/03/24 10:00 07/21/24 10:01 5 MG Sertraline HCl 100 mg BID PO 07/02/24 22:00 07/23/24 08:35 100 MG Trazodone HCl 100 mg HS PO 07/03/24 22:00 07/22/24 23:02 100 MG Zolpidem Tartrate 5 mg HSPRN PRN PO 07/04/24 21:00 07/23/24 00:05 5 MG Carisoprodol 350 mg Q8HPRN PRN PO 07/14/24 13:00 07/23/24 10:56 350 MG Oxycodone/ Acetaminophen 2 tab Q6HP PRN PO 07/16/24 12:30 07/23/24 10:56 2 TAB Pregabalin 100 mg BID PO 07/18/24 22:00 07/23/24 08:36 100 MG Enteral Nutritional Formula 27.5 gm BID PO 07/19/24 22:00 07/23/24 08:36 27.5 GM Laboratory Results Laboratory Tests 07/20/24 12:15 Urinalysis Test 07/02/24 11:10 07/18/24 15:20 Urine WBC 5 /hpf (0 - 5) Urine Color Light-yellow (Yellow) Urine Clarity Clear (Clear) Urine pH 6.0 (5.0-9.0) Urine Specific [place] 1.015 (1.001-1.035) Urine Protein Trace (Negative) H Urine Ketones Negative (Negative) Urine Blood Negative /uL (Negative) Urine Nitrite Negative (Negative) Urine Bilirubin Negative (Negative) Urine Urobilinogen Normal mg/dL (Negative) Urine Leukocyte Esterase Negative /uL (Negative) Urine RBC 3 /hpf (0 - 4) Urine Microscopic WBC 1 /HPF (0-5) Urine Squamous Epithelial Cells Few /hpf (<5) Urine Bacteria None seen /hpf (None Seen) Urine Mucus Few (None Seen) Urine Glucose Normal mg/dL (Normal) Microbiology Microbiology Date/Time Source Procedure Growth Status 07/02/24 14:25 Buttock Gram Stain - Final Complete 07/02/24 14:25 Wound Culture - Final Proteus mirabilis Methicillin Resistant S.aureus Complete 07/02/24 11:10 Urine - [place] Urine Culture - Final Enterococcus faecium VRE Complete Labs and/or images reviewed: Labs reviewed by me, Image(s) reviewed by me Assessment/Plan Assessment/Plan Impression: -sepsis, rule out -metabolic encephalopathy -stage III pressure alter with MDRO -bilateral lower extremity paresthesia -history of substance abuse -obesity -acute kidney injury Plan: Events: Patient cleared by surgery to continue topical enzymatic debridement with wound care. Discharge to long-term care once established by social service manager. Patient was blood pressure also noted to be somewhat marginal. Hold antihypertensives at this time. -infectious disease consultation has been placed. Continue current antibiotics -social service consultation for discharge planning -continue current pain management -PT consultation -Social consult for Care Home care Total time spent with patient discussing and formulating plan of care: 35 minutes. This medical document was created using an electronic medical record system with [employer] dictation system. Although this document has been carefully reviewed, there may still be some phonetic and typographical errors. These areas are purely typographical due to imperfections of the software programs, and do not reflect any compromise in the patient's medical care. Plan discussed with: Patient, Other (RN) Date of Service: Jul 23, 2024 Billing Provider: ENA LAMAS NP Common Visit Codes: [id number] INP/OBS CARE(HIGH) ENA LAMAS NP Jul 23, 2024 12:30
[2024-07-23 16:00] VITALS: BP 103/45; PULSE 56; RESP 17; TEMP 98.7; O2SAT 93
--- NOTE | 2024-07-23 18:52 | DVHPN2 ---
COLLETTE SHARPE RESIDENT 07/23/242: Consult Progress Note Date Seen: Jul 23, 2024 Subjective Patient reports: No new complaints Other Systems: No new complaints. Eyes: No Pain, No Vision change, No Conjunctivae inflammation, No Eyelid inflammation, No Other, No Redness ENT: No Ear pain, No Ear discharge, No Nose pain, No Nose discharge, No Nose congestion, No Mouth pain, No Mouth swelling, No Throat pain, No Throat swelling, No Other Cardiovascular: No Chest Pain, No Palpitations, No Orthopnea, No Paroxysmal Noc. Dyspnea, No Edema, No Lt Headedness, No Other Respiratory: No Cough, No Dry, No Shortness of breath, No SOB with excertion, No Wheezing, No Hemoptysis, No Pleuritic Pain, No Sputum, No Other Gastrointestinal: No Nausea, No Vomiting, No Abdominal Pain, No Diarrhea, No Constipation, No Melena, No Hematochezia, No Other Genitourinary: No Dysuria, No Frequency, No Incontinence, No Hematuria, No Retention, No Other Musculoskeletal: No other, No neck pain, No shoulder pain, No arm pain, back pain, No hand pain, No leg pain, No foot pain, back pain Skin: No Rash, No Lesions, No Jaundice, No Bruising, No Other Physical examination General Appearance: Cooperative. Well developed. Well nourished. NAD Head Exam: Normal inspection Neck Exam: Normal inspection. Non-tender. Normal alignment Pulmonary/Respiratory: Chest non-tender. Clear bilateral breath sounds Cardiovascular/Chest: Regular rate and rhythm. No murmurs. No JVD. Peripheral Pulses: 2+ Radial (R). 2+ Radial (L). 2+ Pedal (R). 2+ Pedal (L) Abdominal Exam: Normal bowel sounds. Soft. Nontender. No hepatospenomegaly. No masses Ankle Exam: Negative ankle edema Lower extremities: Negative lower extremity edema Neuro/Mental Status: A&O x4. Coherent Thoughts/Psych: Normal thought pattern. Appropriate mood and affect. Good judgement and insight Appearance: In no acute distress Skin Exam: Healing stage III sacral ulcer, presence of granulation tissue, clear margin, presence of nonviable tissue. Objective vital signs Vital Sign Date Time Temp Pulse Resp B/P (MAP) Pulse Ox O2 Delivery O2 Flow Rate FiO2 07/23/24 16:00 98.7 56 17 103/45 (60) 93 98.7 07/23/24 08:00 Room Air* 0 21 Total Intake and Output 07/22/24 07/22/24 07/23/24 15:00 23:00 07:00 Intake Total 300 ml 750 ml 550 ml Output Total 800 ml 1150 ml Balance 300 ml -50 ml -600 ml medications Current Medications Medications Dose Ordered Sig/Mindy Route Start Time Stop Time Status Last Admin Dose Admin Levothyroxine Sodium 50 mcg QAM PO 07/03/24 07:00 07/23/24 06:31 50 MCG Patient Own Medication 1 tab DAILY PO 07/03/24 10:00 Cancel Patient Own Medication 1 tab DAILY PO 07/03/24 10:00 UNV Patient Own Medication 1 tab DAILYPRN PRN PO 07/03/24 10:00 Patient Own Medication 2 tab DAILY PO 07/03/24 10:00 UNV Patient Own Medication 1 tab BID PO 07/02/24 22:00 UNV Patient Own Medication 1 tab DAILY PO 07/03/24 10:00 UNV Ondansetron HCl 4 mg Q4HP PRN IV 07/02/24 13:00 07/03/24 13:28 4 MG Docusate Sodium 100 mg BIDPRN PRN PO 07/02/24 13:00 07/09/24 10:50 100 MG Nitroglycerin 0.4 mg Q5MINP PRN SL 07/02/24 13:00 Atorvastatin Calcium 40 mg HS PO 07/02/24 22:00 07/22/24 23:03 40 MG Cholecalciferol 2,000 unit DAILY PO 07/03/24 10:00 07/23/24 08:36 2,000 UNIT Sertraline HCl 100 mg BID PO 07/02/24 22:00 07/23/24 08:35 100 MG Trazodone HCl 100 mg HS PO 07/03/24 22:00 07/22/24 23:02 100 MG Zolpidem Tartrate 5 mg HSPRN PRN PO 07/04/24 21:00 07/23/24 00:05 5 MG Carisoprodol 350 mg Q8HPRN PRN PO 07/14/24 13:00 07/23/24 10:56 350 MG Oxycodone/ Acetaminophen 2 tab Q6HP PRN PO 07/16/24 12:30 07/23/24 10:56 2 TAB Pregabalin 100 mg BID PO 07/18/24 22:00 07/23/24 08:36 100 MG Enteral Nutritional Formula 27.5 gm BID PO 07/19/24 22:00 07/23/24 08:36 27.5 GM laboratory and microbiology Laboratory Tests 07/20/24 12:15 Test 07/20/24 12:15 Range/Units Serum Glucose 100 74-106 mg/dL Problem List/Assessment/Plan Problem List/Assessment/Plan Healing stage IV pressure ulcer Metabolic encephalopathy: Improved Obesity BMI 30.8 Chronic back pain due to Advanced lumbar multilevel degenerative changes of the spine and multilevel canal and foraminal stenosis Bilateral lower extremity paresthesia ? Neuropathy Plan/recommendation Dr. Herring -continued IV antibiotic. And continue regular wound care. recommend proper pelvic hygiene given higher chance of reinfection of sacral wound -patient will be benefitted from surgical recommendation for debridement of sacral wound : A -highly recommend for follow up with neurosurgery as outpatient to see changes of eligibility of spinal surgery that could improve functional mobility and relieve pressure form sacrum . continue working with physical therapy -continue physical therapy -continue appropriate wound care, based on disposition, arranged wound care after discharge -as per primary care plan for discharge to [facility]dc facility. Plan discussed with: Patient, Other (RN) Dietary Evaluation Review Comments: 1. consider Wiliam BID for wound healing at GFR 78 when pt is off NPO and able to take PO liquids. 2. Consider clinimix as her protein supplement for enchancing wound healing 3. Consider TPN per pharmacy if NPO > 7 days and GI is not accessible. 4. Consider TF Jevity 40ml/hr providing 53g pro and 1152 kcal in 24 hr if run FS. Expected Outcomes/Goals: 1) healed wounds and advance to diet as tolerated if kidney function improves. or 2) Renal Specific diet with 60g protein restriction if GFR further declines.. ARIAS HERRING MD 07/25/24 1702: Consult Progress Note Problem List/Assessment/Plan Problem List/Assessment/Plan Attending Addendum: Case discussed with Dr. Sharpe. at the time of visit. Seen by Dr Sharpe and reviewed assesment and plan . Patient is a female with a past medical history of hypertension, CDK , hyperlipidema, hyperthyroidism. found on the floor and altered when she was admitted on 06/27/24 and has found sacral ulcer with deep tissue stage 4 , fibrinous exidate . 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 initially on vancomycin and zosyn but switched to cefapine and linazolid and has been on that for 12 days . has not been able to walk for 3 months and is largely bedbound due to leg numbness and related to spinal stenosis which patient has not followed up with neurosurgery to gain possible functional improving surgery. 12 point reviewed system were reviewed , vital signs were reviewed . Temperature 98, BP 103/44 . stage 4 sacral ulcer over the sacrum with no tunneling and large area of ulceration with fibrinous exidate and a yellow tissue and a small area of necrosis, wound measures at 11 x 9 cm . Reviewed relevant imaging , including abdominal pelvis Ct which shows soft tissue inflammation and no signs of tunneling or deeper infection. problem list : stage 4 sacral ulcer , chronic back pain , bilateral lower extremity neuropathys, morbid obesity , functioning paraplegia plan would be to continue linazolid and cefapine for 2 more days , need close monitoring of hygiene of sacral area, chronic wound care at [facility] facility , repeat MRI , follow up with neurosurgery as outpatient to see changes of eligibility of spinal surgery that could improve functional mobility and relieve pressure form sacrum . continue working with physical therapy . Update 07/21: Patient is feeling better and getting wound care , wound appears clean and no tunneling , plan would be to continue linazolid and cefepine for 2 more days , neuro and general surgery do not want to do a debridement or any additional surgery on patients spine , patient can follow up with Dr Donnelly as outpatient update 07/22: no fevers or chills , is awake and stable . Today will be patients last day of linazolid and cefepime and patient will go home to a [facility] facility where she is expected to continue to receive wound care and then follow up with neurosurgery to attempt to regain mobility remaining plan per Dr Sharpe in agreement with assessment and plan per above Otherwise reviewed and agree with Dr Sharpe's findings, A/P as written in note. PE: General Appearance: Cooperative. Well developed. Well nourished. NAD. Morbidly Obese Head Exam: Normal inspection Neck Exam: Normal inspection. Non-tender. Normal alignment Pulmonary/Respiratory: Chest non-tender. Clear bilateral breath sounds. crackles in lungs Cardiovascular/Chest: tacycardic No murmurs. No JVD. Abdominal Exam: Normal bowel sounds. Soft. Nontender. No hepatosplenomegaly. No masses Ankle Exam: Lower extremities: COLLETTE SHARPE RESIDENT Jul 23, 2024 18:52 ARIAS HERRING MD Jul 25, 2024 17:06
[2024-07-23 21:00] VITALS: BP 121/59; PULSE 62; RESP 18; TEMP 98; O2SAT 93
[2024-07-24 01:00] VITALS: BP 111/55; PULSE 60; RESP 18; TEMP 98.6; O2SAT 92
[2024-07-24 05:00] VITALS: BP 107/51; PULSE 55; RESP 18; TEMP 97.7; O2SAT 91
[2024-07-24 08:31] VITALS: BP 110/56; PULSE 56; RESP 17; TEMP 98; O2SAT 92
[2024-07-24 13:00] VITALS: BP 120/37; PULSE 62; RESP 16; TEMP 98; O2SAT 90
--- NOTE | 2024-07-24 15:30 | DVHPN2 ---
Consult Progress Note Date Seen: Jul 21, 2024 Objective vital signs Vital Sign Date Time Temp Pulse Resp B/P (MAP) Pulse Ox O2 Delivery O2 Flow Rate FiO2 07/24/24 13:00 98.0 62 16 120/37 (64) 90 98.0 07/24/24 08:00 Room Air* 0 21 Total Intake and Output 07/23/24 07/23/24 07/24/24 14:59 22:59 06:59 Intake Total 50 ml 710 ml 900 ml Output Total 1150 ml 1500 ml Balance 50 ml -440 ml -600 ml medications Current Medications Medications Dose Ordered Sig/Mindy Route Start Time Stop Time Status Last Admin Dose Admin Levothyroxine Sodium 50 mcg QAM PO 07/03/24 07:00 07/24/24 06:14 50 MCG Patient Own Medication 1 tab DAILY PO 07/03/24 10:00 Cancel Patient Own Medication 1 tab DAILY PO 07/03/24 10:00 UNV Patient Own Medication 1 tab DAILYPRN PRN PO 07/03/24 10:00 Patient Own Medication 2 tab DAILY PO 07/03/24 10:00 UNV Patient Own Medication 1 tab BID PO 07/02/24 22:00 UNV Patient Own Medication 1 tab DAILY PO 07/03/24 10:00 UNV Ondansetron HCl 4 mg Q4HP PRN IV 07/02/24 13:00 07/03/24 13:28 4 MG Docusate Sodium 100 mg BIDPRN PRN PO 07/02/24 13:00 07/09/24 10:50 100 MG Nitroglycerin 0.4 mg Q5MINP PRN SL 07/02/24 13:00 Atorvastatin Calcium 40 mg HS PO 07/02/24 22:00 07/23/24 22:54 40 MG Cholecalciferol 2,000 unit DAILY PO 07/03/24 10:00 07/24/24 09:59 2,000 UNIT Sertraline HCl 100 mg BID PO 07/02/24 22:00 07/24/24 09:58 100 MG Trazodone HCl 100 mg HS PO 07/03/24 22:00 07/23/24 22:53 100 MG Zolpidem Tartrate 5 mg HSPRN PRN PO 07/04/24 21:00 07/23/24 23:23 5 MG Carisoprodol 350 mg Q8HPRN PRN PO 07/14/24 13:00 07/24/24 11:19 350 MG Oxycodone/ Acetaminophen 2 tab Q6HP PRN PO 07/16/24 12:30 07/24/24 09:59 2 TAB Pregabalin 100 mg BID PO 07/18/24 22:00 07/24/24 09:58 100 MG Enteral Nutritional Formula 27.5 gm BID PO 07/19/24 22:00 07/24/24 10:01 27.5 GM laboratory and microbiology Laboratory Tests 07/20/24 12:15 Test 07/20/24 12:15 Range/Units Serum Glucose 100 74-106 mg/dL Problem List/Assessment/Plan Problems(with codes): (1) Family history of hypertension (2) Lumbar stenosis with neurogenic claudication (3) Generalized weakness (4) Acute respiratory failure (5) Sepsis due to urinary tract infection Problem List/Assessment/Plan _ Attending Addendum: Case discussed with Dr. Sharpe. at the time of visit. Seen by Dr Sharpe and reviewed assesment and plan . Patient is a female with a past medical history of hypertension, CDK , hyperlipidema, hyperthyroidism. found on the floor and altered when she was admitted on 06/27/24 and has found sacral ulcer with deep tissue stage 4 , fibrinous exidate . 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 initially on vancomycin and zosyn but switched to cefapine and linazolid and has been on that for 12 days . has not been able to walk for 3 months and is largely bedbound due to leg numbness and related to spinal stenosis which patient has not followed up with neurosurgery to gain possible functional improving surgery. 12 point reviewed system were reviewed , vital signs were reviewed . Temperature 98, BP 103/44 . stage 4 sacral ulcer over the sacrum with no tunneling and large area of ulceration with fibrinous exidate and a yellow tissue and a small area of necrosis, wound measures at 11 x 9 cm . Reviewed relevant imaging , including abdominal pelvis Ct which shows soft tissue inflammation and no signs of tunneling or deeper infection. problem list : stage 4 sacral ulcer , chronic back pain , bilateral lower extremity neuropathys, morbid obesity , functioning paraplegia plan would be to continue linazolid and cefapine for 2 more days , need close monitoring of hygiene of sacral area, chronic wound care at [facility] facility , repeat MRI , follow up with neurosurgery as outpatient to see changes of eligibility of spinal surgery that could improve functional mobility and relieve pressure form sacrum . continue working with physical therapy . Update 07/21: Patient is feeling better and getting wound care , wound appears clean and no tunneling , plan would be to continue linazolid and cefepine for 2 more days , neuro and general surgery do not want to do a debridement or any additional surgery on patients spine , patient can follow up with Dr Donnelly as outpatient remaining plan per Dr Sharpe in agreement with assessment and plan per above Otherwise reviewed and agree with Dr Sharpe's findings, A/P as written in note. PE: General Appearance: Cooperative. Well developed. Well nourished. NAD. Morbidly Obese Head Exam: Normal inspection Neck Exam: Normal inspection. Non-tender. Normal alignment Pulmonary/Respiratory: Chest non-tender. Clear bilateral breath sounds. crackles in lungs Cardiovascular/Chest: tacycardic No murmurs. No JVD. Abdominal Exam: Normal bowel sounds. Soft. Nontender. No hepatosplenomegaly. No masses Ankle Exam: Lower extremities: Plan discussed with: Other Dietary Evaluation Review Comments: 1. consider Wiliam BID for wound healing at GFR 78 when pt is off NPO and able to take PO liquids. 2. Consider clinimix as her protein supplement for enchancing wound healing 3. Consider TPN per pharmacy if NPO > 7 days and GI is not accessible. 4. Consider TF Jevity 40ml/hr providing 53g pro and 1152 kcal in 24 hr if run FS. Expected Outcomes/Goals: 1) healed wounds and advance to diet as tolerated if kidney function improves. or 2) Renal Specific diet with 60g protein restriction if GFR further declines.. ARIAS SANDERSON MD Jul 24, 2024 15:30
--- NOTE | 2024-07-24 15:35 | DVHPN2 ---
Consult Progress Note Date Seen: Jul 22, 2024 Objective vital signs Vital Sign Date Time Temp Pulse Resp B/P (MAP) Pulse Ox O2 Delivery O2 Flow Rate FiO2 07/24/24 13:00 98.0 62 16 120/37 (64) 90 98.0 07/24/24 08:00 Room Air* 0 21 Total Intake and Output 07/23/24 07/23/24 07/24/24 14:59 22:59 06:59 Intake Total 50 ml 710 ml 900 ml Output Total 1150 ml 1500 ml Balance 50 ml -440 ml -600 ml medications Current Medications Medications Dose Ordered Sig/Mindy Route Start Time Stop Time Status Last Admin Dose Admin Levothyroxine Sodium 50 mcg QAM PO 07/03/24 07:00 07/24/24 06:14 50 MCG Patient Own Medication 1 tab DAILY PO 07/03/24 10:00 Cancel Patient Own Medication 1 tab DAILY PO 07/03/24 10:00 UNV Patient Own Medication 1 tab DAILYPRN PRN PO 07/03/24 10:00 Patient Own Medication 2 tab DAILY PO 07/03/24 10:00 UNV Patient Own Medication 1 tab BID PO 07/02/24 22:00 UNV Patient Own Medication 1 tab DAILY PO 07/03/24 10:00 UNV Ondansetron HCl 4 mg Q4HP PRN IV 07/02/24 13:00 07/03/24 13:28 4 MG Docusate Sodium 100 mg BIDPRN PRN PO 07/02/24 13:00 07/09/24 10:50 100 MG Nitroglycerin 0.4 mg Q5MINP PRN SL 07/02/24 13:00 Atorvastatin Calcium 40 mg HS PO 07/02/24 22:00 07/23/24 22:54 40 MG Cholecalciferol 2,000 unit DAILY PO 07/03/24 10:00 07/24/24 09:59 2,000 UNIT Sertraline HCl 100 mg BID PO 07/02/24 22:00 07/24/24 09:58 100 MG Trazodone HCl 100 mg HS PO 07/03/24 22:00 07/23/24 22:53 100 MG Zolpidem Tartrate 5 mg HSPRN PRN PO 07/04/24 21:00 07/23/24 23:23 5 MG Carisoprodol 350 mg Q8HPRN PRN PO 07/14/24 13:00 07/24/24 11:19 350 MG Oxycodone/ Acetaminophen 2 tab Q6HP PRN PO 07/16/24 12:30 07/24/24 09:59 2 TAB Pregabalin 100 mg BID PO 07/18/24 22:00 07/24/24 09:58 100 MG Enteral Nutritional Formula 27.5 gm BID PO 07/19/24 22:00 07/24/24 10:01 27.5 GM laboratory and microbiology Laboratory Tests 07/20/24 12:15 Test 07/20/24 12:15 Range/Units Serum Glucose 100 74-106 mg/dL Problem List/Assessment/Plan Problems(with codes): (1) Family history of hypertension (2) Sepsis due to urinary tract infection (3) Acute respiratory failure (4) Lumbar stenosis with neurogenic claudication (5) Generalized weakness Problem List/Assessment/Plan _ Attending Addendum: Case discussed with Dr. Sharpe. at the time of visit. Seen by Dr Sharpe and reviewed assesment and plan . Patient is a female with a past medical history of hypertension, CDK , hyperlipidema, hyperthyroidism. found on the floor and altered when she was admitted on 06/27/24 and has found sacral ulcer with deep tissue stage 4 , fibrinous exidate . 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 initially on vancomycin and zosyn but switched to cefapine and linazolid and has been on that for 12 days . has not been able to walk for 3 months and is largely bedbound due to leg numbness and related to spinal stenosis which patient has not followed up with neurosurgery to gain possible functional improving surgery. 12 point reviewed system were reviewed , vital signs were reviewed . Temperature 98, BP 103/44 . stage 4 sacral ulcer over the sacrum with no tunneling and large area of ulceration with fibrinous exidate and a yellow tissue and a small area of necrosis, wound measures at 11 x 9 cm . Reviewed relevant imaging , including abdominal pelvis Ct which shows soft tissue inflammation and no signs of tunneling or deeper infection. problem list : stage 4 sacral ulcer , chronic back pain , bilateral lower extremity neuropathys, morbid obesity , functioning paraplegia plan would be to continue linazolid and cefapine for 2 more days , need close monitoring of hygiene of sacral area, [facility] care at [facility] facility , repeat MRI , follow up with neurosurgery as outpatient to see changes of eligibility of spinal surgery that could improve functional mobility and relieve pressure form sacrum . continue working with physical therapy . Update 07/21: Patient is feeling better and getting wound care , wound appears clean and no tunneling , plan would be to continue linazolid and cefepine for 2 more days , neuro and general surgery do not want to do a debridement or any additional surgery on patients spine , patient can follow up with Dr Donnelly as outpatient update 07/22: no fevers or chills , is awake and stable . Today will be patients last day of linazolid and cefepime and patient will go home to a retirement facility where she is expected to continue to receive wound care and then follow up with neurosurgery to attempt to regain mobility remaining plan per Dr Sharpe in agreement with assessment and plan per above Otherwise reviewed and agree with Dr Sharpe's findings, A/P as written in note. PE: General Appearance: Cooperative. Well developed. Well nourished. NAD. Morbidly Obese Head Exam: Normal inspection Neck Exam: Normal inspection. Non-tender. Normal alignment Pulmonary/Respiratory: Chest non-tender. Clear bilateral breath sounds. crackles in lungs Cardiovascular/Chest: tacycardic No murmurs. No JVD. Abdominal Exam: Normal bowel sounds. Soft. Nontender. No hepatosplenomegaly. No masses Ankle Exam: Lower extremities: Plan discussed with: Other Dietary Evaluation Review Comments: 1. consider Wiliam BID for wound healing at GFR 78 when pt is off NPO and able to take PO liquids. 2. Consider clinimix as her protein supplement for enchancing wound healing 3. Consider TPN per pharmacy if NPO > 7 days and GI is not accessible. 4. Consider TF Jevity 40ml/hr providing 53g pro and 1152 kcal in 24 hr if run FS. Expected Outcomes/Goals: 1) healed wounds and advance to diet as tolerated if kidney function improves. or 2) Renal Specific diet with 60g protein restriction if GFR further declines.. ARIAS SANDERSON MD Jul 24, 2024 15:35
--- NOTE | 2024-07-24 15:52 | DVHPN2 ---
Subjective Patient continues to report having bilateral leg pain. Reviewed: Care Plan, H&P, Labs, Medications, Previous Orders Changes from previous H/P or p: No Changes General: Per HPI Objective Vitals Vital Signs Date Time Temp Pulse Resp B/P (MAP) Pulse Ox O2 Delivery O2 Flow Rate FiO2 07/24/24 13:00 98.0 62 16 120/37 (64) 90 98.0 07/24/24 08:00 Room Air* 0 21 Intake/Output Intake and Output 07/24/24 07:00 Intake Total 1660 ml Output Total 2650 ml Balance -990 ml Intake Oral 1610 ml IV Total 50 ml Output Urine Total 2650 ml General Appearance: Alert, Oriented X3, Cooperative HEENT: Atraumatic, PERRLA Cardiovascular: Regular rate, Normal S1, Normal S2 Abdomen: Normal bowel sounds, Soft Musculoskeletal: Normal sensory function, Normal motor function Neuro: Normal gait, Normal speech, Cranial nerves 3-12 NL Skin: Dry, Intact, Wounds (See nurse notes and pictures) Psych/Mental Status: Mental status NL, Mood NL Medications Current Medications Medications Dose Ordered Sig/Mindy Route Start Time Stop Time Status Last Admin Dose Admin Levothyroxine Sodium 50 mcg QAM PO 07/03/24 07:00 07/24/24 06:14 50 MCG Patient Own Medication 1 tab DAILY PO 07/03/24 10:00 Cancel Patient Own Medication 1 tab DAILY PO 07/03/24 10:00 UNV Patient Own Medication 1 tab DAILYPRN PRN PO 07/03/24 10:00 Patient Own Medication 2 tab DAILY PO 07/03/24 10:00 UNV Patient Own Medication 1 tab BID PO 07/02/24 22:00 UNV Patient Own Medication 1 tab DAILY PO 07/03/24 10:00 UNV Ondansetron HCl 4 mg Q4HP PRN IV 07/02/24 13:00 07/03/24 13:28 4 MG Docusate Sodium 100 mg BIDPRN PRN PO 07/02/24 13:00 07/09/24 10:50 100 MG Nitroglycerin 0.4 mg Q5MINP PRN SL 07/02/24 13:00 Atorvastatin Calcium 40 mg HS PO 07/02/24 22:00 07/23/24 22:54 40 MG Cholecalciferol 2,000 unit DAILY PO 07/03/24 10:00 07/24/24 09:59 2,000 UNIT Sertraline HCl 100 mg BID PO 07/02/24 22:00 07/24/24 09:58 100 MG Trazodone HCl 100 mg HS PO 07/03/24 22:00 07/23/24 22:53 100 MG Zolpidem Tartrate 5 mg HSPRN PRN PO 07/04/24 21:00 07/23/24 23:23 5 MG Carisoprodol 350 mg Q8HPRN PRN PO 07/14/24 13:00 07/24/24 11:19 350 MG Oxycodone/ Acetaminophen 2 tab Q6HP PRN PO 07/16/24 12:30 07/24/24 09:59 2 TAB Pregabalin 100 mg BID PO 07/18/24 22:00 07/24/24 09:58 100 MG Enteral Nutritional Formula 27.5 gm BID PO 07/19/24 22:00 07/24/24 10:01 27.5 GM Laboratory Results Laboratory Tests 07/20/24 12:15 Urinalysis Test 07/02/24 11:10 07/18/24 15:20 Urine WBC 5 /hpf (0 - 5) Urine Color Light-yellow (Yellow) Urine Clarity Clear (Clear) Urine pH 6.0 (5.0-9.0) Urine Specific [place] 1.015 (1.001-1.035) Urine Protein Trace (Negative) H Urine Ketones Negative (Negative) Urine Blood Negative /uL (Negative) Urine Nitrite Negative (Negative) Urine Bilirubin Negative (Negative) Urine Urobilinogen Normal mg/dL (Negative) Urine Leukocyte Esterase Negative /uL (Negative) Urine RBC 3 /hpf (0 - 4) Urine Microscopic WBC 1 /HPF (0-5) Urine Squamous Epithelial Cells Few /hpf (<5) Urine Bacteria None seen /hpf (None Seen) Urine Mucus Few (None Seen) Urine Glucose Normal mg/dL (Normal) Microbiology Microbiology Date/Time Source Procedure Growth Status 07/02/24 14:25 Buttock Gram Stain - Final Complete 07/02/24 14:25 Wound Culture - Final Proteus mirabilis Methicillin Resistant S.aureus Complete 07/02/24 11:10 Urine - [place] Urine Culture - Final Enterococcus faecium VRE Complete Labs and/or images reviewed: Labs reviewed by me, Image(s) reviewed by me Assessment/Plan Assessment/Plan Impression: -sepsis, rule out -metabolic encephalopathy -stage III pressure alter with MDRO -bilateral lower extremity paresthesia -history of substance abuse -obesity -acute kidney injury -pain seeking behavior Plan: Events: Antibiotics course completed. Cleared by surgery , no intervention. Requesting IV Dilaudid. Discussed pain management with the patient. Percocet to be stopped. Dilaudid 2 mg p.o. q.6 hours to be used for pain. Patient continues to be waiting for facility with respect to discharge planning. -infectious disease consultation has been placed. Continue current antibiotics -social service consultation for discharge planning -continue current pain management -PT consultation -Social consult for [place] care Total time spent with patient discussing and formulating plan of care: 35 minutes. This medical document was created using an electronic medical record system with [employer] dictation system. Although this document has been carefully reviewed, there may still be some phonetic and typographical errors. These areas are purely typographical due to imperfections of the software programs, and do not reflect any compromise in the patient's medical care. Plan discussed with: Patient, Other (RN) My Orders Orders - ENA LAMAS NP Procedure Category Date Status Time Incentive Spirometry ORDERS 07/24/24 Transmitted Q 1hr 14:49 Date of Service: Jul 24, 2024 Billing Provider: ENA LAMAS NP Common Visit Codes: [id number] INP/OBS CARE(HIGH) ENA LAMAS NP Jul 24, 2024 15:52
[2024-07-24 16:36] VITALS: BP 115/49; PULSE 52; RESP 18; TEMP 98.1; O2SAT 94
[2024-07-24] MEDS: HYDROmorphone HCL 2 MG TAB PO PRN (16:49)
[2024-07-24 21:00] VITALS: BP 102/55; PULSE 63; RESP 14; TEMP 98.8; O2SAT 92
[2024-07-24] MEDS: DOCUSATE SOD 100 MG CAP PO SCH (22:28)
[2024-07-25] VITALS (8 sets, daily range): BP systolic 104–141; BP diastolic 49–73; PULSE 55–73; RESP 17–18; TEMP 97.7–98.1; O2SAT 91–95
--- NOTE | 2024-07-25 15:01 | DVHPN2 ---
Subjective The patient is seen and examined at bedside. The patient complained of pain. Reviewed: Care Plan, H&P, Labs, Medications, Previous Orders Changes from previous H/P or p: No Changes General: Per HPI Objective Vitals Vital Signs Date Time Temp Pulse Resp B/P (MAP) Pulse Ox O2 Delivery O2 Flow Rate FiO2 07/25/24 12:35 98.1 61 17 141/73 (95) 95 98.1 07/25/24 08:00 Room Air* 0 21 Intake/Output Intake and Output 07/25/24 07:00 Intake Total 1550 ml Output Total 2100 ml Balance -550 ml Intake Oral 1550 ml Output Urine Total 2100 ml General Appearance: Alert, Oriented X3, Cooperative HEENT: Atraumatic, PERRLA Cardiovascular: Regular rate, Normal S1, Normal S2 Abdomen: Normal bowel sounds, Soft Musculoskeletal: Normal sensory function, Normal motor function Neuro: Normal gait, Normal speech, Cranial nerves 3-12 NL Skin: Dry, Intact, Wounds (See nurse notes and pictures) Psych/Mental Status: Mental status NL, Mood NL Medications Current Medications Medications Dose Ordered Sig/Mindy Route Start Time Stop Time Status Last Admin Dose Admin Levothyroxine Sodium 50 mcg QAM PO 07/03/24 07:00 07/25/24 06:51 50 MCG Patient Own Medication 1 tab DAILY PO 07/03/24 10:00 Cancel Patient Own Medication 1 tab DAILY PO 07/03/24 10:00 UNV Patient Own Medication 1 tab DAILYPRN PRN PO 07/03/24 10:00 Patient Own Medication 2 tab DAILY PO 07/03/24 10:00 UNV Patient Own Medication 1 tab BID PO 07/02/24 22:00 UNV Patient Own Medication 1 tab DAILY PO 07/03/24 10:00 UNV Ondansetron HCl 4 mg Q4HP PRN IV 07/02/24 13:00 07/03/24 13:28 4 MG Docusate Sodium 100 mg BIDPRN PRN PO 07/02/24 13:00 07/09/24 10:50 100 MG Nitroglycerin 0.4 mg Q5MINP PRN SL 07/02/24 13:00 Atorvastatin Calcium 40 mg HS PO 07/02/24 22:00 07/24/24 22:28 40 MG Cholecalciferol 2,000 unit DAILY PO 07/03/24 10:00 07/25/24 10:36 2,000 UNIT Sertraline HCl 100 mg BID PO 07/02/24 22:00 07/25/24 10:37 100 MG Trazodone HCl 100 mg HS PO 07/03/24 22:00 07/24/24 22:29 100 MG Zolpidem Tartrate 5 mg HSPRN PRN PO 07/04/24 21:00 07/25/24 00:53 5 MG Carisoprodol 350 mg Q8HPRN PRN PO 07/14/24 13:00 07/25/24 10:52 350 MG Pregabalin 100 mg BID PO 07/18/24 22:00 07/25/24 10:37 100 MG Enteral Nutritional Formula 27.5 gm BID PO 07/19/24 22:00 07/25/24 10:00 27.5 GM Docusate Sodium 100 mg BID PO 07/24/24 22:00 07/25/24 10:36 100 MG Hydromorphone HCl 2 mg Q6HP PRN PO 07/24/24 16:00 07/25/24 10:52 2 MG Laboratory Results Laboratory Tests 07/20/24 12:15 Urinalysis Test 07/02/24 11:10 07/18/24 15:20 Urine WBC 5 /hpf (0 - 5) Urine Color Light-yellow (Yellow) Urine Clarity Clear (Clear) Urine pH 6.0 (5.0-9.0) Urine Specific [place] 1.015 (1.001-1.035) Urine Protein Trace (Negative) H Urine Ketones Negative (Negative) Urine Blood Negative /uL (Negative) Urine Nitrite Negative (Negative) Urine Bilirubin Negative (Negative) Urine Urobilinogen Normal mg/dL (Negative) Urine Leukocyte Esterase Negative /uL (Negative) Urine RBC 3 /hpf (0 - 4) Urine Microscopic WBC 1 /HPF (0-5) Urine Squamous Epithelial Cells Few /hpf (<5) Urine Bacteria None seen /hpf (None Seen) Urine Mucus Few (None Seen) Urine Glucose Normal mg/dL (Normal) Microbiology Microbiology Date/Time Source Procedure Growth Status 07/02/24 14:25 Buttock Gram Stain - Final Complete 07/02/24 14:25 Wound Culture - Final Proteus mirabilis Methicillin Resistant S.aureus Complete 07/02/24 11:10 Urine - [place] Urine Culture - Final Enterococcus faecium VRE Complete Assessment/Plan Assessment/Plan -sepsis, rule out -metabolic encephalopathy -stage III pressure with MDRO -bilateral lower extremity paresthesia -history of substance abuse -obesity -acute kidney injury -pain seeking behavior Plan: Continuing current management. Continuing with IV Dilaudid. Antibiotic course had been complete. Patient was cleared by surgeon. No surgery intervention. Waiting for [facility] Continuing with physical therapy This medical document was created using an electronic medical record system with [employer] computerized dictation system. Although this document has been carefully reviewed, there may still be some phonetic and typographical errors. These areas are purely typographical due to imperfections of the software programs, and do not reflect any compromise in the patient's medical care. Plan discussed with: Patient Date of Service: Jul 25, 2024 Billing Provider: LUIS SAGASTUME MD Common Visit Codes: [id number] INP/OBS CARE(HIGH) LUIS SAGASTUME MD Jul 25, 2024 15:01
--- NOTE | 2024-07-25 17:11 | DVHPN2 ---
Consult Progress Note Date Seen: Jul 24, 2024 Subjective Patient reports: Feels better (no fever or chills) Objective vital signs Vital Sign Date Time Temp Pulse Resp B/P (MAP) Pulse Ox O2 Delivery O2 Flow Rate FiO2 07/25/24 16:30 98.1 73 117/49 (71) 94 98.1 07/25/24 12:35 17 07/25/24 08:00 Room Air* 0 21 Total Intake and Output 07/24/24 07/24/24 07/25/24 14:59 22:59 06:59 Intake Total 550 ml 1000 ml Output Total 1000 ml 1100 ml Balance -450 ml -100 ml medications Current Medications Medications Dose Ordered Sig/Mindy Route Start Time Stop Time Status Last Admin Dose Admin Levothyroxine Sodium 50 mcg QAM PO 07/03/24 07:00 07/25/24 06:51 50 MCG Patient Own Medication 1 tab DAILY PO 07/03/24 10:00 Cancel Patient Own Medication 1 tab DAILY PO 07/03/24 10:00 UNV Patient Own Medication 1 tab DAILYPRN PRN PO 07/03/24 10:00 Patient Own Medication 2 tab DAILY PO 07/03/24 10:00 UNV Patient Own Medication 1 tab BID PO 07/02/24 22:00 UNV Patient Own Medication 1 tab DAILY PO 07/03/24 10:00 UNV Ondansetron HCl 4 mg Q4HP PRN IV 07/02/24 13:00 07/03/24 13:28 4 MG Docusate Sodium 100 mg BIDPRN PRN PO 07/02/24 13:00 07/09/24 10:50 100 MG Nitroglycerin 0.4 mg Q5MINP PRN SL 07/02/24 13:00 Atorvastatin Calcium 40 mg HS PO 07/02/24 22:00 07/24/24 22:28 40 MG Cholecalciferol 2,000 unit DAILY PO 07/03/24 10:00 07/25/24 10:36 2,000 UNIT Sertraline HCl 100 mg BID PO 07/02/24 22:00 07/25/24 10:37 100 MG Trazodone HCl 100 mg HS PO 07/03/24 22:00 07/24/24 22:29 100 MG Zolpidem Tartrate 5 mg HSPRN PRN PO 07/04/24 21:00 07/25/24 00:53 5 MG Carisoprodol 350 mg Q8HPRN PRN PO 07/14/24 13:00 07/25/24 10:52 350 MG Pregabalin 100 mg BID PO 07/18/24 22:00 07/25/24 10:37 100 MG Enteral Nutritional Formula 27.5 gm BID PO 07/19/24 22:00 07/25/24 10:00 27.5 GM Docusate Sodium 100 mg BID PO 07/24/24 22:00 07/25/24 10:36 100 MG Hydromorphone HCl 2 mg Q6HP PRN PO 07/24/24 16:00 07/25/24 10:52 2 MG PE: General Appearance: Cooperative. Well developed. Well nourished. NAD. Morbidly Obese Head Exam: Normal inspection Neck Exam: Normal inspection. Non-tender. Normal alignment Pulmonary/Respiratory: Chest non-tender. Clear bilateral breath sounds. crackles in lungs Cardiovascular/Chest: tacycardic No murmurs. No JVD. Abdominal Exam: Normal bowel sounds. Soft. Nontender. No hepatosplenomegaly. No masses Ankle Exam: Lower extremities: laboratory and microbiology Laboratory Tests 07/20/24 12:15 Test 07/20/24 12:15 Range/Units Serum Glucose 100 74-106 mg/dL Problem List/Assessment/Plan Problem List/Assessment/Plan Attending Addendum: Case discussed with Dr. Sharpe. at the time of visit. Seen by Dr Sharpe and reviewed assesment and plan . Patient is a female with a past medical history of hypertension, CDK , hyperlipidema, hyperthyroidism. found on the floor and altered when she was admitted on 06/27/24 and has found sacral ulcer with deep tissue stage 4 , fibrinous exidate . 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 initially on vancomycin and zosyn but switched to cefapine and linazolid and has been on that for 12 days . has not been able to walk for 3 months and is largely bedbound due to leg numbness and related to spinal stenosis which patient has not followed up with neurosurgery to gain possible functional improving surgery. 12 point reviewed system were reviewed , vital signs were reviewed . Temperature 98, BP 103/44 . stage 4 sacral ulcer over the sacrum with no tunneling and large area of ulceration with fibrinous exidate and a yellow tissue and a small area of necrosis, wound measures at 11 x 9 cm . Reviewed relevant imaging , including abdominal pelvis Ct which shows soft tissue inflammation and no signs of tunneling or deeper infection. problem list : stage 4 sacral ulcer , chronic back pain , bilateral lower extremity neuropathys, morbid obesity , functioning paraplegia plan would be to continue linazolid and cefapine for 2 more days , Update 07/21: Patient is feeling better and getting wound care , wound appears clean and no tunneling , plan would be to continue linazolid and cefepine for 2 more days , neuro and general surgery do not want to do a debridement or any additional surgery on patients spine , patient can follow up with Dr Donnelly as outpatient update 07/22: no fevers or chills , is awake and stable . Today will be patients last day of linazolid and cefepime and patient will [facility] home to a [facility] where she is expected to continue to receive wound care and then follow up with neurosurgery to attempt to regain mobility Plan: will monitor patient off all antibiotics need close monitoring of hygiene of sacral area, chronic wound care at [facility] facility , follow up with neurosurgery as outpatient to see changes of eligibility of spinal surgery that could improve functional mobility and relieve pressure form sacrum . continue working with physical therapy . Plan discussed with: Patient Dietary Evaluation Review Comments: 1. consider Wiliam BID for wound healing at GFR 78 when pt is off NPO and able to take PO liquids. 2. Consider clinimix as her protein supplement for enchancing wound healing 3. Consider TPN per pharmacy if NPO > 7 days and GI is not accessible. 4. Consider TF Jevity 40ml/hr providing 53g pro and 1152 kcal in 24 hr if run FS. Expected Outcomes/Goals: 1) healed wounds and advance to diet as tolerated if kidney function improves. or 2) Renal Specific diet with 60g protein restriction if GFR further declines.. ARIAS SANDERSON MD Jul 25, 2024 17:11
[2024-07-26 01:00] VITALS: BP 104/54; PULSE 60; RESP 18; TEMP 98.3; O2SAT 94
[2024-07-26 05:00] VITALS: BP 101/58; PULSE 58; RESP 17; TEMP 98; O2SAT 94
[2024-07-26 09:11] VITALS: BP 115/66; PULSE 58; RESP 18; TEMP 98; O2SAT 96
[2024-07-26 16:51] VITALS: BP 107/56; PULSE 64; RESP 18; TEMP 98.3; O2SAT 95
--- NOTE | 2024-07-26 19:26 | DVHPN2 ---
Subjective The patient is seen and examined at bedside. The patient complained of pain. Reviewed: Care Plan, H&P, Labs, Medications, Previous Orders Changes from previous H/P or p: No Changes General: Per HPI Objective Vitals Vital Signs Date Time Temp Pulse Resp B/P (MAP) Pulse Ox O2 Delivery O2 Flow Rate FiO2 07/26/24 16:51 98.3 64 18 107/56 (73) 95 98.3 07/26/24 08:00 Room Air* 0 21 Intake/Output Intake and Output 07/26/24 07:00 Intake Total 1500 ml Output Total 2200 ml Balance -700 ml Intake Oral 1500 ml Output Urine Total 2200 ml # Bowel Movements 2 General Appearance: Alert, Oriented X3, Cooperative HEENT: Atraumatic, PERRLA Cardiovascular: Regular rate, Normal S1, Normal S2 Abdomen: Normal bowel sounds, Soft Musculoskeletal: Normal sensory function, Normal motor function Neuro: Normal gait, Normal speech, Cranial nerves 3-12 NL Skin: Dry, Intact, Wounds (See nurse notes and pictures) Psych/Mental Status: Mental status NL, Mood NL Medications Current Medications Medications Dose Ordered Sig/Mindy Route Start Time Stop Time Status Last Admin Dose Admin Levothyroxine Sodium 50 mcg QAM PO 07/03/24 07:00 07/26/24 06:37 50 MCG Patient Own Medication 1 tab DAILY PO 07/03/24 10:00 Cancel Patient Own Medication 1 tab DAILY PO 07/03/24 10:00 UNV Patient Own Medication 1 tab DAILYPRN PRN PO 07/03/24 10:00 Patient Own Medication 2 tab DAILY PO 07/03/24 10:00 UNV Patient Own Medication 1 tab BID PO 07/02/24 22:00 UNV Patient Own Medication 1 tab DAILY PO 07/03/24 10:00 UNV Ondansetron HCl 4 mg Q4HP PRN IV 07/02/24 13:00 07/03/24 13:28 4 MG Docusate Sodium 100 mg BIDPRN PRN PO 07/02/24 13:00 07/09/24 10:50 100 MG Nitroglycerin 0.4 mg Q5MINP PRN SL 07/02/24 13:00 Atorvastatin Calcium 40 mg HS PO 07/02/24 22:00 07/25/24 21:55 40 MG Cholecalciferol 2,000 unit DAILY PO 07/03/24 10:00 2/9/25 09:01 2,000 UNIT Sertraline HCl 100 mg BID PO 07/02/24 22:00 07/26/24 09:01 100 MG Trazodone HCl 100 mg HS PO 07/03/24 22:00 07/25/24 21:55 100 MG Zolpidem Tartrate 5 mg HSPRN PRN PO 07/04/24 21:00 07/25/24 00:53 5 MG Carisoprodol 350 mg Q8HPRN PRN PO 07/14/24 13:00 07/26/24 12:04 350 MG Pregabalin 100 mg BID PO 07/18/24 22:00 07/26/24 09:01 100 MG Enteral Nutritional Formula 27.5 gm BID PO 07/19/24 22:00 07/26/24 09:02 27.5 GM Docusate Sodium 100 mg BID PO 07/24/24 22:00 07/25/24 21:55 100 MG Hydromorphone HCl 2 mg Q6HP PRN PO 07/24/24 16:00 07/26/24 15:51 2 MG Laboratory Results Laboratory Tests 07/20/24 12:15 Urinalysis Test 07/02/24 11:10 07/18/24 15:20 Urine WBC 5 /hpf (0 - 5) Urine Color Light-yellow (Yellow) Urine Clarity Clear (Clear) Urine pH 6.0 (5.0-9.0) Urine Specific Apex 1.015 (1.001-1.035) Urine Protein Trace (Negative) H Urine Ketones Negative (Negative) Urine Blood Negative /uL (Negative) Urine Nitrite Negative (Negative) Urine Bilirubin Negative (Negative) Urine Urobilinogen Normal mg/dL (Negative) Urine Leukocyte Esterase Negative /uL (Negative) Urine RBC 3 /hpf (0 - 4) Urine Microscopic WBC 1 /HPF (0-5) Urine Squamous Epithelial Cells Few /hpf (<5) Urine Bacteria None seen /hpf (None Seen) Urine Mucus Few (None Seen) Urine Glucose Normal mg/dL (Normal) Microbiology Microbiology Date/Time Source Procedure Growth Status 07/02/24 14:25 Buttock Gram Stain - Final Complete 07/02/24 14:25 Wound Culture - Final Proteus mirabilis Methicillin Resistant S.aureus Complete 1/16/25 11:10 Urine - [place] Urine Culture - Final Enterococcus faecium VRE Complete Labs and/or images reviewed: Labs reviewed by me Assessment/Plan Assessment/Plan -sepsis, rule out -metabolic encephalopathy -stage III pressure with MDRO -bilateral lower extremity paresthesia -history of substance abuse -obesity -acute kidney injury -pain seeking behavior Plan: Continuing current management. Continuing with IV Dilaudid. Antibiotic course had been complete. Patient was cleared by surgeon. No surgery intervention. Waiting for discharge with group home cane Continuing with physical therapy This medical document was created using an electronic medical record system with [employer] direct computerized dictation system. Although this document has been carefully reviewed, there may still be some phonetic and typographical errors. These areas are purely typographical due to imperfections of the software programs, and do not reflect any compromise in the patient's medical care. Plan discussed with: Patient Date of Service: Jul 26, 2024 Billing Provider: LUIS SAGASTUME MD Common Visit Codes: [id number] INP/OBS CARE(HIGH) LUIS SAGASTUME MD Jul 26, 2024 19:26
[2024-07-26 21:00] VITALS: BP 110/57; PULSE 63; RESP 18; TEMP 99.2; O2SAT 93
[2024-07-26] MEDS: LOPERAMIDE HCL 2 MG CAP/TAB PO PRN (22:26)
--- NOTE | 2024-07-26 22:42 | DVHPN2 ---
Consult Progress Note Date Seen: Jul 25, 2024 Objective vital signs Vital Sign Date Time Temp Pulse Resp B/P (MAP) Pulse Ox O2 Delivery O2 Flow Rate FiO2 07/26/24 20:00 Room Air* 0 21 07/26/24 16:51 98.3 64 18 107/56 (73) 95 98.3 Total Intake and Output 07/25/24 07/25/24 07/26/24 15:00 23:00 07:00 Intake Total 800 ml 700 ml Output Total 1000 ml 1200 ml Balance -200 ml -500 ml medications Current Medications Medications Dose Ordered Sig/Mindy Route Start Time Stop Time Status Last Admin Dose Admin Levothyroxine Sodium 50 mcg QAM PO 07/03/24 07:00 07/26/24 06:37 50 MCG Patient Own Medication 1 tab DAILY PO 07/03/24 10:00 Cancel Patient Own Medication 1 tab DAILY PO 07/03/24 10:00 UNV Patient Own Medication 1 tab DAILYPRN PRN PO 07/03/24 10:00 Patient Own Medication 2 tab DAILY PO 07/03/24 10:00 UNV Patient Own Medication 1 tab BID PO 07/02/24 22:00 UNV Patient Own Medication 1 tab DAILY PO 07/03/24 10:00 UNV Ondansetron HCl 4 mg Q4HP PRN IV 07/02/24 13:00 07/03/24 13:28 4 MG Docusate Sodium 100 mg BIDPRN PRN PO 07/02/24 13:00 07/09/24 10:50 100 MG Nitroglycerin 0.4 mg Q5MINP PRN SL 07/02/24 13:00 Atorvastatin Calcium 40 mg HS PO 07/02/24 22:00 07/26/24 22:26 40 MG Cholecalciferol 2,000 unit DAILY PO 07/03/24 10:00 07/26/24 09:01 2,000 UNIT Sertraline HCl 100 mg BID PO 07/02/24 22:00 07/26/24 22:26 100 MG Trazodone HCl 100 mg HS PO 07/03/24 22:00 07/26/24 22:26 100 MG Zolpidem Tartrate 5 mg HSPRN PRN PO 07/04/24 21:00 07/25/24 00:53 5 MG Carisoprodol 350 mg Q8HPRN PRN PO 07/14/24 13:00 07/26/24 22:25 350 MG Pregabalin 100 mg BID PO 07/18/24 22:00 07/26/24 22:26 100 MG Enteral Nutritional Formula 27.5 gm BID PO 07/19/24 22:00 07/26/24 09:02 27.5 GM Docusate Sodium 100 mg BID PO 07/24/24 22:00 07/25/24 21:55 100 MG Hydromorphone HCl 2 mg Q6HP PRN PO 07/24/24 16:00 07/26/24 22:26 2 MG Loperamide HCl 2 mg PRN PRN PO 07/26/24 22:00 07/26/24 22:26 2 MG laboratory and microbiology Laboratory Tests 07/20/24 12:15 Test 07/20/24 12:15 Range/Units Serum Glucose 100 74-106 mg/dL Problem List/Assessment/Plan Problem List/Assessment/Plan Attending Addendum: Case discussed with Dr. Sharpe. at the time of visit. Seen by Dr Sharpe and reviewed assesment and plan . Patient is a female with a past medical history of hypertension, CDK , hyperlipidema, hyperthyroidism. found on the floor and altered when she was admitted on 06/27/24 and has found sacral ulcer with deep tissue stage 4 , fibrinous exidate . 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 initially on vancomycin and zosyn but switched to cefapine and linazolid and has been on that for 12 days . has not been able to walk for 3 months and is largely bedbound due to leg numbness and related to spinal stenosis which patient has not followed up with neurosurgery to gain possible functional improving surgery. 12 point reviewed system were reviewed , vital signs were reviewed . Temperature 98, BP 103/44 . stage 4 sacral ulcer over the sacrum with no tunneling and large area of ulceration with fibrinous exidate and a yellow tissue and a small area of necrosis, wound measures at 11 x 9 cm . Reviewed relevant imaging , including abdominal pelvis Ct which shows soft tissue inflammation and no signs of tunneling or deeper infection. problem list : stage 4 sacral ulcer , chronic back pain , bilateral lower extremity neuropathys, morbid obesity , functioning paraplegia plan would be to continue linazolid and cefapine for 2 more days , Update 07/21: Patient is feeling better and getting wound care , wound appears clean and no tunneling , plan would be to continue linazolid and cefepine for 2 more days , neuro and general surgery do not want to do a debridement or any additional surgery on patients spine , patient can follow up with Dr Donnelly as outpatient update 07/22: no fevers or chills , is awake and stable . Today will be patients last day of linazolid and cefepime and patient will go home to a [facility]-way facility where she is expected to continue to receive wound care and then follow up with neurosurgery to attempt to regain mobility update 07/25: not having any pain on her bottom , she is 0/5 on strength for both lower extremities . Patient is awaiting placement and getting wound care here with her bottom being cleaned regularly Plan: will monitor patient off all antibiotics need close monitoring of hygiene of sacral area, chronic wound care at [facility] facility , follow up with neurosurgery as outpatient to see changes of eligibility of spinal surgery that could improve functional mobility and relieve pressure form sacrum . continue working with physical therapy . Plan discussed with: Patient Dietary Evaluation Review Comments: 1. consider Wiliam BID for wound healing at GFR 78 when pt is off NPO and able to take PO liquids. 2. Consider clinimix as her protein supplement for enchancing wound healing 3. Consider TPN per pharmacy if NPO > 7 days and GI is not accessible. 4. Consider TF Jevity 40ml/hr providing 53g pro and 1152 kcal in 24 hr if run FS. Expected Outcomes/Goals: 1) healed wounds and advance to diet as tolerated if kidney function improves. or 2) Renal Specific diet with 60g protein restriction if GFR further declines.. ARIAS SANDERSON MD Jul 26, 2024 22:42
--- NOTE | 2024-07-26 22:48 | DVHPN2 ---
Consult Progress Note Date Seen: Jul 26, 2024 Objective vital signs Vital Sign Date Time Temp Pulse Resp B/P (MAP) Pulse Ox O2 Delivery O2 Flow Rate FiO2 07/26/24 20:00 Room Air* 0 21 07/26/24 16:51 98.3 64 18 107/56 (73) 95 98.3 Total Intake and Output 07/25/24 07/25/24 07/26/24 15:00 23:00 07:00 Intake Total 800 ml 700 ml Output Total 1000 ml 1200 ml Balance -200 ml -500 ml medications Current Medications Medications Dose Ordered Sig/Mindy Route Start Time Stop Time Status Last Admin Dose Admin Levothyroxine Sodium 50 mcg QAM PO 07/03/24 07:00 07/26/24 06:37 50 MCG Patient Own Medication 1 tab DAILY PO 07/03/24 10:00 Cancel Patient Own Medication 1 tab DAILY PO 07/03/24 10:00 UNV Patient Own Medication 1 tab DAILYPRN PRN PO 07/03/24 10:00 Patient Own Medication 2 tab DAILY PO 07/03/24 10:00 UNV Patient Own Medication 1 tab BID PO 07/02/24 22:00 UNV Patient Own Medication 1 tab DAILY PO 07/03/24 10:00 UNV Ondansetron HCl 4 mg Q4HP PRN IV 07/02/24 13:00 07/03/24 13:28 4 MG Docusate Sodium 100 mg BIDPRN PRN PO 07/02/24 13:00 07/09/24 10:50 100 MG Nitroglycerin 0.4 mg Q5MINP PRN SL 07/02/24 13:00 Atorvastatin Calcium 40 mg HS PO 07/02/24 22:00 07/26/24 22:26 40 MG Cholecalciferol 2,000 unit DAILY PO 07/03/24 10:00 07/26/24 09:01 2,000 UNIT Sertraline HCl 100 mg BID PO 07/02/24 22:00 07/26/24 22:26 100 MG Trazodone HCl 100 mg HS PO 07/03/24 22:00 07/26/24 22:26 100 MG Zolpidem Tartrate 5 mg HSPRN PRN PO 07/04/24 21:00 07/25/24 00:53 5 MG Carisoprodol 350 mg Q8HPRN PRN PO 07/14/24 13:00 07/26/24 22:25 350 MG Pregabalin 100 mg BID PO 07/18/24 22:00 07/26/24 22:26 100 MG Enteral Nutritional Formula 27.5 gm BID PO 07/19/24 22:00 07/26/24 09:02 27.5 GM Docusate Sodium 100 mg BID PO 07/24/24 22:00 07/25/24 21:55 100 MG Hydromorphone HCl 2 mg Q6HP PRN PO 07/24/24 16:00 07/26/24 22:26 2 MG Loperamide HCl 2 mg PRN PRN PO 07/26/24 22:00 07/26/24 22:26 2 MG laboratory and microbiology Laboratory Tests 07/20/24 12:15 Test 07/20/24 12:15 Range/Units Serum Glucose 100 74-106 mg/dL Problem List/Assessment/Plan Problem List/Assessment/Plan Attending Addendum: Patient is a female with a past medical history of hypertension, CDK , hyperlipidema, hyperthyroidism. found on the floor and altered when she was admitted on 06/27/24 and has found sacral ulcer with deep tissue stage 4 , fibrinous exidate . 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 initially on vancomycin and zosyn but switched to cefapine and linazolid and has been on that for 12 days . has not been able to walk for 3 months and is largely bedbound due to leg numbness and related to spinal stenosis which patient has not followed up with neurosurgery to gain possible functional improving surgery. 12 point reviewed system were reviewed , vital signs were reviewed . Temperature 98, BP 103/44 . stage 4 sacral ulcer over the sacrum with no tunneling and large area of ulceration with fibrinous exidate and a yellow tissue and a small area of necrosis, wound measures at 11 x 9 cm . Reviewed relevant imaging , including abdominal pelvis Ct which shows soft tissue inflammation and no signs of tunneling or deeper infection. problem list : stage 4 sacral ulcer , chronic back pain , bilateral lower extremity neuropathys, morbid obesity , functioning paraplegia plan would be to continue linazolid and cefapine for 2 more days , Update 07/21: Patient is feeling better and getting wound care , wound appears clean and no tunneling , plan would be to continue linazolid and cefepine for 2 more days , neuro and general surgery do not want to do a debridement or any additional surgery on patients spine , patient can follow up with Dr Donnelly as outpatient update 07/22: no fevers or chills , is awake and stable . Today will be patients last day of linazolid and cefepime and patient will go home to a halfway facility where she is expected to continue to receive wound care and then follow up with neurosurgery to attempt to regain mobility update 07/25: not having any pain on her bottom , she is 0/5 on strength for both lower extremities . Patient is awaiting placement and getting wound care here with her bottom being cleaned regularly update 07/26: Sleeping and not having any discomfort , no hypoxia but is snoring , normal active bowel sounds. sacral wound is stable without any drainage . doing well off all antibiotics . no longer being seen by Dr Sharpe Plan: will monitor patient off all antibiotics need close monitoring of hygiene of sacral area, chronic wound care at [facility] facility , follow up with neurosurgery as outpatient to see changes of eligibility of spinal surgery that could improve functional mobility and relieve pressure form sacrum . continue working with physical therapy . Plan discussed with: Patient Dietary Evaluation Review Comments: 1. consider Wiliam BID for wound healing at GFR 78 when pt is off NPO and able to take PO liquids. 2. Consider clinimix as her protein supplement for enchancing wound healing 3. Consider TPN per pharmacy if NPO > 7 days and GI is not accessible. 4. Consider TF Jevity 40ml/hr providing 53g pro and 1152 kcal in 24 hr if run FS. Expected Outcomes/Goals: 1) healed wounds and advance to diet as tolerated if kidney function improves. or 2) Renal Specific diet with 60g protein restriction if GFR further declines.. ARIAS SANDERSON MD Jul 26, 2024 22:48
[2024-07-27] VITALS (7 sets, daily range): BP systolic 102–112; BP diastolic 51–149; PULSE 56–114; RESP 18; TEMP 97.8–98.1; O2SAT 53–100
--- NOTE | 2024-07-27 12:02 | DVHDS2 ---
Discharge Summary Date of Admission Jul 02, 2024 at 12:47 Date of Discharge: Jul 08, 2024 Admitting Diagnosis Metabolic encephalopathy Labs/Diagnostic Data: Laboratory Results Test 07/20/24 12:15 07/18/24 15:20 07/08/24 05:13 07/07/24 05:07 White Blood Count 5.9 10^3/uL (4.4-10.8) Red Blood Count 3.85 10^6/uL (4.0-5.20) Hemoglobin 10.7 g/dL (12.2-16.2) Hematocrit 32.1 % (36.0-46.0) Mean Corpuscular Volume 83.4 fL (80.0-100.0) Mean Corpuscular Hemoglobin 27.8 pg (28.0-32.0) Mean Corpuscular Hemoglobin Concent 33.4 g/dL (32.0-36.0) Red Cell Distribution Width 15.4 % (11.8-14.3) Platelet Count 191 10^3/uL (140-450) Mean Platelet Volume 6.9 fL (6.9-10.8) Neutrophils (%) (Auto) 64.0 % (37.0-80.0) Lymphocytes (%) (Auto) 26.3 % (10.0-50.0) Monocytes (%) (Auto) 5.1 % (0.0-12.0) Eosinophils (%) (Auto) 3.9 % (0.0-7.0) Basophils (%) (Auto) 0.7 % (0.0-2.0) Neutrophils # (Auto) 3.8 10 ^3/uL (1.6-8.6) Lymphocytes # (Auto) 1.5 10 ^3/uL (0.4-5.4) Monocytes # (Auto) 0.3 10 ^3/uL (0-1.3) Eosinophils # (Auto) 0.2 10 ^3/uL (0-0.8) Basophils # (Auto) 0 10 ^3/uL (0-0.2) Nucleated Red Blood Cells 0.0 % Prothrombin Time 10.7 sec (9.3-11.8) Prothrombin Time INR 1.01 (0.9-1.15) Activated Partial Thromboplast Time 27.6 SEC (24.5-34.5) Sodium Level 137 mmol/L (136-145) Potassium Level 5.0 mmol/L (3.5-5.1) Chloride Level 102 mmol/L (98-107) Carbon Dioxide Level 29 mmol/L (20-31) Anion Gap 6 (5-15) Blood Urea Nitrogen 41 mg/dL (9-23) Creatinine 1.37 mg/dL (0.550-1.02) Glomerular Filtration Rate Calc 45 mL/min (>90) BUN/Creatinine Ratio 29.9 (10.0-20.0) Serum Glucose 100 mg/dL (74-106) Calcium Level 9.5 mg/dL (8.7-10.4) Urine Color Light-yellow (Yellow) Urine Clarity Clear (Clear) Urine pH 6.0 (5.0-9.0) Urine Specific [place] 1.015 (1.001-1.035) Urine Protein Trace (Negative) Urine Ketones Negative (Negative) Urine Blood Negative /uL (Negative) Urine Nitrite Negative (Negative) Urine Bilirubin Negative (Negative) Urine Urobilinogen Normal mg/dL (Negative) Urine Leukocyte Esterase Negative /uL (Negative) Urine RBC 3 /hpf (0 - 4) Urine Microscopic WBC 1 /HPF (0-5) Urine Squamous Epithelial Cells Few /hpf (<5) Urine Bacteria None seen /hpf (None Seen) Urine Mucus Few (None Seen) Urine Glucose Normal mg/dL (Normal) Vancomycin Level Trough 13.7 ug/mL (5-10) Random Vancomycin Level 12.7 ug/mL (5-10) Test 07/03/24 07:30 07/02/24 14:54 07/02/24 13:30 07/02/24 11:30 Total Bilirubin 0.5 mg/dL (0.2-1.0) Aspartate Amino Transferase (AST) 10 U/L (13-40) Alanine Aminotransferase (ALT) 13 U/L (7-40) Alkaline Phosphatase 124 U/L (46-116) Total Protein 6.5 g/dL (5.7-8.2) Albumin 3.9 g/dL (3.2-4.8) Vitamin B1 Level 145.3 nmol/L (66.5-200.0) Vitamin D 25-Hydroxy 26 ng/mL (.) 25-Hydroxy Vitamin D2 <1.0 ng/mL (.) 25-Hydroxy Vitamin D3 26 ng/mL (.) Creatine Kinase 233 U/L (34-145) Vitamin B12 Level 985 pg/mL (211-911) Thyroid Stimulating Hormone (TSH) 1.15 uIU/mL (0.55-4.78) Plasma/Serum Blood Alcohol < 3.0 mg/dL (<10) Urine Opiates Screen Neg (NEGATIVE) Urine Fentanyl Screen Neg (NEGATIVE) Urine Barbiturates Screen Neg (NEGATIVE) Urine Phencyclidine Screen Neg (NEGATIVE) Urine Amphetamines Screen Neg (NEGATIVE) Urine Benzodiazepines Screen Neg (NEGATIVE) Urine Cocaine Screen Neg (NEGATIVE) Urine Cannabinoids Screen Neg (NEGATIVE) Test 07/02/24 11:10 07/01/24 22:30 Urine WBC 5 /hpf (0 - 5) Lipase 31 U/L (12-53) Other Laboratory Tests 07/20/24 12:15 Brief Hx & Hospital Course: History of Present Illness 54-year-old female past medical history anemia CK F hypertension gallbladder surgery hysterectomy depression hyperlipidemia hypothyroidism chief complaint had to really ED records this speak with the nurse but they stated that she was found down on the ground. Patient lives with a sister and family lost contact with them so since they were not able to get a contact with the sister they had sent the police department for a welfare check. According to the approximate timing patient was likely laying on the floor for three days and not able to get up. Patient was found in her bedroom but her sister was in liver him on the floor when officers arrived Patient also was found to have a stage III pressure ulcer. There was no drainage from the wound but there is some erythema. When evaluating patient's labs and imaging CBC was unremarkable CMP appears unremarkable CT scan of the brain unremarkable CT scan abdomen pelvis shows colitis diverticulosis dilated common bile duct might be related to her gallbladder surgery she also has a old scarring to her buttocks wound according to the CT scan no abscess noted. Small hiatal hernia. Patient appears not safe for discharge to go home. Patient currently delirious and not able to care for herself. We will likely need placement in his sister who is her caregiver had . We will consult social worker school for assistance with discharge planning. Course of hospitalization: Infectious disease consultation was obtained regarding patient's sacral wounds. Patient was also found to have positive cultures for wound and urine including following organisms: VRE in the urine, Proteus mirabilis, MRSA to sacral wound. Patient was placed on antibiotic therapy per Infectious Disease. Patient was white blood cell count is normal. Surgical consultation was obtained to assess wound for possible debridement, with continue treatment nonsurgical recommended. Patient was received full course of antibiotic therapy. PT consultation was obtained. Given the patient's history of lower back spinal stenosis, patient had difficulties with rehab. Patient was now alert and oriented and agreeable to be discharged to [facility]. She was instructed to follow up with her PCP Dr. Eloy Gutierrez, at next earliest appointment and to obtain referral for spinal surgery. Patient was agreeable with discharge plan. All questions answered. Physical examination General: Alert and Oriented x3. No acute distress. Well-nourished. Eyes: EOMI. Anicteric. HENT: Moist mucous membranes. Lungs: Clear to auscultation bilaterally. No accessory muscle use. Cardiovascular: Regular rate and rhythm. No murmur. No JVD. Abdomen: Soft, non-tender and non-distended. No palpable masses. Extremities: No edema. Non-tender. Skin: No rashes or lesions. Warm. Neurologic: No focal neurological deficits. CN II-XII grossly intact, but not individually tested. Psychiatric: Cooperative. Appropriate mood and affect. Total time spent with patient discussing and formulating plan of care: 35 minutes. This medical document was created using an electronic medical record system with [employer] dictation system. Although this document has been carefully reviewed, there may still be some phonetic and typographical errors. These areas are purely typographical due to imperfections of the software programs, and do not reflect any compromise in the patient's medical care. Consults/Reason for consult Infectious disease: MDRO Surgery: Sacral wound Condition at Discharge: Guarded Final Diagnosis/Problems List Toxic /metabolic encephalopathy, due to sepsis as well as controlled substance use -sepsis -metabolic encephalopathy -stage III pressure alter with MDRO -bilateral lower extremity paresthesia -history of substance abuse -obesity -acute kidney injury -pain seeking behavior Discharge Disposition: [facility] SNF Discharge Physician in charge at time of: Dr Gilman Will this Physician continue t: Yes Discharge Instruct/Medications Diet: Cardiac 2g Na,low cholest Activity: No Restrictions, As Tolerated Follow Up/Referral: PCP in 1-2 weeks Medications: Refer to medication reconciliation form 36 Discharge Statement: "Patient was advised to return to the ER or call 911 if any headaches, dizziness, shortness of breath, chest pain, abdominal pain, bleeding, fevers, or worsening of medical condition. Patient was counseled about treatment plan, medications, possible side effects, patientverbalized understanding. All questions were answered to the best of my ability. This discharge took greater then 30 minutes in planning, reviewing documentation, counseling the patient, and discussing with other team members." ASSESSMENT ASSESSMENT Assessment Date of Service: Jul 27, 2024 Billing Provider: ENA LAMAS NP Common Visit Codes: [id number] DISCH DAY >30min ENA LAMAS NP Jul 27, 2024 12:02
--- NOTE | 2024-07-27 19:40 | DVHPN2 ---
Reviewed: Care Plan, H&P, Labs, Medications, Previous Orders Changes from previous H/P or p: No Changes General: Per HPI Objective Vitals Vital Signs Date Time Temp Pulse Resp B/P (MAP) Pulse Ox O2 Delivery O2 Flow Rate FiO2 07/27/24 17:00 98.0 60 18 106/56 (73) 94 98.0 07/27/24 08:00 Room Air* 0 21 Intake/Output Intake and Output 07/27/24 07:00 Intake Total 600 ml Output Total 1450 ml Balance -850 ml Intake Oral 600 ml Output Urine Total 1450 ml # Bowel Movements 1 General Appearance: Alert, Oriented X3, Cooperative HEENT: Atraumatic Cardiovascular: Regular rate, Normal S1, Normal S2 Abdomen: Normal bowel sounds, Soft Musculoskeletal: Normal sensory function, Normal motor function Neuro: Normal gait, Normal speech, Cranial nerves 3-12 NL Skin: Dry, Intact, Wounds (See nurse notes and pictures) Psych/Mental Status: Mental status NL, Mood NL Medications Current Medications Medications Dose Ordered Sig/Mindy Route Start Time Stop Time Status Last Admin Dose Admin Levothyroxine Sodium 50 mcg QAM PO 07/03/24 07:00 07/27/24 06:00 50 MCG Patient Own Medication 1 tab DAILY PO 07/03/24 10:00 Cancel Patient Own Medication 1 tab DAILY PO 07/03/24 10:00 UNV Patient Own Medication 1 tab DAILYPRN PRN PO 07/03/24 10:00 Patient Own Medication 2 tab DAILY PO 07/03/24 10:00 UNV Patient Own Medication 1 tab BID PO 07/02/24 22:00 UNV Patient Own Medication 1 tab DAILY PO 07/03/24 10:00 UNV Ondansetron HCl 4 mg Q4HP PRN IV 07/02/24 13:00 07/03/24 13:28 4 MG Docusate Sodium 100 mg BIDPRN PRN PO 07/02/24 13:00 07/09/24 10:50 100 MG Nitroglycerin 0.4 mg Q5MINP PRN SL 07/02/24 13:00 Atorvastatin Calcium 40 mg HS PO 07/02/24 22:00 07/26/24 22:26 40 MG Cholecalciferol 2,000 unit DAILY PO 07/03/24 10:00 07/27/24 09:13 2,000 UNIT Sertraline HCl 100 mg BID PO 07/02/24 22:00 07/27/24 09:13 100 MG Trazodone HCl 100 mg HS PO 07/03/24 22:00 07/26/24 22:26 100 MG Zolpidem Tartrate 5 mg HSPRN PRN PO 07/04/24 21:00 07/27/24 01:23 5 MG Carisoprodol 350 mg Q8HPRN PRN PO 07/14/24 13:00 07/27/24 14:51 350 MG Pregabalin 100 mg BID PO 07/18/24 22:00 07/27/24 09:12 100 MG Enteral Nutritional Formula 27.5 gm BID PO 07/19/24 22:00 07/27/24 09:10 27.5 GM Docusate Sodium 100 mg BID PO 07/24/24 22:00 07/25/24 21:55 100 MG Hydromorphone HCl 2 mg Q6HP PRN PO 07/24/24 16:00 07/27/24 16:09 2 MG Loperamide HCl 2 mg PRN PRN PO 07/26/24 22:00 07/27/24 14:51 2 MG Laboratory Results Laboratory Tests 07/20/24 12:15 Urinalysis Test 07/02/24 11:10 07/18/24 15:20 Urine WBC 5 /hpf (0 - 5) Urine Color Light-yellow (Yellow) Urine Clarity Clear (Clear) Urine pH 6.0 (5.0-9.0) Urine Specific [place] 1.015 (1.001-1.035) Urine Protein Trace (Negative) H Urine Ketones Negative (Negative) Urine Blood Negative /uL (Negative) Urine Nitrite Negative (Negative) Urine Bilirubin Negative (Negative) Urine Urobilinogen Normal mg/dL (Negative) Urine Leukocyte Esterase Negative /uL (Negative) Urine RBC 3 /hpf (0 - 4) Urine Microscopic WBC 1 /HPF (0-5) Urine Squamous Epithelial Cells Few /hpf (<5) Urine Bacteria None seen /hpf (None Seen) Urine Mucus Few (None Seen) Urine Glucose Normal mg/dL (Normal) Microbiology Microbiology Date/Time Source Procedure Growth Status 07/26/24 22:00 Stool Stool Culture - Preliminary Resulted 07/26/24 22:00 Stool Shiga Toxin I & II - Final Resulted 07/02/24 14:25 Buttock Gram Stain - Final Complete 07/02/24 14:25 Wound Culture - Final Proteus mirabilis Methicillin Resistant S.aureus Complete 07/02/24 11:10 Urine - [place] Urine Culture - Final Enterococcus faecium VRE Complete Assessment/Plan Assessment/Plan 54-year-old female past medical history anemia CK F hypertension gallbladder surgery hysterectomy depression hyperlipidemia hypothyroidism chief complaint had to really ED records this speak with the nurse but they stated that she was found down on the ground. Patient lives with a sister and family lost contact with them so since they were not able to get a contact with the sister they had sent the police department for a welfare check. According to the approximate timing patient was likely laying on the floor for three days and not able to get up. Patient was found in her bedroom but her sister was in liver him on the floor when officers arrived Patient also was found to have a stage III pressure ulcer. There was no drainage from the wound but there is some erythema. When evaluating patient's labs and imaging CBC was unremarkable CMP appears unremarkable CT scan of the brain unremarkable CT scan abdomen pelvis shows colitis diverticulosis dilated common bile duct might be related to her gallbladder surgery she also has a old scarring to her buttocks wound according to the CT scan no abscess noted. Small hiatal hernia. Patient appears not safe for discharge to go home. Patient currently delirious and not able to care for herself. We will likely need placement in his sister who is her caregiver had . acute metabolic encephalopathy (last time was from benzo toxicity) can be from sepsis from buttocks wound acute colitis acute elevated in cbd can be from gallstone removal acute stage 3 ulcer with erythema and drainage ct scan no nec fascitis or gas gangrene acute functional quadriplegia chronic problems 07/03/2024: continue with current care, pt complains of back pain and request specially Percocet 10mg, stating that she takes it 5 times a day at home and requested for Ambien 10mg (specific dose) for sleeping request PT/OT to evaluate pt started on diet and able to tolerate well. 07/04/2024: continue with current care. PT/OT to evaluate pt 07/05/2024: request case management to place pt at a SNF 07/06/2024: pending placement 07/07/2024: pending placement to SNF 07/08/2024: pending SNF 07/09/2024: pending SNF 07/10/2024: continue current care Plan discussed with: Other (nursing staff) Date of Service: Jul 11, 2024 Billing Provider: MARQUISE SOTOMAYOR DO Common Visit Codes: [id number] INP/OBS CARE(HIGH) MARQUISE SOTOMAYOR DO Jul 27, 2024 19:40
[2024-07-28 01:00] VITALS: BP 104/49; PULSE 54; RESP 17; TEMP 97.9; O2SAT 92
[2024-07-28 05:00] VITALS: BP 113/48; PULSE 57; RESP 18; TEMP 98.1; O2SAT 95
[2024-07-28 09:00] VITALS: BP 130/54; PULSE 57; RESP 18; TEMP 97.9; O2SAT 96
[2024-07-28 13:00] VITALS: BP 122/50; PULSE 59; RESP 20; TEMP 98.8; O2SAT 91
--- NOTE | 2024-07-28 15:03 | DVHPN2 ---
Subjective Patient continues to report having bilateral leg pain. Reviewed: Care Plan, H&P, Labs, Medications, Previous Orders Changes from previous H/P or p: No Changes General: Per HPI Objective Vitals Vital Signs Date Time Temp Pulse Resp B/P (MAP) Pulse Ox O2 Delivery O2 Flow Rate FiO2 07/28/24 13:00 98.8 59 20 122/50 (74) 91 98.8 07/28/24 08:00 Room Air* 0 21 Intake/Output Intake and Output 07/28/24 06:59 Intake Total 1650 ml Output Total 2200 ml Balance -550 ml Intake Oral 1650 ml Output Urine Total 2200 ml # Bowel Movements 2 General Appearance: Alert, Oriented X3, Cooperative HEENT: Atraumatic Cardiovascular: Regular rate, Normal S1, Normal S2 Abdomen: Normal bowel sounds, Soft Musculoskeletal: Normal sensory function, Normal motor function Neuro: Normal gait, Normal speech, Cranial nerves 3-12 NL Skin: Dry, Intact, Wounds (See nurse notes and pictures) Psych/Mental Status: Mental status NL, Mood NL Medications Current Medications Medications Dose Ordered Sig/Mindy Route Start Time Stop Time Status Last Admin Dose Admin Levothyroxine Sodium 50 mcg QAM PO 07/03/24 07:00 07/28/24 06:01 50 MCG Patient Own Medication 1 tab DAILY PO 07/03/24 10:00 Cancel Patient Own Medication 1 tab DAILY PO 07/03/24 10:00 UNV Patient Own Medication 1 tab DAILYPRN PRN PO 07/03/24 10:00 Patient Own Medication 2 tab DAILY PO 07/03/24 10:00 UNV Patient Own Medication 1 tab BID PO 07/02/24 22:00 UNV Patient Own Medication 1 tab DAILY PO 07/03/24 10:00 UNV Ondansetron HCl 4 mg Q4HP PRN IV 07/02/24 13:00 07/03/24 13:28 4 MG Docusate Sodium 100 mg BIDPRN PRN PO 07/02/24 13:00 07/09/24 10:50 100 MG Nitroglycerin 0.4 mg Q5MINP PRN SL 07/02/24 13:00 Atorvastatin Calcium 40 mg HS PO 07/02/24 22:00 07/27/24 21:37 40 MG Cholecalciferol 2,000 unit DAILY PO 07/03/24 10:00 07/28/24 10:33 2,000 UNIT Sertraline HCl 100 mg BID PO 07/02/24 22:00 07/28/24 10:32 100 MG Trazodone HCl 100 mg HS PO 07/03/24 22:00 07/27/24 21:37 100 MG Zolpidem Tartrate 5 mg HSPRN PRN PO 07/04/24 21:00 07/28/24 00:11 5 MG Carisoprodol 350 mg Q8HPRN PRN PO 07/14/24 13:00 07/28/24 06:01 350 MG Pregabalin 100 mg BID PO 07/18/24 22:00 07/28/24 10:32 100 MG Enteral Nutritional Formula 27.5 gm BID PO 07/19/24 22:00 07/28/24 10:37 27.5 GM Docusate Sodium 100 mg BID PO 07/24/24 22:00 07/25/24 21:55 100 MG Hydromorphone HCl 2 mg Q6HP PRN PO 07/24/24 16:00 07/28/24 10:34 2 MG Loperamide HCl 2 mg PRN PRN PO 07/26/24 22:00 07/27/24 21:53 2 MG Laboratory Results Laboratory Tests 07/20/24 12:15 Urinalysis Test 07/02/24 11:10 07/18/24 15:20 Urine WBC 5 /hpf (0 - 5) Urine Color Light-yellow (Yellow) Urine Clarity Clear (Clear) Urine pH 6.0 (5.0-9.0) Urine Specific [place] 1.015 (1.001-1.035) Urine Protein Trace (Negative) H Urine Ketones Negative (Negative) Urine Blood Negative /uL (Negative) Urine Nitrite Negative (Negative) Urine Bilirubin Negative (Negative) Urine Urobilinogen Normal mg/dL (Negative) Urine Leukocyte Esterase Negative /uL (Negative) Urine RBC 3 /hpf (0 - 4) Urine Microscopic WBC 1 /HPF (0-5) Urine Squamous Epithelial Cells Few /hpf (<5) Urine Bacteria None seen /hpf (None Seen) Urine Mucus Few (None Seen) Urine Glucose Normal mg/dL (Normal) Microbiology Microbiology Date/Time Source Procedure Growth Status 07/26/24 22:00 Stool Stool Culture - Final Complete 07/26/24 22:00 Stool Shiga Toxin I & II - Final Complete 07/02/24 14:25 Buttock Gram Stain - Final Complete 07/02/24 14:25 Wound Culture - Final Proteus mirabilis Methicillin Resistant S.aureus Complete 07/02/24 11:10 Urine - [place] Urine Culture - Final Enterococcus faecium VRE Complete Labs and/or images reviewed: Labs reviewed by me, Image(s) reviewed by me Assessment/Plan Assessment/Plan Impression: -sepsis, rule out -metabolic encephalopathy -stage III pressure alter with MDRO -bilateral lower extremity paresthesia -history of substance abuse -obesity -acute kidney injury -pain seeking behavior Plan: Events: Patient continues to be waiting for [facility] facility bed. Re- evaluate wound. Continue current plan of care. -antibiotics discontinued -social service consultation for discharge planning -continue current pain management -PT consultation -Social consult for discharge plan Total time spent with patient discussing and formulating plan of care: 35 minutes. This medical document was created using an electronic medical record system with [employer] dictation system. Although this document has been carefully reviewed, there may still be some phonetic and typographical errors. These areas are purely typographical due to imperfections of the software programs, and do not reflect any compromise in the patient's medical care. Plan discussed with: Patient, Other (RN) Date of Service: Jul 28, 2024 Billing Provider: ENA LAMAS NP Common Visit Codes: [id number] INP/OBS CARE(HIGH) ENA LAMAS NP Jul 28, 2024 15:03
[2024-07-28 17:00] VITALS: BP 132/51; PULSE 61; RESP 16; TEMP 98.4; O2SAT 95
[2024-07-28 21:00] VITALS: BP 108/46; PULSE 61; RESP 17; TEMP 98.9; TEMP 99.1; O2SAT 93
[2024-07-29] VITALS (8 sets, daily range): BP systolic 100–119; BP diastolic 40–56; PULSE 52–61; RESP 16–18; TEMP 97.9–99; O2SAT 92–96
--- NOTE | 2024-07-29 14:44 | DVHPN2 ---
Subjective Patient continues to report having bilateral leg pain. Reviewed: Care Plan, H&P, Labs, Medications, Previous Orders Changes from previous H/P or p: No Changes General: Per HPI Objective Vitals Vital Signs Date Time Temp Pulse Resp B/P (MAP) Pulse Ox O2 Delivery O2 Flow Rate FiO2 07/29/24 08:48 99.0 52 16 114/51 (72) 92 99.0 07/28/24 20:00 Room Air* 0 21 Intake/Output Intake and Output 07/29/24 07:00 Intake Total 2640 ml Output Total 2900 ml Balance -260 ml Intake Oral 2640 ml Output Urine Total 2900 ml General Appearance: Alert, Oriented X3, Cooperative HEENT: Atraumatic Cardiovascular: Regular rate, Normal S1, Normal S2 Abdomen: Normal bowel sounds, Soft Musculoskeletal: Normal sensory function, Normal motor function Neuro: Normal gait, Normal speech, Cranial nerves 3-12 NL Skin: Dry, Intact, Wounds (See nurse notes and pictures) Psych/Mental Status: Mental status NL, Mood NL Medications Current Medications Medications Dose Ordered Sig/Mindy Route Start Time Stop Time Status Last Admin Dose Admin Levothyroxine Sodium 50 mcg QAM PO 07/03/24 07:00 07/29/24 06:26 50 MCG Patient Own Medication 1 tab DAILY PO 07/03/24 10:00 Cancel Patient Own Medication 1 tab DAILY PO 07/03/24 10:00 UNV Patient Own Medication 1 tab DAILYPRN PRN PO 07/03/24 10:00 Patient Own Medication 2 tab DAILY PO 07/03/24 10:00 UNV Patient Own Medication 1 tab BID PO 07/02/24 22:00 UNV Patient Own Medication 1 tab DAILY PO 07/03/24 10:00 UNV Ondansetron HCl 4 mg Q4HP PRN IV 07/02/24 13:00 07/03/24 13:28 4 MG Docusate Sodium 100 mg BIDPRN PRN PO 07/02/24 13:00 07/09/24 10:50 100 MG Nitroglycerin 0.4 mg Q5MINP PRN SL 07/02/24 13:00 Atorvastatin Calcium 40 mg HS PO 07/02/24 22:00 07/28/24 21:37 40 MG Cholecalciferol 2,000 unit DAILY PO 07/03/24 10:00 07/29/24 11:30 2,000 UNIT Sertraline HCl 100 mg BID PO 07/02/24 22:00 07/29/24 11:29 100 MG Trazodone HCl 100 mg HS PO 07/03/24 22:00 07/28/24 21:38 100 MG Zolpidem Tartrate 5 mg HSPRN PRN PO 07/04/24 21:00 07/29/24 00:11 5 MG Carisoprodol 350 mg Q8HPRN PRN PO 07/14/24 13:00 07/29/24 09:38 350 MG Pregabalin 100 mg BID PO 07/18/24 22:00 07/29/24 11:29 100 MG Enteral Nutritional Formula 27.5 gm BID PO 07/19/24 22:00 07/29/24 11:28 27.5 GM Docusate Sodium 100 mg BID PO 07/24/24 22:00 07/25/24 21:55 100 MG Hydromorphone HCl 2 mg Q6HP PRN PO 07/24/24 16:00 07/29/24 11:48 2 MG Loperamide HCl 2 mg PRN PRN PO 07/26/24 22:00 07/28/24 21:47 2 MG Laboratory Results Laboratory Tests 07/20/24 12:15 Urinalysis Test 07/02/24 11:10 07/18/24 15:20 Urine WBC 5 /hpf (0 - 5) Urine Color Light-yellow (Yellow) Urine Clarity Clear (Clear) Urine pH 6.0 (5.0-9.0) Urine Specific [place] 1.015 (1.001-1.035) Urine Protein Trace (Negative) H Urine Ketones Negative (Negative) Urine Blood Negative /uL (Negative) Urine Nitrite Negative (Negative) Urine Bilirubin Negative (Negative) Urine Urobilinogen Normal mg/dL (Negative) Urine Leukocyte Esterase Negative /uL (Negative) Urine RBC 3 /hpf (0 - 4) Urine Microscopic WBC 1 /HPF (0-5) Urine Squamous Epithelial Cells Few /hpf (<5) Urine Bacteria None seen /hpf (None Seen) Urine Mucus Few (None Seen) Urine Glucose Normal mg/dL (Normal) Microbiology Microbiology Date/Time Source Procedure Growth Status 07/26/24 22:00 Stool Stool Culture - Final Complete 07/26/24 22:00 Stool Shiga Toxin I & II - Final Complete 07/02/24 14:25 Buttock Gram Stain - Final Complete 07/02/24 14:25 Wound Culture - Final Proteus mirabilis Methicillin Resistant S.aureus Complete 07/02/24 11:10 Urine - [place] Urine Culture - Final Enterococcus faecium VRE Complete Labs and/or images reviewed: Labs reviewed by me, Image(s) reviewed by me Assessment/Plan Assessment/Plan Impression: -sepsis, rule out -metabolic encephalopathy -stage III pressure alter with MDRO -bilateral lower extremity paresthesia -history of substance abuse -obesity -acute kidney injury -pain seeking behavior Plan: Events: No events overnight. Patient to be discharged to [facility] today. Continue current treatment -antibiotics discontinued -social service consultation for discharge planning -continue current pain management -PT consultation -Social consult for discharge plan Total time spent with patient discussing and formulating plan of care: 35 minutes. This medical document was created using an electronic medical record system with [employer] dictation system. Although this document has been carefully reviewed, there may still be some phonetic and typographical errors. These areas are purely typographical due to imperfections of the software programs, and do not reflect any compromise in the patient's medical care. Plan discussed with: Patient, Other (RN) Date of Service: Jul 29, 2024 Billing Provider: ENA LAMAS NP Common Visit Codes: [id number] INP/OBS CARE(MOD) ENA LAMAS NP Jul 29, 2024 14:44
--- NOTE | 2024-07-29 21:59 | DVHPN2 ---
Consult Progress Note Date Seen: Jul 28, 2024 Subjective Patient reports: Other (refusing wound care , still has sacral wound that is about 25% necrosis ) Objective vital signs Vital Sign Date Time Temp Pulse Resp B/P (MAP) Pulse Ox O2 Delivery O2 Flow Rate FiO2 07/29/24 21:00 98.2 61 18 119/55 (76) 94 98.2 07/29/24 08:00 Room Air* 0 21 Total Intake and Output 07/28/24 07/28/24 07/29/24 15:00 23:00 07:00 Intake Total 480 ml 1560 ml 600 ml Output Total 1200 ml 1700 ml Balance 480 ml 360 ml -1100 ml medications Current Medications Medications Dose Ordered Sig/Mindy Route Start Time Stop Time Status Last Admin Dose Admin Levothyroxine Sodium 50 mcg QAM PO 07/03/24 07:00 07/29/24 06:26 50 MCG Patient Own Medication 1 tab DAILY PO 07/03/24 10:00 Cancel Patient Own Medication 1 tab DAILY PO 07/03/24 10:00 UNV Patient Own Medication 1 tab DAILYPRN PRN PO 07/03/24 10:00 Patient Own Medication 2 tab DAILY PO 07/03/24 10:00 UNV Patient Own Medication 1 tab BID PO 07/02/24 22:00 UNV Patient Own Medication 1 tab DAILY PO 07/03/24 10:00 UNV Ondansetron HCl 4 mg Q4HP PRN IV 07/02/24 13:00 07/03/24 13:28 4 MG Docusate Sodium 100 mg BIDPRN PRN PO 07/02/24 13:00 07/09/24 10:50 100 MG Nitroglycerin 0.4 mg Q5MINP PRN SL 07/02/24 13:00 Atorvastatin Calcium 40 mg HS PO 07/02/24 22:00 07/29/24 20:27 40 MG Cholecalciferol 2,000 unit DAILY PO 07/03/24 10:00 07/29/24 11:30 2,000 UNIT Sertraline HCl 100 mg BID PO 07/02/24 22:00 07/29/24 20:27 100 MG Trazodone HCl 100 mg HS PO 07/03/24 22:00 07/29/24 20:26 100 MG Zolpidem Tartrate 5 mg HSPRN PRN PO 07/04/24 21:00 07/29/24 00:11 5 MG Carisoprodol 350 mg Q8HPRN PRN PO 07/14/24 13:00 07/29/24 20:26 350 MG Pregabalin 100 mg BID PO 07/18/24 22:00 07/29/24 20:26 100 MG Enteral Nutritional Formula 27.5 gm BID PO 07/19/24 22:00 07/29/24 11:28 27.5 GM Docusate Sodium 100 mg BID PO 07/24/24 22:00 07/25/24 21:55 100 MG Hydromorphone HCl 2 mg Q6HP PRN PO 07/24/24 16:00 07/29/24 17:55 2 MG Loperamide HCl 2 mg PRN PRN PO 07/26/24 22:00 07/28/24 21:47 2 MG General Appearance: Cooperative. Well developed. Well nourished. NAD Head Exam: Normal inspection Neck Exam: Normal inspection. Non-tender. Normal alignment Pulmonary/Respiratory: Chest non-tender. Clear bilateral breath sounds Cardiovascular/Chest: Regular rate and rhythm. No murmurs. No JVD. Peripheral Pulses: 2+ Radial (R). 2+ Radial (L). 2+ Pedal (R). 2+ Pedal (L) Abdominal Exam: Normal bowel sounds. Soft. Nontender. No hepatospenomegaly. No masses Ankle Exam: Negative ankle edema Lower extremities: Negative lower extremity edema Neuro/Mental Status: A&O x4. Coherent Thoughts/Psych: Normal thought pattern. Appropriate mood and affect. Good judgement and insight Appearance: In no acute distress Skin Exam: Healing stage III sacral ulcer, presence of granulation tissue, clear margin, presence of nonviable tissue. laboratory and microbiology Laboratory Tests 07/20/24 12:15 Test 07/20/24 12:15 Range/Units Serum Glucose 100 74-106 mg/dL Problem List/Assessment/Plan Problems(with codes): (1) Sepsis due to urinary tract infection (2) Acute respiratory failure (3) Lumbar stenosis with neurogenic claudication (4) Generalized weakness (5) Pneumonia (6) Toxic encephalopathy Problem List/Assessment/Plan Problem List: -stage 4 sacral ulcer -chronic back pain -bilateral lower extremity -neuropathy -morbid obesity -functioning paraplegia Assessment: Patient is a female with a past medical history of hypertension, CDK , hyperlipidema, hyperthyroidism. found on the floor and altered when she was admitted on 06/27/24 and has found sacral ulcer with deep tissue stage 4 , fibrinous exidate . 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 initially on vancomycin and zosyn but switched to cefapine and linazolid and has been on that for 12 days . has not been able to walk for 3 months and is largely bedbound due to leg numbness and related to spinal stenosis which patient has not followed up with neurosurgery to gain possible functional improving surgery. 12 point reviewed system were reviewed , vital signs were reviewed . Temperature 98, BP 103/44 . stage 4 sacral ulcer over the sacrum with no tunneling and large area of ulceration with fibrinous exidate and a yellow tissue and a small area of necrosis, wound measures at 11 x 9 cm . Reviewed relevant imaging , including abdominal pelvis Ct which shows soft tissue inflammation and no signs of tunneling or deeper infection. Update 07/21: Patient is feeling better and getting wound care , wound appears clean and no tunneling , plan would be to continue linazolid and cefepine for 2 more days , neuro and general surgery do not want to do a debridement or any additional surgery on patients spine , patient can follow up with Dr Donnelly as outpatient update 07/22: no fevers or chills , is awake and stable . Today will be patients last day of linazolid and cefepime and patient will go home to a longterm facility where she is expected to continue to receive wound care and then follow up with neurosurgery to attempt to regain mobility update 07/25: not having any pain on her bottom , she is 0/5 on strength for both lower extremities . Patient is awaiting placement and getting wound care here with her bottom being cleaned regularly update 07/26: Sleeping and not having any discomfort , no hypoxia but is snoring , normal active bowel sounds. sacral wound is stable without any drainage . doing well off all antibiotics . no longer being seen by Dr Sharpe 07/28: appears to remain without infection at sacral site Plan: will monitor patient off all antibiotics need close monitoring of hygiene of sacral area, chronic wound care at longterm facility , follow up with neurosurgery as outpatient to see changes of eligibility of spinal surgery that could improve functional mobility and relieve pressure form sacrum . continue working with physical therapy . Plan discussed with: Other Dietary Evaluation Review Comments: 1. consider Wiliam BID for wound healing at GFR 78 when pt is off NPO and able to take PO liquids. 2. Consider clinimix as her protein supplement for enchancing wound healing 3. Consider TPN per pharmacy if NPO > 7 days and GI is not accessible. 4. Consider TF Jevity 40ml/hr providing 53g pro and 1152 kcal in 24 hr if run FS. Expected Outcomes/Goals: 1) healed wounds and advance to diet as tolerated if kidney function improves. or 2) Renal Specific diet with 60g protein restriction if GFR further declines.. ARIAS SANDERSON MD Jul 29, 2024 21:59
--- NOTE | 2024-07-29 22:24 | DVHPN2 ---
Consult Progress Note Date Seen: Jul 27, 2024 Subjective Patient reports: Other (being prepared for discharge to a [facility] fac[facility] , wounds appear clean and arent getting larger ) Objective vital signs Vital Sign Date Time Temp Pulse Resp B/P (MAP) Pulse Ox O2 Delivery O2 Flow Rate FiO2 07/29/24 21:00 98.2 61 18 119/55 (76) 94 98.2 07/29/24 08:00 Room Air* 0 21 Total Intake and Output 07/28/24 07/28/24 07/29/24 15:00 23:00 07:00 Intake Total 480 ml 1560 ml 600 ml Output Total 1200 ml 1700 ml Balance 480 ml 360 ml -1100 ml medications Current Medications Medications Dose Ordered Sig/Mindy Route Start Time Stop Time Status Last Admin Dose Admin Levothyroxine Sodium 50 mcg QAM PO 07/03/24 07:00 07/29/24 06:26 50 MCG Patient Own Medication 1 tab DAILY PO 07/03/24 10:00 Cancel Patient Own Medication 1 tab DAILY PO 07/03/24 10:00 UNV Patient Own Medication 1 tab DAILYPRN PRN PO 07/03/24 10:00 Patient Own Medication 2 tab DAILY PO 07/03/24 10:00 UNV Patient Own Medication 1 tab BID PO 07/02/24 22:00 UNV Patient Own Medication 1 tab DAILY PO 07/03/24 10:00 UNV Ondansetron HCl 4 mg Q4HP PRN IV 07/02/24 13:00 07/03/24 13:28 4 MG Docusate Sodium 100 mg BIDPRN PRN PO 07/02/24 13:00 07/09/24 10:50 100 MG Nitroglycerin 0.4 mg Q5MINP PRN SL 07/02/24 13:00 Atorvastatin Calcium 40 mg HS PO 07/02/24 22:00 07/29/24 20:27 40 MG Cholecalciferol 2,000 unit DAILY PO 07/03/24 10:00 07/29/24 11:30 2,000 UNIT Sertraline HCl 100 mg BID PO 07/02/24 22:00 07/29/24 20:27 100 MG Trazodone HCl 100 mg HS PO 07/03/24 22:00 07/29/24 20:26 100 MG Zolpidem Tartrate 5 mg HSPRN PRN PO 07/04/24 21:00 07/29/24 00:11 5 MG Carisoprodol 350 mg Q8HPRN PRN PO 07/14/24 13:00 07/29/24 20:26 350 MG Pregabalin 100 mg BID PO 07/18/24 22:00 07/29/24 20:26 100 MG Enteral Nutritional Formula 27.5 gm BID PO 07/19/24 22:00 07/29/24 11:28 27.5 GM Docusate Sodium 100 mg BID PO 07/24/24 22:00 07/25/24 21:55 100 MG Hydromorphone HCl 2 mg Q6HP PRN PO 07/24/24 16:00 07/29/24 17:55 2 MG Loperamide HCl 2 mg PRN PRN PO 07/26/24 22:00 07/28/24 21:47 2 MG laboratory and microbiology Laboratory Tests 07/20/24 12:15 Test 07/20/24 12:15 Range/Units Serum Glucose 100 74-106 mg/dL Problem List/Assessment/Plan Problems(with codes): (1) Pneumonia (2) Toxic encephalopathy (3) Sepsis due to urinary tract infection (4) Acute respiratory failure (5) Lumbar stenosis with neurogenic claudication (6) Generalized weakness Problem List/Assessment/Plan Problem List: -stage 4 sacral ulcer -chronic back pain -bilateral lower extremity -neuropathy -morbid obesity -functioning paraplegia Assessment: Patient is a female with a past medical history of hypertension, CDK , hyperlipidema, hyperthyroidism. found on the floor and altered when she was admitted on 06/27/24 and has found sacral ulcer with deep tissue stage 4 , fibrinous exidate . 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 initially on vancomycin and zosyn but switched to cefapine and linazolid and has been on that for 12 days . has not been able to walk for 3 months and is largely bedbound due to leg numbness and related to spinal stenosis which patient has not followed up with neurosurgery to gain possible functional improving surgery. 12 point reviewed system were reviewed , vital signs were reviewed . Temperature 98, BP 103/44 . stage 4 sacral ulcer over the sacrum with no tunneling and large area of ulceration with fibrinous exidate and a yellow tissue and a small area of necrosis, wound measures at 11 x 9 cm . Reviewed relevant imaging , including abdominal pelvis Ct which shows soft tissue inflammation and no signs of tunneling or deeper infection. Update 07/21: Patient is feeling better and getting wound care , wound appears clean and no tunneling , plan would be to continue linazolid and cefepine for 2 more days , neuro and general surgery do not want to do a debridement or any additional surgery on patients spine , patient can follow up with Dr Donnelly as outpatient update 07/22: no fevers or chills , is awake and stable . Today will be patients last day of linazolid and cefepime and patient will go home to a [facility] facility where she is expected to continue to receive wound care and then follow up with neurosurgery to attempt to regain mobility update 07/25: not having any pain on her bottom , she is 0/5 on strength for both lower extremities . Patient is awaiting placement and getting wound care here with her bottom being cleaned regularly update 07/26: Sleeping and not having any discomfort , no hypoxia but is snoring , normal active bowel sounds. sacral wound is stable without any drainage . doing well off all antibiotics . no longer being seen by Dr Sharpe 07/27: no signs of infection on sacral wound 07/28: appears to remain without infection at sacral site Plan: will monitor patient off all antibiotics need close monitoring of hygiene of sacral area, chronic wound care at [facility] facility , follow up with neurosurgery as outpatient to see changes of eligibility of spinal surgery that could improve functional mobility and relieve pressure form sacrum . continue working with physical therapy . Plan discussed with: Other Dietary Evaluation Review Comments: 1. consider Wiliam BID for wound healing at GFR 78 when pt is off NPO and able to take PO liquids. 2. Consider clinimix as her protein supplement for enchancing wound healing 3. Consider TPN per pharmacy if NPO > 7 days and GI is not accessible. 4. Consider TF Jevity 40ml/hr providing 53g pro and 1152 kcal in 24 hr if run FS. Expected Outcomes/Goals: 1) healed wounds and advance to diet as tolerated if kidney function improves. or 2) Renal Specific diet with 60g protein restriction if GFR further declines.. ARIAS SANDERSON MD Jul 29, 2024 22:24
[2024-07-30] VITALS (8 sets, daily range): BP systolic 110–126; BP diastolic 46–82; PULSE 50–61; RESP 16–18; TEMP 97.4–98.6; O2SAT 91–96
--- NOTE | 2024-07-30 10:53 | DVHPN2 ---
Subjective Patient continues to report having bilateral leg pain. Reviewed: Care Plan, H&P, Labs, Medications, Previous Orders Changes from previous H/P or p: No Changes General: Per HPI Objective Vitals Vital Signs Date Time Temp Pulse Resp B/P (MAP) Pulse Ox O2 Delivery O2 Flow Rate FiO2 07/30/24 09:00 97.9 51 18 124/47 (72) 91 97.9 07/30/24 08:00 Room Air* 0 21 Intake/Output Intake and Output 07/30/24 07:00 Intake Total 1500 ml Output Total 1850 ml Balance -350 ml Intake Oral 1500 ml Output Urine Total 1850 ml General Appearance: Alert, Oriented X3, Cooperative HEENT: Atraumatic Cardiovascular: Regular rate, Normal S1, Normal S2 Abdomen: Normal bowel sounds, Soft Musculoskeletal: Normal sensory function, Normal motor function Neuro: Normal gait, Normal speech, Cranial nerves 3-12 NL Skin: Dry, Intact, Wounds (See nurse notes and pictures) Psych/Mental Status: Mental status NL, Mood NL Medications Current Medications Medications Dose Ordered Sig/Mindy Route Start Time Stop Time Status Last Admin Dose Admin Levothyroxine Sodium 50 mcg QAM PO 07/03/24 07:00 07/30/24 05:38 50 MCG Patient Own Medication 1 tab DAILY PO 07/03/24 10:00 Cancel Patient Own Medication 1 tab DAILY PO 07/03/24 10:00 UNV Patient Own Medication 1 tab DAILYPRN PRN PO 07/03/24 10:00 Patient Own Medication 2 tab DAILY PO 07/03/24 10:00 UNV Patient Own Medication 1 tab BID PO 07/02/24 22:00 UNV Patient Own Medication 1 tab DAILY PO 07/03/24 10:00 UNV Ondansetron HCl 4 mg Q4HP PRN IV 07/02/24 13:00 07/03/24 13:28 4 MG Docusate Sodium 100 mg BIDPRN PRN PO 07/02/24 13:00 07/09/24 10:50 100 MG Nitroglycerin 0.4 mg Q5MINP PRN SL 07/02/24 13:00 Atorvastatin Calcium 40 mg HS PO 07/02/24 22:00 07/29/24 20:27 40 MG Cholecalciferol 2,000 unit DAILY PO 07/03/24 10:00 07/29/24 11:30 2,000 UNIT Sertraline HCl 100 mg BID PO 07/02/24 22:00 07/29/24 20:27 100 MG Trazodone HCl 100 mg HS PO 07/03/24 22:00 07/29/24 20:26 100 MG Zolpidem Tartrate 5 mg HSPRN PRN PO 07/04/24 21:00 07/29/24 23:31 5 MG Carisoprodol 350 mg Q8HPRN PRN PO 07/14/24 13:00 07/30/24 05:41 350 MG Pregabalin 100 mg BID PO 07/18/24 22:00 07/29/24 20:26 100 MG Enteral Nutritional Formula 27.5 gm BID PO 07/19/24 22:00 07/29/24 22:00 27.5 GM Docusate Sodium 100 mg BID PO 07/24/24 22:00 07/25/24 21:55 100 MG Hydromorphone HCl 2 mg Q6HP PRN PO 07/24/24 16:00 07/29/24 17:55 2 MG Loperamide HCl 2 mg PRN PRN PO 07/26/24 22:00 07/28/24 21:47 2 MG Laboratory Results Laboratory Tests 07/20/24 12:15 Urinalysis Test 07/02/24 11:10 07/18/24 15:20 Urine WBC 5 /hpf (0 - 5) Urine Color Light-yellow (Yellow) Urine Clarity Clear (Clear) Urine pH 6.0 (5.0-9.0) Urine Specific [place] 1.015 (1.001-1.035) Urine Protein Trace (Negative) H Urine Ketones Negative (Negative) Urine Blood Negative /uL (Negative) Urine Nitrite Negative (Negative) Urine Bilirubin Negative (Negative) Urine Urobilinogen Normal mg/dL (Negative) Urine Leukocyte Esterase Negative /uL (Negative) Urine RBC 3 /hpf (0 - 4) Urine Microscopic WBC 1 /HPF (0-5) Urine Squamous Epithelial Cells Few /hpf (<5) Urine Bacteria None seen /hpf (None Seen) Urine Mucus Few (None Seen) Urine Glucose Normal mg/dL (Normal) Microbiology Microbiology Date/Time Source Procedure Growth Status 07/26/24 22:00 Stool Stool Culture - Final Complete 07/26/24 22:00 Stool Shiga Toxin I & II - Final Complete 07/02/24 14:25 Buttock Gram Stain - Final Complete 07/02/24 14:25 Wound Culture - Final Proteus mirabilis Methicillin Resistant S.aureus Complete 07/02/24 11:10 Urine - [place] Urine Culture - Final Enterococcus faecium VRE Complete Labs and/or images reviewed: Labs reviewed by me, Image(s) reviewed by me Assessment/Plan Assessment/Plan Impression: -sepsis, rule out -metabolic encephalopathy -stage III pressure alter with MDRO -bilateral lower extremity paresthesia -history of substance abuse -obesity -acute kidney injury -pain seeking behavior Plan: Events: No events overnight. Wound care images reviewed. Continue current plan of care until [facility]. -antibiotics discontinued -social service consultation for discharge planning -continue current pain management -PT consultation -Social consult for discharge plan Total time spent with patient discussing and formulating plan of care: 35 minutes. This medical document was created using an electronic medical record system with Bringme dictation system. Although this document has been carefully reviewed, there may still be some phonetic and typographical errors. These areas are purely typographical due to imperfections of the software programs, and do not reflect any compromise in the patient's medical care. Plan discussed with: Patient, Other (RN) My Orders Orders - ENA LAMAS NP Procedure Category Date Status Time D/C [place] 07/29/24 In Process 14:50 Date of Service: Jul 30, 2024 Billing Provider: ENA LAMAS NP Common Visit Codes: [id number] INP/OBS CARE(HIGH) ENA LAMAS NP Jul 30, 2024 10:53
--- NOTE | 2024-07-30 12:33 | DVHPN2 ---
Consult Progress Note Date Seen: Jul 29, 2024 Subjective Patient reports: Other (mentaating well , no fevers or chills , no pain on her back , has a sacral ulcer , 0/5 strength in lower extremities bilaterally ) Objective vital signs Vital Sign Date Time Temp Pulse Resp B/P (MAP) Pulse Ox O2 Delivery O2 Flow Rate FiO2 07/30/24 09:00 97.9 51 18 124/47 (72) 91 97.9 07/30/24 08:00 Room Air* 0 21 Total Intake and Output 07/29/24 07/29/24 07/30/24 15:00 23:00 07:00 Intake Total 700 ml 800 ml Output Total 750 ml 1100 ml Balance -50 ml -300 ml medications Current Medications Medications Dose Ordered Sig/Mindy Route Start Time Stop Time Status Last Admin Dose Admin Levothyroxine Sodium 50 mcg QAM PO 07/03/24 07:00 07/30/24 05:38 50 MCG Patient Own Medication 1 tab DAILY PO 07/03/24 10:00 Cancel Patient Own Medication 1 tab DAILY PO 07/03/24 10:00 UNV Patient Own Medication 1 tab DAILYPRN PRN PO 07/03/24 10:00 Patient Own Medication 2 tab DAILY PO 07/03/24 10:00 UNV Patient Own Medication 1 tab BID PO 07/02/24 22:00 UNV Patient Own Medication 1 tab DAILY PO 07/03/24 10:00 UNV Ondansetron HCl 4 mg Q4HP PRN IV 07/02/24 13:00 07/03/24 13:28 4 MG Docusate Sodium 100 mg BIDPRN PRN PO 07/02/24 13:00 07/09/24 10:50 100 MG Nitroglycerin 0.4 mg Q5MINP PRN SL 07/02/24 13:00 Atorvastatin Calcium 40 mg HS PO 07/02/24 22:00 07/29/24 20:27 40 MG Cholecalciferol 2,000 unit DAILY PO 07/03/24 10:00 07/30/24 10:52 2,000 UNIT Sertraline HCl 100 mg BID PO 07/02/24 22:00 07/30/24 10:53 100 MG Trazodone HCl 100 mg HS PO 07/03/24 22:00 07/29/24 20:26 100 MG Zolpidem Tartrate 5 mg HSPRN PRN PO 07/04/24 21:00 07/29/24 23:31 5 MG Carisoprodol 350 mg Q8HPRN PRN PO 07/14/24 13:00 07/30/24 05:41 350 MG Pregabalin 100 mg BID PO 07/18/24 22:00 07/30/24 10:53 100 MG Enteral Nutritional Formula 27.5 gm BID PO 07/19/24 22:00 07/30/24 10:00 27.5 GM Docusate Sodium 100 mg BID PO 07/24/24 22:00 07/25/24 21:55 100 MG Hydromorphone HCl 2 mg Q6HP PRN PO 07/24/24 16:00 07/30/24 10:52 2 MG Loperamide HCl 2 mg PRN PRN PO 07/26/24 22:00 07/28/24 21:47 2 MG General Appearance: Cooperative. Well developed. Well nourished. NAD Head Exam: Normal inspection Neck Exam: Normal inspection. Non-tender. Normal alignment Pulmonary/Respiratory: Chest non-tender. Clear bilateral breath sounds Cardiovascular/Chest: Regular rate and rhythm. No murmurs. No JVD. Peripheral Pulses: 2+ Radial (R). 2+ Radial (L). 2+ Pedal (R). 2+ Pedal (L) Abdominal Exam: Normal bowel sounds. Soft. Nontender. No hepatospenomegaly. No masses Ankle Exam: Negative ankle edema Lower extremities: Negative lower extremity edema Neuro/Mental Status: A&O x4. Coherent Thoughts/Psych: Normal thought pattern. Appropriate mood and affect. Good judgement and insight Appearance: In no acute distress Skin Exam: Healing stage III sacral ulcer, presence of granulation tissue, clear margin, presence of nonviable tissue. laboratory and microbiology Laboratory Tests 07/20/24 12:15 Test 07/20/24 12:15 Range/Units Serum Glucose 100 74-106 mg/dL Problem List/Assessment/Plan Problems(with codes): (1) Pneumonia (2) Toxic encephalopathy (3) Sepsis due to urinary tract infection (4) Acute respiratory failure (5) Lumbar stenosis with neurogenic claudication (6) Generalized weakness (7) Hyperkalemia Problem List/Assessment/Plan Problem List: -stage 4 sacral ulcer -chronic back pain -bilateral lower extremity -neuropathy -morbid obesity -functioning paraplegia Assessment: Patient is a female with a past medical history of hypertension, CDK , hyperlipidema, hyperthyroidism. found on the floor and altered when she was admitted on 06/27/24 and has found sacral ulcer with deep tissue stage 4 , fibrinous exidate . 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 initially on vancomycin and zosyn but switched to cefapine and linazolid and has been on that for 12 days . has not been able to walk for 3 months and is largely bedbound due to leg numbness and related to spinal stenosis which patient has not followed up with neurosurgery to gain possible functional improving surgery. 12 point reviewed system were reviewed , vital signs were reviewed . Temperature 98, BP 103/44 . stage 4 sacral ulcer over the sacrum with no tunneling and large area of ulceration with fibrinous exidate and a yellow tissue and a small area of necrosis, wound measures at 11 x 9 cm . Reviewed relevant imaging , including abdominal pelvis Ct which shows soft tissue inflammation and no signs of tunneling or deeper infection. Update 07/21: Patient is feeling better and getting wound care , wound appears clean and no tunneling , plan would be to continue linazolid and cefepine for 2 more days , neuro and general surgery do not want to do a debridement or any additional surgery on patients spine , patient can follow up with Dr Donnelly as outpatient update 07/22: no fevers or chills , is awake and stable . Today will be patients last day of linazolid and cefepime and patient will [facility] to a [facility] facility where she is expected to continue to receive wound care and then follow up with neurosurgery to attempt to regain mobility update 07/25: not having any pain on her bottom , she is 0/5 on strength for both lower extremities . Patient is awaiting placement and getting wound care here with her bottom being cleaned regularly update 07/26: Sleeping and not having any discomfort , no hypoxia but is snoring , normal active bowel sounds. sacral wound is stable without any drainage . doing well off all antibiotics . no longer being seen by Dr Sharpe 07/27: no signs of infection on sacral wound 07/28: appears to remain without infection at sacral site Plan: will monitor patient off all antibiotics need close monitoring of hygiene of sacral area, chronic wound care at [facility] facility , follow up with neurosurgery as outpatient to see changes of eligibility of spinal surgery that could improve functional mobility and relieve pressure form sacrum . continue working with physical therapy . Plan discussed with: Other Dietary Evaluation Review Comments: 1. consider Wiliam BID for wound healing at GFR 78 when pt is off NPO and able to take PO liquids. 2. Consider clinimix as her protein supplement for enchancing wound healing 3. Consider TPN per pharmacy if NPO > 7 days and GI is not accessible. 4. Consider TF Jevity 40ml/hr providing 53g pro and 1152 kcal in 24 hr if run FS. Expected Outcomes/Goals: 1) healed wounds and advance to diet as tolerated if kidney function improves. or 2) Renal Specific diet with 60g protein restriction if GFR further declines.. ARIAS SANDERSON MD Jul 30, 2024 12:33
[2024-07-31] VITALS (7 sets, daily range): BP systolic 89–129; BP diastolic 39–58; PULSE 53–63; RESP 16–20; TEMP 97.6–99; O2SAT 91–95
--- NOTE | 2024-07-31 12:33 | DVHPN2 ---
Subjective Patient continues to report having bilateral leg pain. Reviewed: Care Plan, H&P, Labs, Medications, Previous Orders Changes from previous H/P or p: No Changes General: Per HPI Objective Vitals Vital Signs Date Time Temp Pulse Resp B/P (MAP) Pulse Ox O2 Delivery O2 Flow Rate FiO2 07/31/24 12:11 98.0 58 20 113/51 (71) 94 98.0 07/30/24 20:07 Room Air* 0 21 Intake/Output Intake and Output 07/31/24 07:00 Intake Total 1450 ml Output Total 2025 ml Balance -575 ml Intake Oral 1450 ml Output Urine Total 2025 ml General Appearance: Alert, Oriented X3, Cooperative HEENT: Atraumatic Cardiovascular: Regular rate, Normal S1, Normal S2 Abdomen: Normal bowel sounds, Soft Musculoskeletal: Normal sensory function, Normal motor function Neuro: Normal gait, Normal speech, Cranial nerves 3-12 NL Skin: Dry, Intact, Wounds (See nurse notes and pictures) Psych/Mental Status: Mental status NL, Mood NL Medications Current Medications Medications Dose Ordered Sig/Mindy Route Start Time Stop Time Status Last Admin Dose Admin Levothyroxine Sodium 50 mcg QAM PO 07/03/24 07:00 07/31/24 05:56 50 MCG Patient Own Medication 1 tab DAILY PO 07/03/24 10:00 Cancel Patient Own Medication 1 tab DAILY PO 07/03/24 10:00 UNV Patient Own Medication 1 tab DAILYPRN PRN PO 07/03/24 10:00 Patient Own Medication 2 tab DAILY PO 07/03/24 10:00 UNV Patient Own Medication 1 tab BID PO 07/02/24 22:00 UNV Patient Own Medication 1 tab DAILY PO 07/03/24 10:00 UNV Ondansetron HCl 4 mg Q4HP PRN IV 07/02/24 13:00 07/03/24 13:28 4 MG Docusate Sodium 100 mg BIDPRN PRN PO 07/02/24 13:00 07/09/24 10:50 100 MG Nitroglycerin 0.4 mg Q5MINP PRN SL 07/02/24 13:00 Atorvastatin Calcium 40 mg HS PO 07/02/24 22:00 07/30/24 21:13 40 MG Cholecalciferol 2,000 unit DAILY PO 07/03/24 10:00 07/31/24 11:45 2,000 UNIT Sertraline HCl 100 mg BID PO 07/02/24 22:00 07/31/24 11:44 100 MG Trazodone HCl 100 mg HS PO 07/03/24 22:00 07/30/24 21:14 100 MG Zolpidem Tartrate 5 mg HSPRN PRN PO 07/04/24 21:00 07/30/24 23:59 5 MG Carisoprodol 350 mg Q8HPRN PRN PO 07/14/24 13:00 07/31/24 11:46 350 MG Pregabalin 100 mg BID PO 07/18/24 22:00 07/31/24 11:45 100 MG Enteral Nutritional Formula 27.5 gm BID PO 07/19/24 22:00 07/31/24 10:00 27.5 GM Docusate Sodium 100 mg BID PO 07/24/24 22:00 07/25/24 21:55 100 MG Hydromorphone HCl 2 mg Q6HP PRN PO 07/24/24 16:00 07/31/24 11:47 2 MG Loperamide HCl 2 mg PRN PRN PO 07/26/24 22:00 07/28/24 21:47 2 MG Laboratory Results Laboratory Tests 07/20/24 12:15 Urinalysis Test 07/02/24 11:10 07/18/24 15:20 Urine WBC 5 /hpf (0 - 5) Urine Color Light-yellow (Yellow) Urine Clarity Clear (Clear) Urine pH 6.0 (5.0-9.0) Urine Specific [place] 1.015 (1.001-1.035) Urine Protein Trace (Negative) H Urine Ketones Negative (Negative) Urine Blood Negative /uL (Negative) Urine Nitrite Negative (Negative) Urine Bilirubin Negative (Negative) Urine Urobilinogen Normal mg/dL (Negative) Urine Leukocyte Esterase Negative /uL (Negative) Urine RBC 3 /hpf (0 - 4) Urine Microscopic WBC 1 /HPF (0-5) Urine Squamous Epithelial Cells Few /hpf (<5) Urine Bacteria None seen /hpf (None Seen) Urine Mucus Few (None Seen) Urine Glucose Normal mg/dL (Normal) Microbiology Microbiology Date/Time Source Procedure Growth Status 07/26/24 22:00 Stool Stool Culture - Final Complete 07/26/24 22:00 Stool Shiga Toxin I & II - Final Complete 07/02/24 14:25 Buttock Gram Stain - Final Complete 07/02/24 14:25 Wound Culture - Final Proteus mirabilis Methicillin Resistant S.aureus Complete 07/02/24 11:10 Urine - [place] Urine Culture - Final Enterococcus faecium VRE Complete Labs and/or images reviewed: Labs reviewed by me, Image(s) reviewed by me Assessment/Plan Assessment/Plan Impression: -sepsis, rule out -metabolic encephalopathy -stage III pressure alter with MDRO -bilateral lower extremity paresthesia -history of substance abuse -obesity -acute kidney injury -pain seeking behavior Plan: Events: No events overnight. Patient requesting increase of Dilaudid dosage. We will increase frequency from q.6 hours to q.4 hours. Continues to be waiting for placement. This was discussed with patient by case management yesterday afternoon. -antibiotics discontinued -social service consultation for discharge planning -continue current pain management -PT consultation -Social consult for discharge plan Total time spent with patient discussing and formulating plan of care: 35 minutes. This medical document was created using an electronic medical record system with [employer] dictation system. Although this document has been carefully reviewed, there may still be some phonetic and typographical errors. These areas are purely typographical due to imperfections of the software programs, and do not reflect any compromise in the patient's medical care. Plan discussed with: Patient My Orders Orders - ENA LAMAS NP Procedure Category Date Status Time Hydromorphone Tablet PHA 07/31/24 Verified (Dilaudid Tablet) 12:45 Date of Service: Jul 31, 2024 Billing Provider: ENA LAMAS NP Common Visit Codes: [id number] INP/OBS CARE(HIGH) ENA LAMAS NP Jul 31, 2024 12:33
[2024-07-31] MEDS: HYDROmorphone HCL 2 MG TAB PO PRN (18:12)
[2024-08-01 00:44] VITALS: BP 107/54; PULSE 54; RESP 16; TEMP 98.1; O2SAT 92
[2024-08-01 05:00] VITALS: BP 122/57; PULSE 51; RESP 18; TEMP 97.5; O2SAT 93
[2024-08-01 08:00] VITALS: PULSE 69; RESP 17
[2024-08-01 08:51] VITALS: BP 97/37; PULSE 69; RESP 17; TEMP 98; O2SAT 92
--- NOTE | 2024-08-01 10:50 | DVHPN2 ---
Consult Progress Note Date Seen: Jul 30, 2024 Subjective Patient reports: Other (having good bowel movements , wound is clean and getting wound care with good granulation tissue ) Objective vital signs Vital Sign Date Time Temp Pulse Resp B/P (MAP) Pulse Ox O2 Delivery O2 Flow Rate FiO2 08/01/24 08:51 98.0 69 17 97/37 (57) 92 98.0 07/31/24 20:00 Room Air* 0 21 Total Intake and Output 07/31/24 07/31/24 08/01/24 15:00 23:00 07:00 Intake Total 1260 ml 1600 ml Output Total 1000 ml 1500 ml Balance 260 ml 100 ml medications Current Medications Medications Dose Ordered Sig/Mindy Route Start Time Stop Time Status Last Admin Dose Admin Levothyroxine Sodium 50 mcg QAM PO 07/03/24 07:00 08/01/24 06:14 50 MCG Patient Own Medication 1 tab DAILY PO 07/03/24 10:00 Cancel Patient Own Medication 1 tab DAILY PO 07/03/24 10:00 UNV Patient Own Medication 1 tab DAILYPRN PRN PO 07/03/24 10:00 Patient Own Medication 2 tab DAILY PO 07/03/24 10:00 UNV Patient Own Medication 1 tab BID PO 07/02/24 22:00 UNV Patient Own Medication 1 tab DAILY PO 07/03/24 10:00 UNV Ondansetron HCl 4 mg Q4HP PRN IV 07/02/24 13:00 07/03/24 13:28 4 MG Docusate Sodium 100 mg BIDPRN PRN PO 07/02/24 13:00 07/09/24 10:50 100 MG Nitroglycerin 0.4 mg Q5MINP PRN SL 07/02/24 13:00 Atorvastatin Calcium 40 mg HS PO 07/02/24 22:00 07/31/24 21:42 40 MG Cholecalciferol 2,000 unit DAILY PO 07/03/24 10:00 08/01/24 08:18 2,000 UNIT Sertraline HCl 100 mg BID PO 07/02/24 22:00 08/01/24 08:18 100 MG Trazodone HCl 100 mg HS PO 07/03/24 22:00 07/31/24 21:40 100 MG Zolpidem Tartrate 5 mg HSPRN PRN PO 07/04/24 21:00 07/30/24 23:59 5 MG Carisoprodol 350 mg Q8HPRN PRN PO 07/14/24 13:00 08/01/24 08:42 350 MG Pregabalin 100 mg BID PO 07/18/24 22:00 08/01/24 08:18 100 MG Enteral Nutritional Formula 27.5 gm BID PO 07/19/24 22:00 08/01/24 08:16 27.5 GM Docusate Sodium 100 mg BID PO 07/24/24 22:00 07/25/24 21:55 100 MG Loperamide HCl 2 mg PRN PRN PO 07/26/24 22:00 07/28/24 21:47 2 MG Hydromorphone HCl 2 mg Q4HP PRN PO 07/31/24 12:45 08/01/24 08:43 2 MG General Appearance: Cooperative. Well developed. Well nourished. NAD Head Exam: Normal inspection Neck Exam: Normal inspection. Non-tender. Normal alignment Pulmonary/Respiratory: Chest non-tender. Clear bilateral breath sounds Cardiovascular/Chest: Regular rate and rhythm. No murmurs. No JVD. Peripheral Pulses: 2+ Radial (R). 2+ Radial (L). 2+ Pedal (R). 2+ Pedal (L) Abdominal Exam: Normal bowel sounds. Soft. Nontender. No hepatospenomegaly. No masses Ankle Exam: Negative ankle edema Lower extremities: Negative lower extremity edema Neuro/Mental Status: A&O x4. Coherent Thoughts/Psych: Normal thought pattern. Appropriate mood and affect. Good judgement and insight Appearance: In no acute distress Skin Exam: Healing stage III sacral ulcer, presence of granulation tissue, clear margin, presence of nonviable tissue. laboratory and microbiology Laboratory Tests 07/20/24 12:15 Test 07/20/24 12:15 Range/Units Serum Glucose 100 74-106 mg/dL Problem List/Assessment/Plan Problems(with codes): (1) Hyperkalemia (2) Pneumonia (3) Toxic encephalopathy (4) Sepsis due to urinary tract infection (5) Lumbar stenosis with neurogenic claudication (6) Acute respiratory failure (7) Generalized weakness (8) Benzodiazepine overdose (9) Altered mental status Problem List/Assessment/Plan Problem List: -stage 4 sacral ulcer -chronic back pain -bilateral lower extremity -neuropathy -morbid obesity -functioning paraplegia Assessment: Patient is a female with a past medical history of hypertension, CDK , hyperlipidema, hyperthyroidism. found on the floor and altered when she was admitted on 06/27/24 and has found sacral ulcer with deep tissue stage 4 , fibrinous exidate . 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 initially on vancomycin and zosyn but switched to cefapine and linazolid and has been on that for 12 days . has not been able to walk for 3 months and is largely bedbound due to leg numbness and related to spinal stenosis which patient has not followed up with neurosurgery to gain possible functional improving surgery. 12 point reviewed system were reviewed , vital signs were reviewed . Temperature 98, BP 103/44 . stage 4 sacral ulcer over the sacrum with no tunneling and large area of ulceration with fibrinous exidate and a yellow tissue and a small area of necrosis, wound measures at 11 x 9 cm . Reviewed relevant imaging , including abdominal pelvis Ct which shows soft tissue inflammation and no signs of tunneling or deeper infection. Update 07/21: Patient is feeling better and getting wound care , wound appears clean and no tunneling , plan would be to continue linazolid and cefepine for 2 more days , neuro and general surgery do not want to do a debridement or any additional surgery on patients spine , patient can follow up with Dr Donnelly as outpatient update 07/22: no fevers or chills , is awake and stable . Today will be patients last day of linazolid and cefepime and patient will go home to a alf facility where she is expected to continue to receive wound care and then follow up with neurosurgery to attempt to regain mobility update 07/25: not having any pain on her bottom , she is 0/5 on strength for both lower extremities . Patient is awaiting placement and getting wound care here with her bottom being cleaned regularly update 07/26: Sleeping and not having any discomfort , no hypoxia but is snoring , normal active bowel sounds. sacral wound is stable without any drainage . doing well off all antibiotics . no longer being seen by Dr Sharpe 07/27: no signs of infection on sacral wound 07/28: appears to remain without infection at sacral site 07/30: patient awaiting placement , sacral wound appears to be getting smaller Plan: will monitor patient off all antibiotics need close monitoring of hygiene of sacral area, chronic wound care at alf facility , follow up with neurosurgery as outpatient to see changes of eligibility of spinal surgery that could improve functional mobility and relieve pressure form sacrum . continue working with physical therapy . Plan discussed with: Other Dietary Evaluation Review Comments: 1. consider Wiliam BID for wound healing at GFR 78 when pt is off NPO and able to take PO liquids. 2. Consider clinimix as her protein supplement for enchancing wound healing 3. Consider TPN per pharmacy if NPO > 7 days and GI is not accessible. 4. Consider TF Jevity 40ml/hr providing 53g pro and 1152 kcal in 24 hr if run FS. Expected Outcomes/Goals: 1) healed wounds and advance to diet as tolerated if kidney function improves. or 2) Renal Specific diet with 60g protein restriction if GFR further declines.. ARIAS SANDERSON MD Aug 01, 2024 10:50
--- NOTE | 2024-08-01 10:52 | DVHPN2 ---
Consult Progress Note Date Seen: Jul 31, 2024 Subjective Patient reports: Other (no big changes , having no pain , working with physical therapy 2/5 bilaterally strength ) Objective vital signs Vital Sign Date Time Temp Pulse Resp B/P (MAP) Pulse Ox O2 Delivery O2 Flow Rate FiO2 08/01/24 08:51 98.0 69 17 97/37 (57) 92 98.0 07/31/24 20:00 Room Air* 0 21 Total Intake and Output 07/31/24 07/31/24 08/01/24 15:00 23:00 07:00 Intake Total 1260 ml 1600 ml Output Total 1000 ml 1500 ml Balance 260 ml 100 ml medications Current Medications Medications Dose Ordered Sig/Mindy Route Start Time Stop Time Status Last Admin Dose Admin Levothyroxine Sodium 50 mcg QAM PO 07/03/24 07:00 08/01/24 06:14 50 MCG Patient Own Medication 1 tab DAILY PO 07/03/24 10:00 Cancel Patient Own Medication 1 tab DAILY PO 07/03/24 10:00 UNV Patient Own Medication 1 tab DAILYPRN PRN PO 07/03/24 10:00 Patient Own Medication 2 tab DAILY PO 07/03/24 10:00 UNV Patient Own Medication 1 tab BID PO 07/02/24 22:00 UNV Patient Own Medication 1 tab DAILY PO 07/03/24 10:00 UNV Ondansetron HCl 4 mg Q4HP PRN IV 07/02/24 13:00 07/03/24 13:28 4 MG Docusate Sodium 100 mg BIDPRN PRN PO 07/02/24 13:00 07/09/24 10:50 100 MG Nitroglycerin 0.4 mg Q5MINP PRN SL 07/02/24 13:00 Atorvastatin Calcium 40 mg HS PO 07/02/24 22:00 07/31/24 21:42 40 MG Cholecalciferol 2,000 unit DAILY PO 07/03/24 10:00 08/01/24 08:18 2,000 UNIT Sertraline HCl 100 mg BID PO 07/02/24 22:00 08/01/24 08:18 100 MG Trazodone HCl 100 mg HS PO 07/03/24 22:00 07/31/24 21:40 100 MG Zolpidem Tartrate 5 mg HSPRN PRN PO 07/04/24 21:00 07/30/24 23:59 5 MG Carisoprodol 350 mg Q8HPRN PRN PO 07/14/24 13:00 08/01/24 08:42 350 MG Pregabalin 100 mg BID PO 07/18/24 22:00 08/01/24 08:18 100 MG Enteral Nutritional Formula 27.5 gm BID PO 07/19/24 22:00 08/01/24 08:16 27.5 GM Docusate Sodium 100 mg BID PO 07/24/24 22:00 07/25/24 21:55 100 MG Loperamide HCl 2 mg PRN PRN PO 07/26/24 22:00 07/28/24 21:47 2 MG Hydromorphone HCl 2 mg Q4HP PRN PO 07/31/24 12:45 08/01/24 08:43 2 MG General Appearance: Cooperative. Well developed. Well nourished. NAD Head Exam: Normal inspection Neck Exam: Normal inspection. Non-tender. Normal alignment Pulmonary/Respiratory: Chest non-tender. Clear bilateral breath sounds Cardiovascular/Chest: Regular rate and rhythm. No murmurs. No JVD. Peripheral Pulses: 2+ Radial (R). 2+ Radial (L). 2+ Pedal (R). 2+ Pedal (L) Abdominal Exam: Normal bowel sounds. Soft. Nontender. No hepatospenomegaly. No masses Ankle Exam: Negative ankle edema Lower extremities: Negative lower extremity edema Neuro/Mental Status: A&O x4. Coherent Thoughts/Psych: Normal thought pattern. Appropriate mood and affect. Good judgement and insight Appearance: In no acute distress Skin Exam: Healing stage III sacral ulcer, presence of granulation tissue, clear margin, presence of nonviable tissue. laboratory and microbiology Laboratory Tests 07/20/24 12:15 Test 07/20/24 12:15 Range/Units Serum Glucose 100 74-106 mg/dL Problem List/Assessment/Plan Problems(with codes): (1) Benzodiazepine overdose (2) Altered mental status (3) Hyperkalemia (4) Pneumonia (5) Toxic encephalopathy (6) Sepsis due to urinary tract infection Problem List/Assessment/Plan Problem List: -stage 4 sacral ulcer -chronic back pain -bilateral lower extremity -neuropathy -morbid obesity -functioning paraplegia Assessment: Patient is a female with a past medical history of hypertension, CDK , hyperlipidema, hyperthyroidism. found on the floor and altered when she was admitted on 06/27/24 and has found sacral ulcer with deep tissue stage 4 , fibrinous exidate . 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 initially on vancomycin and zosyn but switched to cefapine and linazolid and has been on that for 12 days . has not been able to walk for 3 months and is largely bedbound due to leg numbness and related to spinal stenosis which patient has not followed up with neurosurgery to gain possible functional improving surgery. 12 point reviewed system were reviewed , vital signs were reviewed . Temperature 98, BP 103/44 . stage 4 sacral ulcer over the sacrum with no tunneling and large area of ulceration with fibrinous exidate and a yellow tissue and a small area of necrosis, wound measures at 11 x 9 cm . Reviewed relevant imaging , including abdominal pelvis Ct which shows soft tissue inflammation and no signs of tunneling or deeper infection. Update 07/21: Patient is feeling better and getting wound care , wound appears clean and no tunneling , plan would be to continue linazolid and cefepine for 2 more days , neuro and general surgery do not want to do a debridement or any additional surgery on patients spine , patient can follow up with Dr Donnelly as outpatient update 07/22: no fevers or chills , is awake and stable . Today will be patients last day of linazolid and cefepime and patient will go home to a snf facility where she is expected to continue to receive wound care and then follow up with neurosurgery to attempt to regain mobility update 07/25: not having any pain on her bottom , she is 0/5 on strength for both lower extremities . Patient is awaiting placement and getting wound care here with her bottom being cleaned regularly update 07/26: Sleeping and not having any discomfort , no hypoxia but is snoring , normal active bowel sounds. sacral wound is stable without any drainage . doing well off all antibiotics . no longer being seen by Dr Sharpe 07/27: no signs of infection on sacral wound 07/28: appears to remain without infection at sacral site 07/30: patient awaiting placement , sacral wound appears to be getting smaller Plan: will monitor patient off all antibiotics need close monitoring of hygiene of sacral area, chronic wound care at snf facility , follow up with neurosurgery as outpatient to see changes of eligibility of spinal surgery that could improve functional mobility and relieve pressure form sacrum . continue working with physical therapy . Plan discussed with: Other Dietary Evaluation Review Comments: 1. consider Wiliam BID for wound healing at GFR 78 when pt is off NPO and able to take PO liquids. 2. Consider clinimix as her protein supplement for enchancing wound healing 3. Consider TPN per pharmacy if NPO > 7 days and GI is not accessible. 4. Consider TF Jevity 40ml/hr providing 53g pro and 1152 kcal in 24 hr if run FS. Expected Outcomes/Goals: 1) healed wounds and advance to diet as tolerated if kidney function improves. or 2) Renal Specific diet with 60g protein restriction if GFR further declines.. ARIAS SANDERSON MD Aug 01, 2024 10:52
[2024-08-01 13:22] VITALS: BP 115/39; PULSE 64; RESP 17; TEMP 98; O2SAT 96
--- NOTE | 2024-08-01 13:32 | DVHPN2 ---
Reviewed: Care Plan, H&P, Labs, Medications, Previous Orders Changes from previous H/P or p: No Changes General: Per HPI Objective Vitals Vital Signs Date Time Temp Pulse Resp B/P (MAP) Pulse Ox O2 Delivery O2 Flow Rate FiO2 08/01/24 13:22 98.0 64 17 115/39 (64) 96 98.0 08/01/24 08:00 Room Air* 0 21 Intake/Output Intake and Output 08/01/24 07:00 Intake Total 2860 ml Output Total 2500 ml Balance 360 ml Intake Oral 2860 ml Output Urine Total 2500 ml # Bowel Movements 1 General Appearance: Alert, Oriented X3, Cooperative HEENT: Atraumatic Cardiovascular: Regular rate, Normal S1, Normal S2 Abdomen: Normal bowel sounds, Soft Musculoskeletal: Normal sensory function, Normal motor function Neuro: Normal gait, Normal speech, Cranial nerves 3-12 NL Skin: Dry, Intact, Wounds (See nurse notes and pictures) Psych/Mental Status: Mental status NL, Mood NL Medications Current Medications Medications Dose Ordered Sig/Mindy Route Start Time Stop Time Status Last Admin Dose Admin Levothyroxine Sodium 50 mcg QAM PO 07/03/24 07:00 08/01/24 06:14 50 MCG Patient Own Medication 1 tab DAILY PO 07/03/24 10:00 Cancel Patient Own Medication 1 tab DAILY PO 07/03/24 10:00 UNV Patient Own Medication 1 tab DAILYPRN PRN PO 07/03/24 10:00 Patient Own Medication 2 tab DAILY PO 07/03/24 10:00 UNV Patient Own Medication 1 tab BID PO 07/02/24 22:00 UNV Patient Own Medication 1 tab DAILY PO 07/03/24 10:00 UNV Ondansetron HCl 4 mg Q4HP PRN IV 07/02/24 13:00 07/03/24 13:28 4 MG Docusate Sodium 100 mg BIDPRN PRN PO 07/02/24 13:00 07/09/24 10:50 100 MG Nitroglycerin 0.4 mg Q5MINP PRN SL 07/02/24 13:00 Atorvastatin Calcium 40 mg HS PO 07/02/24 22:00 07/31/24 21:42 40 MG Cholecalciferol 2,000 unit DAILY PO 07/03/24 10:00 08/01/24 08:18 2,000 UNIT Sertraline HCl 100 mg BID PO 07/02/24 22:00 08/01/24 08:18 100 MG Trazodone HCl 100 mg HS PO 07/03/24 22:00 07/31/24 21:40 100 MG Zolpidem Tartrate 5 mg HSPRN PRN PO 07/04/24 21:00 07/30/24 23:59 5 MG Carisoprodol 350 mg Q8HPRN PRN PO 07/14/24 13:00 08/01/24 08:42 350 MG Pregabalin 100 mg BID PO 07/18/24 22:00 08/01/24 08:18 100 MG Enteral Nutritional Formula 27.5 gm BID PO 07/19/24 22:00 08/01/24 08:16 27.5 GM Docusate Sodium 100 mg BID PO 07/24/24 22:00 07/25/24 21:55 100 MG Loperamide HCl 2 mg PRN PRN PO 07/26/24 22:00 07/28/24 21:47 2 MG Hydromorphone HCl 2 mg Q4HP PRN PO 07/31/24 12:45 08/01/24 12:49 2 MG Laboratory Results Laboratory Tests 07/20/24 12:15 Urinalysis Test 07/02/24 11:10 07/18/24 15:20 Urine WBC 5 /hpf (0 - 5) Urine Color Light-yellow (Yellow) Urine Clarity Clear (Clear) Urine pH 6.0 (5.0-9.0) Urine Specific [place] 1.015 (1.001-1.035) Urine Protein Trace (Negative) H Urine Ketones Negative (Negative) Urine Blood Negative /uL (Negative) Urine Nitrite Negative (Negative) Urine Bilirubin Negative (Negative) Urine Urobilinogen Normal mg/dL (Negative) Urine Leukocyte Esterase Negative /uL (Negative) Urine RBC 3 /hpf (0 - 4) Urine Microscopic WBC 1 /HPF (0-5) Urine Squamous Epithelial Cells Few /hpf (<5) Urine Bacteria None seen /hpf (None Seen) Urine Mucus Few (None Seen) Urine Glucose Normal mg/dL (Normal) Microbiology Microbiology Date/Time Source Procedure Growth Status 07/26/24 22:00 Stool Stool Culture - Final Complete 07/26/24 22:00 Stool Shiga Toxin I & II - Final Complete 07/02/24 14:25 Buttock Gram Stain - Final Complete 07/02/24 14:25 Wound Culture - Final Proteus mirabilis Methicillin Resistant S.aureus Complete 07/02/24 11:10 Urine - [place] Urine Culture - Final Enterococcus faecium VRE Complete Labs and/or images reviewed: Labs reviewed by me, Image(s) reviewed by me Assessment/Plan Assessment/Plan Per nurse practitioner Zain Friedman rule out sepsis -metabolic encephalopathy -stage III pressure alter with MDRO -bilateral lower extremity paresthesia -history of substance abuse -obesity -acute kidney injury -pain seeking behavior Continue current management Time spent 35 minutes Plan discussed with: Patient Date of Service: Aug 01, 2024 Billing Provider: [place] BENITO MD Common Visit Codes: [id number] INP/OBS CARE(HIGH) [place] BENITO MD Aug 01, 2024 13:32
--- NOTE | 2024-08-02 19:10 | DVHPN2 ---
Consult Progress Note Date Seen: Aug 01, 2024 Subjective Patient reports: Feels better (off all antibiotics, no sacral lesion pain) Objective vital signs Vital Sign Date Time Temp Pulse Resp B/P (MAP) Pulse Ox O2 Delivery O2 Flow Rate FiO2 08/01/24 13:22 98.0 64 17 115/39 (64) 96 98.0 08/01/24 08:00 Room Air* 0 21 medications Current Medications Medications Dose Ordered Sig/Mindy Route Start Time Stop Time Status Last Admin Dose Admin Patient Own Medication 1 tab DAILY PO 07/03/24 10:00 Cancel Patient Own Medication 1 tab DAILY PO 07/03/24 10:00 UNV Patient Own Medication 2 tab DAILY PO 07/03/24 10:00 UNV Patient Own Medication 1 tab BID PO 07/02/24 22:00 UNV Patient Own Medication 1 tab DAILY PO 07/03/24 10:00 UNV Physical Exam: General: Appears ill; tachycardic. Neck: Supple. No masses. HEENT: PERRL. Normal lids and conjunctiva. Moist mucous membranes. Oropharynx without lesions, exudates, or excessive erythema. Normal appearance of the external aspects of the nose and ears. Heart: Regular rhythm, tachycardic. No murmur. No lower extremity edema. Lungs: Normal respiratory effort. Clear to auscultation bilaterally. No wheezes. No crackles. Abdomen: Soft. Tender in the right lower quadrant. Non-distended. No masses or abdominal hernia. Msk: No digital cyanosis. Normal strength and tone in all 4 limbs. Skin: Warm and dry, no rashes. Neuro: Alert. No facial droop or slurred speech. Extra-ocular movements intact. Sensation intact to soft touch in all 4 limbs. Psych: Appropriate mood. Full affect. Oriented to person, place, time, and situation. Lines: laboratory and microbiology Laboratory Tests 07/20/24 12:15 Test 07/20/24 12:15 Range/Units Serum Glucose 100 74-106 mg/dL Problem List/Assessment/Plan Problem List/Assessment/Plan Problem List: -stage 4 sacral ulcer -chronic back pain -bilateral lower extremity -neuropathy -morbid obesity -functioning paraplegia Assessment: Patient is a female with a past medical history of hypertension, CDK , hyperlipidema, hyperthyroidism. found on the floor and altered when she was admitted on 06/27/24 and has found sacral ulcer with deep tissue stage 4 , fibrinous exidate . 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 initially on vancomycin and zosyn but switched to cefapine and linazolid and has been on that for 12 days . has not been able to walk for 3 months and is largely bedbound due to leg numbness and related to spinal stenosis which patient has not followed up with neurosurgery to gain possible functional improving surgery. 12 point reviewed system were reviewed , vital signs were reviewed . Temperature 98, BP 103/44 . stage 4 sacral ulcer over the sacrum with no tunneling and large area of ulceration with fibrinous exidate and a yellow tissue and a small area of necrosis, wound measures at 11 x 9 cm . Reviewed relevant imaging , including abdominal pelvis Ct which shows soft tissue inflammation and no signs of tunneling or deeper infection. Update 07/21: Patient is feeling better and getting wound care , wound appears clean and no tunneling , plan would be to continue linazolid and cefepine for 2 more days , neuro and general surgery do not want to do a debridement or any additional surgery on patients spine , patient can follow up with Dr Donnelly as outpatient update 07/22: no fevers or chills , is awake and stable . Today will be patients last day of linazolid and cefepime and patient will go home to a shelter facility where she is expected to continue to receive wound care and then follow up with neurosurgery to attempt to regain mobility update 07/25: not having any pain on her bottom , she is 0/5 on strength for both lower extremities . Patient is awaiting placement and getting wound care here with her bottom being cleaned regularly update 07/26: Sleeping and not having any discomfort , no hypoxia but is snoring , normal active bowel sounds. sacral wound is stable without any drainage . doing well off all antibiotics . no longer being seen by Dr Sharpe 07/27: no signs of infection on sacral wound 07/28: appears to remain without infection at sacral site 07/30: patient awaiting placement , sacral wound appears to be getting smaller Plan: will monitor patient off all antibiotics need close monitoring of hygiene of sacral area, chronic wound care at shelter facility , follow up with neurosurgery as outpatient to see changes of eligibility of spinal surgery that could improve functional mobility and relieve pressure form sacrum . continue working with physical therapy . Plan discussed with: Patient Dietary Evaluation Review Comments: 1. consider Wiliam BID for wound healing at GFR 78 when pt is off NPO and able to take PO liquids. 2. Consider clinimix as her protein supplement for enchancing wound healing 3. Consider TPN per pharmacy if NPO > 7 days and GI is not accessible. 4. Consider TF Jevity 40ml/hr providing 53g pro and 1152 kcal in 24 hr if run FS. Expected Outcomes/Goals: 1) healed wounds and advance to diet as tolerated if kidney function improves. or 2) Renal Specific diet with 60g protein restriction if GFR further declines.. ARIAS SANDERSON MD Aug 02, 2024 19:10
== END 2024-08-01 14:25 | DRG 52 ==
LOC: ER 21:31 → EDBD 21:31 → OVERFLOW 07-02 12:47 → EAST 07-04 02:10
PROVIDERS: ADMIT Nurse Practitioner Acute Care; ATTEND Nurse Practitioner Acute Care
DX: G92.8 Other toxic encephalopathy (principal); L89.153 Pressure ulcer of sacral region, stage 3; N17.9 Acute kidney failure, unspecified; E11.40 Type 2 diabetes mellitus with diabetic neuropathy, unspecified; R53.2 Functional quadriplegia; E03.9 Hypothyroidism, unspecified; E78.5 Hyperlipidemia, unspecified; F17.210 Nicotine dependence, cigarettes, uncomplicated; G89.29 Other chronic pain; K44.9 Diaphragmatic hernia without obstruction or gangrene; F32.A Depression, unspecified; K52.9 Noninfective gastroenteritis and colitis, unspecified; M48.062 Spinal stenosis, lumbar region with neurogenic claudication; N18.9 Chronic kidney disease, unspecified; E66.01 Morbid (severe) obesity due to excess calories; I12.9 Hypertensive chronic kidney disease with stage 1 through stage 4 chronic kidney disease, or unspecified chronic kidney disease; T50.905A Adverse effect of unspecified drugs, medicaments and biological substances, initial encounter; E87.5 Hyperkalemia; N39.0 Urinary tract infection, site not specified; F19.10 Other psychoactive substance abuse, uncomplicated; Z90.49 Acquired absence of other specified parts of digestive tract; Z16.24 Resistance to multiple antibiotics; Z79.891 Long term (current) use of opiate analgesic; Z82.49 Family history of ischemic heart disease and other diseases of the circulatory system; Z88.5 Allergy status to narcotic agent; Z88.6 Allergy status to analgesic agent; Z90.710 Acquired absence of both cervix and uterus; Z68.30 Body mass index [BMI] 30.0-30.9, adult
CPT/HCPCS: 36415; 70450; 74176; 76705; 80048; 80053; 80202; 80307; 80320; 81001; 82306; 82550; 82565; 82607; 83690; 84132; 84425; 84443; 85025; 85610; 85730; 87045; 87077; 87086; 87088; 87186; 87205; 87427; 93005; 97110; 97163; 97530; G0378; J1885; J2405; J2543

== ENCOUNTER 2024-11-05 15:18 | Emergency (ER) | payer MEDICAID ==
[~2024-11-05] VITALS: Ht 177.8 cm; Wt 95.5 kg
[~2024-11-05 15:18] MED LIST changes: +SERT50TA PO; +TRAZ-227 PO
--- NOTE | 2024-11-05 15:36 | ED.PDOC ---
Musculoskeletal HPI Comments HPI: 54y F who presents to the ED via EMS for chief complaint of lower extremity pain. - pt states she has been having bilateral left greater than right feet numbness for the past 5 months - with no noted exacerbating or relieving factors - pt lives with daughter who called EMS after noting pt had bilateral lower ext remity numbness. It sounds like the patient did not want to be here but her daughter was concerned because of the patient's toes appeared to be possibly infected to the daughter however no apparent infection present on our evaluation. - pt states she had bilateral hip surgery. R hip 1 year prior and has since been having intermittent contralateral left knee pain and left feet numbness and tingling that is chronic in nature for many months. - pt states she otherwise has been bed bound for the past 5 months - pt has been to [facility] multiple times for similar symptoms Past Medical history: HTN, HLD, anemia, CKF Past Surgical history: cholecystectomy, hysterectomy Medications: unknown Allergies: nkda Social History: denies ETOH, endorses tobacco use, denies drug use HPI: Poor Historian. Denies any fall or trauma or injury Patient is bed-bound. Past Medical History: Chronic numbness tingling in lower extremities REVIEW OF SYSTEMS: CONSTITUTIONAL: Denies acute: fever, diaphoresis, chills, generalized weakness. HEAD: Denies acute: headache, photophobia Eyes: Denies acute: Double vision, vision loss, eye pain, eye discharge. EARS: Denies acute: tinnitus, hearing loss, ear discharge, ear pain, THROAT: Denies acute: sore throat, swelling, difficulty swallowing , pain with swallowing, change in voice. NECK: Denies acute: neck pain, neck swelling, stiff neck. HEART: Denies acute : chest pain, palpitations, LUNGS: Denies acute: SOB, wheezing, cough, hemoptysis ABDOMEN: Denies acute: abdominal pain, Nausea, Vomiting, diarrhea, melena , hematemesis, hematochezia SKIN: Denies acute: rash, redness, lesions, itchiness. EXTREMITIES: Denies acute: calf pain, numbness, tingling, weakness, Denies acute: Low back pain. Neuro: Denies acute: focal neurological deficit, motor or sensory focal neurological deficit, tremors, seizure like activity, confusion, dizziness, change in mental status, loss of bowel or bladder function, cauda equina like symptoms. : Denies acute: dysuria, hematuria, flank pain, increase in urinary frequency. PSYCH: Denies acute: hallucination, suicidal ideation, homicidal ideation. FEMALE: Denies acute: abnormal vaginal bleeding, foul odor, unusual discharge. PHYSICAL EXAM: General: ----no----acute distress, awake and alert. Head: normocephalic, atraumatic. Neck: supple, trachea is midline, no swelling. Throat: Normal phonation. Eyes:, no erythema, no purulent discharge, no proptosis, no icterus. Heart: regular rate, regular rhythm, no significant murmur appreciated. Lungs: no apparent respiratory distress, Able to speak in full sentences. No wheezing, no rhonchi, no crackles. No stridors Clear to auscultation bilaterally. Abdomen: non tender to palpation, non distended, soft, no guarding, no rebound, + bowel sounds. Obese. Amos catheter in place,, normal urine color. Obese Neuro: Awake, Alert, oriented to name, self, situation, follows commands GCS=15. Speech is normal. Skin: no petechia, no purpura, no cyanosis, non-pale, not jaundice. Lower extremities: --trace b/l- Pitting edema no deformity, no calf TTP. Left knee is noted to have some mild swelling and anterior tenderness to palpation. No erythema. Decreased range of motion secondary to pain. Makes eye contact. moves all four extremities. Face: no apparent facial droop. Pedal pulses are palpable. Patient's daughter asked me to look into the patient's ears: Bilateral tympanic membrane are normal-appearing. No erythema. No obstruction. ED COURSE: Chief Complaint: Lower Extremity Time Seen by MD: 15:29 Primary Care Provider: MICHELLE Reviewed Notes: Medications, Allergies Allergies: Coded Allergies: Propoxyphene (Verified Allergy, Severe, 02/04/24) Codeine (Verified Allergy, Mild, ITCHING AND HIVES, 12/14/21) Home Meds Active Scripts Cephalexin Monohydrate (Cephalexin) 500 Mg Tab, 1 TAB PO QID for 7 Days, #28 TAB Prov:NOLBERTO,KIKA J DO 11/05/24 Sertraline Hcl (Zoloft) 50 Mg Tab, 100 MG PO BID for 30 Days, #120 TAB 3 Refills Prov:MARQUISE SOTOMAYOR DO 07/08/24 Trazodone Hcl (Trazodone Hcl) 50 Mg Tab, 100 MG PO HS for 30 Days, #60 TAB 3 Refills Prov:MARQUISE SOTOMAYOR DO 07/08/24 Lisinopril (Lisinopril) 2.5 Mg Tab, 2 TAB PO DAILY, #180 TAB 3 Refills Prov:LUIS SAGASTUME MD 02/03/24 Reported Medications Cholecalciferol (VITAMIN D3) 2,000 Unit Tab, 1 TAB PO DAILY 09/02/23 Amlodipine Besylate (Amlodipine Besylate) 5 Mg Tab, 1 TAB PO DAILY 09/02/23 Baclofen (Baclofen) 10 Mg Tab, 20 MG PO TID 09/02/23 Levothyroxine Sodium (Levothyroxine Sodium) 50 Mcg Tab, 1 TAB PO DAILY 09/02/23 Zolpidem Tartrate (Zolpidem Tartrate) 10 Mg Tab, 1 TAB PO QPM 09/02/23 Trazodone Hcl (Trazodone Hcl) 100 Mg Tab, 1 TAB PO DAILY 09/02/23 Oxycodone W/ Acetaminophen (Apap/Oxycodone) 1 Tab Tab, 1 TAB PO TID Oxycodone/Acetaminophen 10/325 mg 09/02/23 Pregabalin (Pregabalin) 75 Mg Cap, 1 CAP PO BID 09/02/23 Atorvastatin Calcium (Lipitor) 40 Mg Tab, 1 TAB PO DAILY 09/02/23 Fenofibrate (FENOFIBRATE) 145 Mg Tab, 1 TAB PO DAILYPRN 10/01/20 Sertraline Hcl (Zoloft) 100 Mg Tab, 1 TAB PO BID, #30 TAB 5 Refills 09/12/17 Alprazolam (Xanax) 1 Mg Tab, 1 TAB PO BID for ANXIETY 09/12/17 Information Source: Patient, Emergency Med Personnel Mode of Arrival: EMS Past Medical History PAST MEDICAL HISTORY: Anemia, CKF, HTN Surgical History: Cholecystectomy, Hysterectomy PYTHON DJANGO DEVELOPER History: No Pertinent PYTHON DJANGO DEVELOPER History Family History Family History: Reviewed,noncontributory to illness Social History Smoker: Cigarettes Alcohol: Denies ETOH Use Drugs: Denies Drug Use Lives In: Home Was a procedure done? Was a procedure done?: No Differential Diagnosis EXT Differential Diagnosis: Cellulitis, Deep Vein Thrombosis, Compartment Syndrome, Fracture, Sprain, Gout, DJD, Contusion, Strain, Rheumatoid, Septic, Neurovascular injury, Arthritis, Bursitis X-Ray, Labs, Meds, VS Vital Signs Date Time Temp Pulse Resp B/P (MAP) Pulse Ox O2 Delivery O2 Flow Rate FiO2 11/05/24 20:00 71 11/05/24 19:29 59 21 94 Room Air* 0 21 11/05/24 18:00 71 21 109/44 (65) 94 11/05/24 16:00 63 11/05/24 15:45 64 20 93 Room Air* 0 21 11/05/24 15:45 99.1 64 20 112/80 (91) 93 99.1 11/05/24 15:36 97.9 66 18 132/82 (99) 92 97.9 Lab Test 11/05/24 15:50 Range/Units White Blood Count 6.4 4.4-10.8 10^3/uL Red Blood Count 4.39 4.0-5.20 10^6/uL Hemoglobin 12.1 L 12.2-16.2 g/dL Hematocrit 35.9 L 36.0-46.0 % Mean Corpuscular Volume 81.8 80.0-100.0 fL Mean Corpuscular Hemoglobin 27.6 L 28.0-32.0 pg Mean Corpuscular Hemoglobin Concent 33.7 32.0-36.0 g/dL Red Cell Distribution Width 17.1 H 11.8-14.3 % Platelet Count 216 140-450 10^3/uL Mean Platelet Volume 8.0 6.9-10.8 fL Neutrophils (%) (Auto) 54.2 37.0-80.0 % Lymphocytes (%) (Auto) 30.8 10.0-50.0 % Monocytes (%) (Auto) 7.4 0.0-12.0 % Eosinophils (%) (Auto) 7.0 0.0-7.0 % Basophils (%) (Auto) 0.6 0.0-2.0 % Neutrophils # (Auto) 3.4 1.6-8.6 10 ^3/uL Lymphocytes # (Auto) 2.0 0.4-5.4 10 ^3/uL Monocytes # (Auto) 0.5 0-1.3 10 ^3/uL Eosinophils # (Auto) 0.4 0-0.8 10 ^3/uL Basophils # (Auto) 0 0-0.2 10 ^3/uL Nucleated Red Blood Cells 0.1 % Erythrocyte Sedimentation Rate 15 0-20 mm/hr Sodium Level 142 136-145 mmol/L Potassium Level 4.7 3.5-5.1 mmol/L Chloride Level 105 98-107 mmol/L Carbon Dioxide Level 29 20-31 mmol/L Anion Gap 8 5-15 Blood Urea Nitrogen 27 H 9-23 mg/dL Creatinine 0.78 0.550-1.02 mg/dL Glomerular Filtration Rate Calc 89 >90 mL/min BUN/Creatinine Ratio 34.6 H 10.0-20.0 Serum Glucose 89 74-106 mg/dL Lactic Acid Level 1.1 0.4-2.0 mmol/L Calcium Level 9.7 8.7-10.4 mg/dL Total Bilirubin 0.4 0.2-1.0 mg/dL Aspartate Amino Transferase (AST) 15 13-40 U/L Alanine Aminotransferase (ALT) 15 7-40 U/L Alkaline Phosphatase 109 46-116 U/L C-Reactive Protein High Sensitivity 0.20 <1.0 mg/dL Total Protein 7.4 5.7-8.2 g/dL Albumin 4.4 3.2-4.8 g/dL [place] [id number] Ph: [phone] DIAGNOSTIC IMAGING Diagnostic Imaging Report : [id number] Signed PATIENT: DEBBI MONZON ACCT: [id number] UNIT: [id number] : 1970 LOC: ER ROOM / BED: / AGE / SEX: 54 / F ADM STATUS: REG ER SERVICE [id number] ORDERING PHYSICIAN: KIKA ARVIZU DO PROCEDURE(s): LKNE3 - L KNEE 3V XRAY REASON: pain swelling ORDER NUMBER(s): [id number], ACCESSION NUMBER(s): [id number] EXAM: XY L KNEE 3V XRAY CLINICAL INDICATION: pain swelling TECHNIQUE: XY L KNEE 3V XRAY Comparison: None FINDINGS/IMPRESSION: There is no evidence of acute fracture or dislocation. Severe tricompartment osteoarthropathy The alignment is anatomical. There is no radiopaque foreign body. Mild osteopenia ATED BY: DELPHINE ZAMUDIO MD DICTATED DATE/TIME: 11/05/241644 SIGNED BY: DELPHINE ZAMUDIO MD SIGNED DATE/TIME: 11/05/241644 CC: Time of 1ST Reevaluation: 19:18 Reevaluation 1ST: Unchanged Patient Education/Counseling: Diagnosis, Treatment Family Education/Counseling: No Family Present Comments Daughter came to bedside later. She said that the patient is flying to [place] to move with her. She will establish care there. Patient is bed-bound wearing a diaper and has a Amos catheter to prevent a sacral decubitus ulcer from developing. The daughter wanted me to look at the wound in the back as well which I did. Does not appear to be acutely infected. No purulent discharge. Very low-grade ulcer. Patient presented with the above HPI.---knee pain---workup was initiated. patient was found with the above mentioned diagnosis. the following medications were ordered: please refer to order lists of meds and tests obtained by myself Dr. Arvizu. Patient ED course and VS have been stabilized. Patient has been reassessed in the ED and remained in a stable condition. Pertinent incidental findings were discussed with the patient and/or family. Patient/family voices understanding and is agreeable with plan. Patient has been observed in the ED adequate length of time to insure improvement/stability. Escalation of care considered: Consideration of escalation to observation or admission Patient was DISCHARGED home in a stable condition. All the reports of any imaging studies that were ordered by myself were reviewed by myself. Departure 1 Departure Time of Disposition: 18:54 Impression: Primary Impression: Left knee pain Disposition: 01 HOME / SELF CARE / HOMELESS Condition: Stable Additional Instructions: Additional instructions: You MUST follow-up with your primary care/family doctor in 1 to 2 days. If you are unable to see your primary care/family doctor, please return to our emergency room for re-assessment and re-evaluation in 1 to 2 days. Return to the emergency room here in our facility or to the nearest ER JA if your symptoms change or worsen. CONSULTATIONS: you MUST Follow-up for consultation as soon as possible with: --orthopedic doctor in 1-2 days. Please call for appointment. You MUST call the consultants office yourself to make an appointment. You may need to arrange that through your insurance and/or your primary/family doctor. If you are unable to see the configuration management consultant in 1 to 2 days, you must return to our emergency room (or any other ER of your choice) for re-assessment and re- evaluation. Adequate fluid hydration. Below is a copy of your radiological report for follow up: [facility] [id number] [place] [address] Ph: [phone] DIAGNOSTIC IMAGING Diagnostic Imaging Report : [id number] Signed PATIENT: DEBBI MONZON ACCT: [id number] UNIT: [id number] : 1970 LOC: ER ROOM / BED: / AGE / SEX: 54 / F ADM STATUS: REG ER SERVICE 1537 ORDERING PHYSICIAN: KIKA ARVIZU DO PROCEDURE(s): LKNE3 - L KNEE 3V XRAY REASON: pain swelling ORDER NUMBER(s): [id number], ACCESSION NUMBER(s): [id number] EXAM: XY L KNEE 3V XRAY CLINICAL INDICATION: pain swelling TECHNIQUE: XY L KNEE 3V XRAY Comparison: None FINDINGS/IMPRESSION: There is no evidence of acute fracture or dislocation. Severe tricompartment osteoarthropathy The alignment is anatomical. There is no radiopaque foreign body. Mild osteopenia ATED BY: DELPHINE ZAMUDIO MD DICTATED DATE/TIME: 11/05/24 164 SIGNED BY: DELPHINE ZAMUDIO MD SIGNED DATE/TIME: 11/05/24 1645 CC: e-Prescriptions Cephalexin Monohydrate (Cephalexin) 500 Mg Tab 1 TAB PO QID for 7 Days, #28 TAB Prov: KIKA ARVIZU DO 11/05/24 Discharged With: Self, Relative Critical Care Note Critical Care Time?: No I personally scribed for KIKA ARVIZU DO ([email or web address]) on 11/05/24 at 15:36. Electronically submitted by Hira Delacruz ([facility]). I personally scribed for KIKA ARVIZU DO ([email or web address]) on 11/05/24 at 17:03. Electronically submitted by Hira Delacruz ([facility]). KIKA ARVIZU DO November 05, 2024 15:36
[2024-11-05 15:45] VITALS: PULSE 64; RESP 20; TEMP 99.1; O2SAT 93
[2024-11-05 16:25] LABS: Alanine Aminotransferase 15 U/L (7-40); Albumin 4.4 g/dL (3.2-4.8); Alkaline Phosphatase 109 U/L (46-116); Anion Gap 8 (5-15); Aspartate Aminotransferase 15 U/L (13-40); BUN/Creatinine Ratio 34.6 (10.0-20.0); Calcium 9.7 mg/dL (8.7-10.4); Carbon Dioxide 29 mmol/L (20-31); Chloride 105 mmol/L (98-107); Glucose 89 mg/dL (74-106); Potassium 4.7 mmol/L (3.5-5.1); Sodium 142 mmol/L (136-145); Total Protein 7.4 g/dL (5.7-8.2)
[2024-11-05 16:26] LABS: Bilirubin, Total 0.4 mg/dL (0.2-1.0)
[2024-11-05 16:28] LABS: Blood Urea Nitrogen 27 mg/dL (9-23)
[2024-11-05 16:42] LABS: Basophils # (auto) 0 10 ^3/uL (0-0.2); Basophils % (auto) 0.6 % (0.0-2.0); Eosinophils # (auto) 0.4 10 ^3/uL (0-0.8); Hematocrit 35.9 % (36.0-46.0); Hemoglobin 12.1 g/dL (12.2-16.2); Lymphocytes % (auto) 30.8 % (10.0-50.0); Mean Corpuscular Hemoglobin 27.6 pg (28.0-32.0); Mean Corpuscular Hgb Conc. 33.7 g/dL (32.0-36.0); Mean Corpuscular Volume 81.8 fL (80.0-100.0); Monocytes # (auto) 0.5 10 ^3/uL (0-1.3); Monocytes % (auto) 7.4 % (0.0-12.0); Neutrophils # (auto) 3.4 10 ^3/uL (1.6-8.6); Neutrophils % (auto) 54.2 % (37.0-80.0); Nucleated Red Blood Cells % 0.1 %; Platelet Count (auto) 216 10^3/uL (140-450); Red Blood Cells 4.39 10^6/uL (4.0-5.20); Red Cell Distribution Width 17.1 % (11.8-14.3); White Blood Cell 6.4 10^3/uL (4.4-10.8)
--- NOTE | 2024-11-05 16:47 | DVH ---
EXAM: XY L KNEE 3V XRAY CLINICAL INDICATION: pain swelling TECHNIQUE: XY L KNEE 3V XRAY Comparison: None FINDINGS/IMPRESSION: There is no evidence of acute fracture or dislocation. Severe tricompartment osteoarthropathy The alignment is anatomical. There is no radiopaque foreign body. Mild osteopenia
[2024-11-05 17:23] LABS: Erythrocyte Sedimentation Rate 15 mm/hr (0-20)
[2024-11-05 18:00] VITALS: BP 109/44
[2024-11-05] MEDS ORDERED: CEPH500T PO (19:15)
[2024-11-05 19:29] VITALS: PULSE 59; RESP 21; O2SAT 94
[2024-11-05 20:00] VITALS: PULSE 71
== END 2024-11-06 00:10 | disposition home or self-care (01) ==
LOC: EDBD 15:18 → ER 15:18
DX: M25.562 Pain in left knee (principal); E78.5 Hyperlipidemia, unspecified; F17.210 Nicotine dependence, cigarettes, uncomplicated; I10 Essential (primary) hypertension; M85.80 Other specified disorders of bone density and structure, unspecified site; M17.12 Unilateral primary osteoarthritis, left knee; Z79.890 Hormone replacement therapy; Z79.899 Other long term (current) drug therapy; Z74.01 Bed confinement status; Z88.5 Allergy status to narcotic agent; Z90.49 Acquired absence of other specified parts of digestive tract; Z90.710 Acquired absence of both cervix and uterus
CPT/HCPCS: 36415; 73562; 80053; 83605; 85025; 85652; 86141